=== PATIENT | female | born 1965 | race Caucasian/White ===

== ENCOUNTER 2016-09-18 15:53 | Inpatient (IN) ==
[2016-09-18] MEDS ORDERED: predniSONE 20 MG TABLET PO ONE (16:11)
[2016-09-18] MEDS ORDERED: Ipratropium/Albuterol Neb 3 ML IH ONE (16:12)
[2016-09-18] MEDS ORDERED: Aspirin 325 MG TABLET PO ONE (16:24)
[2016-09-18 16:45] LABS: Basophils # 0.1 K/mcL (0.0-0.2); Basophils % 0.7 %; Eosinophils # 0.9 K/mcL (0.0-0.6); Eosinophils % 9.1 %; Hematocrit 31.3 % (35.3-44.9); Immature Granulocytes % 4.3 % (0-4); Lymphocytes # 1.4 K/mcL (0.6-4.6); Lymphocytes % 14.7 %; Mean Corpuscular HGB Conc 28.8 g/dL (31.6-35.5); Mean Corpuscular Hemoglobin 20.8 pg (28.0-33.3); Mean Corpuscular Volume 72.3 fL (83.0-100.0); Mean Platelet Volume 9.4 fL (9.4-12.4); Monocytes # 0.5 K/mcL (0.0-1.3); Monocytes % 4.9 %; Nucleated Red Blood Cells 1.4 /100 WBC (0); Platelet Count 399 K/mcL (140-400); Prothrombin Time 10.5 Seconds (9.4-12.1); Red Blood Count 4.33 M/mcL (3.82-4.97); Red Cell Distribution Width 18.1 % (11.5-14.5); Segmented Neutrophils % 66.3 %
[2016-09-18 16:48] LABS: Activated Partial Thrombo Time 28.5 Seconds (26.0-36.0)
[2016-09-18 16:51] LABS: BUN/Creatinine Ratio 19 (6-26); Blood Urea Nitrogen 13 mg/dL (7-20); Carbon Dioxide 28 mEq/L (19-29); Chloride 100 mEq/L (98-109); Glucose 101 mg/dL (70-99); Osmolality,Calculated 292 (280-300); Potassium 3.8 mEq/L (3.5-4.5); Sodium 141 mEq/L (136-145); eGFR For African Americans > 60 (> 60); eGFR For Non-African Americans > 60 (> 60)
[2016-09-18 17:03] LABS: Neutrophils # 6.4 K/mcL (1.6-8.9)
[2016-09-18] MEDS ORDERED: 0.9 % Sodium Chloride 1,000 ML IVC ONE (17:36)
[2016-09-18 17:43] LABS: Anisocytosis 1+ (Not Present); Hypochromasia Present (Not Present); Platelet Estimate Normal (Normal)
--- NOTE | 2016-09-18 17:50 | Emergency Department Note ---
Disposition Clinical Impression: Chest tightness Dyspnea Qualifiers: Dyspnea type: unspecified Qualified Code(s): R06.00 - Dyspnea, unspecified Disposition: Still a Patient Condition: Fair Referrals: Eduarda Abbasi MD [Primary Care Provider] - Forms: ED Satisfaction Letter Time of Disposition: 19:14 SOB HPI - General Chief Complaint: ED Chest Pain Stated Complaint: High BP, YE, chest tightness Time Seen by Provider: 09/18/16 16:02 Source: patient Mode of arrival: ambulatory Limitations: no limitations Nursing Notes Reviewed: Yes Vital Signs Reviewed: Yes - History of Present Illness Patient is a 51-year-old female with past medical history of PE, hypertension, fibromyalgia. She presents today due to shortness of breath. She says that she has having shortness of breath with similar chest tightness, no radiation, no sweating, no fevers, nausea, vomiting, abdominal pain, diarrhea. She reports that she had a previous PE, she was told that it had resolved when she had a CTA in July. However, she is now having shortness of breath that is worsened with exertion. Not currently on any blood thinners. - Related Data Home Medications Medication Instructions Recorded Confirmed Azelastine 1% Nasal Stacy [Astelin] 2 puff NS QPM 03/21/15 03/24/16 Famotidine [Pepcid] 40 mg PO QAM 03/21/15 03/24/16 Gabapentin [Neurontin] 1,600 mg PO HS 03/21/15 03/24/16 Omeprazole [PriLOSEC] 40 mg PO QAM 03/21/15 03/24/16 Topiramate [Topamax] 150 mg PO BID 03/21/15 03/24/16 Fluticasone Propionate Nasal 2 spray NS HS 06/20/15 03/24/16 [Flonase] Celecoxib [Celebrex] 400 mg PO HS 01/30/16 03/24/16 Cetirizine HCl [Zyrtec] 10 mg PO HS 01/30/16 03/24/16 Diazepam [Valium] 5 mg PO TID 01/30/16 03/24/16 EPINEPHrine [Epipen] 0.3 mg IJ ONCE PRN 01/30/16 03/24/16 Montelukast [Singulair] 10 mg PO HS 01/30/16 03/24/16 Venlafaxine HCl [Venlafaxine HCl 225 mg PO HS 01/30/16 03/24/16 ER] Gabapentin [Gabapentin] 800 mg PO QAM 03/24/16 03/24/16 Metoclopramide HCl 5 mg PO HS 03/24/16 03/24/16 Oxcarbazepine 1,200 mg PO HS 03/24/16 03/24/16 Oxcarbazepine 600 mg PO QAM 03/24/16 03/24/16 OxyCODONE/APAP 5/325 [Percocet 1 each PO Q8HR PRN 03/24/16 03/24/16 5/325 MG] Quetiapine Fumarate [SEROquel] 100 mg PO BID 03/24/16 03/24/16 Quetiapine Fumarate [Seroquel] 200 mg PO HS 03/24/16 03/24/16 Previous Rx's Medication Instructions Recorded Clindamycin [Cleocin] 150 mg PO Q6HR #8 capsule 03/23/16 OxyCODONE/APAP 7.5/325 [Percocet 1 each PO Q8HR PRN #30 tablet 03/24/16 7.5/325 MG] HYDROcodone/Acet 5/325 mg [[place] 1 tab PO Q6H PRN #5 tab 08/23/16 5-325 mg] Allergies Allergy/AdvReac Type Severity Reaction Status Date / Time adhesive tape Allergy Blister Verified 03/21/15 13:05 latex Allergy Blister Verified 03/21/15 13:05 vancomycin Allergy Itching Verified 06/20/15 15:47 Constitutional: Denies: fever Cardiovascular: Reports: chest pain, dyspnea on exertion. Denies: palpitations Respiratory: Reports: dyspnea. Denies: cough Gastrointestinal: Denies: abdominal pain, nausea, vomiting, diarrhea Genitourinary: Denies: urgency, dysuria Musculoskeletal: Denies: back pain Integumentary: Denies: rash Past Medical History - Past Medical History Attestation: Yes The following information was validated with the patient. 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 - Social History Smoking Status: Never smoker Smokeless Tobacco Status: No Alcohol use: Reports: none Drug use: Reports: none Physical Exam - General Limitations: no limitations General appearance: alert, anxious - Head Head exam: atraumatic, normocephalic, normal inspection - Eye Eye exam: Present: normal appearance, PERRL, EOMI - ENT ENT exam: normal exam, normal oropharynx, mucous membranes moist - Neck Neck exam: Present: normal inspection, full ROM, trachea midline - Chest Chest inspection: Present: normal inspection, symmetric chest wall rise - Respiratory Respiratory exam: Present: wheezes (Mild to moderate wheeze in bilateral LL) - Cardiovascular Cardiovascular exam: Present: regular rate, normal rhythm, normal heart sounds - Abdominal Exam Abdominal exam: Present: soft, Non-Tender. Absent: tenderness, distention, guarding, rebound, rigidity - Extremities Exam Extremities exam: Present: normal inspection, full ROM. Absent: tenderness, pedal edema - Neurological Exam Neurological exam: Present: alert, oriented X3 - Psychiatric Psychiatric exam: Present: normal affect, normal mood - Skin Skin exam: Present: warm, dry, intact, normal color Course Course Narrative: Patient was not tachycardic, oxygen saturation was within normal limits on room air. Physical exam showed bilateral lower lobe wheeze. Patient was given DuoNeb, penicillin, aspirin. EKG was obtained which showed normal sinus rhythm with no acute ST changes. D-dimer was obtained and was elevated. Patient also had an elevated troponin at 0.05. Will obtain CTA of the chest to assess for PE. CXR showed mild CHF with small right pleural effusion. WIll sign out to night team for further care and dispo, pending CTA of chest. Signed out to Dr. Bay and Dr. Ramos. Recommend likely admission even if CTA negative due to new pleural effusion on CXR and possible new onset CHF. Chest X-Ray 09/18/16 16:11 IMPRESSION: Mild CHF with a question of a small right pleural effusion. D/ / Sebastián Langston MD / Sebastián Langston MD Interpreting Provider: Sebastián Langston MD Vital Signs Temperature 98.7 F 09/18/16 16:03 Pulse Rate 83 09/18/16 16:03 Respiratory Rate 20 09/18/16 16:03 Blood Pressure 171/110 09/18/16 16:03 O2 Sat by Pulse Oximetry 98 09/18/16 16:03 Temperature 98.7 F 09/18/16 16:03 Pulse Rate 85 09/18/16 18:58 Respiratory Rate 24 09/18/16 18:58 Blood Pressure 147/75 09/18/16 18:58 O2 Sat by Pulse Oximetry 94 09/18/16 19:05 Oxygen Delivery Oxygen Delivery Room Air Shortness of Breath/Dyspnea - [facility] Narrative Medical decision making narrative: Patient was not tachycardic, oxygen saturation was within normal limits on room air. Physical exam showed bilateral lower lobe wheeze. Patient was given DuoNeb, penicillin, aspirin. EKG was obtained which showed normal sinus rhythm with no acute ST changes. D-dimer was obtained and was elevated. Patient also had an elevated troponin at 0.05. Will obtain CTA of the chest to assess for PE. CXR showed mild CHF with small right pleural effusion. WIll sign out to night team for further care and dispo, pending CTA of chest. Signed out to Dr. Bay and Dr. Ramos. Recommend likely admission even if CTA negative due to new pleural effusion on CXR and possible new onset CHF. - Medical Records Medical records reviewed: Yes I reviewed the patient's medical records. - Lab Data Lab results reviewed: Yes I reviewed the patient's lab results. Result diagrams: 09/18/16 16:28 09/18/16 16:28 Lab Results 09/18/16 09/18/16 09/18/16 Range/Units 16:28 16:28 16:28 WBC 9.6 (4.3-11.1) K/mcL RBC 4.33 (3.82-4.97) M/mcL Hgb 9.0 L (11.5-15.4) g/dL Hct 31.3 L (35.3-44.9) % MCV 72.3 L (83.0-100.0) fL MCH 20.8 L (28.0-33.3) pg MCHC 28.8 L (31.6-35.5) g/dL RDW 18.1 H (11.5-14.5) % Plt Count 399 (140-400) K/mcL MPV 9.4 (9.4-12.4) fL Immature Gran % 4.3 H (0-4) % Seg Neutrophils % 66.3 % Lymphocytes % 14.7 % Monocytes % 4.9 % Eosinophils % 9.1 % Basophils % 0.7 % Neutrophils # 6.4 (1.6-8.9) K/mcL Lymphocytes # 1.4 (0.6-4.6) K/mcL Monocytes # 0.5 (0.0-1.3) K/mcL Eosinophils # 0.9 H (0.0-0.6) K/mcL Basophils # 0.1 (0.0-0.2) K/mcL Nucleated RBCs/100 WBC 1.4 H (0) /100 WBC Platelet Estimate Normal (Normal) Hypochromasia Present A (Not Present) Anisocytosis 1+ A (Not Present) PT 10.5 (9.4-12.1) Seconds INR 1.0 APTT 28.5 (26.0-36.0) Seconds D-Dimer 2365 H (0-500) ng/mLFEU Sodium 141 (136-145) mEq/L Potassium 3.8 (3.5-4.5) mEq/L Chloride 100 (98-109) mEq/L Carbon Dioxide 28 (19-29) mEq/L BUN 13 (7-20) mg/dL Creatinine 0.68 (0.57-1.11) mg/dL Est GFR ( Amer) > 60 (> 60) Est GFR (Non-Af Amer) > 60 (> 60) BUN/Creatinine Ratio 19 (6-26) Glucose 101 H (70-99) mg/dL Calculated Osmolality 292 (280-300) Calcium 9.0 (8.6-10.8) mg/dL Troponin I (0-0.03) ng/mL 09/18/16 Range/Units 16:28 WBC (4.3-11.1) K/mcL RBC (3.82-4.97) M/mcL Hgb (11.5-15.4) g/dL Hct (35.3-44.9) % MCV (83.0-100.0) fL MCH (28.0-33.3) pg MCHC (31.6-35.5) g/dL RDW (11.5-14.5) % Plt Count (140-400) K/mcL MPV (9.4-12.4) fL Immature Gran % (0-4) % Seg Neutrophils % % Lymphocytes % % Monocytes % % Eosinophils % % Basophils % % Neutrophils # (1.6-8.9) K/mcL Lymphocytes # (0.6-4.6) K/mcL Monocytes # (0.0-1.3) K/mcL Eosinophils # (0.0-0.6) K/mcL Basophils # (0.0-0.2) K/mcL Nucleated RBCs/100 WBC (0) /100 WBC Platelet Estimate (Normal) Hypochromasia (Not Present) Anisocytosis (Not Present) PT (9.4-12.1) Seconds INR APTT (26.0-36.0) Seconds D-Dimer (0-500) ng/mLFEU Sodium (136-145) mEq/L Potassium (3.5-4.5) mEq/L Chloride (98-109) mEq/L Carbon Dioxide (19-29) mEq/L BUN (7-20) mg/dL Creatinine (0.57-1.11) mg/dL Est GFR ( Amer) (> 60) Est GFR (Non-Af Amer) (> 60) BUN/Creatinine Ratio (6-26) Glucose (70-99) mg/dL Calculated Osmolality (280-300) Calcium (8.6-10.8) mg/dL Troponin I 0.05 H* (0-0.03) ng/mL - Radiology Data Radiology results reviewed: Yes I reviewed the patient's radiology results. Chest X-Ray 09/18/16 16:11 IMPRESSION: Mild CHF with a question of a small right pleural effusion. D/ / Sebastián Langston MD / Sebastián Langston MD Interpreting Provider: Sebastián Langston MD Chest CTA 09/18/16 17:36 IMPRESSION: 1. No evidence of pulmonary embolic disease. 2. Bilateral pulmonary infiltrates most consistent with a multifocal pneumonia. Trace right pleural effusion. New small mediastinal and right hilar nodes, likely reactive. 3. Partial visualization of the gallbladder which demonstrates diffuse wall thickening. Ultrasound correlation recommended. D/ / 09/18/2016 19:00:53 Aleks Perez MD / kay Interpreting Provider: Aleks Perez MD - EKG Data EKG attestation: Yes I reviewed and interpreted this EKG. EKG results narrative: 09/18/2016 at 15:57. NSR with no acute ST changes. Rate 81. DC 157. QRS 107. QTC 416. Left axis deviation. Attestation Statement - Attestation Attestation: I examined this patient and my medical decision-making was reviewed with the APPLICATION SECURITY SPECIALIST/PA/Advanced Practice Nurse/Resident Physician. I agree with the documented findings, disposition and treatment plan as described except to the extent set forth below. Patient emergency department with chief complaint of chest tightness and shortness of breath. Patient states she has a negative tissue disorder. She has had a couple episodes today where she had pain from her head to her toes. She states she comes up in the position when she gets up. She also has some shortness of breath and chest tightness. On exam she is in no distress. Heart is regular rate and rhythm. Lungs clear. Plan. Patient elevated troponin. CHF or chest x-ray. CT is pending and she has a history of PE.
[2016-09-18] MEDS: Nitroglycerin 0.4 MG TAB.SUBL SL PRN ×2 (18:53→18:58)
[2016-09-18] MEDS ORDERED: *HR* Morphine 2 MG/ML SYRINGE IVP ONE (19:07)
--- NOTE | 2016-09-18 19:09 | Emergency Department Note ---
Disposition Clinical Impression: Chest tightness Dyspnea Qualifiers: Dyspnea type: unspecified Qualified Code(s): R06.00 - Dyspnea, unspecified Disposition: Admitted As Inpatient Condition: Undetermined Time of Disposition: 20:37 Chest Pain HPI - General Chief Complaint: ED Chest Pain Stated Complaint: High BP, YE, chest tightness Time Seen by Provider: 09/18/16 16:02 Source: patient Mode of arrival: ambulatory Limitations: no limitations Vital Signs Reviewed: Yes Nursing Notes Reviewed: Yes - History of Present Illness HPI Narrative: Patient care assumed from day team. 51-year-old female with history of unknown immune disorder according to her, she arrives to [facility] emergency department complaining of chest tightness on the left side and epigastric region as well as dyspnea. Patient states it started 1-2 days ago and is progressively worsened. The patient has an O2 saturation of 91% on room air. Chest x-ray does demonstrate bilateral lower lobe atelectasis. The patient's CTA was negative for pulmonary embolus. The patient also had a gallbladder wall thickening noted on CTA of her chest. There was recommendation of right upper quadrant ultrasound which will be performed. The patient does have an elevated troponin. Pt complaint: chest pain Onset (ago): day(s) (3-4) Duration: intermittent Pain Location: epigastric Severity: moderate Severity scale (1-10): 9 Pain Radiation: none Improves with: nothing Worsens with: nothing Associated symptoms: Reports: nausea, dyspnea Treatments prior to arrival chest pain: none - Related Data On Oral Contraceptives: No Home Medications Medication Instructions Recorded Confirmed Famotidine [Pepcid] 40 mg PO QAM 03/21/15 09/18/16 Omeprazole [PriLOSEC] 40 mg PO QAM 03/21/15 09/18/16 Celecoxib [Celebrex] 200 mg PO BID 01/30/16 09/18/16 EPINEPHrine [Epipen] 0.3 mg IJ ONCE PRN 01/30/16 03/24/16 Montelukast [Singulair] 10 mg PO HS 01/30/16 09/18/16 Venlafaxine HCl [Venlafaxine HCl 225 mg PO HS 01/30/16 09/18/16 ER] Metoclopramide HCl 5 mg PO HS 03/24/16 09/18/16 Oxcarbazepine 1,200 mg PO HS 03/24/16 09/18/16 Oxcarbazepine 600 mg PO QAM 03/24/16 09/18/16 Quetiapine Fumarate [Seroquel] 200 mg PO HS 03/24/16 09/18/16 Apixaban [Eliquis] 5 mg PO BID 09/18/16 09/18/16 Diazepam [Valium] 10 mg PO TID PRN 09/18/16 09/18/16 Ergocalciferol (VITAMIN D2) 50,000 unit PO QMONTH 09/18/16 09/18/16 [Vitamin D2] Nortriptyline [Pamelor] 25 mg PO HS 09/18/16 09/18/16 Allergies Allergy/AdvReac Type Severity Reaction Status Date / Time adhesive tape Allergy Blister Verified 03/21/15 13:05 latex Allergy Blister Verified 03/21/15 13:05 vancomycin Allergy Itching Verified 06/20/15 15:47 Constitutional: Denies: fever Cardiovascular: Reports: chest pain, dyspnea on exertion. Denies: palpitations Respiratory: Reports: dyspnea. 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 - Social History Smoking Status: Never smoker Alcohol use: Reports: none Drug use: Reports: none Physical Exam Physical Exam: General: Patient alert, in mild respiratory acute distress, not lethargic HEENT: Head normal inspection, atraumatic, PERRLA, oropharynx grossly intact and normal, trachea midline, no JVD Chest: Nontraumatic, nontender, normal chest rise CV: RRR with no murmurs, rubs, gallops Respiratory: Coarse sounds bilaterally with noted rales in bilateral lower lobes Abdomen: Normal inspection, Normal bowel sounds 4 quadrants, nontender to palpation : Patient deferred Extremities: Normal inspection, full range of motion, appropriate pulses, capillary refill under 2 seconds Neurological: Patient alert and oriented 3, cranial nerves II through XII grossly intact, GCS 15 Skin: Warm, intact, no rashes noted - General Limitations: no limitations General appearance: alert, anxious Course Vital Signs Temperature 98.7 F 09/18/16 16:03 Pulse Rate 83 09/18/16 16:03 Respiratory Rate 20 09/18/16 16:03 Blood Pressure 171/110 09/18/16 16:03 O2 Sat by Pulse Oximetry 98 09/18/16 16:03 Temperature 98.2 F 09/19/16 03:36 Pulse Rate 87 09/19/16 03:36 Respiratory Rate 16 09/19/16 03:36 Blood Pressure 139/83 09/19/16 03:36 O2 Sat by Pulse Oximetry 96 09/19/16 03:36 Oxygen Delivery Oxygen Delivery Nasal Cannula Chest Pain - MDM Narrative Medical decision making narrative: Patient accepted by Dr. Saul. - Medical Records Medical records reviewed: Yes I reviewed the patient's medical records. - Lab Data Lab results reviewed: Yes I reviewed the patient's lab results. Result diagrams: 09/18/16 16:28 09/18/16 16:28 Lab Results 09/18/16 09/18/16 09/18/16 Range/Units 16:28 16:28 16:28 WBC 9.6 (4.3-11.1) K/mcL RBC 4.33 (3.82-4.97) M/mcL Hgb 9.0 L (11.5-15.4) g/dL Hct 31.3 L (35.3-44.9) % MCV 72.3 L (83.0-100.0) fL MCH 20.8 L (28.0-33.3) pg MCHC 28.8 L (31.6-35.5) g/dL RDW 18.1 H (11.5-14.5) % Plt Count 399 (140-400) K/mcL MPV 9.4 (9.4-12.4) fL Immature Gran % 4.3 H (0-4) % Seg Neutrophils % 66.3 % Lymphocytes % 14.7 % Monocytes % 4.9 % Eosinophils % 9.1 % Basophils % 0.7 % Neutrophils # 6.4 (1.6-8.9) K/mcL Lymphocytes # 1.4 (0.6-4.6) K/mcL Monocytes # 0.5 (0.0-1.3) K/mcL Eosinophils # 0.9 H (0.0-0.6) K/mcL Basophils # 0.1 (0.0-0.2) K/mcL Nucleated RBCs/100 WBC 1.4 H (0) /100 WBC Platelet Estimate Normal (Normal) Hypochromasia Present A (Not Present) Anisocytosis 1+ A (Not Present) PT 10.5 (9.4-12.1) Seconds INR 1.0 APTT 28.5 (26.0-36.0) Seconds D-Dimer 2365 H (0-500) ng/mLFEU Sodium 141 (136-145) mEq/L Potassium 3.8 (3.5-4.5) mEq/L Chloride 100 (98-109) mEq/L Carbon Dioxide 28 (19-29) mEq/L BUN 13 (7-20) mg/dL Creatinine 0.68 (0.57-1.11) mg/dL Est GFR ( Amer) > 60 (> 60) Est GFR (Non-Af Amer) > 60 (> 60) BUN/Creatinine Ratio 19 (6-26) Glucose 101 H (70-99) mg/dL Calculated Osmolality 292 (280-300) Calcium 9.0 (8.6-10.8) mg/dL Total Bilirubin 0.5 (0.2-1.2) mg/dL Direct Bilirubin 0.2 (0.0-0.5) mg/dL Indirect Bilirubin 0.3 (0.0-1.2) mg/dL AST 32 (5-34) Units/L ALT 32 (0-55) Units/L Alkaline Phosphatase 100 (38-126) Units/L Troponin I (0-0.03) ng/mL B-Natriuretic Peptide (0-100) pg/mL Serum Total Protein 7.4 (6.0-8.3) g/dL Albumin 3.3 L (3.5-5.0) g/dL Globulin 4.1 H (2.4-3.5) g/dL Albumin/Globulin Ratio 0.8 L (1.1-2.2) 09/18/16 09/18/16 Range/Units 16:28 16:28 WBC (4.3-11.1) K/mcL RBC (3.82-4.97) M/mcL Hgb (11.5-15.4) g/dL Hct (35.3-44.9) % MCV (83.0-100.0) fL MCH (28.0-33.3) pg MCHC (31.6-35.5) g/dL RDW (11.5-14.5) % Plt Count (140-400) K/mcL MPV (9.4-12.4) fL Immature Gran % (0-4) % Seg Neutrophils % % Lymphocytes % % Monocytes % % Eosinophils % % Basophils % % Neutrophils # (1.6-8.9) K/mcL Lymphocytes # (0.6-4.6) K/mcL Monocytes # (0.0-1.3) K/mcL Eosinophils # (0.0-0.6) K/mcL Basophils # (0.0-0.2) K/mcL Nucleated RBCs/100 WBC (0) /100 WBC Platelet Estimate (Normal) Hypochromasia (Not Present) Anisocytosis (Not Present) PT (9.4-12.1) Seconds INR APTT (26.0-36.0) Seconds D-Dimer (0-500) ng/mLFEU Sodium (136-145) mEq/L Potassium (3.5-4.5) mEq/L Chloride (98-109) mEq/L Carbon Dioxide (19-29) mEq/L BUN (7-20) mg/dL Creatinine (0.57-1.11) mg/dL Est GFR ( Amer) (> 60) Est GFR (Non-Af Amer) (> 60) BUN/Creatinine Ratio (6-26) Glucose (70-99) mg/dL Calculated Osmolality (280-300) Calcium (8.6-10.8) mg/dL Total Bilirubin (0.2-1.2) mg/dL Direct Bilirubin (0.0-0.5) mg/dL Indirect Bilirubin (0.0-1.2) mg/dL AST (5-34) Units/L ALT (0-55) Units/L Alkaline Phosphatase (38-126) Units/L Troponin I 0.05 H* (0-0.03) ng/mL B-Natriuretic Peptide 74 (0-100) pg/mL Serum Total Protein (6.0-8.3) g/dL Albumin (3.5-5.0) g/dL Globulin (2.4-3.5) g/dL Albumin/Globulin Ratio (1.1-2.2) - Radiology Data Radiology results reviewed: Yes I reviewed the patient's radiology results. Attestation Statement - Attestation Attestation: Dr Ramos note: Pt seen in conjunction w/ resident Dr Bay; Please see his charting for complete documentation; I spent face to face time w/the pt and agree w/ the pt' s treatment and disposition; Ct scan results reviewed, pneumonia noted; no tachypnea/respiratory distress on exam;
[2016-09-18 19:32] LABS: Alanine Aminotransferase 32 Units/L (0-55); Albumin 3.3 g/dL (3.5-5.0); Albumin/Globulin Ratio 0.8 (1.1-2.2); Alkaline Phosphatase 100 Units/L (38-126); Aspartate Amino Transferase 32 Units/L (5-34); Bilirubin,Direct 0.2 mg/dL (0.0-0.5); Bilirubin,Indirect 0.3 mg/dL (0.0-1.2); Bilirubin,Total 0.5 mg/dL (0.2-1.2); Globulin 4.1 g/dL (2.4-3.5); Total Protein 7.4 g/dL (6.0-8.3)
[2016-09-18] MEDS ORDERED: levoFLOXacin 500 MG TABLET PO ONE (20:30)
--- NOTE | 2016-09-18 22:09 | Internal Med History&Physical ---
Date of Encounter: 09/18/16 Time of Encounter: 22:02 Assessment and Plan (1) Pneumonia Current visit: Yes Status: Acute multifocal pneumonia community acquired started on levaquin Qualifiers: Pneumonia type: due to unspecified organism Laterality: bilateral Lung location: unspecified part of lung Qualified Code(s): J18.9 - Pneumonia, unspecified organism (2) Elevated troponin Current visit: Yes Status: Acute chest pain with elevated troponin trend troponin echo in am cardiology consult (3) HTN (hypertension) Current visit: Yes Status: Chronic resume home meds Qualifiers: Hypertension type: essential hypertension Qualified Code(s): I10 - Essential (primary) hypertension (4) Chest tightness Current visit: Yes Status: Acute atypical constant but worse with exertion (5) Anemia Current visit: No Status: Chronic chronic Qualifiers: Anemia type: unspecified type Qualified Code(s): D64.9 - Anemia, unspecified (6) Depression Current visit: No Status: Chronic chronic Qualifiers: Depression Type: major depressive disorder Major depression recurrence: recurrent Active/Remission status: currently active Major depression episode severity: mild Qualified Code(s): F33.0 - Major depressive disorder, recurrent, mild (7) Obesity Current visit: Yes Status: Chronic chronic Qualifiers: Obesity type: due to excess calories Obesity severity: non-morbid Qualified Code(s): E66.09 - Other obesity due to excess calories Internal Medicine - H&P: HPI Chief complaint: sob and cough Admitted From: Emergency Dept Plans for Post Hospital Care: Home History of present illness: Ms. Mooney is a 51 year old female Patient with history of obesity, fibromyalgia, pulmonary embolism June this year, hypertension, bipolar disorder and history of prosthetic joint infection patient presented to the emergency room with 4 days of shortness of breath with exertion, cough which is nonproductive Also some chest tightness . chest tightness is constant but worse with exertion and exertional sob as well denies any fever or chills . has history of pulmonary embolism, d-dimer high in ER CT of the chest was done which showed no pulmonary embolism but has multifocal pneumonia troponin is elevated at 0.05 patient is admitted for further treatment. Past Med Surg Social Fam HX - Past Medical History Medical history: arthritis, fibromyalgia, GERD, hypertension, pulmonary embolus , other Psychiatric history: anxiety, bipolar, depression - Past Surgical History Surgical History: appendectomy, , hysterectomy, knee replacement, orthopedic, other, sinus surgery - Social History Smoking Status: Never smoker Smokeless Tobacco Status: No Alcohol use: none Drug use: none - Family History Mother Living Status: Still Living Hx Family Cardiac Disorders: Yes Hx Family Cancer: Yes (Right breast, mastectomy) Father Hx Family Endocrine Disorder: Yes (Diabetes) Internal Medicine - H&P: Meds Famotidine [Pepcid] 40 mg PO QAM 03/21/15 [History] Omeprazole [PriLOSEC] 40 mg PO QAM 03/21/15 [History] Celecoxib [Celebrex] 200 mg PO BID 01/30/16 [History] EPINEPHrine [Epipen] 0.3 mg IJ ONCE PRN 01/30/16 [History] Montelukast [Singulair] 10 mg PO HS 01/30/16 [History] Venlafaxine HCl [Venlafaxine HCl ER] 225 mg PO HS 01/30/16 [History] Metoclopramide HCl 5 mg PO HS 03/24/16 [History] Oxcarbazepine 1,200 mg PO HS 03/24/16 [History] Oxcarbazepine 600 mg PO QAM 03/24/16 [History] Quetiapine Fumarate [Seroquel] 200 mg PO HS 03/24/16 [History] Apixaban [Eliquis] 5 mg PO BID 09/18/16 [History] Diazepam [Valium] 10 mg PO TID PRN 09/18/16 [History] Ergocalciferol (VITAMIN D2) [Vitamin D2] 50,000 unit PO QMONTH 09/18/16 [History ] Nortriptyline [Pamelor] 25 mg PO HS 09/18/16 [History] Allergies adhesive tape Allergy (Verified 03/21/15 13:05) Blister latex Allergy (Verified 03/21/15 13:05) Blister vancomycin Allergy (Verified 06/20/15 15:47) Itching Patient became flushed, itching all over, hot All Systems PM: A 10-system review of systems was performed and is negative for pertinent findings except as documented above in the HPI. - Constitutional Constitutional: no chills, no fever(s), no night sweats - EENT Eyes: no change in vision, no discharge, no pain, no photophobia Ears: no ear discharge, no ear pain, no tinnitus Nose, mouth and throat: no dysphagia, no nasal discharge, no neck pain, no sore throat - Cardiovascular Cardiovascular ROS IM: chest pain, dyspnea, dyspnea on exertion - Respiratory Respiratory: cough, dyspnea on exertion, chest congestion - Gastrointestinal Gastrointestinal: no abdominal pain, no diarrhea, no hematemesis, no hematochezia, no melena, no nausea, no vomiting - Genitourinary Genitourinary: no change in urinary stream, no dysuria, no flank pain, no hematuria - Musculoskeletal Musculoskeletal ROS IM: no numbness, no tingling - Integumentary Integumentary IM: no rash, no unusual bruising - Neurological Neurological ROS: no confusion, no convulsions, no focal weakness, no numbness, no tingling, no tremor(s) - Hematologic/Lymphatic Hematologic/Lymphatic: no easy bruising - Constitutional Vitals: Temp Pulse Resp BP Pulse Ox 98.7 F 81 20 152/89 96 09/18/16 16:03 09/18/16 20:35 09/18/16 20:35 09/18/16 20:35 09/18/16 20:35 General appearance: Present: A&O X 3 - Eye Eye exam: Present: PERRL, conjuntiva pink, sclera anicteric Pupils: Present: PERRL - Neck Neck exam general surgery: Present: supple, trachea midline. Absent: lymphadenopathy - Respiratory Respiratory exam: Present: decreased breath sounds, rhonchi - Cardiovascular Cardiovascular exam: Present: RRR, +S1, +S2. Absent: diastolic murmur, gallop, rubs, systolic murmur - GI/Abdominal GI/Abdominal exam: Present: normal bowel sounds, soft, no peritoneal signs. Absent: distended, tenderness - Extremities Exam Extremities exam: Present: warm, radial pulses palpable and symetrical. Absent : calf tenderness, cyanotic, pedal edema - Neurological Exam Neurological exam: Present: CN II-XII intact, oriented X3, no focal deficits. Absent: pronater drift, facial droop, speech deficit Internal Med - H&P Results - Labs CBC & Chem 7: 09/18/16 16:28 09/18/16 16:28
[2016-09-18] MEDS ORDERED: Naloxone 0.4 MG/ML INJ IVP PRN (22:16)
[2016-09-19] MEDS: Gabapentin 400 MG CAPSULE PO SCH ×4 (00:25→21:54)
[2016-09-19] MEDS: VENLAFAXINE PO SCH ×2 (00:26→21:58)
[2016-09-19] MEDS: clonazePAM 1 MG TABLET PO SCH ×3 (00:27→22:00)
[2016-09-19] MEDS: Famotidine 20 MG TABLET PO SCH ×3 (00:27→21:54)
[2016-09-19] MEDS: Celecoxib 200 MG CAPSULE PO SCH ×3 (00:28→22:01)
[2016-09-19] MEDS: OXcarbazepine 150 MG TABLET PO SCH ×3 (00:30→21:56)
[2016-09-19] MEDS: Loratadine 10 MG TABLET PO SCH ×2 (00:32→21:55)
[2016-09-19] MEDS ORDERED: Ipratropium/Albuterol Neb 3 ML IH ONE (01:36)
[2016-09-19 05:11] LABS: Bilirubin,Urine Negative (Negative); Blood,Urine Trace (Negative); Color,Urine Yellow (Yellow); Glucose,Urine (UA) Normal (Normal); Ketones,Urine Negative (Negative); Leukocyte Esterase,Urine Negative (Negative); Nitrite,Urine Negative (Negative); PH,Urine 5.5 pH Units (5.0-8.0); Protein,Urine 100 mg/dL (Neg-Trace); Specific Gravity,Urine > 1.030 (1.010-1.025); Urobilinogen,Urine Normal (Normal)
[2016-09-19 05:13] LABS: Clarity,Urine Turbid (Clear)
[2016-09-19 05:15] LABS: Amorphous Sediment,Urine Many (Few); Bacteria,Urine Moderate per hpf (None-Few); WBC,Urine 15-30 per hpf (0-3)
[2016-09-19 05:27] LABS: Eosinophils % 0.4 %
[2016-09-19 05:29] LABS: Basophils % 0.3 %; Eosinophils # 0.1 K/mcL (0.0-0.6); Hematocrit 25.4 % (35.3-44.9); Hemoglobin 7.3 g/dL (11.5-15.4); Immature Granulocytes % 3.5 % (0-4); Lymphocytes # 1.3 K/mcL (0.6-4.6); Lymphocytes % 11.7 %; Mean Corpuscular HGB Conc 28.7 g/dL (31.6-35.5); Mean Corpuscular Hemoglobin 20.8 pg (28.0-33.3); Mean Corpuscular Volume 72.4 fL (83.0-100.0); Mean Platelet Volume 9.5 fL (9.4-12.4); Monocytes # 0.9 K/mcL (0.0-1.3); Monocytes % 7.5 %; Neutrophils # 8.7 K/mcL (1.6-8.9); Platelet Count 350 K/mcL (140-400); Red Blood Count 3.51 M/mcL (3.82-4.97); Red Cell Distribution Width 18.3 % (11.5-14.5); Segmented Neutrophils % 76.6 %
[2016-09-19 05:55] LABS: Alanine Aminotransferase 24 Units/L (0-55); Albumin 2.7 g/dL (3.5-5.0); Albumin/Globulin Ratio 0.7 (1.1-2.2); Alkaline Phosphatase 78 Units/L (38-126); Aspartate Amino Transferase 25 Units/L (5-34); BUN/Creatinine Ratio 22 (6-26); Bilirubin,Total 0.3 mg/dL (0.2-1.2); Blood Urea Nitrogen 14 mg/dL (7-20); Calcium 8.5 mg/dL (8.6-10.8); Carbon Dioxide 23 mEq/L (19-29); Chloride 105 mEq/L (98-109); Chol/HDL Ratio 5.2 (0-4.9); Cholesterol 162 mg/dL (< 200); Globulin 3.8 g/dL (2.4-3.5); Glucose 109 mg/dL (70-99); HDL Cholesterol 31 mg/dL (40-59); LDL Cholesterol,Calculated 106 mg/dL (0-99); Magnesium 1.9 mg/dL (1.6-2.6); Osmolality,Calculated 291 (280-300); Potassium 3.9 mEq/L (3.5-4.5); Sodium 140 mEq/L (136-145); Total Protein 6.5 g/dL (6.0-8.3); Triglycerides 126 mg/dL (< 150); eGFR For African Americans > 60 (> 60); eGFR For Non-African Americans > 60 (> 60)
[2016-09-19 06:32] LABS: Platelet Estimate Normal (Normal)
[2016-09-19 06:34] LABS: Anisocytosis 1+ (Not Present); Hypochromasia Present (Not Present); Microcytosis Present (Not Present)
[2016-09-19] MEDS: APIXABAN 5 MG TABLET PO SCH (08:25)
[2016-09-19] MEDS ORDERED: Celecoxib 200 MG CAPSULE PO SCH (09:00)
--- NOTE | 2016-09-19 12:57 | Internal Med Progress Note ---
Date of Encounter: 09/19/16 Time of Encounter: 12:55 - Assessment and plan (1) Anemia Current Visit: No Status: Chronic Assessment and plan: History of anemia of unclear etiology will obtain iron studies and stool occult to rule out GI bleed given current symptomatic anemia, will transfuse 2units PRBC will closely monitor H&H hold Eliquis at this time Qualifiers: Anemia type: unspecified type Qualified Code(s): D64.9 - Anemia, unspecified (2) Multifocal pneumonia Current Visit: Yes Status: Acute Assessment and plan: CTA chest consistent with B/L pulmonary infiltrates with a multifocal pneumonia Will continue Levofloxacin IV at this time Follow up blood cultures monitor temp, tylenol PRN fever (3) UTI (urinary tract infection) Current Visit: Yes Status: Acute Assessment and plan: Reports of dysuria, increased frequency Will treat for symptomatic UTI follow up urine cultures continue IV levofloxacin Qualifiers: Urinary tract infection type: site unspecified Hematuria presence: without hematuria Qualified Code(s): N39.0 - Urinary tract infection, site not specified (4) Dyspnea Current Visit: Yes Status: Acute Assessment and plan: Likely secondary to PNA and symptomatic anemia unlikely cardiac etiology will treat underlying infection and transfuse PRBC continue O2 supplementation as needed Qualifiers: Dyspnea type: unspecified Qualified Code(s): R06.00 - Dyspnea, unspecified (5) Elevated troponin Current Visit: Yes Status: Acute Assessment and plan: Likely demand ischemia repeat TNI within normal limits will obtain 2D echo no chest pain reported at this time. (6) HTN (hypertension) Current Visit: Yes Status: Chronic Assessment and plan: No documented history of HTN Will treat on as needed basis current BP: 152/88 will closely monitor Hydralazine 10mg IV q6h PRN SBP>160 Qualifiers: Hypertension type: essential hypertension Qualified Code(s): I10 - Essential (primary) hypertension (7) Depression Current Visit: No Status: Chronic Assessment and plan: continue home medications Qualifiers: Depression Type: major depressive disorder Major depression recurrence: recurrent Active/Remission status: currently active Major depression episode severity: mild Qualified Code(s): F33.0 - Major depressive disorder, recurrent, mild (8) History of pulmonary embolism Current Visit: Yes Status: Acute Assessment and plan: History of PE and on anticoagulation (Eliquis) CTA chest negative for PE at this time time Will hold Eliquis at this time due to anemia will obtain stool occult to rule out GI bleed (9) Obesity Current Visit: Yes Status: Chronic Qualifiers: Obesity type: due to excess calories Obesity severity: non-morbid Qualified Code(s): E66.09 - Other obesity due to excess calories (10) DVT prophylaxis Current Visit: Yes Status: Acute Assessment and plan: IPCD - Subjective Interval history: Patient seen and examined at bedside. Resting in bed and reports of worsening shortness of breath with fever and chills for the last few days. She states this is a new onset of shortness of breath. Denies any history of asthma, smoking, or CHF. At this time saturating well on nasal cannula. Denies any fevers or chills. Reports of chest congestion but no pain at this time. - Constitutional Vitals: Temp Pulse Resp BP Pulse Ox 97.6 F 82 16 170/89 99 09/19/16 11:42 09/19/16 11:42 09/19/16 11:42 09/19/16 11:42 09/19/16 11:42 General appearance: Present: A&O X 3, no acute distress, obese - Head Head exam: Present: atraumatic, normocephalic - Eye Eye exam: Present: normal appearance, conjuntiva pink, sclera anicteric - Respiratory Respiratory exam: Absent: respiratory distress, wheezes (coarse breath sounds on bilateral lower bases) - Cardiovascular Cardiovascular exam: Present: RRR, +S1, +S2. Absent: diastolic murmur, gallop, rubs, systolic murmur - GI/Abdominal GI/Abdominal exam: Present: normal bowel sounds, soft, no peritoneal signs. Absent: distended, tenderness - Extremities Exam Extremities exam: Present: warm, radial pulses palpable and symetrical. Absent : calf tenderness, cyanotic, pedal edema - Neurological Exam Neurological exam: Present: alert, oriented X3 - Psychiatric Psychiatric exam: Present: normal affect, normal mood Internal Medicine: Result - Labs CBC & Chem 7: 09/19/16 05:19 09/19/16 05:19 Labs: Short CBC 09/19/16 Range/Units 05:19 WBC 11.3 H (4.3-11.1) K/mcL Hgb 7.3 L D (11.5-15.4) g/dL Hct 25.4 L (35.3-44.9) % Plt Count 350 (140-400) K/mcL Neutrophils # 8.7 (1.6-8.9) K/mcL BMP 09/19/16 05:19 Sodium 140 Potassium 3.9 Chloride 105 Carbon Dioxide 23 BUN 14 Creatinine 0.65 Glucose 109 H Calcium 8.5 L Cardiac Enzymes 09/18/16 09/19/16 09/19/16 Range/Units 23:54 05:19 11:16 Troponin I 0.03 0.03 0.02 (0-0.03) ng/mL Liver Function 09/19/16 Range/Units 05:19 Total Bilirubin 0.3 (0.2-1.2) mg/dL AST 25 (5-34) Units/L ALT 24 (0-55) Units/L Alkaline Phosphatase 78 (38-126) Units/L Albumin 2.7 L (3.5-5.0) g/dL Urine 09/19/16 Range/Units 04:45 Urine Color Yellow (Yellow) Urine Clarity Turbid A (Clear) Urine pH 5.5 (5.0-8.0) pH Units Ur Specific Cylinder > 1.030 H (1.010-1.025) Urine Protein 100 H (Neg-Trace) mg/dL Urine Glucose (UA) Normal (Normal) mg/dL - ABG Interpretation ABG results: PT/INR, D-dimer PT 10.5 Seconds (9.4-12.1) 09/18/16 16:28 D-Dimer 2365 ng/mLFEU (0-500) H 09/18/16 16:28 Consult Discharge Plan - Plan Referrals: Eduarda Abbasi MD [Primary Care Provider] - 10/13/16 2:00 pm
[2016-09-19 13:46] LABS: % Iron Saturation 5 % (15-50); Iron 25 mcg/dL (50-170); Transferrin 332 mg/dL (180-382)
[2016-09-19 14:07] LABS: Ferritin 40 ng/ml (5-204)
[2016-09-19] MEDS ORDERED: 0.9 % Sodium Chloride 250 ML ONE (15:23)
[2016-09-19] MEDS: diazePAM 10 MG TABLET PO PRN (15:42)
--- NOTE | 2016-09-19 16:50 | Electrocardiograph Report ---
[address] [place] [address] Test Date: 2016-09-18 Pat Name: Minal Mooney Department: 104 Room: 3B Gender: F Video Conference Specialist: MARIO : 1965 Requested By: Armida Hoffman Order Number: [id number] Reading MD: Ana Ordonez Measurements Intervals [place] Rate: 81 P: 38 UT: 157 QRS: -34 QRSD: 107 T: 51 QT: 379 QTc: 416 Interpretive Statements SINUS RHYTHM MARKED LEFT AXIS DEVIATION POSSIBLE ANTERIOR MYOCARDIAL INFARCTION, OF INDETERMINATE AGE Electronically Signed On 09-19-2016 16:48:47 EDT by Ana Ordonez
--- NOTE | 2016-09-19 16:51 | Electrocardiograph Report ---
[place] [address] Test Date: 2016-09-18 Pat Name: Minal Mooney Department: 102 Room: 3B Gender: F Engineering Model Maker: [facility] : 1965 Requested By: Nitish Joyner Order Number: [id number] Reading MD: Ana Ordonez Measurements Intervals [place] Rate: 80 P: 23 NE: 150 QRS: -17 QRSD: 110 T: 5 QT: 399 QTc: 435 Interpretive Statements SINUS RHYTHM NONSPECIFIC T-WAVE ABNORMALITY Electronically Signed On 09-19-2016 16:49:29 EDT by Ana Ordonez
--- NOTE | 2016-09-19 16:53 | ECHO - Doppler Report ---
Echocardiogram Name: Minal Mooney Date of Study: 09/19/2016 Date: 1965 Ht: 63.0 in Medical Record#: [id number] Age: 51 Wt: 221.0 lb Gender: Female BSA: 2.02 Order #: [id number] Location: [facility] Room #: [id number] Reading Physician: Imani Brannon DO Stress Engineer: Terrell Grimm RDCS Ordering Physician: Keshawn Camarillo MD Primary Physician: Eduarda Abbasi MD Indications: Chest pain Impressions: LVEF 65%. Normal left ventricular size and systolic function. There is evidence of moderate diastolic dysfunction of the left ventricle. Normal right ventricular size and function. Mild tricuspid regurgitation. No pulmonary hypertension. Left Ventricular Wall Motion: Rest Echo Findings All wall segments showed normal motion. Findings: Study Quality * Technically adequate exam. ECG Findings * Normal sinus rhythm. Left Ventricle * LVEF 65%. * Normal LV chamber size, wall thickness and function. * Moderate left ventricular diastolic dysfunction. Aortic Valve * No aortic regurgitation. * Trileaflet aortic valve. * Normal aortic valve structure. * No aortic stenosis. Mitral Valve * Normal mitral valve structure. * No mitral stenosis. * Trace mitral regurgitation. Left Atrium * Normal left atrial size. Aorta * Normally sized aortic root. Tricuspid Valve * Normal tricuspid valve structure. * Mild tricuspid regurgitation. * Estimated RA pressure is 3 mmHg. * Estimated RVSP is 22 mmHg. * No pulmonary hypertension. Pulmonic Valve * Pulmonic valve is not well visualized. * No pulmonic stenosis. * No pulmonic regurgitation. Pulmonary Artery * Pulmonary artery not well visualized. Right Ventricle * Normal right ventricular structure and function. Right Atrium * Normal right atrial size. Interatrial Septum * No evidence of PFO by color Doppler. IVC * Normal IVC dimensions and inspiratory collapse. Pericardium * There is no pericardial effusion present. History Measurements: BP: 152/ 88 2D Normal Values RVIDd: 2.97 cm <2.7 cm IVSd: .92 cm 0.6 - 1.0 cm LVIDd: 4.89 cm 3.7 - 5.6 cm LVPWd: .96 cm 0.6 - 1.1 cm LVIDs: 3.15 cm 1.5 - 3.6 cm AO: 2.40 cm < 4.0 cm LA: 3.70 cm 2.0 - 4.0cm %FS: 35.60 cm >25 % LA volume: 37 Mitral Valve Peak E:1.21 m/sec Peak A:.77 m/sec E/A Ratio:1.6 Peak E' Lat Francisco:9.14 cm/s Peak E' Med [place]:7.62 cm/s E/E' Lat Ratio:13.2 E/E' Med Ratio:15.9 Tricuspid Valve TV Regurg Peak Grad: 19.00mmHg TV Regurg Peak [place]: 2.17m/sec Updated by Imani Brannon on 09/19/2016 4:46:28 PM electronically signed on 09/19/2016 4:47:08 PM with status of Final [employer] [place]: 1=Normal, 2=Hypokinesis, 3=Akinesis, 4=Dyskinesis, 5=Aneurysmal, 6=Hyperkinetic, X=Not Visualized (Blank)=Missing
[2016-09-19] MEDS ORDERED: VENLAFAXINE PO SCH (21:00)
[2016-09-19] MEDS ORDERED: OXcarbazepine 150 MG TABLET PO SCH (21:00)
[2016-09-19] MEDS ORDERED: VENLAFAXINE HCL 225 MG PO SCH (21:00)
[2016-09-19] MEDS ORDERED: Levofloxacin 750 MG/150 ML 750 MG/150 ML BAG IVPB SCH (21:00)
[2016-09-19] MEDS ORDERED: Ipratropium/Albuterol Neb 3 ML IH PRN (22:22)
[2016-09-20] MEDS ORDERED: Ondansetron 4 MG/2 ML VIAL ONE (03:54)
[2016-09-20] MEDS: *HR* Morphine 2 MG/ML SYRINGE IVP PRN ×3 (04:01→17:46)
[2016-09-20] MEDS: diazePAM 10 MG TABLET PO PRN (04:06)
[2016-09-20] MEDS: Ondansetron 4 MG/2 ML VIAL IVP PRN (04:09)
[2016-09-20 06:14] LABS: Basophils # 0.1 K/mcL (0.0-0.2); Basophils % 0.6 %; Eosinophils # 0.6 K/mcL (0.0-0.6); Eosinophils % 3.5 %; Hematocrit 38.8 % (35.3-44.9); Hemoglobin 11.6 g/dL (11.5-15.4); Immature Granulocytes % 2.6 % (0-4); Lymphocytes # 1.5 K/mcL (0.6-4.6); Lymphocytes % 8.5 %; Mean Corpuscular HGB Conc 29.9 g/dL (31.6-35.5); Mean Corpuscular Hemoglobin 21.8 pg (28.0-33.3); Mean Corpuscular Volume 72.8 fL (83.0-100.0); Mean Platelet Volume 10.1 fL (9.4-12.4); Monocytes # 0.5 K/mcL (0.0-1.3); Monocytes % 2.9 %; Neutrophils # 14.6 K/mcL (1.6-8.9); Nucleated Red Blood Cells 0.9 /100 WBC (0); Platelet Count 215 K/mcL (140-400); Red Blood Count 5.33 M/mcL (3.82-4.97); Red Cell Distribution Width 19.5 % (11.5-14.5); Segmented Neutrophils % 81.9 %
[2016-09-20] MEDS: Acetaminophen 325 MG TABLET PO PRN ×2 (06:23→19:00)
[2016-09-20 06:26] LABS: BUN/Creatinine Ratio 15 (6-26); Blood Urea Nitrogen 11 mg/dL (7-20); Calcium 8.4 mg/dL (8.6-10.8); Carbon Dioxide 24 mEq/L (19-29); Chloride 105 mEq/L (98-109); Glucose 114 mg/dL (70-99); Magnesium 2.1 mg/dL (1.6-2.6); Osmolality,Calculated 298 (280-300); Phosphorous 3.5 mg/dL (2.3-4.7); Sodium 144 mEq/L (136-145); eGFR For African Americans > 60 (> 60); eGFR For Non-African Americans > 60 (> 60)
[2016-09-20 06:36] LABS: Anisocytosis 1+ (Not Present); Platelet Clumps Few (Not Present); Platelet Estimate Normal (Normal); Polychromasia 1+ (Not Present)
[2016-09-20] MEDS: OXcarbazepine 150 MG TABLET PO SCH ×2 (08:45→21:00)
[2016-09-20] MEDS: Famotidine 20 MG TABLET PO SCH ×2 (08:46→20:59)
[2016-09-20] MEDS: Celecoxib 200 MG CAPSULE PO SCH ×2 (08:47→20:59)
[2016-09-20] MEDS: clonazePAM 1 MG TABLET PO SCH ×2 (08:47→21:00)
[2016-09-20] MEDS: Gabapentin 400 MG CAPSULE PO SCH ×3 (08:47→20:59)
[2016-09-20] MEDS: 0.9 % Sodium Chloride 1,000 ML IVC SCH (09:51)
[2016-09-20] MEDS: *HR* Metoprolol 5 MG/5 ML VIAL IVP SCH ×2 (10:38→18:45)
--- NOTE | 2016-09-20 15:24 | Internal Med Progress Note ---
Date of Encounter: 09/20/16 Time of Encounter: 14:00 - Assessment and plan (1) Acute cholecystitis Current Visit: Yes Status: Acute Assessment and plan: Gallbladder US: Gallstones and sludge within a contracted gallbladder F/U HIDA scan started empiric IV abx (Zosyn and Linezolid) IV fluids NPO surgical consultation requested. (2) Multifocal pneumonia Current Visit: Yes Status: Acute Assessment and plan: CTA chest consistent with B/L pulmonary infiltrates with a multifocal pneumonia Will d/c Levaquin and continue broad spectrum abx given concern for acute cholecystitis continue Linezolid IV and Zosyn IV Follow up blood cultures monitor temp, tylenol PRN fever (3) Anemia Current Visit: No Status: Chronic Assessment and plan: History of anemia of unclear etiology s/p PRBC transfusion awaiting stool occult, if negative will restart Eliquis repeat H&H within acceptable range no acute bleeding reported at this time. will continue to closely monitor Qualifiers: Anemia type: unspecified type Qualified Code(s): D64.9 - Anemia, unspecified (4) UTI (urinary tract infection) Current Visit: Yes Status: Acute Assessment and plan: Symptoms improved continue empiric abx as listed above Qualifiers: Urinary tract infection type: site unspecified Hematuria presence: without hematuria Qualified Code(s): N39.0 - Urinary tract infection, site not specified (5) Dyspnea Current Visit: Yes Status: Acute Assessment and plan: Likely secondary to PNA and symptomatic anemia unlikely cardiac etiology will treat underlying infection and transfuse PRBC continue O2 supplementation as needed Qualifiers: Dyspnea type: unspecified Qualified Code(s): R06.00 - Dyspnea, unspecified (6) Elevated troponin Current Visit: Yes Status: Acute Assessment and plan: Likely demand ischemia repeat TNI within normal limits 2D echo: LVEF 65%, normal LV size and systolic function. Evidence of moderate diastolic dysfunction of LV, normal right ventricular size and function, mild TR , no pulmonary htn. no chest pain reported at this time. (7) HTN (hypertension) Current Visit: Yes Status: Chronic Assessment and plan: No documented history of HTN Started Low dose BB repeat BP within acceptable limits continue to closely monitor Qualifiers: Hypertension type: essential hypertension Qualified Code(s): I10 - Essential (primary) hypertension (8) Depression Current Visit: No Status: Chronic Assessment and plan: continue home medications Qualifiers: Depression Type: major depressive disorder Major depression recurrence: recurrent Active/Remission status: currently active Major depression episode severity: mild Qualified Code(s): F33.0 - Major depressive disorder, recurrent, mild (9) History of pulmonary embolism Current Visit: Yes Status: Acute Assessment and plan: History of PE and on anticoagulation (Eliquis) CTA chest negative for PE at this time time Will hold Eliquis at this time due to anemia will obtain stool occult to rule out GI bleed Will restart Eliquis if stool occult is negative (10) Obesity Current Visit: Yes Status: Chronic Qualifiers: Obesity type: due to excess calories Obesity severity: non-morbid Qualified Code(s): E66.09 - Other obesity due to excess calories (11) DVT prophylaxis Current Visit: Yes Status: Acute Assessment and plan: IPCD - Subjective Interval history: Patient seen and examined at bedside. Reports right upper quadrant pain associated with fever and chills overnight. Gallbladder ultrasound reported of contracted gallbladder with biliary sludge. Noted to have worsening leukocytosis and MAXIMUM TEMPERATURE of 100.5. We will start IV fluids, empiric IV antibiotic therapy, HIDA scan, and surgical consultation requested. - Constitutional Vitals: Temp Pulse Resp BP Pulse Ox 98.2 F 83 20 126/81 97 09/20/16 11:18 09/20/16 11:18 09/20/16 11:18 09/20/16 11:18 09/20/16 11:18 General appearance: Present: A&O X 3, no acute distress, obese - Head Head exam: Present: atraumatic, normocephalic - Eye Eye exam: Present: conjuntiva pink, sclera anicteric - Respiratory Respiratory exam: Present: CTAB. Absent: accessory muscle use, rales, rhonchi, wheezes - Cardiovascular Cardiovascular exam: Present: RRR, +S1, +S2. Absent: diastolic murmur, gallop, rubs, systolic murmur - GI/Abdominal GI/Abdominal exam: Present: normal bowel sounds, soft, tenderness (RUQ tenderness), no peritoneal signs. Absent: distended - Extremities Exam Extremities exam: Present: warm, radial pulses palpable and symetrical. Absent : calf tenderness, cyanotic, pedal edema - Neurological Exam Neurological exam: Present: alert Internal Medicine: Result - Labs CBC & Chem 7: 09/20/16 05:21 09/20/16 05:21 Labs: Short CBC 09/20/16 Range/Units 05:21 WBC 17.8 H D (4.3-11.1) K/mcL Hgb 11.6 D (11.5-15.4) g/dL Hct 38.8 (35.3-44.9) % Plt Count 215 (140-400) K/mcL Neutrophils # 14.6 H (1.6-8.9) K/mcL BMP 09/20/16 05:21 Sodium 144 Potassium 5.0 H D Chloride 105 Carbon Dioxide 24 BUN 11 Creatinine 0.71 Glucose 114 H Calcium 8.4 L - ABG Interpretation ABG results: PT/INR, D-dimer PT 10.5 Seconds (9.4-12.1) 09/18/16 16:28 D-Dimer 2365 ng/mLFEU (0-500) H 09/18/16 16:28 - Impressions Impressions Gallbladder Ultrasound 09/19/16 20:00 IMPRESSION: Gallstones and sludge within a contracted gallbladder. The Duff sign is absent. A nuclear medicine hepatobiliary scan is recommended for further evaluation. Dilated common bile duct measuring 6.5 mm Probable fatty infiltration of the liver D/ / Kota Liu MD / Kota Liu MD Interpreting Provider: Kota Liu MD - VTE Documentation of Mechanical Device: Intermittent pneumatic compression device Consult Discharge Plan - Plan Referrals: Eduarda Abbasi MD [Primary Care Provider] - 10/13/16 2:00 pm
--- NOTE | 2016-09-20 17:16 | General Surgery Consult Note ---
Date of Encounter: 09/20/16 Time of Encounter: 16:58 Assessment and Plan (1) Cholecystitis with cholelithiasis Current Visit: Yes Status: Acute -CTA showing diffuse gallbladder wall thickening. -US showing Gallstones and sludge within a contracted gallbladder and Dilated common bile duct measuring 6.5 mm. -Plan is to obtain HIDA. check lft's in am -Patient is a poor surgical candidate at this time due to respiratory status/ PNA. -Will consider percutaneous cholecystostomy tube with outpatient cholecystectomy when PNA has resolved. -Supportive care, IVF, zofran for nausea Qualifiers: Cholelithiasis location: gallbladder Cholecystitis acuity: chronic Biliary obstruction: without biliary obstruction Qualified Code(s): K80.10 - Calculus of gallbladder with chronic cholecystitis without obstruction (2) Obesity Current Visit: Yes Status: Chronic Qualifiers: Obesity type: due to excess calories Obesity severity: non-morbid Qualified Code(s): E66.09 - Other obesity due to excess calories History of Present Illness Consult date: 09/20/16 Reason for consult: gallstones (cholecystitis) History of present illness: Ms. Mooney is a 51 year-old female with a history of HTN, PE Jun 2016, Bipolar d /o, depression who presented to the [place] ED with two days of chest pressure and worsening SOB. In the ED she had a CTA which showed bilateral pulmonary infiltrates consistent with PNA and was admitted to internal medicine. Her CTA also noted partial visualization of the gallbladder which demonstrated diffuse wall thickening. RUQ ultrasound showed gallstones and sludge within a contracted gallbladder. When I spoke with the patient she reports a 4 month history of 8/10 intermittent RUQ pain that is described as stabbing. Sometimes the pain is a dull ache. No radiation. The pain occurs more frequently after eating armenian fries and dessert. She sometimes has associated nausea/vomiting. She has also had a 2 week history of non-bloody diarrhea, sometimes occurring up to 4 times a day. She reports that her PCP has recently started her on reglan and a PPI for her nausea/GI upset. Patient had PE June 2016. She thought she was only supposed to take her Eliquis until the prescription ran out and that is what she did, she hasnt had any since mid . Past Med Surg Social Fam HX - Past Medical History Source: patient Medical history: arthritis, fibromyalgia, GERD, hypertension, pulmonary embolus , other Psychiatric history: anxiety, bipolar, depression - Past Surgical History Surgical History: appendectomy, , hysterectomy, knee replacement, orthopedic, other, sinus surgery - Social History Smoking Status: Never smoker Smokeless Tobacco Status: No Alcohol use: none Drug use: none - Family History Mother Living Status: Still Living Hx Family Cardiac Disorders: Yes Hx Family Cancer: Yes (Right breast, mastectomy) Father Hx Family Cardiac Disorders: Yes (HTN) Hx Family Endocrine Disorder: Yes (Diabetes) Medications and Allergies Famotidine [Pepcid] 40 mg PO QAM 03/21/15 [History] Omeprazole [PriLOSEC] 40 mg PO QAM 03/21/15 [History] Celecoxib [Celebrex] 200 mg PO BID 01/30/16 [History] EPINEPHrine [Epipen] 0.3 mg IJ ONCE PRN 01/30/16 [History] Montelukast [Singulair] 10 mg PO HS 01/30/16 [History] Venlafaxine HCl [Venlafaxine HCl ER] 225 mg PO HS 01/30/16 [History] Metoclopramide HCl 5 mg PO HS 03/24/16 [History] Oxcarbazepine 1,200 mg PO HS 03/24/16 [History] Oxcarbazepine 600 mg PO QAM 03/24/16 [History] Quetiapine Fumarate [Seroquel] 200 mg PO HS 03/24/16 [History] Apixaban [Eliquis] 5 mg PO BID 09/18/16 [History] Diazepam [Valium] 10 mg PO TID PRN 09/18/16 [History] Ergocalciferol (VITAMIN D2) [Vitamin D2] 50,000 unit PO QMONTH 09/18/16 [History ] Nortriptyline [Pamelor] 25 mg PO HS 09/18/16 [History] Allergies adhesive tape Allergy (Verified 03/21/15 13:05) Blister latex Allergy (Verified 03/21/15 13:05) Blister vancomycin Allergy (Verified 06/20/15 15:47) Itching Patient became flushed, itching all over, hot Review of Systems All systems PM: reviewed and no additional remarkable complaints except as stated All systems PM: A 10-system review of systems was performed and is negative for pertinent findings except as documented above in the HPI. General Surgery Exam Initial Vital Signs Temp Pulse Resp BP Pulse Ox 98.7 F 83 20 171/110 98 09/18/16 16:03 09/18/16 16:03 09/18/16 16:03 09/18/16 16:03 09/18/16 16:03 - General physical appearance well developed, well nourished, no distress, obese - Eyes PERRL, normal ocular movement. negative: icteric - ENT normal mucosa, no hearing loss, no congestion, CN 2-12 grossly intact - Neck trachea midline - Respiratory normal expansion, normal respiratory effort, other (conversational dyspnea) absent breath sounds: bilateral (bases) - Cardiovascular Cardiovascular exam: Present: RRR. Absent: murmurs, rubs, gallop - Abdomen Abdomen general surgery: Present: bowel sounds present, soft, tender. Absent: organomegaly, masses, guarding, rebound Abdominal Tenderness: Present: RUQ (minimally) - Integumentary Integumentary general surgery: Present: warm and dry, no abnormal pigmentation - Neurologic Present: CN 2-12 grossly intact, normal coordination, normal sensation - Musculoskeletal Present: normal posture - Psychiatric Psychiatric general surgery: Present: A&Ox3, speech is normal Exam Initial Vital Signs Temp Pulse Resp BP Pulse Ox 98.7 F 83 20 171/110 98 09/18/16 16:03 09/18/16 16:03 09/18/16 16:03 09/18/16 16:03 09/18/16 16:03 Results - Labs 09/20/16 05:21 09/20/16 05:21 Short CBC 09/20/16 Range/Units 05:21 WBC 17.8 H D (4.3-11.1) K/mcL Hgb 11.6 D (11.5-15.4) g/dL Hct 38.8 (35.3-44.9) % Plt Count 215 (140-400) K/mcL Neutrophils # 14.6 H (1.6-8.9) K/mcL BMP 09/20/16 Range/Units 05:21 Sodium 144 (136-145) mEq/L Potassium 5.0 H D (3.5-4.5) mEq/L Chloride 105 (98-109) mEq/L Carbon Dioxide 24 (19-29) mEq/L BUN 11 (7-20) mg/dL Creatinine 0.71 (0.57-1.11) mg/dL Glucose 114 H (70-99) mg/dL Calcium 8.4 L (8.6-10.8) mg/dL Vital Signs Temp Pulse Resp BP Pulse Ox 09/20/16 11:18 98.2 F 83 20 126/81 97 09/20/16 09:25 100.5 F H 100 28 146/79 97 09/20/16 07:35 100.1 F H 114 24 163/81 95 09/20/16 06:00 100.6 F H 117 30 157/85 90 09/20/16 03:13 98.4 F 97 25 177/98 94 09/19/16 23:17 98.4 F 71 16 146/98 95 09/19/16 22:59 18 99 09/19/16 20:48 98.3 F 18 144/92 99 09/19/16 19:15 98.0 F 78 18 141/90 99 09/19/16 18:16 97.9 F 82 16 141/88 09/19/16 18:11 98.3 F 84 16 136/94 98 Intake and Output 09/20/16 09/20/16 09/20/16 07:59 15:59 23:59 Intake Total 240 / 240 300 / 300 Output Total 1000 / 1000 Balance -760 / -760 300 / 300 Intake: IV Fluids 300 / 300 Zyvox 600mg/300mL 600 mg 300 / 300 In 300 ml @ 150 mls/hr IVPB Q12HR [facility]ODA Rx#: [id number] Oral 240 / 240 Output: Urine 1000 / 1000 Other: # Voids 1 Weight 101.8 kg Patient Weight 09/20/16 23:59 Weight 101.8 kg - Imaging US - abdomen: report reviewed Consult Discharge Plan - Plan Referrals: Eduarda Abbasi MD [Primary Care Provider] - 10/13/16 2:00 pm
[2016-09-20] MEDS: Piperacillin/Tazobactam 3.375 GM in D5% in Water (Mini-Bag+) 100 ML IVPB SCH (18:45)
[2016-09-20] MEDS: VENLAFAXINE PO SCH (20:59)
[2016-09-20] MEDS: Loratadine 10 MG TABLET PO SCH (21:00)
[2016-09-21] MEDS: Levofloxacin 750 MG/150 ML 750 MG/150 ML BAG IVPB SCH (00:05)
[2016-09-21] MEDS: *HR* Morphine 2 MG/ML SYRINGE IVP PRN (00:05)
[2016-09-21] MEDS: *HR* Metoprolol 5 MG/5 ML VIAL IVP SCH ×4 (00:58→18:56)
[2016-09-21] MEDS: Piperacillin/Tazobactam 3.375 GM in D5% in Water (Mini-Bag+) 100 ML IVPB SCH ×3 (02:30→19:05)
[2016-09-21 05:48] LABS: Basophils # 0.1 K/mcL (0.0-0.2); Basophils % 0.5 %; Eosinophils % 7.8 %; Hematocrit 30.2 % (35.3-44.9); Immature Granulocytes % 2.2 % (0-4); Mean Corpuscular HGB Conc 29.8 g/dL (31.6-35.5); Mean Corpuscular Hemoglobin 22.6 pg (28.0-33.3); Mean Corpuscular Volume 75.9 fL (83.0-100.0); Mean Platelet Volume 9.8 fL (9.4-12.4); Monocytes # 0.7 K/mcL (0.0-1.3); Monocytes % 5.7 %; Neutrophils # 8.5 K/mcL (1.6-8.9); Nucleated Red Blood Cells 0.3 /100 WBC (0); Platelet Count 308 K/mcL (140-400); Red Blood Count 3.98 M/mcL (3.82-4.97); Red Cell Distribution Width 19.2 % (11.5-14.5); Segmented Neutrophils % 67.8 %
[2016-09-21 06:05] LABS: BUN/Creatinine Ratio 16 (6-26); Blood Urea Nitrogen 10 mg/dL (7-20); Calcium 8.1 mg/dL (8.6-10.8); Carbon Dioxide 28 mEq/L (19-29); Chloride 100 mEq/L (98-109); Glucose 78 mg/dL (70-99); Magnesium 1.9 mg/dL (1.6-2.6); Osmolality,Calculated 284 (280-300); Phosphorous 3.8 mg/dL (2.3-4.7); Sodium 138 mEq/L (136-145); eGFR For African Americans > 60 (> 60); eGFR For Non-African Americans > 60 (> 60)
[2016-09-21 06:09] LABS: Potassium 3.7 mEq/L (3.5-4.5)
[2016-09-21 06:58] LABS: Albumin 2.7 g/dL (3.5-5.0); Albumin/Globulin Ratio 0.7 (1.1-2.2); Bilirubin,Indirect 0.4 mg/dL (0.0-1.2); Bilirubin,Total 0.5 mg/dL (0.2-1.2); Globulin 3.8 g/dL (2.4-3.5); Total Protein 6.5 g/dL (6.0-8.3)
[2016-09-21 07:01] LABS: Bilirubin,Direct 0.1 mg/dL (0.0-0.5)
[2016-09-21] MEDS: Gabapentin 400 MG CAPSULE PO SCH ×3 (09:06→21:33)
[2016-09-21] MEDS: OXcarbazepine 150 MG TABLET PO SCH ×2 (09:08→21:32)
[2016-09-21] MEDS: clonazePAM 1 MG TABLET PO SCH ×2 (09:08→21:35)
[2016-09-21] MEDS: Famotidine 20 MG TABLET PO SCH ×2 (09:08→21:34)
[2016-09-21] MEDS: Celecoxib 200 MG CAPSULE PO SCH ×2 (09:08→21:35)
[2016-09-21] MEDS: 0.9 % Sodium Chloride 1,000 ML IVC SCH (09:20)
--- NOTE | 2016-09-21 10:23 | Event Note ---
Date of Encounter: 09/21/16 Time of Encounter: 10:20 HIDA scan reviewed- no evidence of acute cholecystitis, most consistent with chronic cholecystitis. No surgical intervention indicated at this time. Recommend outpatient follow-up in the surgery office in 4 weeks after resolution of pneumonia. Will discuss elective cholecystectomy at that time. Scheduled for follow-up 10/29/16 at 1350.
[2016-09-21] MEDS: Ondansetron 4 MG/2 ML VIAL IVP PRN (11:52)
[2016-09-21] MEDS ORDERED: Acetaminophen/Butalbital/CaffeineTABLET PO PRN (12:16)
--- NOTE | 2016-09-21 13:55 | Internal Med Progress Note ---
Date of Encounter: 09/21/16 Time of Encounter: 13:55 - Assessment and plan (1) Acute cholecystitis Current Visit: Yes Status: Acute Assessment and plan: Gallbladder US: Gallstones and sludge within a contracted gallbladder HIDA scan consistent with chronic etiology Will continue empiric IV abx (Zosyn and Linezolid) IV fluids surgical consultation noted (2) Multifocal pneumonia Current Visit: Yes Status: Acute Assessment and plan: CTA chest consistent with B/L pulmonary infiltrates with a multifocal pneumonia Will d/c Levaquin and continue broad spectrum abx given concern for acute cholecystitis continue Linezolid IV and Zosyn IV Follow up blood cultures monitor temp, tylenol PRN fever (3) Anemia Current Visit: No Status: Chronic Assessment and plan: History of anemia of unclear etiology s/p PRBC transfusion awaiting stool occult, if negative will restart Eliquis repeat H&H within acceptable range no acute bleeding reported at this time. will continue to closely monitor Qualifiers: Anemia type: unspecified type Qualified Code(s): D64.9 - Anemia, unspecified (4) UTI (urinary tract infection) Current Visit: Yes Status: Resolved Assessment and plan: Symptoms improved continue empiric abx as listed above Qualifiers: Urinary tract infection type: site unspecified Hematuria presence: without hematuria Qualified Code(s): N39.0 - Urinary tract infection, site not specified (5) Dyspnea Current Visit: Yes Status: Acute Assessment and plan: Likely secondary to PNA and symptomatic anemia unlikely cardiac etiology will treat underlying infection and transfuse PRBC continue O2 supplementation as needed Qualifiers: Dyspnea type: unspecified Qualified Code(s): R06.00 - Dyspnea, unspecified (6) Elevated troponin Current Visit: Yes Status: Acute Assessment and plan: Likely demand ischemia repeat TNI within normal limits 2D echo: LVEF 65%, normal LV size and systolic function. Evidence of moderate diastolic dysfunction of LV, normal right ventricular size and function, mild TR , no pulmonary htn. no chest pain reported at this time. (7) HTN (hypertension) Current Visit: Yes Status: Chronic Assessment and plan: BP within acceptable range continue Low dose BB continue to closely monitor Qualifiers: Hypertension type: essential hypertension Qualified Code(s): I10 - Essential (primary) hypertension (8) Depression Current Visit: No Status: Chronic Assessment and plan: continue home medications Qualifiers: Depression Type: major depressive disorder Major depression recurrence: recurrent Active/Remission status: currently active Major depression episode severity: mild Qualified Code(s): F33.0 - Major depressive disorder, recurrent, mild (9) History of pulmonary embolism Current Visit: Yes Status: Acute Assessment and plan: History of PE and on anticoagulation (Eliquis) CTA chest negative for PE at this time time Will hold Eliquis at this time due to anemia will obtain stool occult to rule out GI bleed Will restart Eliquis if stool occult is negative (10) Obesity Current Visit: Yes Status: Chronic Qualifiers: Obesity type: due to excess calories Obesity severity: non-morbid Qualified Code(s): E66.09 - Other obesity due to excess calories (11) DVT prophylaxis Current Visit: Yes Status: Acute Assessment and plan: IPCD - Subjective Interval history: Patient seen and examined at bedside. Pain better controlled No overnight issues reported Tolerating PO diet - Constitutional Vitals: Temp Pulse Resp BP Pulse Ox 97.9 F 82 20 109/74 99 09/21/16 11:34 09/21/16 11:34 09/21/16 11:34 09/21/16 11:34 09/21/16 11:34 General appearance: Present: A&O X 3, no acute distress, obese - Head Head exam: Present: atraumatic, normocephalic - Respiratory Respiratory exam: Present: CTAB. Absent: accessory muscle use, rales, rhonchi, wheezes - Cardiovascular Cardiovascular exam: Present: RRR, +S1, +S2. Absent: diastolic murmur, gallop, rubs, systolic murmur - GI/Abdominal GI/Abdominal exam: Present: normal bowel sounds, soft, no peritoneal signs. Absent: distended, tenderness - Extremities Exam Extremities exam: Present: warm, radial pulses palpable and symetrical. Absent : calf tenderness, cyanotic, pedal edema - Neurological Exam Neurological exam: Present: alert, oriented X3, no focal deficits. Absent: pronater drift, facial droop, speech deficit - Psychiatric Psychiatric exam: Present: normal affect, normal mood Internal Medicine: Result - Labs CBC & Chem 7: 09/21/16 04:31 09/21/16 04:31 Labs: Short CBC 09/21/16 Range/Units 04:31 WBC 12.5 H (4.3-11.1) K/mcL Hgb 9.0 L D (11.5-15.4) g/dL Hct 30.2 L (35.3-44.9) % Plt Count 308 (140-400) K/mcL Neutrophils # 8.5 (1.6-8.9) K/mcL BMP 09/21/16 04:31 Sodium 138 Potassium 3.7 D Chloride 100 Carbon Dioxide 28 BUN 10 Creatinine 0.61 Glucose 78 Calcium 8.1 L Liver Function 09/21/16 Range/Units 04:31 Total Bilirubin 0.5 (0.2-1.2) mg/dL Direct Bilirubin 0.1 (0.0-0.5) mg/dL AST 24 (5-34) Units/L ALT 17 (0-55) Units/L Alkaline Phosphatase 74 (38-126) Units/L Albumin 2.7 L (3.5-5.0) g/dL - ABG Interpretation ABG results: PT/INR, D-dimer PT 10.5 Seconds (9.4-12.1) 09/18/16 16:28 D-Dimer 2365 ng/mLFEU (0-500) H 09/18/16 16:28 - Impressions Impressions Bile Acid Absorption NM 09/20/16 09:30 IMPRESSION: Gallbladder visualization only after morphine administration may represent gallbladder dysfunction such as chronic cholecystitis. No evidence of acute cholecystitis. D/ / Tay Lee MD / Tay Lee MD Interpreting Provider: Tay Lee MD - VTE Documentation of Mechanical Device: Intermittent pneumatic compression device Consult Discharge Plan - Plan Referrals: Eduarda Abbasi MD [Primary Care Provider] - 10/13/16 2:00 pm
[2016-09-21] MEDS: VENLAFAXINE PO SCH (21:33)
[2016-09-21] MEDS: Loratadine 10 MG TABLET PO SCH (21:34)
[2016-09-22] MEDS: *HR* Metoprolol 5 MG/5 ML VIAL IVP SCH ×2 (01:15→06:04)
[2016-09-22] MEDS: Levofloxacin 750 MG/150 ML 750 MG/150 ML BAG IVPB SCH (01:16)
[2016-09-22] MEDS: Piperacillin/Tazobactam 3.375 GM in D5% in Water (Mini-Bag+) 100 ML IVPB SCH ×4 (01:41→23:44)
[2016-09-22 04:41] LABS: Hematocrit 29.1 % (35.3-44.9); Nucleated Red Blood Cells 0.2 /100 WBC (0)
[2016-09-22 04:43] LABS: Basophils # 0.1 K/mcL (0.0-0.2); Basophils % 0.7 %; Eosinophils % 11.2 %; Hemoglobin 8.3 g/dL (11.5-15.4); Immature Granulocytes % 2.2 % (0-4); Lymphocytes # 2.1 K/mcL (0.6-4.6); Lymphocytes % 22.4 %; Mean Corpuscular HGB Conc 28.5 g/dL (31.6-35.5); Mean Platelet Volume 9.4 fL (9.4-12.4); Monocytes # 0.6 K/mcL (0.0-1.3); Monocytes % 6.5 %; Platelet Count 296 K/mcL (140-400); Red Blood Count 3.78 M/mcL (3.82-4.97); Red Cell Distribution Width 19.1 % (11.5-14.5)
[2016-09-22 04:52] LABS: BUN/Creatinine Ratio 22 (6-26); Blood Urea Nitrogen 16 mg/dL (7-20); Calcium 8.1 mg/dL (8.6-10.8); Carbon Dioxide 31 mEq/L (19-29); Chloride 103 mEq/L (98-109); Glucose 87 mg/dL (70-99); Magnesium 1.8 mg/dL (1.6-2.6); Osmolality,Calculated 291 (280-300); Phosphorous 4.7 mg/dL (2.3-4.7); Sodium 140 mEq/L (136-145); eGFR For African Americans > 60 (> 60); eGFR For Non-African Americans > 60 (> 60)
[2016-09-22 05:33] LABS: Neutrophils # 5.2 K/mcL (1.6-8.9)
[2016-09-22 05:34] LABS: Anisocytosis 1+ (Not Present); Platelet Estimate Normal (Normal); Poikilocytosis 1+ (Not Present); Polychromasia 1+ (Not Present)
[2016-09-22] MEDS: Celecoxib 200 MG CAPSULE PO SCH ×2 (07:57→21:47)
[2016-09-22] MEDS: Gabapentin 400 MG CAPSULE PO SCH ×3 (07:57→21:48)
[2016-09-22] MEDS: clonazePAM 1 MG TABLET PO SCH ×2 (07:57→21:47)
[2016-09-22] MEDS: Famotidine 20 MG TABLET PO SCH ×2 (07:57→21:46)
[2016-09-22] MEDS: OXcarbazepine 150 MG TABLET PO SCH ×2 (07:58→21:46)
[2016-09-22] MEDS: 0.9 % Sodium Chloride 1,000 ML IVC SCH ×2 (08:05→21:53)
--- NOTE | 2016-09-22 09:03 | Internal Med Progress Note ---
Date of Encounter: 09/22/16 Time of Encounter: 08:55 - Assessment and plan (1) Acute cholecystitis Current Visit: Yes Status: Acute Assessment and plan: Gallbladder US: Gallstones and sludge within a contracted gallbladder HIDA scan consistent with chronic etiology Will continue empiric IV abx (Zosyn and Linezolid) IV fluids surgical consultation noted (2) Multifocal pneumonia Current Visit: Yes Status: Acute Assessment and plan: CTA chest consistent with B/L pulmonary infiltrates with a multifocal pneumonia continue Linezolid IV and Zosyn IV Follow up blood cultures monitor temp, tylenol PRN fever (3) Anemia Current Visit: No Status: Chronic Assessment and plan: History of anemia of unclear etiology s/p PRBC transfusion awaiting stool occult, if negative will restart Eliquis H&H low but acceptable no acute bleeding reported at this time. will continue to closely monitor Will try to obtain med records from her PCP in regards to her prior anemia work up Pt states she follows up with another physician and is to schedule her colonoscopy as outpatient Qualifiers: Anemia type: unspecified type Qualified Code(s): D64.9 - Anemia, unspecified (4) UTI (urinary tract infection) Current Visit: Yes Status: Resolved Assessment and plan: Symptoms improved continue empiric abx as listed above Qualifiers: Urinary tract infection type: site unspecified Hematuria presence: without hematuria Qualified Code(s): N39.0 - Urinary tract infection, site not specified (5) Dyspnea Current Visit: Yes Status: Acute Assessment and plan: Likely secondary to PNA and symptomatic anemia unlikely cardiac etiology will treat underlying infection continue O2 supplementation as needed Qualifiers: Dyspnea type: unspecified Qualified Code(s): R06.00 - Dyspnea, unspecified (6) Elevated troponin Current Visit: Yes Status: Acute Assessment and plan: Likely demand ischemia repeat TNI within normal limits 2D echo: LVEF 65%, normal LV size and systolic function. Evidence of moderate diastolic dysfunction of LV, normal right ventricular size and function, mild TR , no pulmonary htn. no chest pain reported at this time. (7) HTN (hypertension) Current Visit: Yes Status: Chronic Assessment and plan: BP within acceptable range continue Low dose BB continue to closely monitor Qualifiers: Hypertension type: essential hypertension Qualified Code(s): I10 - Essential (primary) hypertension (8) Depression Current Visit: No Status: Chronic Assessment and plan: continue home medications Qualifiers: Depression Type: major depressive disorder Major depression recurrence: recurrent Active/Remission status: currently active Major depression episode severity: mild Qualified Code(s): F33.0 - Major depressive disorder, recurrent, mild (9) History of pulmonary embolism Current Visit: Yes Status: Acute Assessment and plan: History of PE and on anticoagulation (Eliquis) CTA chest negative for PE at this time time Will hold Eliquis at this time due to anemia will obtain stool occult to rule out GI bleed Will restart Eliquis if stool occult is negative (10) Obesity Current Visit: Yes Status: Chronic Qualifiers: Obesity type: due to excess calories Obesity severity: non-morbid Qualified Code(s): E66.09 - Other obesity due to excess calories (11) DVT prophylaxis Current Visit: Yes Status: Acute Assessment and plan: IPCD - Subjective Interval history: Patient seen and examined at bedside. Sitting in bed and reports of feeling significantly better. States her breathing is better and denies any abd discomfort at this time. Reports of not being able to move her bowels since hospitalization. Also states that her PCP had informed her of having some sort of internal bleeding which has been the cause of her anemia, and she does not have any more information. denies any melena or hematochezia prior to her hospitalization. Reports of being diagnosed with PE In jun after which she was discharged to home with home oxygen as needed. She misunderstood the plan for her anticoagulation and has been off Eliquis since mid July. AT this time she reports of improvement in her breathing status and denies any chest pain or discomfort. - Constitutional Vitals: Temp Pulse Resp BP Pulse Ox 98.0 F 81 16 144/95 97 09/22/16 07:34 09/22/16 07:34 09/22/16 07:34 09/22/16 07:34 09/22/16 07:34 General appearance: Present: A&O X 3, no acute distress, obese - Head Head exam: Present: atraumatic, normocephalic - Eye Eye exam: Present: normal appearance, conjuntiva pink, sclera anicteric - Respiratory Respiratory exam: Present: CTAB. Absent: accessory muscle use, rales, rhonchi, wheezes - Cardiovascular Cardiovascular exam: Present: RRR, +S1, +S2. Absent: diastolic murmur, gallop, rubs, systolic murmur - GI/Abdominal GI/Abdominal exam: Present: normal bowel sounds, soft, no peritoneal signs. Absent: distended, tenderness - Extremities Exam Extremities exam: Present: warm, radial pulses palpable and symetrical. Absent : calf tenderness, cyanotic, pedal edema - Neurological Exam Neurological exam: Present: alert, oriented X3 - Psychiatric Psychiatric exam: Present: normal affect, normal mood Internal Medicine: Result - Labs CBC & Chem 7: 09/22/16 04:25 09/22/16 04:25 Labs: Short CBC 09/22/16 Range/Units 04:25 WBC 9.2 (4.3-11.1) K/mcL Hgb 8.3 L (11.5-15.4) g/dL Hct 29.1 L (35.3-44.9) % Plt Count 296 (140-400) K/mcL Neutrophils # 5.2 (1.6-8.9) K/mcL BMP 09/22/16 04:25 Sodium 140 Potassium 4.0 Chloride 103 Carbon Dioxide 31 H BUN 16 Creatinine 0.72 Glucose 87 Calcium 8.1 L - ABG Interpretation ABG results: PT/INR, D-dimer PT 10.5 Seconds (9.4-12.1) 09/18/16 16:28 D-Dimer 2365 ng/mLFEU (0-500) H 09/18/16 16:28 - VTE Documentation of Mechanical Device: Intermittent pneumatic compression device Consult Discharge Plan - Plan Referrals: Pamela Tsai MD [Partnered Physician] - 10/29/16 1:50 pm Eduarda Abbasi MD [Primary Care Provider] - 10/13/16 2:00 pm
[2016-09-22] MEDS: Sennosides/Docusate Sodium TABLET PO SCH ×2 (11:22→21:49)
[2016-09-22] MEDS: Ondansetron 4 MG/2 ML VIAL IVP PRN (15:07)
[2016-09-22] MEDS: VENLAFAXINE PO SCH (21:46)
[2016-09-22] MEDS: APIXABAN 5 MG TABLET PO SCH (21:47)
[2016-09-22] MEDS: Loratadine 10 MG TABLET PO SCH (21:48)
[2016-09-23 04:31] LABS: Basophils # 0.1 K/mcL (0.0-0.2); Basophils % 0.5 %; Eosinophils % 9.6 %; Hematocrit 28.3 % (35.3-44.9); Hemoglobin 8.3 g/dL (11.5-15.4); Immature Granulocytes % 1.2 % (0-4); Lymphocytes # 2.4 K/mcL (0.6-4.6); Lymphocytes % 24.5 %; Mean Corpuscular HGB Conc 29.3 g/dL (31.6-35.5); Mean Corpuscular Hemoglobin 22.6 pg (28.0-33.3); Mean Corpuscular Volume 76.9 fL (83.0-100.0); Mean Platelet Volume 9.5 fL (9.4-12.4); Monocytes # 0.6 K/mcL (0.0-1.3); Monocytes % 6.4 %; Neutrophils # 5.8 K/mcL (1.6-8.9); Platelet Count 293 K/mcL (140-400); Red Blood Count 3.68 M/mcL (3.82-4.97); Red Cell Distribution Width 19.8 % (11.5-14.5); Segmented Neutrophils % 57.8 %
[2016-09-23 05:02] LABS: BUN/Creatinine Ratio 22 (6-26); Blood Urea Nitrogen 14 mg/dL (7-20); Calcium 8.2 mg/dL (8.6-10.8); Carbon Dioxide 31 mEq/L (19-29); Chloride 102 mEq/L (98-109); Glucose 100 mg/dL (70-99); Osmolality,Calculated 291 (280-300); Phosphorous 3.9 mg/dL (2.3-4.7); Sodium 140 mEq/L (136-145); eGFR For African Americans > 60 (> 60); eGFR For Non-African Americans > 60 (> 60)
[2016-09-23] MEDS: Sennosides/Docusate Sodium TABLET PO SCH (09:11)
[2016-09-23] MEDS: APIXABAN 5 MG TABLET PO SCH (09:12)
[2016-09-23] MEDS: Celecoxib 200 MG CAPSULE PO SCH (09:12)
[2016-09-23] MEDS: Gabapentin 400 MG CAPSULE PO SCH (09:13)
[2016-09-23] MEDS: Famotidine 20 MG TABLET PO SCH (09:14)
[2016-09-23] MEDS: Piperacillin/Tazobactam 3.375 GM in D5% in Water (Mini-Bag+) 100 ML IVPB SCH (09:15)
[2016-09-23] MEDS: clonazePAM 1 MG TABLET PO SCH (09:16)
[2016-09-23] MEDS: OXcarbazepine 150 MG TABLET PO SCH (09:19)
--- NOTE | 2016-09-23 12:06 | Discharge Summary ---
Date of Encounter: 09/23/16 Time of Encounter: 11:00 - Discharge Diagnosis (1) Pneumonia Priority: Primary Status: Acute Qualifiers: Pneumonia type: due to unspecified organism Laterality: bilateral Lung location: unspecified part of lung Qualified Code(s): J18.9 - Pneumonia, unspecified organism (2) HTN (hypertension) Priority: Secondary Status: Chronic Qualifiers: Hypertension type: essential hypertension Qualified Code(s): I10 - Essential (primary) hypertension (3) Obesity Priority: Secondary Status: Chronic Qualifiers: Obesity type: due to excess calories Obesity severity: non-morbid Qualified Code(s): E66.09 - Other obesity due to excess calories (4) DVT prophylaxis Priority: Secondary Status: Acute (5) Cholecystitis with cholelithiasis Priority: Primary Status: Acute Qualifiers: Cholelithiasis location: gallbladder Cholecystitis acuity: chronic Biliary obstruction: without biliary obstruction Qualified Code(s): K80.10 - Calculus of gallbladder with chronic cholecystitis without obstruction - Discharge Medications Prescriptions: Levofloxacin [Levaquin] 750 mg PO DAILY #5 tablet Home Medications: Famotidine [Pepcid] 40 mg PO QAM 03/21/15 [History] Omeprazole [PriLOSEC] 40 mg PO QAM 03/21/15 [History] Celecoxib [Celebrex] 200 mg PO BID 01/30/16 [History] EPINEPHrine [Epipen] 0.3 mg IJ ONCE PRN 01/30/16 [History] Montelukast [Singulair] 10 mg PO HS 01/30/16 [History] Venlafaxine HCl [Venlafaxine HCl ER] 225 mg PO HS 01/30/16 [History] Metoclopramide HCl 5 mg PO HS 03/24/16 [History] Oxcarbazepine 1,200 mg PO HS 03/24/16 [History] Oxcarbazepine 600 mg PO QAM 03/24/16 [History] Quetiapine Fumarate [Seroquel] 200 mg PO HS 03/24/16 [History] Apixaban [Eliquis] 5 mg PO BID 09/18/16 [History] Diazepam [Valium] 10 mg PO TID PRN 09/18/16 [History] Ergocalciferol (VITAMIN D2) [Vitamin D2] 50,000 unit PO QMONTH 09/18/16 [History ] Nortriptyline [Pamelor] 25 mg PO HS 09/18/16 [History] Ferrous Sulfate 324 mg PO DAILY #30 tablet. 09/23/16 [Rx] Levofloxacin [Levaquin] 750 mg PO DAILY #5 tablet 09/23/16 [Rx] Allergies/Adverse Reactions: Allergies adhesive tape Allergy (Verified 03/21/15 13:05) Blister latex Allergy (Verified 03/21/15 13:05) Blister vancomycin Allergy (Verified 06/20/15 15:47) Itching Patient became flushed, itching all over, hot Date of admission: 09/19/16 13:57 Primary care physician: Eduarda Abbasi MD Consults: 09/20/16 09:14 Consult to Surgery [CONS] Routine Consulting Provider: Surgery [facility] Reason for Consult: acute cholecystitis Call Completed: Yes Discharging clinician: Eduard Acosta Anticipated date of discharge: 09/23/16 - Patient Status Disposition: Home, Self-Care Condition: Good Functional capacity at discharge: independent ambulation Overall status at discharge: patient is back to baseline - Discharge Instructions Follow Up With: Pamela Tsai MD [Partnered Physician] - 10/29/16 1:50 pm Eduarda Abbasi MD [Primary Care Provider] - 10/13/16 2:00 pm - Diet and Activity Activity: increase activity as tolerated Diet: low salt diet Interval History: Ms. Mooney is a 51 year old female Patient with history of obesity, fibromyalgia, pulmonary embolism June this year, hypertension, bipolar disorder and history of prosthetic joint infection patient presented to the emergency room with 4 days of shortness of breath with exertion, cough which is nonproductive Also some chest tightness . chest tightness is constant but worse with exertion and exertional sob as well denies any fever or chills . has history of pulmonary embolism, d-dimer high in ER CT of the chest was done which showed no pulmonary embolism but has multifocal pneumonia troponin is elevated at 0.05 patient is admitted for further treatment. Hospital course: Ms. Mooney is a 51 year old female admitted for shortness of breath. She had a CTA and PE has been ruled out. She was found multifocal pneumonia and treated with antibiotics. After treatment, her condition has improved, no further cough. No fever, WBC Down. During hospitalization patient was found gallbladder stone and a chronic cholecystitis. Surgical consult was called and the plan for follow up and elective surgery as outpatient. Patient was seen and examined today. She is awake alert, oriented 3. Denies chest pain or shortness of breath. Vitals are stable. Patient has home oxygen already and was recommended to use as needed. Patient is stable to discharge home, with by mouth Levaquin 750 mg once a day for 5 more days. Patient has iron deficiency anemia, iron pill was prescribed. - Time Spent with Patient Total time spent providing and/or coordinating discharge services: 25 minutes. Less than 30 minutes - Constitutional Vitals: Temp Pulse Resp BP Pulse Ox 97.6 F 72 17 148/85 100 09/23/16 07:40 09/23/16 07:40 09/23/16 07:40 09/23/16 07:40 09/23/16 07:40 General appearance: Present: A&O X 3, no acute distress, obese - Head Head exam: Present: atraumatic, normocephalic - Eye Eye exam: Present: PERRL, conjuntiva pink, sclera anicteric Pupils: Present: PERRL - Neck Neck exam general surgery: Present: supple, trachea midline. Absent: lymphadenopathy - Respiratory Respiratory exam: Present: CTAB. Absent: accessory muscle use, rales, rhonchi, wheezes - Cardiovascular Cardiovascular exam: Present: RRR, +S1, +S2. Absent: diastolic murmur, gallop, rubs, systolic murmur - GI/Abdominal GI/Abdominal exam: Present: normal bowel sounds, soft, no peritoneal signs. Absent: distended, tenderness - Extremities Exam Extremities exam: Present: warm, radial pulses palpable and symetrical. Absent : calf tenderness, cyanotic, pedal edema - Neurological Exam Neurological exam: Present: CN II-XII intact, oriented X3, no focal deficits. Absent: pronater drift, facial droop, speech deficit - Skin Skin exam: Present: dry, intact - VTE Documentation of Mechanical Device: Intermittent pneumatic compression device
[2016-09-23 14:46] VITALS: BP 148/83
== END 2016-09-23 15:10 | disposition home or self-care (01) | DRG 194 ==
LOC: EMEROO 15:53 → 3BNU 15:53 → SUATTDRO 09-19 13:57
PROVIDERS: ADMIT Nurse Practitioner Family; ATTEND Internal Medicine

== ENCOUNTER 2016-10-01 17:57 | Observation (INO) ==
--- NOTE | 2016-10-01 18:20 | Emergency Department Note ---
Disposition Clinical Impression: Chest pain Disposition: Still a Patient Referrals: Eduarda Abbasi MD [Primary Care Provider] - Forms: ED Satisfaction Letter Chest Pain HPI - General Chief Complaint: ED Chest Pain Stated Complaint: chest pains, "high bp" Time Seen by Provider: 10/01/16 18:16 Source: patient Limitations: no limitations Vital Signs Reviewed: Yes Nursing Notes Reviewed: Yes - History of Present Illness Severity scale (1-10): 7 - Related Data Home Medications Medication Instructions Recorded Confirmed Famotidine [Pepcid] 40 mg PO QAM 03/21/15 09/18/16 Omeprazole [PriLOSEC] 40 mg PO QAM 03/21/15 09/18/16 Celecoxib [Celebrex] 200 mg PO BID 01/30/16 09/18/16 EPINEPHrine [Epipen] 0.3 mg IJ ONCE PRN 01/30/16 03/24/16 Montelukast [Singulair] 10 mg PO HS 01/30/16 09/18/16 Venlafaxine HCl [Venlafaxine HCl 225 mg PO HS 01/30/16 09/18/16 ER] Metoclopramide HCl 5 mg PO HS 03/24/16 09/18/16 Oxcarbazepine 1,200 mg PO HS 03/24/16 09/18/16 Oxcarbazepine 600 mg PO QAM 03/24/16 09/18/16 Quetiapine Fumarate [Seroquel] 200 mg PO HS 03/24/16 09/18/16 Apixaban [Eliquis] 5 mg PO BID 09/18/16 09/18/16 Diazepam [Valium] 10 mg PO TID PRN 09/18/16 09/18/16 Ergocalciferol (VITAMIN D2) 50,000 unit PO QMONTH 09/18/16 09/18/16 [Vitamin D2] Nortriptyline [Pamelor] 25 mg PO HS 09/18/16 09/18/16 Previous Rx's Medication Instructions Recorded Ferrous Sulfate 324 mg PO DAILY #30 tablet. 09/23/16 Levofloxacin [Levaquin] 750 mg PO DAILY #5 tablet 09/23/16 Metoprolol [Lopressor] 12.5 mg PO BID #30 tablet 09/23/16 Allergies Allergy/AdvReac Type Severity Reaction Status Date / Time adhesive tape Allergy Blister Verified 03/21/15 13:05 latex Allergy Blister Verified 03/21/15 13:05 vancomycin Allergy Itching Verified 06/20/15 15:47 Chest Pain PMH - Past Medical History Medical history: Reports: arthritis, fibromyalgia, GERD, hypertension, pulmonary embolus, other Surgical history: Reports: appendectomy, , hysterectomy, knee replacement, orthopedic, other, sinus surgery Psychiatric history: Reports: anxiety, bipolar, depression 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 sign out given to night team. EKG as documented. Vital Signs Temperature 98.1 F 10/01/16 18:00 Pulse Rate 96 10/01/16 18:00 Respiratory Rate 18 10/01/16 18:00 Blood Pressure 151/98 10/01/16 18:00 O2 Sat by Pulse Oximetry 95 10/01/16 18:00 Temperature 98.1 F 10/01/16 18:00 Pulse Rate 86 10/01/16 18:35 Respiratory Rate 22 10/01/16 18:35 Blood Pressure 119/96 10/01/16 18:35 O2 Sat by Pulse Oximetry 98 10/01/16 18:35 Oxygen Delivery Oxygen Delivery Room Air Chest Pain - MDM Narrative Medical decision making narrative: I examined this patient and my medical decision-making was reviewed with the LABORATORY OPERATIONS COORDINATOR/PA/Advanced Practice Nurse/Resident Physician. I agree with the documented findings, disposition and treatment plan as described except to the extent set forth below. Patient was evaluated by Dr. Briseno and myself, agree with his evaluation and management plan, supervise care the patient's stay. 51- year-old female presents with chest discomfort today. Not short of breath at this time. She does have a history of hypertension. Continue cardiac workup to rule out ACS. And then reassess, she may need admission. She will be signed out to the evening ER doc for further management and disposition.
[2016-10-01] MEDS ORDERED: Aspirin 325 MG TABLET PO ONE (19:08)
--- NOTE | 2016-10-01 19:11 | Emergency Department Note ---
Disposition Clinical Impression: Chest pain Qualifiers: Chest pain type: unspecified Qualified Code(s): R07.9 - Chest pain, unspecified Dyspnea Qualifiers: Dyspnea type: unspecified Qualified Code(s): R06.00 - Dyspnea, unspecified Disposition: Admitted As Inpatient Condition: Fair Referrals: Eduarda Abbasi MD [Primary Care Provider] - Forms: ED Satisfaction Letter Time of Disposition: 20:46 Chest Pain HPI - General Chief Complaint: ED Chest Pain Stated Complaint: chest pains, "high bp" Time Seen by Provider: 10/01/16 18:16 Source: patient Limitations: no limitations Vital Signs Reviewed: Yes Nursing Notes Reviewed: Yes - History of Present Illness HPI Narrative: Patient is a 51-year-old female with past medical history of recent pneumonia, pulmonary embolism, hypertension. She was recently discharged from the hospital for pneumonia a few days ago. She presents today due to shortness of breath and chest pain that began a few hours ago. She states that it is in the center of her chest, radiates to her left breast, radiates up to her neck, rates it as a sharp pain that is a 9 out of 10. Both shortness of breath and chest pain are worse with exertion. She has not taken any aspirin or nitroglycerin today. Denies any previous heart attack, stents, she is never had a heart catheter or stress test. She also has associated sweating. Denies any fevers, nausea, vomiting, abdominal pain, dysuria or change in bowel habits. She says that she had a scan in the hospital and was told that her pulmonary embolism is gone. She was put on Eliquis for 7 days and is no longer on this medication. Not currently on any blood thinners. Patient also has reports of elevated BP at home up to 200s/100s. Severity scale (1-10): 7 - Related Data Home Medications Medication Instructions Recorded Confirmed Famotidine [Pepcid] 40 mg PO QAM 03/21/15 10/01/16 Omeprazole [PriLOSEC] 40 mg PO QAM 03/21/15 10/01/16 Celecoxib [Celebrex] 200 mg PO BID 01/30/16 10/01/16 EPINEPHrine [Epipen] 0.3 mg IJ ONCE PRN 01/30/16 10/01/16 Montelukast [Singulair] 10 mg PO HS 01/30/16 10/01/16 Venlafaxine HCl [Venlafaxine HCl 225 mg PO HS 01/30/16 10/01/16 ER] Metoclopramide HCl 5 mg PO HS 03/24/16 10/01/16 Oxcarbazepine 1,200 mg PO HS 03/24/16 10/01/16 Oxcarbazepine 600 mg PO QAM 03/24/16 10/01/16 Quetiapine Fumarate [Seroquel] 200 mg PO HS 03/24/16 10/01/16 Diazepam [Valium] 10 mg PO TID PRN 09/18/16 10/01/16 Ergocalciferol (VITAMIN D2) 50,000 unit PO QMONTH 09/18/16 10/01/16 [Vitamin D2] Nortriptyline [Pamelor] 25 mg PO HS 09/18/16 10/01/16 Cetirizine HCl [Zyrtec] 10 mg PO DAILY PRN 10/01/16 10/01/16 Gabapentin [Neurontin] 1,600 mg PO HS 10/01/16 10/01/16 Gabapentin [Neurontin] 800 mg PO QAM 10/01/16 10/01/16 Hydrochlorothiazide 25 mg PO DAILY 10/01/16 10/01/16 SUMAtriptan Succinate [Imitrex] 100 mg PO AD PRN 10/01/16 10/01/16 Previous Rx's Medication Instructions Recorded Levofloxacin [Levaquin] 750 mg PO DAILY #5 tablet 09/23/16 Allergies Allergy/AdvReac Type Severity Reaction Status Date / Time adhesive tape Allergy Blister Verified 03/21/15 13:05 latex Allergy Blister Verified 03/21/15 13:05 vancomycin Allergy Itching Verified 06/20/15 15:47 All systems ED: reviewed and negative except as stated. Constitutional: Denies: fever Cardiovascular: Reports: chest pain, dyspnea on exertion. Denies: palpitations Respiratory: Reports: dyspnea. 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 - Social History Smoking Status: Never smoker Alcohol use: Reports: none Drug use: Reports: none Physical Exam - General Limitations: no limitations General appearance: alert, in no apparent distress - Head Head exam: atraumatic, normocephalic, normal inspection - Eye Eye exam: Present: normal appearance, PERRL, EOMI - ENT ENT exam: normal exam, mucous membranes moist - Neck Neck exam: Present: normal inspection, full ROM, trachea midline - Chest Chest inspection: Present: normal inspection, symmetric chest wall rise - Respiratory Respiratory exam: Present: other (Mild decrease in right lower lobe breath sounds but no overt wheezing.) - Cardiovascular Cardiovascular exam: Present: regular rate, normal rhythm, normal heart sounds - Extremities Exam Extremities exam: Present: normal inspection, full ROM. Absent: tenderness, pedal edema - Neurological Exam Neurological exam: Present: alert, oriented X3 - Psychiatric Psychiatric exam: Present: normal affect, normal mood - Skin Skin exam: Present: warm, dry, intact, normal color Course Course Narrative: Patient mildly hypertensive with systolic blood pressure in 140s. Otherwise, the rest of her vitals were within normal limits. Physical exam shows: Mild decrease in right lower lobe breath sounds but no overt wheezing. Otherwise, the rest of the physical exam was benign. Will give aspirin and nitro. EKG shows NSR with new T wave inversion in lead III from previous EKG. Cardiac workup ordered. 20:16 Troponin negative, CBC shows no elevation in WBC. BMP not concerning. Chest x-ray shows improvement from previous vascular congestion, no acute cardio pulmonary process. Patient still having some chest pain. She has had 2 nitroglycerin. She has refused any additional to stop. Currently rates her chest pain a 5 out of 10. With continued chest pain, T wave inversion in lead 3 that is new for the patient, will admit the patient for further care and chest pain rule out. 20:44 Dr. Maciel accepted. CTA not performed in ED, will recommend performed on the floor once admitted. Chest X-Ray 10/01/16 18:02 IMPRESSION: 1. Interval improvement in previously seen vascular congestion. 2. Low lung volumes with persistent elevation of right hemidiaphragm with associated atelectasis. 3. Otherwise no acute consolidation. D/ / Alexander Kim MD / Alexander Kim MD Interpreting Provider: Alexander Kim MD Vital Signs Temperature 98.1 F 10/01/16 18:00 Pulse Rate 96 10/01/16 18:00 Respiratory Rate 18 10/01/16 18:00 Blood Pressure 151/98 10/01/16 18:00 O2 Sat by Pulse Oximetry 95 10/01/16 18:00 Temperature 98.1 F 10/01/16 18:00 Pulse Rate 90 10/01/16 19:58 Respiratory Rate 16 10/01/16 19:58 Blood Pressure 139/91 10/01/16 19:58 O2 Sat by Pulse Oximetry 95 10/01/16 19:58 Oxygen Delivery Oxygen Delivery Room Air Chest Pain - MDM Narrative Medical decision making narrative: Patient mildly hypertensive with systolic blood pressure in 140s. Otherwise, the rest of her vitals were within normal limits. Physical exam shows: Mild decrease in right lower lobe breath sounds but no overt wheezing. Otherwise, the rest of the physical exam was benign. Will give aspirin and nitro. EKG shows NSR with new T wave inversion in lead III from previous EKG. Cardiac workup ordered. 20:16 Troponin negative, CBC shows no elevation in WBC. BMP not concerning. Chest x-ray shows improvement from previous vascular congestion, no acute cardio pulmonary process. Patient still having some chest pain. She has had 2 nitroglycerin. She has refused any additional to stop. Currently rates her chest pain a 5 out of 10. With continued chest pain, T wave inversion in lead 3 that is new for the patient, will admit the patient for further care and chest pain rule out. 20:44 Dr. Maciel accepted. CTA not performed in ED, will recommend performed on the floor once admitted. - Medical Records Medical records reviewed: Yes I reviewed the patient's medical records. - Lab Data Lab results reviewed: Yes I reviewed the patient's lab results. Result diagrams: 10/01/16 19:04 10/01/16 19:04 Lab Results 04/10/01/16 10/01/16 Range/Units 19:04 19:04 19:04 WBC 12.0 H (4.3-11.1) K/mcL RBC 5.57 H (3.82-4.97) M/mcL Hgb 12.7 (11.5-15.4) g/dL Hct 41.3 (35.3-44.9) % MCV 74.1 L (83.0-100.0) fL MCH 22.8 L (28.0-33.3) pg MCHC 30.8 L (31.6-35.5) g/dL RDW 22.6 H (11.5-14.5) % Plt Count 480 H (140-400) K/mcL MPV 9.4 (9.4-12.4) fL Immature Gran % 0.3 (0-4) % Seg Neutrophils % 71.5 % Lymphocytes % 16.3 % Monocytes % 7.8 % Eosinophils % 3.1 % Basophils % 1.0 % Neutrophils # 8.6 (1.6-8.9) K/mcL Lymphocytes # 2.0 (0.6-4.6) K/mcL Monocytes # 0.9 (0.0-1.3) K/mcL Eosinophils # 0.4 (0.0-0.6) K/mcL Basophils # 0.1 (0.0-0.2) K/mcL PT 11.3 (9.4-12.1) Seconds INR 1.0 APTT 30.2 (26.0-36.0) Seconds Sodium 137 (136-145) mEq/L Potassium 3.3 L (3.5-4.5) mEq/L Chloride 99 (98-109) mEq/L Carbon Dioxide 25 (19-29) mEq/L BUN 18 (7-20) mg/dL Creatinine 0.72 (0.57-1.11) mg/dL Est GFR ( Amer) > 60 (> 60) Est GFR (Non-Af Amer) > 60 (> 60) BUN/Creatinine Ratio 25 (6-26) Glucose 97 (70-99) mg/dL Calculated Osmolality 286 (280-300) Calcium 9.5 (8.6-10.8) mg/dL Troponin I (0-0.03) ng/mL 10/01/16 Range/Units 19:04 WBC (4.3-11.1) K/mcL RBC (3.82-4.97) M/mcL Hgb (11.5-15.4) g/dL Hct (35.3-44.9) % MCV (83.0-100.0) fL MCH (28.0-33.3) pg MCHC (31.6-35.5) g/dL RDW (11.5-14.5) % Plt Count (140-400) K/mcL MPV (9.4-12.4) fL Immature Gran % (0-4) % Seg Neutrophils % % Lymphocytes % % Monocytes % % Eosinophils % % Basophils % % Neutrophils # (1.6-8.9) K/mcL Lymphocytes # (0.6-4.6) K/mcL Monocytes # (0.0-1.3) K/mcL Eosinophils # (0.0-0.6) K/mcL Basophils # (0.0-0.2) K/mcL PT (9.4-12.1) Seconds INR APTT (26.0-36.0) Seconds Sodium (136-145) mEq/L Potassium (3.5-4.5) mEq/L Chloride (98-109) mEq/L Carbon Dioxide (19-29) mEq/L BUN (7-20) mg/dL Creatinine (0.57-1.11) mg/dL Est GFR ( Amer) (> 60) Est GFR (Non-Af Amer) (> 60) BUN/Creatinine Ratio (6-26) Glucose (70-99) mg/dL Calculated Osmolality (280-300) Calcium (8.6-10.8) mg/dL Troponin I 0.00 (0-0.03) ng/mL - Radiology Data Radiology results reviewed: Yes I reviewed the patient's radiology results. Chest X-Ray 10/01/16 18:02 IMPRESSION: 1. Interval improvement in previously seen vascular congestion. 2. Low lung volumes with persistent elevation of right hemidiaphragm with associated atelectasis. 3. Otherwise no acute consolidation. D/ / Alexander Kim MD / Alexander Kim MD Interpreting Provider: Alexander Kim MD - EKG Data EKG attestation: Yes I reviewed and interpreted this EKG. EKG results narrative: 10/01/2016 18:05. Normal sinus rhythm. Rate 92. OR 146. QRS 109. QTC 400. Left axis deviation. T wave inversion in lead 3 which is new from previous EKG. No acute ST elevation or depression. Heart Score - Score History: Moderately Suspicious EKG: Non Specific repolarisation Disturbance Age: 45-65 Risk Factors: 1-2 risk factors Troponin: Less than normal limit HEART Score Total: 4 S.B.Maurisio - Camryn Situation: Demographics, MOA Background: Presenting Complaint, Relevant PMH, Meds, & Allergies Assessment: Vital Signs, Course and respsone to treatment, Exam Concerns, Patient/Family Expectation, Pertinant Lab Results, Outstanding Labs Recommendation: Barrier(s) to disposition, Recommendation based on pending studies, treatments, or consults S.B.AMarlena Report Given to: Dr. Janell Cowan Repor Time: 20:19
[2016-10-01 19:20] LABS: Basophils # 0.1 K/mcL (0.0-0.2); Eosinophils # 0.4 K/mcL (0.0-0.6); Eosinophils % 3.1 %; Hematocrit 41.3 % (35.3-44.9); Hemoglobin 12.7 g/dL (11.5-15.4); Immature Granulocytes % 0.3 % (0-4); Lymphocytes % 16.3 %; Mean Corpuscular HGB Conc 30.8 g/dL (31.6-35.5); Mean Corpuscular Hemoglobin 22.8 pg (28.0-33.3); Mean Corpuscular Volume 74.1 fL (83.0-100.0); Mean Platelet Volume 9.4 fL (9.4-12.4); Monocytes # 0.9 K/mcL (0.0-1.3); Monocytes % 7.8 %; Neutrophils # 8.6 K/mcL (1.6-8.9); Platelet Count 480 K/mcL (140-400); Red Blood Count 5.57 M/mcL (3.82-4.97); Red Cell Distribution Width 22.6 % (11.5-14.5); Segmented Neutrophils % 71.5 %
[2016-10-01 19:22] LABS: Prothrombin Time 11.3 Seconds (9.4-12.1)
[2016-10-01 19:24] LABS: Activated Partial Thrombo Time 30.2 Seconds (26.0-36.0)
[2016-10-01 19:28] LABS: BUN/Creatinine Ratio 25 (6-26); Blood Urea Nitrogen 18 mg/dL (7-20); Calcium 9.5 mg/dL (8.6-10.8); Carbon Dioxide 25 mEq/L (19-29); Chloride 99 mEq/L (98-109); Glucose 97 mg/dL (70-99); Osmolality,Calculated 286 (280-300); Potassium 3.3 mEq/L (3.5-4.5); Sodium 137 mEq/L (136-145); eGFR For African Americans > 60 (> 60); eGFR For Non-African Americans > 60 (> 60)
[2016-10-01] MEDS: Nitroglycerin 0.4 MG TAB.SUBL SL PRN ×4 (19:37→22:35)
[2016-10-01] MEDS ORDERED: Ondansetron 4 MG/2 ML VIAL IVP ONE (20:11)
[2016-10-01] MEDS ORDERED: Naloxone 0.4 MG/ML INJ IVP PRN (22:36)
[2016-10-01] MEDS ORDERED: Loratadine 10 MG TABLET PO PRN (22:41)
--- NOTE | 2016-10-01 22:58 | Internal Med History&Physical ---
Date of Encounter: 10/02/16 Time of Encounter: 22:30 Assessment and Plan (1) Chest pain Current visit: Yes Status: Acute Unclear etiology, but given her history of very recent PE and currently not anticoagulated I feel that ruling out PE is top priority at this time, especially since EKG does not show clear evidence of significant ischemia (T wave inversion in III only). STAT SQ lovenox 1mg/kg given and patient being taken for STAT CTA. Could have pericarditis or pleurisy in setting of recent pneumonia. - CTA pending - SQ lovenox 1mg/kg BID - will need to be on anticoagulation - Trend troponin, recheck EKG as patient continues to have chest pain - Continue to attempt to make patient chest pain free - Monitor on telemetry Qualifiers: Chest pain type: unspecified Qualified Code(s): R07.9 - Chest pain, unspecified (2) Dyspnea Current visit: Yes Status: Acute Concern for possible PE. Also with history of CHF with diastolic dysfunction ( moderate LF diastolic dysfunction). Appears pneumonia has resolved, but awaiting CT results. Qualifiers: Dyspnea type: unspecified Qualified Code(s): R06.00 - Dyspnea, unspecified (3) Pneumonia Current visit: No Status: Acute Resolved on CXR, will await CT read. Qualifiers: Pneumonia type: due to unspecified organism Laterality: bilateral Lung location: unspecified part of lung Qualified Code(s): J18.9 - Pneumonia, unspecified organism (4) Anxiety Current visit: No Status: Chronic Continue home medications (5) HTN (hypertension) Current visit: No Status: Chronic BP stable on arrival to the floor - Continue home meds. Qualifiers: Hypertension type: essential hypertension Qualified Code(s): I10 - Essential (primary) hypertension Internal Medicine - H&P: HPI Chief complaint: Chest pain Admitted From: Emergency Dept Plans for Post Hospital Care: Home History of present illness: Ms. Mooney is a 51 year old female with history of PE (diagnosed 06/2016), recent admission for pneumonia, and anxiety who presented to the ER this evening for chest pain which developed around 1500 today. She states that her cough had improved after discharge from the hospital two weeks ago and overall she was feeling better. Today she was at rest when she developed substernal chest pain, sharp in nature, 8/10 at worst, radiating to left jaw, associated with diaphoresis and shortness of breath. She noticed that her BP has been very high at home at times - as high as 220/110 occasionally. She continued to have pain on arrival to the ER and was given 2 SL nitro which improved the pain to 5/ 10 in intensity, then she refused further nitro. She states that she does not like morphine because it makes her feel strange, so she was not given any narcotics. Pain increased back to 8/10 on arrival to the obs unit. She has not been taking her eliquis for the past 4 days because the prescription ran out and she thought that meant she was done with it. It appears that she also had stopped it in july after the prescription ran out. It was restarted during her last hospitalization. She states that she has been told that she is "bleeding slowly" from somewhere but her PCP is not sure where. During her last hospitalization she was anemic and received two units PRBCs. Hgb today is stable, actually significantly increased from previous at 12.7. During her last hospitalization she was also found to have cholelithiasis and she is to follow up with general surgery as outpatient. She denies any abdominal pain today, and right upper quadrant is soft and nontender on exam. Past Med Surg Social Fam HX - Past Medical History Medical history: arthritis, fibromyalgia, GERD, hypertension, pulmonary embolus , other Psychiatric history: anxiety, bipolar, depression - Past Surgical History Surgical History: appendectomy, , hysterectomy, knee replacement, orthopedic, other, sinus surgery - Social History Smoking Status: Never smoker Smokeless Tobacco Status: No Alcohol use: none Drug use: none - Family History Mother Living Status: Still Living Hx Family Cardiac Disorders: Yes Hx Family Cancer: Yes (Right breast, mastectomy) Father Hx Family Cardiac Disorders: Yes (HTN) Hx Family Endocrine Disorder: Yes (Diabetes) Internal Medicine - H&P: Meds Famotidine [Pepcid] 40 mg PO QAM 03/21/15 [History] Omeprazole [PriLOSEC] 40 mg PO QAM 03/21/15 [History] Celecoxib [Celebrex] 200 mg PO BID 01/30/16 [History] EPINEPHrine [Epipen] 0.3 mg IJ ONCE PRN 01/30/16 [History] Montelukast [Singulair] 10 mg PO HS 01/30/16 [History] Venlafaxine HCl [Venlafaxine HCl ER] 225 mg PO HS 01/30/16 [History] Metoclopramide HCl 5 mg PO HS 03/24/16 [History] Oxcarbazepine 1,200 mg PO HS 03/24/16 [History] Oxcarbazepine 600 mg PO QAM 03/24/16 [History] Quetiapine Fumarate [Seroquel] 200 mg PO HS 03/24/16 [History] Diazepam [Valium] 10 mg PO TID PRN 09/18/16 [History] Ergocalciferol (VITAMIN D2) [Vitamin D2] 50,000 unit PO QMONTH 09/18/16 [History ] Nortriptyline [Pamelor] 25 mg PO HS 09/18/16 [History] Levofloxacin [Levaquin] 750 mg PO DAILY #5 tablet 09/23/16 [Rx] Cetirizine HCl [Zyrtec] 10 mg PO DAILY PRN 10/01/16 [History] Gabapentin [Neurontin] 1,600 mg PO HS 10/01/16 [History] Gabapentin [Neurontin] 800 mg PO QAM 10/01/16 [History] Hydrochlorothiazide 25 mg PO DAILY 10/01/16 [History] SUMAtriptan Succinate [Imitrex] 100 mg PO AD PRN 10/01/16 [History] Allergies adhesive tape Allergy (Verified 03/21/15 13:05) Blister latex Allergy (Verified 03/21/15 13:05) Blister vancomycin Allergy (Verified 06/20/15 15:47) Itching Patient became flushed, itching all over, hot All Systems PM: A 10-system review of systems was performed and is negative for pertinent findings except as documented above in the HPI. - Constitutional Vitals: Temp Pulse Resp BP Pulse Ox 98.1 F 91 16 148/85 91 10/01/16 21:56 10/01/16 21:56 10/01/16 22:28 10/01/16 22:28 10/01/16 22:28 General appearance: Present: mild distress, A&O X 3, obese - Head Head exam: Present: atraumatic - Eye Eye exam: Present: EOMI, sclera anicteric - ENT ENT exam: Present: mucous membranes moist - Neck Neck exam general surgery: Present: supple - Respiratory Respiratory exam: Present: CTAB - Cardiovascular Cardiovascular exam: Present: RRR. Absent: diastolic murmur, gallop, rubs, systolic murmur - GI/Abdominal GI/Abdominal exam: Present: normal bowel sounds, soft. Absent: distended, tenderness - Extremities Exam Extremities exam: Absent: pedal edema, tenderness - Neurological Exam Neurological exam: Present: no focal deficits - Skin Skin exam: Absent: rash Internal Med - H&P Results - Labs CBC & Chem 7: 10/01/16 19:04 10/02/16 01:20
[2016-10-01] MEDS: Ondansetron 4 MG/2 ML VIAL IVP PRN (23:17)
[2016-10-01] MEDS: *HR* Morphine 2 MG/ML SYRINGE IVP PRN (23:20)
[2016-10-01] MEDS: *HR* Enoxaparin 100 MG/ML SYRINGE SQ SCH (23:22)
[2016-10-01 23:33] LABS: Albumin 3.6 g/dL (3.5-5.0); Albumin/Globulin Ratio 0.8 (1.1-2.2); Bilirubin,Direct 0.1 mg/dL (0.0-0.5); Bilirubin,Indirect 0.1 mg/dL (0.0-1.2); Bilirubin,Total 0.2 mg/dL (0.2-1.2); Globulin 4.5 g/dL (2.4-3.5); Total Protein 8.1 g/dL (6.0-8.3)
[2016-10-02] MEDS ORDERED: *HR* Promethazine 25 MG/ML VIAL IVP ONE (01:37)
[2016-10-02 01:48] LABS: INR 1.1
[2016-10-02] MEDS: diazePAM 10 MG TABLET PO PRN (01:56)
[2016-10-02 02:03] LABS: Alanine Aminotransferase 17 Units/L (0-55); Albumin 3.5 g/dL (3.5-5.0); Albumin/Globulin Ratio 0.7 (1.1-2.2); Alkaline Phosphatase 85 Units/L (38-126); Aspartate Amino Transferase 23 Units/L (5-34); BUN/Creatinine Ratio 21 (6-26); Bilirubin,Total 0.3 mg/dL (0.2-1.2); Blood Urea Nitrogen 17 mg/dL (7-20); Calcium 9.1 mg/dL (8.6-10.8); Carbon Dioxide 20 mEq/L (19-29); Chloride 98 mEq/L (98-109); Globulin 4.7 g/dL (2.4-3.5); Glucose 129 mg/dL (70-99); Magnesium 2.2 mg/dL (1.6-2.6); Osmolality,Calculated 281 (280-300); Potassium 3.4 mEq/L (3.5-4.5); Sodium 134 mEq/L (136-145); Total Protein 8.2 g/dL (6.0-8.3); eGFR For African Americans > 60 (> 60); eGFR For Non-African Americans > 60 (> 60)
[2016-10-02] MEDS: Famotidine 20 MG TABLET PO SCH (05:50)
[2016-10-02] MEDS: Nitroglycerin 0.4 MG TAB.SUBL SL PRN ×2 (05:51→06:15)
[2016-10-02] MEDS: Ondansetron 4 MG/2 ML VIAL IVP PRN ×2 (06:10→20:24)
[2016-10-02 06:50] LABS: Lipase 41 Units/L (8-78)
[2016-10-02] MEDS: OXcarbazepine 150 MG TABLET PO SCH ×2 (08:16→20:24)
[2016-10-02] MEDS: Gabapentin 400 MG CAPSULE PO SCH ×2 (08:17→20:25)
[2016-10-02] MEDS: hydroCHLOROthiazide 25 MG TABLET PO SCH (08:17)
[2016-10-02] MEDS: *HR* Morphine 2 MG/ML SYRINGE IVP PRN ×4 (08:17→22:37)
[2016-10-02] MEDS: *HR* Enoxaparin 100 MG/ML SYRINGE SQ SCH ×2 (08:17→18:39)
[2016-10-02] MEDS ORDERED: SUMAtriptan succinate 50 MG TABLET PO PRN (09:39)
--- NOTE | 2016-10-02 13:36 | Electrocardiograph Report ---
[place] [address] Test Date: 2016-10-01 Pat Name: Minal Mooney Department: 105 Room: 3B45 Gender: F [employer]: ARA : [id number] Requested By: Vipul Davidson Order Number: [id number] Reading MD: Natanael Villagomez MD Measurements Intervals [place] Rate: 87 P: 37 MT: 152 QRS: -24 QRSD: 102 T: 12 QT: 377 QTc: 422 Interpretive Statements SINUS RHYTHM LEFT ATRIAL ENLARGEMENT BORDERLINE LEFT AXIS DEVIATION LEFT VENTRICULAR HYPERTROPHY Electronically Signed On 10-02-2016 13:35:29 EDT by Natanael Villagomez MD
--- NOTE | 2016-10-02 18:44 | Internal Med Progress Note ---
Date of Encounter: 10/02/16 Time of Encounter: 16:00 - Assessment and plan (1) Chest pain Current Visit: Yes Status: Acute Assessment and plan: Unclear causation of her ongoing chest pain and chest tightness. On examination , she is in moderate respiratory distress and continues on HER-2 liters per nasal cannula. She does have circumoral cyanosis. She is tripoding on examination. Aeration fair throughout with decreased breath sounds noted. Imaging consistent with improvement in her prior multifocal pneumonia. Negative for a PE. Obtaining ABGs. We will add bronchodilators and assess her response. She is a non-/never smoker and does not have any occupational exposures since COPD or interstitial lung disease unlikely. She has been seeing rheumatology outpatient for possible autoimmune disorder but apparently she has a lip biopsy that is still pending. She is also complaining of severe epigastric abdominal pain. She states that her food gets stuck every time she eats. She states that liquids go down well but she is unable to eat most of the time and if she eats after 6 PM, she will wake up vomiting in the middle of the night. She denies recent endoscopy. We will bring GI on board for an EGD at their discretion. She does have a moderate sized hiatal hernia. She also had a nuclear bone scan that was unremarkable on 08/27/16. She had an echocardiogram here on 09/19/16 revealed an ejection fraction of 65% and moderate diastolic dysfunction. She appears euvolemic/slightly dehydrated on examination. Patient is also endorsing severe dysphagia stating that every time she eats she chokes. Her states that in June he found her unresponsive at home and states he took her to the hospital when she was intubated and on a vent for several days. He states that they discuss with them on pulling the plug. He states they told him at that time that she had severe aspiration that led to her respiratory failure. This must then added outlying hospital, will attempt to get a better history tomorrow and attempt to obtain records. It appears as if this patient has been seen at several hospitals and it appears as if she does not have a primary care provider or any continuity to her care thus far. We will bring GI on board for possible EGD. We will also consult speech therapy. ITS Impressions Chest X-Ray 10/01/16 18:02 IMPRESSION: 1. Interval improvement in previously seen vascular congestion. 2. Low lung volumes with persistent elevation of right hemidiaphragm with associated atelectasis. 3. Otherwise no acute consolidation. D/ / Alexander Kim MD / Alexander Kim MD Interpreting Provider: Alexander Kim MD Chest CTA 10/02/16 00:24 IMPRESSION: 1. No evidence of pulmonary embolism or acute pulmonary abnormality. 2. Overall improvement in previously noted ground-glass and airspace opacities, with mild persists or is residual reticular and ground-glass opacities in right upper and right middle lobes. 3. 8 right lower lobe nodule. Interpreting Provider: Alexander Kim MD Qualifiers: Chest pain type: unspecified Qualified Code(s): R07.9 - Chest pain, unspecified (2) Acute and chronic respiratory failure Current Visit: Yes Status: Acute Assessment and plan: Patient staying at her primary care provider told her that her oxygen was low in July and she has been on 2 L per nasal cannula continuously since that time. Unknown etiology and I cannot find any charting by her primary care provider. She has been seen by several providers since that time and her chronic use of oxygen does not appear to have been addressed. We will obtain ABGs and perform BiPAP qualification as she states that her primary care may be trying to set her up with CPAP at home. She is a nonsmoker and never smoker. Imaging today reveals that her prior pneumonia is resolving. No evidence of a PE. She does remained with groundglass opacities on her CTA however they are improved. Her is at the bedside and states that the patient was intubated and on a vent in June for several days. He states that medical staff was trying to get him to "pull the plug." Unclear what hospital that was appetite was not this hospital. Will attempt to obtain records as it does not appear as if patient was seen at [facility] in July when she was started on her oxygen. She is being followed by rheumatology outpatient with a lip biopsy that appears to be still pending. Qualifiers: Respiratory failure complication: unspecified whether with hypoxia or hypercapnia Qualified Code(s): J96.20 - Acute and chronic respiratory failure , unspecified whether with hypoxia or hypercapnia (3) Dyspnea Current Visit: Yes Status: Acute Qualifiers: Dyspnea type: unspecified Qualified Code(s): R06.00 - Dyspnea, unspecified (4) Epigastric pain Current Visit: Yes Status: Acute Assessment and plan: Patient was seen here at [facility] from until 09/23/16. During that time, she was noted to have a abnormal gallbladder ultrasound with gallstones and sludge. HIDA scan then performed which was consistent with chronic cholecystitis. Patient was seen by surgery and the plan is to have an elective cholecystectomy in the near future. Patient still with severe epigastric abdominal pain, will obtain abdominal CT. LFTs normal as is her bili and lipase. (5) Anxiety Current Visit: No Status: Chronic Assessment and plan: Patient appears slightly anxious however overall mood and affect appropriate (6) Depression Current Visit: No Status: Chronic Qualifiers: Depression Type: major depressive disorder Major depression recurrence: recurrent Active/Remission status: currently active Major depression episode severity: mild Qualified Code(s): F33.0 - Major depressive disorder, recurrent, mild (7) Chest tightness Current Visit: No Status: Acute (8) Anemia Current Visit: No Status: Chronic Assessment and plan: Not currently anemic however suspect blood work he woke concentrated given that she appears dehydrated on examination. Will trend. (9) HTN (hypertension) Current Visit: No Status: Chronic Assessment and plan: Uncontrolled. At home, she is only on HCTZ 25 mg daily. Will add amlodipine to her regimen. Lopressor IV as needed. Qualifiers: Hypertension type: essential hypertension Qualified Code(s): I10 - Essential (primary) hypertension (10) Obesity Current Visit: No Status: Chronic Qualifiers: Obesity type: due to excess calories Obesity severity: non-morbid Qualified Code(s): E66.09 - Other obesity due to excess calories (11) History of pulmonary embolism Current Visit: No Status: Chronic Assessment and plan: Acute PE ruled out. Patient stating she stopped taking her Eliquis because she claims a prescription was only written for 7 days and she was unable to obtain medication afterwards. (12) DVT prophylaxis Current Visit: No Status: Acute Assessment and plan: Subcutaneous Lovenox-PE ruled out, will decrease to prophylactic dose (13) Leukocytosis Current Visit: Yes Status: Acute Assessment and plan: Mild, unclear causation, we will continue to assess (14) Hypokalemia Current Visit: Yes Status: Acute Assessment and plan: Mild, will replete and trend - Time Spent With Patient Greater than 35 minutes (lengthy conversastion with patient and ; lengthy chart review) - Subjective Interval history: Patient seen and examined. On examination, patient initially standing upright beside her bed stating she cannot breathe and cannot sit down. She is also endorsing chest pain and chest pressure as well as shortness of breath. - Constitutional Vitals: Temp Pulse Resp BP Pulse Ox 98.3 F 84 17 168/102 96 10/02/16 15:35 10/02/16 15:35 10/02/16 15:35 10/02/16 15:56 10/02/16 15:35 General appearance: Present: mild distress (moderate), A&O X 3, pleasant, obese , answers questions appropriately - Head Head exam: Present: atraumatic, normocephalic - Eye Eye exam: Present: PERRL, conjuntiva pink, sclera anicteric Pupils: Present: PERRL - Neck Neck exam general surgery: Present: supple, trachea midline. Absent: lymphadenopathy - Respiratory Respiratory exam: Present: accessory muscle use (tripodding), decreased breath sounds, respiratory distress. Absent: rales, rhonchi, wheezes - Cardiovascular Cardiovascular exam: Present: RRR, +S1, +S2. Absent: diastolic murmur, gallop, rubs, systolic murmur - GI/Abdominal GI/Abdominal exam: Present: normal bowel sounds, soft, no peritoneal signs. Absent: distended, tenderness - Extremities Exam Extremities exam: Present: warm, radial pulses palpable and symetrical. Absent : calf tenderness, cyanotic, pedal edema - Neurological Exam Neurological exam: Present: alert, CN II-XII intact, normal gait, oriented X3, no focal deficits, strengths equal and symetr throughout. Absent: pronater drift, facial droop, speech deficit - Skin Skin exam: Present: cyanosis (circumoral), dry, intact, pallor, warm Internal Medicine: Result - Labs CBC & Chem 7: 10/01/16 19:04 10/02/16 01:20 Labs: BMP 10/02/16 01:20 Sodium 134 L Potassium 3.4 L Chloride 98 Carbon Dioxide 20 BUN 17 Creatinine 0.81 Glucose 129 H Calcium 9.1 Cardiac Enzymes 10/02/16 10/02/16 10/02/16 Range/Units 02:18 08:00 15:20 Troponin I 0.00 0.00 0.01 (0-0.03) ng/mL Liver Function 10/02/16 Range/Units 01:20 Total Bilirubin 0.3 (0.2-1.2) mg/dL AST 23 (5-34) Units/L ALT 17 (0-55) Units/L Alkaline Phosphatase 85 (38-126) Units/L Albumin 3.5 (3.5-5.0) g/dL - ABG Interpretation ABG results: PT/INR, D-dimer PT 12.0 Seconds (9.4-12.1) 10/02/16 01:20 - Impressions Impressions Chest CTA 10/02/16 00:24 IMPRESSION: 1. No evidence of pulmonary embolism or acute pulmonary abnormality. 2. Overall improvement in previously noted ground-glass and airspace opacities, with mild persists or is residual reticular and ground-glass opacities in right upper and right middle lobes. 3. 8 right lower lobe nodule. RECOMMENDATIONS: Fleischner Society guidelines for follow-up and management of incidentally detected pulmonary nodules: Single Solid Nodule: Nodule size less than 6 mm In a low-risk patient, no routine follow-up. In a high-risk patient, optional CT at 12 months. Nodule size equals 6-8 mm In a low-risk patient, CT at 6-12 months, then consider CT at 18-24 months. In a high-risk patient, CT at 6-12 months, then CT at 18-24 months. Nodule size greater than 8 mm In a low-risk patient, consider CT, PET/CT, or tissue sampling at 3 months. In a high-risk patient, consider CT, PET/CT, or tissue sampling at 3 months. Multiple Solid Nodules: Nodule size less than 6 mm In a low-risk patient, no routine follow-up. In a high-risk patient, optional CT at 12 months. Nodule size equals 6-8 mm In a low-risk patient, CT at 3-6 months, then consider CT at 18-24 months. In a high-risk patient, CT at 3-6 months, then CT at 18-24 months. Nodule size greater than 8 mm In a low-risk patient, CT at 3-6 months, then consider CT at 18-24 months. In a high-risk patient, CT at 3-6 months, then CT at 18-24 months. - Low risk patients include individuals with minimal or absent history of smoking and other known risk factors. - High risk patients include individuals with a history or smoking or known risk factors. Radiology 2017 http://pubs.rsna.org/doi/full/10.1148/[email or web address] D/ / Alexander Kim MD / Alexander Kim MD Interpreting Provider: Alexander Kim MD Consult Discharge Plan - Plan Referrals: Eduarda Abbasi MD [Primary Care Provider] -
[2016-10-02] MEDS ORDERED: *HR* Metoprolol 5 MG/5 ML VIAL IVP PRN (18:52)
[2016-10-02] MEDS ORDERED: *HR* HYDROcodone/Acet 5/325 mg TABLET PO PRN (19:09)
[2016-10-02] MEDS: Ipratropium/Albuterol Neb 3 ML IH SCH (20:14)
[2016-10-02] MEDS: Levofloxacin 750 MG/150 ML 750 MG/150 ML BAG IVPB SCH (20:23)
[2016-10-02] MEDS: amLODIPine 5 MG TABLET PO SCH (20:25)
[2016-10-02] MEDS: VENLAFAXINE PO SCH (20:26)
[2016-10-02 21:00] LABS: ABG Base Excess 10.1 mEq/L (-2.0 to 3.0); ABG HCO3 36.5 mEQ/L (21-27); ABG Oxygen Saturation 95 % (95-98); ABG PCO2 55 mmHg (35-45); ABG PH 7.43 pH Units (7.32-7.45); ABG PO2 72 mmHg (85-104); ABG TCO2 38.2 mEq/L (20-26)
[2016-10-02] MEDS ORDERED: VENLAFAXINE HCL 225 MG PO SCH (21:00)
[2016-10-02 21:01] LABS: Blood Gas FiO2 28 %
[2016-10-03] MEDS: Ipratropium/Albuterol Neb 3 ML IH SCH ×6 (00:07→20:48)
[2016-10-03] MEDS ORDERED: Pantoprazole 40 MG VIAL IVP ONE (00:37)
[2016-10-03 05:20] LABS: Basophils # 0.1 K/mcL (0.0-0.2); Basophils % 0.9 %; Eosinophils # 0.4 K/mcL (0.0-0.6); Eosinophils % 3.9 %; Immature Granulocytes % 0.4 % (0-4); Lymphocytes # 2.6 K/mcL (0.6-4.6); Lymphocytes % 25.6 %; Mean Corpuscular HGB Conc 29.7 g/dL (31.6-35.5); Mean Corpuscular Hemoglobin 22.4 pg (28.0-33.3); Mean Corpuscular Volume 75.5 fL (83.0-100.0); Mean Platelet Volume 9.5 fL (9.4-12.4); Monocytes # 0.9 K/mcL (0.0-1.3); Monocytes % 8.6 %; Neutrophils # 6.2 K/mcL (1.6-8.9); Platelet Count 424 K/mcL (140-400); Red Blood Count 4.77 M/mcL (3.82-4.97); Red Cell Distribution Width 21.9 % (11.5-14.5); Segmented Neutrophils % 60.6 %
[2016-10-03] MEDS: Famotidine 20 MG TABLET PO SCH (05:20)
[2016-10-03] MEDS: MethylPREDNISolone 40 MG/ML VIAL IVP SCH ×2 (05:20→17:44)
[2016-10-03 05:21] LABS: Hemoglobin 10.7 g/dL (11.5-15.4)
[2016-10-03] MEDS: *HR* Morphine 2 MG/ML SYRINGE IVP PRN ×2 (05:30→20:16)
[2016-10-03 05:42] LABS: BUN/Creatinine Ratio 23 (6-26); Blood Urea Nitrogen 16 mg/dL (7-20); Calcium 9.1 mg/dL (8.6-10.8); Carbon Dioxide 32 mEq/L (19-29); Chloride 93 mEq/L (98-109); Glucose 114 mg/dL (70-99); Osmolality,Calculated 286 (280-300); Sodium 137 mEq/L (136-145); eGFR For African Americans > 60 (> 60); eGFR For Non-African Americans > 60 (> 60)
[2016-10-03 06:09] LABS: Potassium 2.5 mEq/L (3.5-4.5)
[2016-10-03] MEDS ORDERED: *HR* Enoxaparin 40 MG/0.4 ML SYRINGE SQ SCH (07:00)
[2016-10-03] MEDS: amLODIPine 5 MG TABLET PO SCH (09:02)
[2016-10-03] MEDS: Gabapentin 400 MG CAPSULE PO SCH ×2 (09:02→21:17)
[2016-10-03] MEDS: OXcarbazepine 150 MG TABLET PO SCH ×2 (09:02→21:18)
[2016-10-03] MEDS: hydroCHLOROthiazide 25 MG TABLET PO SCH (09:02)
--- NOTE | 2016-10-03 12:03 | Gastroenterology Consult Note ---
<Aristeo Valle - Last Filed: 10/03/16 12:01> Date of Encounter: 10/03/16 Time of Encounter: 10:40 - Assessment and plan (1) Gastroparesis Current Visit: Yes Status: Acute Assessment and plan: Pt follows with Dr. Geller. Pt reports having a gastric emptying study that was positive for gastroparesis. Recommend: * Small frequent meals * Avoid fried and fatty foods * Chew food well * Blenderize food when symptomatic * Reduce or avoid high-fiber foods and medications * Avoid raw vegetables * If you have diabetes, keep blood sugars well controlled Avoid medications that can delay gastric emptying such as narcotics, high-fiber medications, and high-fiber foods Follow up with Dr. Geller as outpatient. No indication for invasive procedures at this time. (2) Chest pain Current Visit: Yes Status: Acute Assessment and plan: Management per primary team. Qualifiers: Chest pain type: unspecified Qualified Code(s): R07.9 - Chest pain, unspecified - Time Spent With Patient Total time spent is greater than 50% in coordination of care (as documented) at patient's floor/unit and/or counseling patient: GI History of Present Illness - Data of Consult Patient: new to practice Consult date: 10/03/16 Requesting Physician: Armida Kc - Consult Narrative Reason for consult: dysphagia History of present illness: Ms. Mooney is a 51 year old female with PMHx of fibromyalgia, GERD, HTN, PE, PNA who presented to the ED with complaints of chest pain. she was at rest when she developed substernal chest pain, sharp in nature, 8/10 at worst, radiating to left jaw, associated with diaphoresis and shortness of breath. She continued to have pain on arrival to the ER and was given 2 SL nitro which improved the pain to 5/10 in intensity, then she refused further nitro. She has not been taking her eliquis for the past 4 days because the prescription ran out and she thought that meant she was done with it. It appears that she also had stopped it in july after the prescription ran out. It was restarted during her last hospitalization. She states that she has been told that she is "bleeding slowly " from somewhere but her PCP is not sure where. During her last hospitalization she was anemic and received two units PRBCs. Hgb today is stable, actually significantly increased from previous at 12.7. During her last hospitalization she was also found to have cholelithiasis and she is to follow up with general surgery as outpatient. Pt reports nausea and states food keeps "coming up". She reports history of gastroparesis. She follows with Dr. Geller. She denies dysphagia, stating food "does not get stuck, but keeps coming up". Procedures: Colonoscopy by Dr. Geller, normal per pt report NSAIDs: None Anticoagulation: None Past Med Surg Social Fam HX - Past Medical History Medical history: arthritis, fibromyalgia, GERD, hypertension, pulmonary embolus , other Psychiatric history: anxiety, bipolar, depression - Past Surgical History Surgical History: appendectomy, , hysterectomy, knee replacement, orthopedic, other, sinus surgery - Social History Smoking Status: Never smoker Smokeless Tobacco Status: No Alcohol use: none Drug use: none - Family History Mother Living Status: Still Living Hx Family Cardiac Disorders: Yes Hx Family Cancer: Yes (Right breast, mastectomy) Father Hx Family Cardiac Disorders: Yes (HTN) Hx Family Endocrine Disorder: Yes (Diabetes) - Gastrointestinal Gastrointestinal: Present: as per HPI - Constitutional Constitutional: as per HPI - EENT Eyes: as per HPI Ears: Present: as per HPI Nose, mouth and throat: Present: as per HPI - Cardiovascular Cardiovascular ROS: Present: as per HPI - Respiratory Respiratory IM: Present: as per HPI - Genitourinary Genitourinary: Absent: change in color, Urinary frequency - Neurological ROS Neurological GI: Present: as per HPI - Hematologic/Lymphatic Hematologic/Lymphatic pediatric: Present: as per HPI - Musculoskeletal Musculoskeletal ROS GI: Present: as per HPI - Integumentary Integumentary GI: Present: as per HPI - Psychiatric ROS Psychiatric GI: Present: as per HPI - Endocrine Endocrine IM: Present: as per HPI - Constitutional Vitals: Temp Pulse Resp BP Pulse Ox 97.5 F L 101 16 171/95 98 10/03/16 11:17 10/03/16 11:17 10/03/16 11:17 10/03/16 11:10/03/16 11:17 General appearance: Present: cooperative, A&O X 3, no acute distress, answers questions appropriately - Head Head exam: Present: atraumatic, normocephalic - Eye Eye exam: Present: normal appearance, sclera anicteric - ENT ENT exam: Present: mucous membranes moist - Neck Neck exam general surgery: Present: normal inspection, trachea midline - Respiratory Respiratory exam: Present: CTAB. Absent: rales, rhonchi, wheezes - Cardiovascular Cardiovascular exam: Present: RRR, +S1, +S2 - GI/Abdominal GI/Abdominal exam: Present: soft, no peritoneal signs. Absent: distended, firm , guarding, tenderness Additional comments: Obese - Rectal Rectal exam: Present: deferred - Extremities Exam Extremities exam: Present: warm - Neurological Exam Neurological exam: Present: no focal deficits - Psychiatric Psychiatric exam: Present: normal affect, normal mood - Skin Skin exam: Present: dry, intact, normal color, warm Results - Labs CBC & Chem 7: 10/03/16 05:00 10/03/16 05:00 Labs: Last Result Calcium 9.1 mg/dL (8.6-10.8) 10/03/16 05:00 Troponin I 0.01 ng/mL (0-0.03) 10/02/16 15:20 Entire Visit Hgb 10.7 g/dL (11.5-15.4) L D 10/03/16 05:00 Hct 36.0 % (35.3-44.9) 10/03/16 05:00 PT 12.0 Seconds (9.4-12.1) 10/02/16 01:20 Total Bilirubin 0.3 mg/dL (0.2-1.2) 10/02/16 01:20 AST 23 Units/L (5-34) 10/02/16 01:20 ALT 17 Units/L (0-55) 10/02/16 01:20 Lipase 41 Units/L (8-78) 10/02/16 01:20 - ABG ABG results: ABG ABG pH 7.43 pH Units (7.32-7.45) 10/02/16 20:40 ABG pCO2 55 mmHg (35-45) H 10/02/16 20:40 ABG pO2 72 mmHg (85-104) L 10/02/16 20:40 ABG O2 Saturation 95 % (95-98) 10/02/16 20:40 PT/INR, D-dimer PT 12.0 Seconds (9.4-12.1) 10/02/16 01:20 - Impressions Impressions Abdomen/Pelvis CT 10/02/16 18:58 IMPRESSION: 1. Nonspecific gallbladder wall thickening/edema. No radiodense gallstones or pericholecystic inflammatory changes. 2. Moderate-size hiatal hernia. Moderate-sized fat containing left paraumbilical hernia. Small fat containing umbilical hernia. 3. A 2.3 x 3.5 cm cystic lesion near the right perineum which could represent a Bartholin's or Nohelia duct cyst. Clinical correlation recommended. D/ / 10/02/2016 23:19:20 Kavita Fierro MD / kay Interpreting Provider: Kavita Fierro MD Consult Discharge Plan - Plan Referrals: Eduarda Abbasi MD [Primary Care Provider] - <Deedee Lew - Last Filed: 10/03/16 14:01> Date of Encounter: 10/03/16 Time of Encounter: 12:00 - Time Spent With Patient Total time spent is greater than 50% in coordination of care (as documented) at patient's floor/unit and/or counseling patient: GI History of Present Illness - Data of Consult Requesting Physician: Armida Kc - Consult Narrative History of present illness: Ms. Mooney is a 51 year old female - Constitutional Vitals: Temp Pulse Resp BP Pulse Ox 98.8 F 99 16 148/85 96 10/03/16 13:15 10/03/16 13:15 10/03/16 13:15 10/03/16 13:15 10/03/16 13:15 Results - Labs CBC & Chem 7: 10/03/16 05:00 10/03/16 05:00 Labs: Last Result Calcium 9.1 mg/dL (8.6-10.8) 10/03/16 05:00 Troponin I 0.01 ng/mL (0-0.03) 10/02/16 15:20 Entire Visit Hgb 10.7 g/dL (11.5-15.4) L D 10/03/16 05:00 Hct 36.0 % (35.3-44.9) 10/03/16 05:00 PT 12.0 Seconds (9.4-12.1) 10/02/16 01:20 Total Bilirubin 0.3 mg/dL (0.2-1.2) 10/02/16 01:20 AST 23 Units/L (5-34) 10/02/16 01:20 ALT 17 Units/L (0-55) 10/02/16 01:20 Lipase 41 Units/L (8-78) 10/02/16 01:20 - ABG ABG results: ABG ABG pH 7.43 pH Units (7.32-7.45) 10/02/16 20:40 ABG pCO2 55 mmHg (35-45) H 10/02/16 20:40 ABG pO2 72 mmHg (85-104) L 10/02/16 20:40 ABG O2 Saturation 95 % (95-98) 10/02/16 20:40 PT/INR, D-dimer PT 12.0 Seconds (9.4-12.1) 10/02/16 01:20 - Impressions Impressions Abdomen/Pelvis CT 10/02/16 18:58 IMPRESSION: 1. Nonspecific gallbladder wall thickening/edema. No radiodense gallstones or pericholecystic inflammatory changes. 2. Moderate-size hiatal hernia. Moderate-sized fat containing left paraumbilical hernia. Small fat containing umbilical hernia. 3. A 2.3 x 3.5 cm cystic lesion near the right perineum which could represent a Bartholin's or Nohelia duct cyst. Clinical correlation recommended. D/ / 10/02/2016 23:19:20 Kavita Fierro MD / kay Interpreting Provider: Kavita Fierro MD - Attending Attestation I examined this patient and my medical decision-making was reviewed with the NIGHT SUPERVISOR/PA/Advanced Practice Nurse/Resident Physician. I agree with the documented findings, disposition and treatment plan as described except to the extent set forth below.
[2016-10-03] MEDS: diazePAM 10 MG TABLET PO PRN (14:56)
[2016-10-03 16:16] LABS: Magnesium 1.8 mg/dL (1.6-2.6); Potassium 2.9 mEq/L (3.5-4.5)
[2016-10-03] MEDS ORDERED: diazePAM 10 MG/2 ML SYRINGE IVP STA (16:41)
--- NOTE | 2016-10-03 17:09 | Internal Med Progress Note ---
Date of Encounter: 10/03/16 Time of Encounter: 15:00 (x45 minutes) - Assessment and plan (1) Patient under care of multiple providers Current Visit: Yes Status: Acute Assessment and plan: I have reviewed charts from several different hospitals and spoken to several of her providers. Thus far, she has been seen at [facility] and [facility], she is also been seen at [facility]. She also has a junior assistant manager named Dr. Moore as well as a GI doctor named Dr. Geller out of [facility]. She appears to see our psychiatry here at [facility] and that is where she is getting her Valium. She also sees Dr. Shaw of [facility] quite a bit and that is where she receives several pain medication prescriptions. She does not appear to have a primary care provider at this time. She lists her primary care provider is Dr. Rollins but it does not appear as if she sees this provider very often. She clearly needs a medical home. She is traveling all around the [place] for [place] care. As I am verifying everything that she is telling me, frequently what she is saying is not matching up with the medical records obtained from outlying hospitals and in conversing with outside providers. Current plan of care: Address the patient's oxygen need and wean her off oxygen as she tolerates. We will observe her overnight. Patient continues with several somatic complaints that have changed several times throughout this visit. He did continue to address her hypokalemia, not safe to be discharged in the meantime. Will observe overnight and possibly discharge as early as tomorrow pending clinical outcomes. (2) Chest pain Current Visit: Yes Status: Resolved Assessment and plan: Patient currently denies chest pain. Her major concern right now is her shaking and her subsequent neck pain as a result of the shaking. 10/02/16 Unclear causation of her ongoing chest pain and chest tightness. On examination , she is in moderate respiratory distress and continues on her 2 liters per nasal cannula. She does have circumoral cyanosis. She is tripoding on examination. Aeration fair throughout with decreased breath sounds noted. Imaging consistent with improvement in her prior multifocal pneumonia. Negative for a PE. Obtaining ABGs. We will add bronchodilators and assess her response. She is a non-/never smoker and does not have any occupational exposures since COPD or interstitial lung disease unlikely. She has been seeing rheumatology outpatient for possible autoimmune disorder but apparently she has a lip biopsy that is still pending. She is also complaining of severe epigastric abdominal pain. She states that her food gets stuck every time she eats. She states that liquids go down well but she is unable to eat most of the time and if she eats after 6 PM, she will wake up vomiting in the middle of the night. She denies recent endoscopy. We will bring GI on board for an EGD at their discretion. She does have a moderate sized hiatal hernia. She also had a nuclear bone scan that was unremarkable on 08/27/16. She had an echocardiogram here on 09/19/16 revealed an ejection fraction of 65% and moderate diastolic dysfunction. She appears euvolemic/slightly dehydrated on examination. Patient is also endorsing severe dysphagia stating that every time she eats she chokes. Her states that in June he found her unresponsive at home and states he took her to the hospital when she was intubated and on a vent for several days. He states that they discuss with them on pulling the plug. He states they told him at that time that she had severe aspiration that led to her respiratory failure. This must then added outlying hospital, will attempt to get a better history tomorrow and attempt to obtain records. It appears as if this patient has been seen at several hospitals and it appears as if she does not have a primary care provider or any continuity to her care thus far. We will bring GI on board for possible EGD. We will also consult speech therapy. ITS Impressions Chest X-Ray 10/01/16 18:02 IMPRESSION: 1. Interval improvement in previously seen vascular congestion. 2. Low lung volumes with persistent elevation of right hemidiaphragm with associated atelectasis. 3. Otherwise no acute consolidation. D/ / Alexander Kim MD / Alexander Kim MD Interpreting Provider: Alexander Kim MD Chest CTA 10/02/16 00:24 IMPRESSION: 1. No evidence of pulmonary embolism or acute pulmonary abnormality. 2. Overall improvement in previously noted ground-glass and airspace opacities, with mild persists or is residual reticular and ground-glass opacities in right upper and right middle lobes. 3. 8 right lower lobe nodule. Interpreting Provider: Alexander Kim MD Qualifiers: Chest pain type: unspecified Qualified Code(s): R07.9 - Chest pain, unspecified (3) Acute and chronic respiratory failure Current Visit: Yes Status: Acute Assessment and plan: So her clinical picture at this point is unclear as to why she is on oxygen so I called her junior assistant manager Dr. Moore at [phone]. I spoke to his office and they informed me that the patient saw them on 08/07/16 after she had been [facility] . She was seen at that point for chest pain and had been diagnosed with a PE in the right lower lobe and she was started on L Aquinas and started on supplemental oxygen. During that pulmonology visit on 08/07/16, they performed a walk test and the patient did not require supplemental oxygenation since she was told not to wear it any more. Patient however states that she was told to wear continuously which does not match with what her junior assistant manager is stating. In light of this, her imaging during this visit appears that her prior infections are resolving and there are no acute processes to we will attempt to wean the patient off oxygen at this time. 10/02/16 Patient staying at her primary care provider told her that her oxygen was low in July and she has been on 2 L per nasal cannula continuously since that time. Unknown etiology and I cannot find any charting by her primary care provider. She has been seen by several providers since that time and her chronic use of oxygen does not appear to have been addressed. We will obtain ABGs and perform BiPAP qualification as she states that her primary care may be trying to set her up with CPAP at home. She is a nonsmoker and never smoker. Imaging today reveals that her prior pneumonia is resolving. No evidence of a PE. She does remained with groundglass opacities on her CTA however they are improved. Her is at the bedside and states that the patient was intubated and on a vent in June for several days. He states that medical staff was trying to get him to "pull the plug." Unclear what hospital that was appetite was not this hospital. Will attempt to obtain records as it does not appear as if patient was seen at [facility] in July when she was started on her oxygen. She is being followed by rheumatology outpatient with a lip biopsy that appears to be still pending. Qualifiers: Respiratory failure complication: unspecified whether with hypoxia or hypercapnia Qualified Code(s): J96.20 - Acute and chronic respiratory failure , unspecified whether with hypoxia or hypercapnia (4) Dyspnea Current Visit: Yes Status: Acute Qualifiers: Dyspnea type: unspecified Qualified Code(s): R06.00 - Dyspnea, unspecified (5) Epigastric pain Current Visit: Yes Status: Acute Assessment and plan: Patient was seen here at [facility] from 09/18/16 until 09/23/16. During that time, she was noted to have a abnormal gallbladder ultrasound with gallstones and sludge. HIDA scan then performed which was consistent with chronic cholecystitis. Patient was seen by surgery and the plan is to have an elective cholecystectomy in the near future. Patient still with epigastric abdominal pain though much less severe than yesterday and she has been able to tolerate a regular diet. Abdominal CT obtained and revealed nonspecific gallbladder wall thickening without acute inflammatory processes identified. Her moderate-sized hiatal hernia and her moderate-sized fat-containing left periumbilical hernia in her small fat containing umbilical hernia were also noted and can be followed up with outpatient. Abdominal pelvic CT also revealed a cystic lesion to her right perineum, she denies pelvic pain, will have her follow up outpatient. LFTs normal as is her bili and lipase. ITS Impressions Abdomen/Pelvis CT 10/02/16 18:58 IMPRESSION: 1. Nonspecific gallbladder wall thickening/edema. No radiodense gallstones or pericholecystic inflammatory changes. 2. Moderate-size hiatal hernia. Moderate-sized fat containing left paraumbilical hernia. Small fat containing umbilical hernia. 3. A 2.3 x 3.5 cm cystic lesion near the right perineum which could represent a Bartholin's or Nohelia duct cyst. Clinical correlation recommended. D/ / 10/02/2016 23:19:20 Kavita Fierro MD / kay Interpreting Provider: Kavita Fierro MD (6) Anxiety Current Visit: No Status: Chronic Assessment and plan: Patient appears slightly anxious and her whole body is tremoring. She is alert and oriented 3. In review of her OARRS report, she has been on diazepam for at least 1 year I suspect she is going to early withdrawal have continued her oral diazepam however she continued to state so she got a one-time dose of diazepam. Will monitor her response. (7) Depression Current Visit: No Status: Chronic Assessment and plan: Upon further review of her charts from outside hospitals, patient was seen on at [facility] as her found her unresponsive. Per report, patient and her were fighting about financial difficulties in the care of their 24-year-old son and then the patient went to bed. The then went to bed as well and when he woke up for work he noticed that she was still sleeping so he went to work and when he came back at 2:00 in the afternoon, patient was still in the same position she was earlier in the morning and he stated that she had mucus coming out of her mouth and was unresponsive so he called EMS. She was intubated at [place] was transferred to [facility] and she was admitted there until 05/22/16. She was in the ICU for several days for a suspected overdose as an intentional suicide gesture. She does have a history of attempting suicide by slitting her wrists and has a lengthy psychiatric history including bipolar and depression. She does see [facility] psychiatric team, she was under the care of Dr. Lai and is now under the care of Dr Bynum. Patient was seen by psychiatry at [facility] and she denied suicidal ideations and was discharged. Of note, patient denied that this was an overdose but the family reported that she has a history of overdosing and taking more for medications after her and her are in fights. They state that she takes more of her medications that she can sleep after fighting. Patient currently denies suicidal ideation. Qualifiers: Depression Type: major depressive disorder Major depression recurrence: recurrent Active/Remission status: currently active Major depression episode severity: mild Qualified Code(s): F33.0 - Major depressive disorder, recurrent, mild (8) Chest tightness Current Visit: No Status: Resolved (9) Anemia Current Visit: No Status: Chronic Assessment and plan: Not currently anemic upon admission likely 2/2 hemo-concentration given that she was dehydrated upon admission. Now anemic but consistent with her baseline and no active bleeding noted. Will trend. (10) HTN (hypertension) Current Visit: No Status: Chronic Assessment and plan: Uncontrolled however the patient has been shaking most of the day- suspect falsely elevated readings. Will treat her anxiety and reassess. At home, she is only on HCTZ 25 mg daily. Add amlodipine was added to her regimen yesterday. Continue Lopressor IV as needed. Qualifiers: Hypertension type: essential hypertension Qualified Code(s): I10 - Essential (primary) hypertension (11) Obesity Current Visit: No Status: Chronic Qualifiers: Obesity type: due to excess calories Obesity severity: non-morbid Qualified Code(s): E66.09 - Other obesity due to excess calories (12) History of pulmonary embolism Current Visit: No Status: Chronic Assessment and plan: Acute PE ruled out. Patient stating she stopped taking her Eliquis because she claims a prescription was only written for 7 days and she was unable to obtain medication afterwards. When I spoke to her junior assistant manager, he recommends that the patient be on Eliquis for 9 months-will resume at this time (13) DVT prophylaxis Current Visit: No Status: Acute Assessment and plan: Subcutaneous Lovenox stopped as she was placed back on her Eliquis at the direction of her Disease Case Manager Rn (14) Leukocytosis Current Visit: Yes Status: Resolved Assessment and plan: Mild; now resolved, unclear causation, suspect stress-related, no signs of active infections at this time, we will continue to investigate (15) Hypokalemia Current Visit: Yes Status: Acute Assessment and plan: dropped to 2.5 yesterday, repeat 2.9- will continue to replete and trend. Magnesium normal. (16) Gastroparesis Current Visit: Yes Status: Suspected Assessment and plan: It appears as if the patient has a GI doctor as well Dr. G[place]. She states that she has followed up with him several times over the past couple years and states that she has had swallow studies and the way she describes the results, is consistent with gastroparesis. Will educate her on small frequent meals and avoidance of fiber, etc. GI was brought on board for possible EGD but that is not indicated at this time. - Time Spent With Patient Greater than 35 minutes (Lengthy history from the patient regarding her providers and care up to this point. Patient also with several concerns as did her . Chart review from multiple hospitals) - Subjective Interval history: Patient seen and examined. On examination, patient sitting upright on the side of her bed and her whole body is tremoring. She is alert and oriented 3 and currently complains of pain in her neck secondary to her shaking. She denies being cold or overtly anxious. She states she is eating well. - Constitutional Vitals: Temp Pulse Resp BP Pulse Ox 98.3 F 110 18 142/96 96 10/03/16 15:00 10/03/16 15:00 10/03/16 16:14 10/03/16 15:00 10/03/16 16:14 General appearance: Present: mild distress (2/2 shaking), A&O X 3, pleasant, obese, answers questions appropriately - Head Head exam: Present: atraumatic, normocephalic - Eye Eye exam: Present: PERRL, conjuntiva pink, sclera anicteric Pupils: Present: PERRL - Neck Neck exam general surgery: Present: supple, trachea midline. Absent: lymphadenopathy - Respiratory Respiratory exam: Present: decreased breath sounds. Absent: accessory muscle use, rales, respiratory distress, rhonchi, wheezes - Cardiovascular Cardiovascular exam: Present: RRR, +S1, +S2. Absent: diastolic murmur, gallop, rubs, systolic murmur - GI/Abdominal GI/Abdominal exam: Present: normal bowel sounds, soft, tenderness (epigastric), no peritoneal signs. Absent: distended - Extremities Exam Extremities exam: Present: warm, radial pulses palpable and symetrical. Absent : calf tenderness, cyanotic, pedal edema - Neurological Exam Neurological exam: Present: alert, CN II-XII intact, normal gait, oriented X3, no focal deficits, strengths equal and symetr throughout. Absent: pronater drift, facial droop, speech deficit - Psychiatric Psychiatric exam: Present: anxious, flat affect. Absent: suicidal ideation - Skin Skin exam: Present: dry, intact, pallor, warm Internal Medicine: Result - Labs CBC & Chem 7: 10/03/16 05:00 10/03/16 15:34 Labs: Short CBC 10/03/16 Range/Units 05:00 WBC 10.2 (4.3-11.1) K/mcL Hgb 10.7 L D (11.5-15.4) g/dL Hct 36.0 (35.3-44.9) % Plt Count 424 H (140-400) K/mcL Neutrophils # 6.2 (1.6-8.9) K/mcL BMP 10/03/16 10/03/16 05:00 15:34 Sodium 137 Potassium 2.5 L* 2.9 L Chloride 93 L Carbon Dioxide 32 H BUN 16 Creatinine 0.70 Glucose 114 H Calcium 9.1 - ABG Interpretation ABG results: ABG ABG pH 7.43 pH Units (7.32-7.45) 10/02/16 20:40 ABG pCO2 55 mmHg (35-45) H 10/02/16 20:40 ABG pO2 72 mmHg (85-104) L 10/02/16 20:40 ABG O2 Saturation 95 % (95-98) 10/02/16 20:40 PT/INR, D-dimer PT 12.0 Seconds (9.4-12.1) 10/02/16 01:20 - Impressions Impressions Abdomen/Pelvis CT 10/02/16 18:58 IMPRESSION: 1. Nonspecific gallbladder wall thickening/edema. No radiodense gallstones or pericholecystic inflammatory changes. 2. Moderate-size hiatal hernia. Moderate-sized fat containing left paraumbilical hernia. Small fat containing umbilical hernia. 3. A 2.3 x 3.5 cm cystic lesion near the right perineum which could represent a Bartholin's or Nohelia duct cyst. Clinical correlation recommended. D/ / 10/02/2016 23:19:20 Kavita Fierro MD / kay Interpreting Provider: Kavita Fierro MD Consult Discharge Plan - Plan Referrals: Eduarda Abbasi MD [Primary Care Provider] -
[2016-10-03] MEDS ORDERED: Potassium Chloride 40 MEQ, Lidocaine 1% 2 ML in D5% in Water 500 ML IVPB ONE (17:28)
[2016-10-03] MEDS ORDERED: Potassium Chloride Elixir 20 MEQ/15 ML UDC PO ONE (17:28)
[2016-10-03 18:48] LABS: Bilirubin,Urine Negative (Negative); Blood,Urine Negative (Negative); Clarity,Urine Clear (Clear); Color,Urine Yellow (Yellow); Glucose,Urine (UA) Normal (Normal); Ketones,Urine Negative (Negative); Leukocyte Esterase,Urine Negative (Negative); Nitrite,Urine Negative (Negative); Protein,Urine Negative (Neg-Trace); Specific Gravity,Urine 1.011 (1.010-1.025); Urobilinogen,Urine Normal (Normal)
[2016-10-03] MEDS: Levofloxacin 750 MG/150 ML 750 MG/150 ML BAG IVPB SCH (20:11)
[2016-10-03] MEDS: VENLAFAXINE PO SCH (21:15)
[2016-10-03] MEDS: APIXABAN 5 MG TABLET PO SCH (21:16)
[2016-10-04] MEDS: *HR* Morphine 2 MG/ML SYRINGE IVP PRN ×2 (00:26→14:24)
[2016-10-04] MEDS: Ipratropium/Albuterol Neb 3 ML IH SCH ×7 (00:43→23:00)
[2016-10-04] MEDS: diazePAM 10 MG TABLET PO PRN ×3 (02:32→22:30)
[2016-10-04 03:27] LABS: Basophils % 0.1 %; Eosinophils % 0.1 %; Hematocrit 32.2 % (35.3-44.9); Hemoglobin 9.8 g/dL (11.5-15.4); Immature Granulocytes % 0.6 % (0-4); Lymphocytes # 1.2 K/mcL (0.6-4.6); Mean Corpuscular HGB Conc 30.4 g/dL (31.6-35.5); Mean Corpuscular Hemoglobin 22.8 pg (28.0-33.3); Mean Corpuscular Volume 75.1 fL (83.0-100.0); Mean Platelet Volume 9.7 fL (9.4-12.4); Monocytes % 7.5 %; Neutrophils # 11.2 K/mcL (1.6-8.9); Platelet Count 418 K/mcL (140-400); Red Blood Count 4.29 M/mcL (3.82-4.97); Red Cell Distribution Width 21.9 % (11.5-14.5); Segmented Neutrophils % 82.7 %
[2016-10-04 03:38] LABS: BUN/Creatinine Ratio 19 (6-26); Blood Urea Nitrogen 12 mg/dL (7-20); Carbon Dioxide 33 mEq/L (19-29); Chloride 95 mEq/L (98-109); Glucose 112 mg/dL (70-99); Osmolality,Calculated 287 (280-300); Potassium 3.3 mEq/L (3.5-4.5); Sodium 138 mEq/L (136-145); eGFR For African Americans > 60 (> 60); eGFR For Non-African Americans > 60 (> 60)
[2016-10-04] MEDS: Famotidine 20 MG TABLET PO SCH (05:45)
[2016-10-04] MEDS: MethylPREDNISolone 40 MG/ML VIAL IVP SCH ×2 (05:45→17:40)
[2016-10-04] MEDS: APIXABAN 5 MG TABLET PO SCH ×2 (09:24→22:30)
[2016-10-04] MEDS: OXcarbazepine 150 MG TABLET PO SCH ×2 (09:24→22:32)
[2016-10-04] MEDS: hydroCHLOROthiazide 25 MG TABLET PO SCH (13:38)
[2016-10-04] MEDS: amLODIPine 5 MG TABLET PO SCH (13:39)
[2016-10-04] MEDS: Gabapentin 400 MG CAPSULE PO SCH ×2 (13:39→22:32)
[2016-10-04] MEDS: Ondansetron 4 MG/2 ML VIAL IVP PRN (15:31)
--- NOTE | 2016-10-04 15:33 | Internal Med Progress Note ---
Date of Encounter: 10/04/16 Time of Encounter: 09:30 - Assessment and plan (1) Patient under care of multiple providers Current Visit: Yes Status: Acute Assessment and plan: I have reviewed charts from several different hospitals and spoken to several of her providers. Thus far, she has been seen at [facility] and [facility], she is also been seen at [facility]. She also has a cable systems installer named Dr. Moore as well as a GI doctor named Dr. Geller out of [facility]. She appears to see our psychiatry here at [facility] and that is where she is getting her Valium. She also sees Dr. Shaw of [facility] quite a bit and that is where she receives several pain medication prescriptions. She does not appear to have a primary care provider at this time. She lists her primary care provider is Dr. Rollins but it does not appear as if she sees this provider very often. She clearly needs a medical home. She is traveling all around the [facility] for her care. As I am verifying everything that she is telling me, frequently what she is saying is not matching up with the medical records obtained from outlying hospitals and in conversing with outside providers. Current plan of care: Continue to wean her off supplemental oxygen as she tolerates and continue to replete her potassium. She is still having chest/ epigastric pain- acute intra-abdominal processes have been ruled out. Chronic gallbladder thickening noted without acute processes. We will stress her in the morning and likely discharged afterwards if it is negative. (2) Chest pain Current Visit: Yes Status: Acute Assessment and plan: Patient again complaining of sternal located chest pain. Acute intra-abdominal processes have been pulled out. Chronic gallbladder thickening noted and she will continue to follow up outpatient with Dr. Tsai for any elective cholecystectomy. No indication for acute intervention. We will stress test or in the morning as it does not appear as if she has had a stress test, likely discharged afterwards if negative. 10/03/16 Patient currently denies chest pain. Her major concern right now is her shaking and her subsequent neck pain as a result of the shaking. 10/02/16 Unclear causation of her ongoing chest pain and chest tightness. On examination , she is in moderate respiratory distress and continues on her 2 liters per nasal cannula. She does have circumoral cyanosis. She is tripoding on examination. Aeration fair throughout with decreased breath sounds noted. Imaging consistent with improvement in her prior multifocal pneumonia. Negative for a PE. Obtaining ABGs. We will add bronchodilators and assess her response. She is a non-/never smoker and does not have any occupational exposures since COPD or interstitial lung disease unlikely. She has been seeing rheumatology outpatient for possible autoimmune disorder but apparently she has a lip biopsy that is still pending. She is also complaining of severe epigastric abdominal pain. She states that her food gets stuck every time she eats. She states that liquids go down well but she is unable to eat most of the time and if she eats after 6 PM, she will wake up vomiting in the middle of the night. She denies recent endoscopy. We will bring GI on board for an EGD at their discretion. She does have a moderate sized hiatal hernia. She also had a nuclear bone scan that was unremarkable on 08/27/16. She had an echocardiogram here on 09/19/16 revealed an ejection fraction of 65% and moderate diastolic dysfunction. She appears euvolemic/slightly dehydrated on examination. Patient is also endorsing severe dysphagia stating that every time she eats she chokes. Her states that in June he found her unresponsive at home and states he took her to the hospital when she was intubated and on a vent for several days. He states that they discuss with them on pulling the plug. He states they told him at that time that she had severe aspiration that led to her respiratory failure. This must then added outlying hospital, will attempt to get a better history tomorrow and attempt to obtain records. It appears as if this patient has been seen at several hospitals and it appears as if she does not have a primary care provider or any continuity to her care thus far. We will bring GI on board for possible EGD. We will also consult speech therapy. ITS Impressions Chest X-Ray 10/01/16 18:02 IMPRESSION: 1. Interval improvement in previously seen vascular congestion. 2. Low lung volumes with persistent elevation of right hemidiaphragm with associated atelectasis. 3. Otherwise no acute consolidation. D/ / Alexander Kim MD / Alexander Kim MD Interpreting Provider: Alexander Kim MD Chest CTA 10/02/16 00:24 IMPRESSION: 1. No evidence of pulmonary embolism or acute pulmonary abnormality. 2. Overall improvement in previously noted ground-glass and airspace opacities, with mild persists or is residual reticular and ground-glass opacities in right upper and right middle lobes. 3. 8 right lower lobe nodule. Interpreting Provider: Alexander Kim MD Qualifiers: Chest pain type: unspecified Qualified Code(s): R07.9 - Chest pain, unspecified (3) Acute and chronic respiratory failure Current Visit: Yes Status: Acute Assessment and plan: Continue to wean the patient also mental oxygenation as she tolerates. 10/03/16 So her clinical picture at this point is unclear as to why she is on oxygen so I called her cable systems installer Dr. Moore at [phone]. I spoke to his office and they informed me that the patient saw them on 08/07/16 after she had been discharged from [facility] on the . She was seen at that point for chest pain and had been diagnosed with a PE in the right lower lobe and she was started on L Aquinas and started on supplemental oxygen. During that pulmonology visit on 08/07/16, they performed a walk test and the patient did not require supplemental oxygenation since she was told not to wear it any more. Patient however states that she was told to wear continuously which does not match with what her cable systems installer is stating. In light of this, her imaging during this visit appears that her prior infections are resolving and there are no acute processes to we will attempt to wean the patient off oxygen at this time. 10/02/16 Patient staying at her primary care provider told her that her oxygen was low in July and she has been on 2 L per nasal cannula continuously since that time. Unknown etiology and I cannot find any charting by her primary care provider. She has been seen by several providers since that time and her chronic use of oxygen does not appear to have been addressed. We will obtain ABGs and perform BiPAP qualification as she states that her primary care may be trying to set her up with CPAP at home. She is a nonsmoker and never smoker. Imaging today reveals that her prior pneumonia is resolving. No evidence of a PE. She does remained with groundglass opacities on her CTA however they are improved. Her is at the bedside and states that the patient was intubated and on a vent in June for several days. He states that medical staff was trying to get him to "pull the plug." Unclear what hospital that was appetite was not this hospital. Will attempt to obtain records as it does not appear as if patient was seen at [facility] in July when she was started on her oxygen. She is being followed by rheumatology outpatient with a lip biopsy that appears to be still pending. Qualifiers: Respiratory failure complication: unspecified whether with hypoxia or hypercapnia Qualified Code(s): J96.20 - Acute and chronic respiratory failure , unspecified whether with hypoxia or hypercapnia (4) Dyspnea Current Visit: Yes Status: Acute Qualifiers: Dyspnea type: unspecified Qualified Code(s): R06.00 - Dyspnea, unspecified (5) Epigastric pain Current Visit: Yes Status: Acute Assessment and plan: Patient was seen here at [facility] from 09/18/16 until 09/23/16. During that time, she was noted to have a abnormal gallbladder ultrasound with gallstones and sludge. HIDA scan then performed which was consistent with chronic cholecystitis. Patient was seen by surgery and the plan is to have an elective cholecystectomy in the near future. Patient still with epigastric abdominal pain though much less severe than yesterday and she has been able to tolerate a regular diet. Abdominal CT obtained and revealed nonspecific gallbladder wall thickening without acute inflammatory processes identified. Her moderate-sized hiatal hernia and her moderate-sized fat-containing left periumbilical hernia in her small fat containing umbilical hernia were also noted and can be followed up with outpatient. Abdominal pelvic CT also revealed a cystic lesion to her right perineum, she denies pelvic pain, will have her follow up outpatient. LFTs normal as is her bili and lipase. ITS Impressions Abdomen/Pelvis CT 10/02/16 18:58 IMPRESSION: 1. Nonspecific gallbladder wall thickening/edema. No radiodense gallstones or pericholecystic inflammatory changes. 2. Moderate-size hiatal hernia. Moderate-sized fat containing left paraumbilical hernia. Small fat containing umbilical hernia. 3. A 2.3 x 3.5 cm cystic lesion near the right perineum which could represent a Bartholin's or Nohelia duct cyst. Clinical correlation recommended. D/ / 10/02/2016 23:19:20 Kavita Fierro MD / kay Interpreting Provider: Kavita Fierro MD (6) Anxiety Current Visit: No Status: Chronic Assessment and plan: Tremors have resolved now that she is back on her Valium. She is alert and oriented 3. In review of her OARRS report, she has been on diazepam for at least 1 year (7) Depression Current Visit: No Status: Chronic Assessment and plan: Patient continues to deny suicidal ideations. 10/03/16 Upon further review of her charts from outside hospitals, patient was seen on at [facility] as her found her unresponsive. Per report, patient and her were fighting about financial difficulties in the care of their 24-year-old son and then the patient went to bed. The then went to bed as well and when he woke up for work he noticed that she was still sleeping so he went to work and when he came back at 2:00 in the afternoon, patient was still in the same position she was earlier in the morning and he stated that she had mucus coming out of her mouth and was unresponsive so he called EMS. She was intubated at [place] was transferred to [facility] and she was admitted there until 05/22/16. She was in the ICU for several days for a suspected overdose as an intentional suicide gesture. She does have a history of attempting suicide by slitting her wrists and has a lengthy psychiatric history including bipolar and depression. She does see [facility] psychiatric team, she was under the care of Dr. Lai and is now under the care of Dr Bynum. Patient was seen by psychiatry at [facility] and she denied suicidal ideations and was discharged. Of note, patient denied that this was an overdose but the family reported that she has a history of overdosing and taking more for medications after her and her are in fights. They state that she takes more of her medications that she can sleep after fighting. Patient currently denies suicidal ideation. Qualifiers: Depression Type: major depressive disorder Major depression recurrence: recurrent Active/Remission status: currently active Major depression episode severity: mild Qualified Code(s): F33.0 - Major depressive disorder, recurrent, mild (8) Chest tightness Current Visit: No Status: Resolved (9) Anemia Current Visit: No Status: Chronic Assessment and plan: Not anemic upon admission likely 2/2 hemo-concentration given that she was dehydrated upon admission. Now anemic but consistent with her baseline and no active bleeding noted. Will trend. (10) HTN (hypertension) Current Visit: No Status: Chronic Assessment and plan: Better controlled now that her tremoring has stopped. We will continue to trend and adjust medications as indicated. At home, she is only on HCTZ 25 mg daily. Amlodipine was added to her regimen. Continue Lopressor IV as needed. Qualifiers: Hypertension type: essential hypertension Qualified Code(s): I10 - Essential (primary) hypertension (11) Obesity Current Visit: No Status: Chronic Qualifiers: Obesity type: due to excess calories Obesity severity: non-morbid Qualified Code(s): E66.09 - Other obesity due to excess calories (12) History of pulmonary embolism Current Visit: No Status: Chronic Assessment and plan: Acute PE ruled out. Patient stating she stopped taking her Eliquis because she claims a prescription was only written for 7 days and she was unable to obtain medication afterwards. When I spoke to her cable systems installer, he recommends that the patient be on Eliquis for 9 months-will resume at this time (13) DVT prophylaxis Current Visit: No Status: Acute Assessment and plan: Subcutaneous Lovenox stopped as she was placed back on her Eliquis at the direction of her Manager Of Customer Billing (14) Leukocytosis Current Visit: Yes Status: Acute Assessment and plan: Mild; resolved, now mild again however the patient is on steroids. No signs of active infections. (15) Hypokalemia Current Visit: Yes Status: Acute Assessment and plan: dropped to 2.5 two days ago, now 3.3. We will continue to replete and trend. Magnesium normal. (16) Gastroparesis Current Visit: Yes Status: Suspected Assessment and plan: It appears as if the patient has a GI doctor as well Dr. Geller out of [facility]. She states that she has followed up with him several times over the past couple years and states that she has had swallow studies and the way she describes the results, is consistent with gastroparesis. Will educate her on small frequent meals and avoidance of fiber, etc. GI was brought on board for possible EGD but that is not indicated at this time. - Subjective Interval history: Patient seen and examined. On examination, patient sitting upright on the side of her bed and her tremoring from yesterday has resolved. Patient currently complains of ongoing epigastric/sternal he located chest pain. She states her shortness of breath is improving. She states she continues to get extremely fatigued with mild exertion. She states that she has not vomited but has her food has regurgitated several times over the past day and she has swallowed it back down. She also states that she has developed a productive cough with yellow sputum. - Constitutional Vitals: Temp Pulse Resp BP Pulse Ox 97.9 F 95 16 155/84 90 10/04/16 14:52 10/04/16 14:52 10/04/16 14:52 10/04/16 14:52 10/04/16 14:52 General appearance: Present: A&O X 3, pleasant, no acute distress, obese, answers questions appropriately - Head Head exam: Present: atraumatic, normocephalic - Eye Eye exam: Present: PERRL, conjuntiva pink, sclera anicteric Pupils: Present: PERRL - Neck Neck exam general surgery: Present: supple, trachea midline. Absent: lymphadenopathy - Respiratory Respiratory exam: Present: CTAB, rhonchi (few, scattered- good aeratino). Absent: accessory muscle use, rales, respiratory distress, wheezes - Cardiovascular Cardiovascular exam: Present: RRR, +S1, +S2. Absent: diastolic murmur, gallop, rubs, systolic murmur - GI/Abdominal GI/Abdominal exam: Present: normal bowel sounds, soft, no peritoneal signs. Absent: distended, tenderness - Extremities Exam Extremities exam: Present: warm, radial pulses palpable and symetrical. Absent : calf tenderness, cyanotic, pedal edema - Neurological Exam Neurological exam: Present: alert, CN II-XII intact, normal gait, oriented X3, no focal deficits, strengths equal and symetr throughout. Absent: pronater drift, facial droop, speech deficit - Psychiatric Psychiatric exam: Present: flat affect. Absent: suicidal ideation - Skin Skin exam: Present: dry, intact, pallor, warm Internal Medicine: Result - Labs CBC & Chem 7: 10/04/16 03:20 10/04/16 03:20 Labs: Short CBC 10/04/16 Range/Units 03:20 WBC 13.6 H (4.3-11.1) K/mcL Hgb 9.8 L (11.5-15.4) g/dL Hct 32.2 L (35.3-44.9) % Plt Count 418 H (140-400) K/mcL Neutrophils # 11.2 H (1.6-8.9) K/mcL BMP 10/03/16 10/04/16 15:34 03:20 Sodium 138 Potassium 2.9 L 3.3 L Chloride 95 L Carbon Dioxide 33 H BUN 12 Creatinine 0.64 Glucose 112 H Calcium 9.0 Urine 10/03/16 Range/Units 18:30 Urine Color Yellow (Yellow) Urine Clarity Clear (Clear) Urine pH 6.0 (5.0-8.0) pH Units Ur Specific [place] 1.011 (1.010-1.025) Urine Protein Negative (Neg-Trace) mg/dL Urine Glucose (UA) Normal (Normal) mg/dL - ABG Interpretation ABG results: ABG ABG pH 7.43 pH Units (7.32-7.45) 10/02/16 20:40 ABG pCO2 55 mmHg (35-45) H 10/02/16 20:40 ABG pO2 72 mmHg (85-104) L 10/02/16 20:40 ABG O2 Saturation 95 % (95-98) 10/02/16 20:40 PT/INR, D-dimer PT 12.0 Seconds (9.4-12.1) 10/02/16 01:20 Consult Discharge Plan - Plan Referrals: Eduarda Abbasi MD [Primary Care Provider] -
[2016-10-04] MEDS ORDERED: Potassium Chloride Elixir 20 MEQ/15 ML UDC PO ONE (15:45)
[2016-10-04] MEDS: Levofloxacin 750 MG/150 ML 750 MG/150 ML BAG IVPB SCH (20:08)
[2016-10-04] MEDS: VENLAFAXINE PO SCH (22:29)
[2016-10-05] MEDS: Ipratropium/Albuterol Neb 3 ML IH SCH ×4 (04:06→16:15)
[2016-10-05 04:50] LABS: Basophils % 0.2 %; Eosinophils % 0.1 %; Hematocrit 29.7 % (35.3-44.9); Hemoglobin 8.7 g/dL (11.5-15.4); Immature Granulocytes % 0.6 % (0-4); Lymphocytes # 1.7 K/mcL (0.6-4.6); Lymphocytes % 13.1 %; Mean Corpuscular HGB Conc 29.3 g/dL (31.6-35.5); Mean Corpuscular Hemoglobin 22.4 pg (28.0-33.3); Mean Corpuscular Volume 76.3 fL (83.0-100.0); Monocytes # 1.1 K/mcL (0.0-1.3); Monocytes % 8.9 %; Neutrophils # 9.7 K/mcL (1.6-8.9); Nucleated Red Blood Cells 0.2 /100 WBC (0); Platelet Count 391 K/mcL (140-400); Red Blood Count 3.89 M/mcL (3.82-4.97); Red Cell Distribution Width 22.1 % (11.5-14.5); Segmented Neutrophils % 77.1 %
[2016-10-05 04:58] LABS: BUN/Creatinine Ratio 23 (6-26); Blood Urea Nitrogen 15 mg/dL (7-20); Calcium 8.7 mg/dL (8.6-10.8); Carbon Dioxide 31 mEq/L (19-29); Chloride 97 mEq/L (98-109); Glucose 98 mg/dL (70-99); Osmolality,Calculated 289 (280-300); Potassium 3.2 mEq/L (3.5-4.5); Sodium 139 mEq/L (136-145); eGFR For African Americans > 60 (> 60); eGFR For Non-African Americans > 60 (> 60)
[2016-10-05] MEDS ORDERED: Regadenoson 0.4 MG/5 ML SYRINGE IVP ONE (06:28)
[2016-10-05] MEDS: MethylPREDNISolone 40 MG/ML VIAL IVP SCH (06:34)
[2016-10-05] MEDS ORDERED: Potassium Chloride 40 MEQ, Lidocaine 1% 2 ML in D5% in Water 500 ML IVPB ONE (08:48)
--- NOTE | 2016-10-05 12:53 | Nuclear Medicine Stress Report ---
Regadenoson Nuclear Stress Name: Minal oMoney Date of Study: 10/05/2016 Date: 1965 Ht: 63.0 in Medical Record#: [id number] Age: 51 Wt: 211.0 lb Gender: Female Order #: [id number] Location: [facility] Room: [facility] Supervising Provider: Jitendra Daly CNP Reading Physician: Natanael Villagomez MD, [facility] Ordering Physician: Armida Hoffman CNP Primary Care Physician: None Stress Technologist: Dorothy Munguia, BUS INSPECTOR,[facility] Circuit Walker: Addy Mcgrath Indications: Chest Pain Impression: Perfusion imaging was negative for ischemia or infarct. Pharmacologic ECG was non diagnostic for ischemia. Patient had no chest pain with stress. No arrhythmias noted with stress. Gated EF = 65%. The LV is not dilated. There is no evidence of TID. History: Hypercholesteremia Stress Test Summary: Stress Test Type: Pharmacologic Regadenoson 0.4mg/5ml given IV Baseline Information: Initial Heart Rate: 85 Blood Pressure: 142/88 Stress Information: Test Terminated Due to (primary): As per protocol Maximum Blood Pressure: 132/82 Maximum Heart Rate: 102 Percent Maximum Heart Rate Achieved: 60 Double Product: [id number] Symptoms: Shortness of breath Nuclear Summary: SPECT myocardial perfusion imaging using Tc99m Sestamibi given intravenously was performed at rest and following cardiac stress testing. The resting images were obtained following initial dose of 10.8 mCi. Following stress an additional dose of 35.2 mCi was given at peak exercise or 30 seconds post regadenoson infusion. Medication Given: Time Medication Dose Units Route Findings: Stress Note * Resting ECG demonstrated normal sinus rhythm. * No baseline arrhythmias were noted. * Pharmacologic stress ECG is non diagnostic for ischemia due to failure to reach target heartrate. * No arrhythmias were noted during stress. * Patient had no chest pain during stress. Hemodynamic responses * The patient demonstrated a hypotensive blood pressure response. Study Quality * Study quality is good. Gated EF % * Gated EF = 65%. Left Ventricle * The left ventricle is not dilated. NORMALS * Normal wall motion. * Normal segmental perfusion in stress. * Normal Segmental Perfusion in rest. TID * No evidence of transient ischemic dilatation. Updated by Natanael Villagomez MD, FACC on 10/05/2016 12:49:42 PM electronically signed on 10/05/2016 12:50:06 PM with status of Final
[2016-10-05] MEDS: Gabapentin 400 MG CAPSULE PO SCH (13:14)
[2016-10-05] MEDS: Famotidine 20 MG TABLET PO SCH (13:14)
[2016-10-05] MEDS: hydroCHLOROthiazide 25 MG TABLET PO SCH (13:15)
[2016-10-05] MEDS: amLODIPine 5 MG TABLET PO SCH (13:15)
[2016-10-05] MEDS: diazePAM 10 MG TABLET PO PRN (13:15)
[2016-10-05] MEDS: APIXABAN 5 MG TABLET PO SCH (13:18)
[2016-10-05 14:38] VITALS: BP 149/88
--- NOTE | 2016-10-05 15:43 | Discharge Summary ---
Date of Encounter: 10/05/16 Time of Encounter: 14:30 - Discharge Diagnosis (1) Patient under care of multiple providers Priority: Primary Status: Acute Comments: I have reviewed charts from several different hospitals and spoken to several of her providers. Thus far, she has been seen at [facility] and [facility], she is also been seen at [facility]. She also has a director of global sales named Dr. Moore as well as a GI doctor named Dr. Geller out of [facility]. She appears to see our psychiatry here at [facility] (Dr Bynum) and that is where she is getting her Valium. She also sees Dr. Shaw of [facility] quite a bit and that is where she receives several pain medication prescriptions. She does not appear to have a primary care provider at this time. She lists her primary care provider is Dr. Rollins but it does not appear as if she sees this provider very often. She clearly needs a medical home. [place] is [place] all around [place] for [place] care. As I am verifying everything that she is telling me, frequently what she is saying is not matching up with the medical records obtained from outlying hospitals and in conversing with outside providers. (2) Chest pain Priority: Primary Status: Resolved Comments: Patient denied chest pain on day of discharge. Stress test negative. Qualifiers: Chest pain type: unspecified Qualified Code(s): R07.9 - Chest pain, unspecified (3) Acute and chronic respiratory failure Priority: Primary Status: Acute Comments: I spoke to her director of global sales who saw her in July and told her at that time to discontinue her oxygen was she passed her 6 minute walk test. Patient told me she was still supposed to wear her oxygen continuously. Will perform 6 minute walk test prior to discharge. Qualifiers: Respiratory failure complication: unspecified whether with hypoxia or hypercapnia Qualified Code(s): J96.20 - Acute and chronic respiratory failure , unspecified whether with hypoxia or hypercapnia (4) Dyspnea Priority: Primary Status: Acute Comments: acute on chronic. walk test prior to discharge Qualifiers: Dyspnea type: unspecified Qualified Code(s): R06.00 - Dyspnea, unspecified (5) Epigastric pain Priority: Primary Status: Resolved Comments: patient denied abdominal pain on day of discharge. followup outpatient with Dr Tsai for an elective cholecystecomy as indicated (6) Anxiety Priority: Secondary Status: Chronic (7) Depression Priority: Secondary Status: Chronic Qualifiers: Depression Type: major depressive disorder Major depression recurrence: recurrent Active/Remission status: currently active Major depression episode severity: mild Qualified Code(s): F33.0 - Major depressive disorder, recurrent, mild (8) Chest tightness Priority: Primary Status: Resolved (9) Anemia Priority: Secondary Status: Chronic Comments: Not anemic upon admission likely 2/2 hemo-concentration given that she was dehydrated upon admission. Now anemic but consistent with her baseline and no active bleeding noted. followup outpatient (10) HTN (hypertension) Priority: Secondary Status: Chronic Comments: Better controlled now that her tremoring has stopped. At home, she is only on HCTZ 25 mg daily. Amlodipine was added to her regimen. Followup outpatient; recommend daily blood pressure checks. Qualifiers: Hypertension type: essential hypertension Qualified Code(s): I10 - Essential (primary) hypertension (11) Obesity Priority: Secondary Status: Chronic Qualifiers: Obesity type: due to excess calories Obesity severity: non-morbid Qualified Code(s): E66.09 - Other obesity due to excess calories (12) History of pulmonary embolism Priority: Secondary Status: Chronic Comments: Acute PE ruled out. Patient stating she stopped taking her Eliquis because she claims a prescription was only written for 7 days and she was unable to obtain medication afterwards. When I spoke to her director of global sales, he recommends that the patient be on Eliquis for 9 months-will resume at this time (13) DVT prophylaxis Priority: Primary Status: Acute Comments: Subcutaneous Lovenox stopped as she was placed back on her Eliquis at the direction of her [employer] Officer (14) Leukocytosis Priority: Primary Status: Acute Comments: Mild; resolved, now mild again however the patient is on steroids. No signs of active infections. (15) Hypokalemia Priority: Primary Status: Acute Comments: mild; followup outpatient (16) Gastroparesis Priority: Primary Status: Suspected Comments: It appears as if the patient has a GI doctor as well Dr. Geller out of [facility]. She states that she has followed up with him several times over the past couple years and states that she has had swallow studies and the way she describes the results, is consistent with gastroparesis. Will educate her on small frequent meals and avoidance of fiber, etc. GI was brought on board for possible EGD but that is not indicated at this time. - Discharge Medications Prescriptions: Ondansetron ODT [Zofran ODT] 4 mg SL Q6HR PRN #12 tab.rapdis PRN Reason: Nausea And Vomiting Amlodipine [Norvasc] 10 mg PO DAILY #60 tablet Apixaban [Eliquis] 5 mg PO BID #60 tablet GuaiFENesin ER [Mucinex] 600 mg PO BID PRN #14 tbbp.12hr PRN Reason: Congestion Oxygen 2 l IN CONT #1 each PredniSONE 40 mg PO DAILY #10 tablet Home Medications: Famotidine [Pepcid] 40 mg PO QAM 03/21/15 [History] Omeprazole [PriLOSEC] 40 mg PO QAM 03/21/15 [History] Celecoxib [Celebrex] 200 mg PO BID 01/30/16 [History] EPINEPHrine [Epipen] 0.3 mg IJ ONCE PRN 01/30/16 [History] Montelukast [Singulair] 10 mg PO HS 01/30/16 [History] Venlafaxine HCl [Venlafaxine HCl ER] 225 mg PO HS 01/30/16 [History] Metoclopramide HCl 5 mg PO HS 03/24/16 [History] Oxcarbazepine 1,200 mg PO HS 03/24/16 [History] Oxcarbazepine 600 mg PO QAM 03/24/16 [History] Quetiapine Fumarate [Seroquel] 200 mg PO HS 03/24/16 [History] Diazepam [Valium] 10 mg PO TID PRN 09/18/16 [History] Ergocalciferol (VITAMIN D2) [Vitamin D2] 50,000 unit PO QMONTH 09/18/16 [History ] Nortriptyline [Pamelor] 25 mg PO HS 09/18/16 [History] Levofloxacin [Levaquin] 750 mg PO DAILY #5 tablet 09/23/16 [Rx] Cetirizine HCl [Zyrtec] 10 mg PO DAILY PRN 10/01/16 [History] Gabapentin [Neurontin] 1,600 mg PO HS 10/01/16 [History] Gabapentin [Neurontin] 800 mg PO QAM 10/01/16 [History] Hydrochlorothiazide 25 mg PO DAILY 10/01/16 [History] SUMAtriptan Succinate [Imitrex] 100 mg PO AD PRN 10/01/16 [History] Amlodipine [Norvasc] 10 mg PO DAILY #60 tablet 10/05/16 [Rx] Apixaban [Eliquis] 5 mg PO BID #60 tablet 10/05/16 [Rx] GuaiFENesin ER [Mucinex] 600 mg PO BID PRN #14 tbbp.12hr 10/05/16 [Rx] Ondansetron ODT [Zofran ODT] 4 mg SL Q6HR PRN #12 tab.rapdis 10/05/16 [Rx] Oxygen 2 l IN CONT #1 each 10/05/16 [Rx] PredniSONE 40 mg PO DAILY #10 tablet 10/05/16 [Rx] Allergies/Adverse Reactions: Allergies adhesive tape Allergy (Verified 03/21/15 13:05) Blister latex Allergy (Verified 03/21/15 13:05) Blister vancomycin Allergy (Verified 06/20/15 15:47) Itching Patient became flushed, itching all over, hot Procedures/tests Complete & Pending: Procedures Performed prior 72 hours Category Date Time Status CT abd pelvis w iv no oral [CT] Routine Cat Scan 10/02/16 18:58 Draft NM twin perf SPECT multi [NM] Routine Exams 10/04/16 15:44 Taken SP pharm nuclear stress Routine Y 10/04/16 15:43 Completed Date of admission: 10/01/16 20:47 Primary care physician: Eduarda Abbasi MD Consults: 10/02/16 16:56 Consult to Marine Electrician Helper [CONS] Routine Reason for SW Consult: Home o2 10/02/16 19:01 Consult to Gastroenterology [CONS] Routine Consulting Provider: [facility] [place] Reason for Consult: chokes with every meal; food getting stuck. Hx of intubation with aspiration in June at [facility]. EGD? Time Notified: 19:02 Call Completed: Yes 10/02/16 19:02 Consult to Speech Therapy [CONS] Routine Comment: Evaluate, develop and implement POC Reason for Consult: choking on every meal. okay with thins. hx intubation following aspiration in Jun at [facility] Call Completed: No Discharging clinician: Armida Hoffman Anticipated date of discharge: 10/05/16 - Patient Status Disposition: Home, Self-Care Condition: Fair Functional capacity at discharge: independent ambulation Overall status at discharge: patient is back to baseline - Discharge Instructions Follow Up With: Eduarda Abbasi MD [Primary Care Provider] - Tor Moore [Non-Partnered Physician] - Pamela Tsai MD [Partnered Physician] - Trace Shaw MD [Partnered Physician] - Jacey Bynum MD [Partnered Physician] - Peter Moser DO [Partnered Physician] - Additional Instructions: Follow-up with her primary care provider within one to 2 weeks. Follow-up with Dr. Tsai as scheduled on 10/29/16 at 150pm. Follow-up with Dr. Shaw on at 3:30 PM - Diet and Activity Activity: increase activity as tolerated, wear oxygen at all times Diet: low fat, low cholesterol, low salt diet Hospital course: Ms. Mooney is a 51 year old female with past medical history of PE diagnosed June this year, recent admission for pneumonia, anxiety, fibromyalgia, GERD, hypertension, bipolar disorder, prior suicide attempt. Patient presented to the emergency department chief complaint chest pain that started on the day of presentation. Patient stating that after her discharge from her visit with pneumonia, that her cough had improved and overall she was feeling better when she developed substernally located chest pain that was sharp in nature and radiated to her left jaw and was associated with diaphoresis and shortness of breath. She also took her blood pressure at home and noted that it was 220/ 110. Patient is stating she had not been taking her Eliquis because she states that the prescription ran out. Of note, patient had also stopped taking her Eliquis in July but it was restarted during her hospitalization for pneumonia. During her last admission, she was anemic and required 2 units of packed red blood cells. Workup in the emergency department unremarkable. Chest x-ray revealing improvement and her previously noted vascular congestion. Chest CTA ruled out an acute PE and also revealed improvement in her groundglass up ACDs and airspace opacities noted on prior imaging. She was admitted to the hospitalist service for further evaluation and management. Patient was admitted and observed over the course of 5 days. It is difficult to ascertain the patient's chief complaint throughout this admission. On the first day of her admission, her chief complaint was epigastric abdominal pain. An abdominal CT was performed which revealed gallbladder wall thickening, chronic, without acute processes. She had already seen Dr. Tsai of surgery on her last admission and already has an follow-up appointment in October for a elective cholecystectomy. LFTs were unremarkable as was her lipase she was distracted to keep that appointment with Dr. Tsai. Abdominal CT also Redemonstrated her hiatal hernia and her fat-containing paraumbilical hernia. The patient was then able to tolerate a regular diet. On the second day of admission, her chief complaint was that she could not keep any of her food down. She states that it felt as if the food just did not move and she initially reported that it felt as if the food got stuck. GI was brought on board and on further discussion, patient's symptoms were consistent with gastroparesis. It turns out she has an Endo Dr[place] [facility] [place] who is already done gastric emptying studies with her and has allegedly already diagnosed with gastroparesis. At that point, she was educated on small frequent meals and on other conservative measures for this condition. Then on her third day, patient complained of chest pain and a stress test was performed which was negative. On her fourth day of admission, patient was noted to be tremoring as her whole body was shaking. No seizure-like activity was noted. Patient remained alert and oriented 3 throughout these tremors. These tremors would disappear when staff was not present in the room as staff was able to walk by her room and she would not be shaking a lot staff was in her room. This was relieved with her home Valium dosage and was likely related to her anxiety. On her final day of admission, her chief complaint then became shortness of breath. Her anemia remained stable and she did not require transfusion during this admission. Imaging of her chest revealed interval improvement in her prior pneumonia, congestion, and PE. I spoke to the patient' s director of global sales Dr. Moore and he stated that he told her to stop using her oxygen in July when she saw him as she passed her 6 minute walk test. Patient was still wearing her oxygen upon arrival to [facility]. We attempted to wean her off her oxygen and she tolerated one liter well. However on day of discharge, she did qualify for 2 L of oxygen and this was continued upon discharge. Biggest issue is that the patient has several medical providers all over the [facility]. She sees [facility], [facility], [facility], [facility], [facility], and possibly others. I was able to obtain records from most of these outlying facilities that this patient clearly needs a medical home to receive all of her care at and a primary care provider keep track of all of her several specialties. She is traveling all around the [facility] for her care. As I am verifying everything that she is telling me, frequently what she is saying is not matching up with the [facility] and in conversing with outside providers. She has a director of global sales named Dr. Moore as well as a GI doctor named Dr. Geller out of [facility]. She appears to see our psychiatry here at [facility] with Dr Bynum and that is where she is getting her Valium. She also sees Dr. Shaw of Ortho quite a bit and that is where she receives several pain medication prescriptions. She lists her primary care provider is Dr. Rollins but it does not appear as if she sees this provider very often. During this admission, she was hypokalemic which was treated. She remained hemodynamically stable and was started back on her Eliquis. Her director of global sales would like her to be on Eliquis for 9 months. Her blood pressure was also poorly controlled and amlodipine was added to her regimen. She was normotensive at time of discharge. Of note, in review of her records, she was seen at [facility] then transferred to [facility] in May 2016 for a suspected intentional overdose after her and her had had an argument. He found her unresponsive and she was intubated for several days. She denied suicidal ideation throughout this admission. Her was present during most of this admission. Also in review of her chart, she also had a nuclear bone scan that was unremarkable on . She had an echocardiogram here on 09/19/16 revealed an ejection fraction of 65% and moderate diastolic dysfunction. She appeared euvolemic on examination on day of discharge. Patient is following with Dr. Christy of rheumatology and according to the chart, next step is a lip biopsy. Overall, patient has recently started coming to [facility] and it appears as if she has been to multiple hospitals around the [facility]. Her chief complaint changed every day on the 5 days that she was admitted. Any acute processes including acute coronary syndrome, PE, acute intra-abdominal processes were all ruled out. Patient was instructed to follow up closely outpatient with her medical team and she was encouraged to sit down with her and to find a medical home and a primary care provider who can help her trouble all of these various specialties. She was discharged home in stable condition with close outpatient follow-up highly recommended. ITS Impressions Chest X-Ray 10/01/16 18:02 IMPRESSION: 1. Interval improvement in previously seen vascular congestion. 2. Low lung volumes with persistent elevation of right hemidiaphragm with associated atelectasis. 3. Otherwise no acute consolidation. D/ / Alexander Kim MD / Alexander Kim MD Interpreting Provider: Alexander Kim MD Chest CTA 10/02/16 00:24 IMPRESSION: 1. No evidence of pulmonary embolism or acute pulmonary abnormality. 2. Overall improvement in previously noted ground-glass and airspace opacities, with mild persists or is residual reticular and ground-glass opacities in right upper and right middle lobes. 3. 8 right lower lobe nodule. RECOMMENDATIONS: Fleischner Society guidelines for follow-up and management of incidentally detected pulmonary nodules: Single Solid Nodule: Nodule size less than 6 mm In a low-risk patient, no routine follow-up. In a high-risk patient, optional CT at 12 months. Nodule size equals 6-8 mm In a low-risk patient, CT at 6-12 months, then consider CT at 18-24 months. In a high-risk patient, CT at 6-12 months, then CT at 18-24 months. Nodule size greater than 8 mm In a low-risk patient, consider CT, PET/CT, or tissue sampling at 3 months. In a high-risk patient, consider CT, PET/CT, or tissue sampling at 3 months. Multiple Solid Nodules: Nodule size less than 6 mm In a low-risk patient, no routine follow-up. In a high-risk patient, optional CT at 12 months. Nodule size equals 6-8 mm In a low-risk patient, CT at 3-6 months, then consider CT at 18-24 months. In a high-risk patient, CT at 3-6 months, then CT at 18-24 months. Nodule size greater than 8 mm In a low-risk patient, CT at 3-6 months, then consider CT at 18-24 months. In a high-risk patient, CT at 3-6 months, then CT at 18-24 months. - Low risk patients include individuals with minimal or absent history of smoking and other known risk factors. - High risk patients include individuals with a history or smoking or known risk factors. Radiology 2017 http://pubs.rsna.org/doi/full/10.1148/radiol.[email or web address] D/ / lAexander Kim MD / Alexander Kim MD Interpreting Provider: Alexander Kim MD Abdomen/Pelvis CT 10/02/16 18:58 IMPRESSION: 1. Nonspecific gallbladder wall thickening/edema. No radiodense gallstones or pericholecystic inflammatory changes. 2. Moderate-size hiatal hernia. Moderate-sized fat containing left paraumbilical hernia. Small fat containing umbilical hernia. 3. A 2.3 x 3.5 cm cystic lesion near the right perineum which could represent a Bartholin's or Nohelia duct cyst. Clinical correlation recommended. D/ / 10/02/2016 23:19:20 Kavita Fierro MD / kay Interpreting Provider: Kavtia Fierro MD Regadenosen nuclear stress test impression: Perfusion imaging was negative for ischemia or infarct. Pharmacologic ECG was nondiagnostic for ischemia. Patient had no chest pain with stress. No arrhythmias noted with stress. Gated ejection fraction equals 65%. LV is not dilated. There is no evidence of TID - Time Spent with Patient Total time spent providing and/or coordinating discharge services: Greater than 30 minutes (speaking with patient and chart review) - Constitutional Vitals: Temp Pulse Resp BP Pulse Ox 98.0 F 85 16 149/88 96 10/05/16 14:35 10/05/16 14:35 10/05/16 14:35 10/05/16 14:35 10/05/16 14:35 General appearance: Present: A&O X 3, pleasant, no acute distress, obese, answers questions appropriately - Head Head exam: Present: atraumatic, normocephalic - Eye Eye exam: Present: PERRL, conjuntiva pink, sclera anicteric Pupils: Present: PERRL - Neck Neck exam general surgery: Present: supple, trachea midline. Absent: lymphadenopathy - Respiratory Respiratory exam: Present: accessory muscle use, decreased breath sounds. Absent: rales, respiratory distress, rhonchi, wheezes - Cardiovascular Cardiovascular exam: Present: RRR, +S1, +S2. Absent: diastolic murmur, gallop, rubs, systolic murmur - GI/Abdominal GI/Abdominal exam: Present: normal bowel sounds, soft, no peritoneal signs. Absent: distended, tenderness - Extremities Exam Extremities exam: Present: warm, radial pulses palpable and symetrical. Absent : calf tenderness, cyanotic, pedal edema - Neurological Exam Neurological exam: Present: alert, CN II-XII intact, normal gait, oriented X3, no focal deficits, strengths equal and symetr throughout. Absent: pronater drift, facial droop, speech deficit - Skin Skin exam: Present: dry, intact, pallor, warm
== END 2016-10-05 18:00 | disposition home or self-care (01) ==
LOC: 3BNU 17:57 → EMEROO 17:57 → 3BNU 21:47
PROVIDERS: ADMIT Nurse Practitioner Family; ATTEND Nurse Practitioner Family

== ENCOUNTER 2016-11-04 20:19 | Inpatient (IN) ==
[2016-11-04] MEDS ORDERED: Aspirin 81 MG TAB.CHEW PO ONE (21:11)
[2016-11-04] MEDS ORDERED: Ondansetron ODT 4 MG TAB.RAPDIS SL ONE (21:11)
[2016-11-04] MEDS ORDERED: 0.9 % Sodium Chloride 500 ML IVC ONE (21:12)
--- NOTE | 2016-11-04 21:27 | Emergency Department Note ---
Disposition Clinical Impression: Chest pain Qualifiers: Chest pain type: unspecified Qualified Code(s): R07.9 - Chest pain, unspecified Disposition: Admitted As Inpatient Time of Disposition: 01:12 Chest Pain HPI - General Chief Complaint: ED Chest Pain Stated Complaint: "CP/Nausa/Vomiting" Time Seen by Provider: 11/04/16 20:36 Source: patient Limitations: no limitations Vital Signs Reviewed: Yes Nursing Notes Reviewed: Yes - History of Present Illness HPI Narrative: Mrs. Mooney, 51-year-old female, presents from home by KUB with chief complaint of chest pain with associated nausea and vomiting. Onset 7 PM today and constant. Chest pain described as sharp, mid sternal and non-radiating. Associated with nausea, vomiting, dyspnea, diaphoresis. Patient notes her pain feels different than her kidney stones. Anticoagulant and the Eiquis - first dose was in June. PMH is complicated: - Remote PE. Lower extremity Doppler yesterday showed right popliteal DVT. - Hypertension. Denies CAD or ACS. - Current cholecystitis. Scheduled for elective cholecystectomy [address] Tsai. - Hx nephrolithiasis - Hiatal hernia - remote Right TKA with subsequent periprosthetic infection. Abdominal surgeries: appendectomy, partial hysterectomy. ROS: Positive-nausea, vomiting, dyspnea, diaphoresis, chest pain. Negative-fever, chills, interscapular pain, abdominal pain, weakness, hemoptysis , hematochezia, melena, changes in urinary habits. Severity scale (1-10): 8 - Related Data Home Medications Medication Instructions Recorded Confirmed Famotidine [Pepcid] 40 mg PO QAM 03/21/15 11/03/16 Omeprazole [PriLOSEC] 40 mg PO QAM 03/21/15 11/03/16 Celecoxib [Celebrex] 200 mg PO BID 01/30/16 11/03/16 EPINEPHrine [Epipen] 0.3 mg IJ ONCE PRN 01/30/16 11/03/16 Montelukast [Singulair] 10 mg PO HS 01/30/16 11/03/16 Venlafaxine HCl [Venlafaxine HCl 225 mg PO HS 01/30/16 11/03/16 ER] Metoclopramide HCl 5 mg PO HS 03/24/16 11/03/16 OXcarbazepine [Oxcarbazepine] 1,200 mg PO HS 03/24/16 11/03/16 OXcarbazepine [Oxcarbazepine] 600 mg PO QAM 03/24/16 11/03/16 Quetiapine Fumarate [Seroquel] 200 mg PO HS 03/24/16 11/03/16 Ergocalciferol (VITAMIN D2) 50,000 unit PO QMONTH 09/18/16 11/03/16 [Vitamin D2] Nortriptyline [Pamelor] 25 mg PO HS 09/18/16 11/03/16 diazePAM [Valium] 5 mg PO BID PRN 09/18/16 11/03/16 Cetirizine HCl [Zyrtec] 10 mg PO DAILY PRN 10/01/16 11/03/16 Gabapentin [Neurontin] 1,600 mg PO HS 10/01/16 11/03/16 Gabapentin [Neurontin] 800 mg PO QAM 10/01/16 11/03/16 hydroCHLOROthiazide 25 mg PO DAILY 10/01/16 11/03/16 [Hydrochlorothiazide] Oxygen 3 l IN CONT 10/09/16 11/03/16 Buspirone HCl [Buspar] 5 mg PO BID 11/03/16 11/03/16 Fluticasone Propionate Nasal 50 mcg NS BID 11/03/16 11/03/16 [Flonase] Previous Rx's Medication Instructions Recorded Apixaban [Eliquis] 5 mg PO BID #60 tablet 10/05/16 Ondansetron ODT [Zofran ODT] 4 mg SL Q6HR PRN #12 tab.rapdis 10/05/16 amLODIPine [Norvasc] 10 mg PO DAILY #60 tablet 10/05/16 predniSONE [PredniSONE] 40 mg PO DAILY #10 tablet 10/05/16 Apixaban [Eliquis] 5 mg PO BID #60 tablet 11/03/16 Allergies Allergy/AdvReac Type Severity Reaction Status Date / Time adhesive tape Allergy Blister Verified 11/03/16 14:28 latex Allergy Blister Verified 11/03/16 14:28 vancomycin Allergy Itching Verified 11/03/16 14:28 All systems ED: reviewed and negative except as stated. 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 General: Patient is alert, oriented, is actively vomiting on my evaluation, appears diaphoretic and in moderate distress. HEENT: No facial asymmetry. Head is normocephalic and atraumatic. Oral mucosa moist. Trachea midline. Cardiovascular: Heart regular rate and rhythm without clicks, rubs, gallops, or murmurs. No JVD. PMI nondisplaced. Respiratory: Symmetric chest rise with poor respiratory effort. Bilateral breath sounds are clear without wheezing, crackles, or rhonchi. Abdomen: Bowel sounds present normoactive x-4 quadrants. Abdomen is soft, nondistended, and nontender. No organomegaly noted. Psych: Patient's affect is appropriate for situation. - General Limitations: no limitations General appearance: alert Course Course Narrative: Initial concern is for PE versus ACS versus pancreatitis versus possible cholangitis. Aortic dissection unlikely however CT chest for PE and we will evaluate for dissection at that time. After nausea and pain control, patient was reevaluated where her chest pain is now epigastric with radiation directly posterior and extending around the right flank. Chest x-ray and chest CTA unremarkable per radiology read. Gallbladder ultrasound shows cholelithiasis without cholecystitis. Chest CTA 11/04/16 21:12 IMPRESSION: 1. Slightly limited study due to motion artifact and poor bolus contrast through the pulmonary arteries with limited evaluation of some of the distal segmental and subsegmental arteries. Otherwise no evidence of pulmonary emboli. 2. New minimal reticular opacities noted in the lateral aspect of the right middle lobe, nonspecific, could represent mild bronchiolitis or atelectasis. 3. Stable 8 mm nodule in the superior segment of the right lower lobe. Recommendations as before. D/ / 11/04/2016 23:23:09 Alexander Kim MD / [facility] Interpreting Provider: Alexander Kim MD Chest X-Ray 11/04/16 21:12 IMPRESSION: Hypoinflated lungs with right basilar atelectasis. D/ / Odessa Yu MD / Odessa Yu MD Interpreting Provider: Odessa Yu MD Gallbladder Ultrasound 11/04/16 21:47 IMPRESSION: Fatty liver. Cholelithiasis. D/ / Yudith Gonzalez Cha, MD / Yudith Gonzalez Cha, MD Interpreting Provider: Yudith Gonzalez Cha, MD Lab workup indicates mild leukocytosis which is likely stress response given her nausea with vomiting. Troponin negative. EKG is unremarkable. Spoke with the patient and at bedside and they agree for admission for chest pain rule out ACS. Spoke with the admitting hospitalist, Dr. Medrano, who agrees to accept the patient. Vital Signs Temperature 98 F 11/04/16 20:22 Pulse Rate 94 11/04/16 20:22 Respiratory Rate 20 11/04/16 20:22 Blood Pressure 137/89 11/04/16 20:22 O2 Sat by Pulse Oximetry 98 11/04/16 20:22 Temperature 98.1 F 11/05/16 00:58 Pulse Rate 89 11/05/16 00:58 Respiratory Rate 26 11/05/16 00:58 Blood Pressure 174/106 11/05/16 00:58 O2 Sat by Pulse Oximetry 96 11/05/16 00:58 Oxygen Delivery Oxygen Delivery Room Air Chest Pain - Medical Records Medical records reviewed: Yes I reviewed the patient's medical records. - Lab Data Lab results reviewed: Yes I reviewed the patient's lab results. Result diagrams: 11/04/16 21:24 11/04/16 21:24 Lab Results 11/04/16 11/04/16 11/04/16 Range/Units 21:24 21:24 21:24 WBC 11.7 H (4.3-11.1) K/mcL RBC 5.43 H (3.82-4.97) M/mcL Hgb 13.4 D (11.5-15.4) g/dL Hct 44.4 (35.3-44.9) % MCV 81.8 L (83.0-100.0) fL MCH 24.7 L (28.0-33.3) pg MCHC 30.2 L (31.6-35.5) g/dL RDW 25.2 H (11.5-14.5) % Plt Count 404 H (140-400) K/mcL MPV 8.6 L (9.4-12.4) fL Seg Neutrophils % 64.0 % Band Neutrophils % 2.0 (0-4) % Lymphocytes % 18.0 % Monocytes % 6.0 % Eosinophils % 8.0 % Basophils % 2.0 % Neutrophils # 7.7 (1.6-8.9) K/mcL Lymphocytes # 2.1 (0.6-4.6) K/mcL Monocytes # 0.7 (0.0-1.3) K/mcL Eosinophils # 0.9 H (0.0-0.6) K/mcL Basophils # 0.2 (0.0-0.2) K/mcL Platelet Estimate Normal (Normal) Anisocytosis 2+ A (Not Present) Sodium 139 (136-145) mEq/L Potassium 3.9 (3.5-4.5) mEq/L Chloride 105 (98-109) mEq/L Carbon Dioxide 25 (19-29) mEq/L BUN 14 (7-20) mg/dL Creatinine 0.67 (0.57-1.11) mg/dL Est GFR ( Amer) > 60 (> 60) Est GFR (Non-Af Amer) > 60 (> 60) BUN/Creatinine Ratio 21 (6-26) Glucose 108 H (70-99) mg/dL Calculated Osmolality 289 (280-300) Calcium 8.7 (8.6-10.8) mg/dL Total Bilirubin 0.7 (0.2-1.2) mg/dL Direct Bilirubin 0.4 (0.0-0.5) mg/dL Indirect Bilirubin 0.3 (0.0-1.2) mg/dL AST 205 H (5-34) Units/L ALT 61 H (0-55) Units/L Alkaline Phosphatase 114 (38-126) Units/L Troponin I (0-0.03) ng/mL Serum Total Protein 8.2 (6.0-8.3) g/dL Albumin 4.0 (3.5-5.0) g/dL Globulin 4.2 H (2.4-3.5) g/dL Albumin/Globulin Ratio 1.0 L (1.1-2.2) Lipase 38 (8-78) Units/L // Range/Units 21:24 WBC (4.3-11.1) K/mcL RBC (3.82-4.97) M/mcL Hgb (11.5-15.4) g/dL Hct (35.3-44.9) % MCV (83.0-100.0) fL MCH (28.0-33.3) pg MCHC (31.6-35.5) g/dL RDW (11.5-14.5) % Plt Count (140-400) K/mcL MPV (9.4-12.4) fL Seg Neutrophils % % Band Neutrophils % (0-4) % Lymphocytes % % Monocytes % % Eosinophils % % Basophils % % Neutrophils # (1.6-8.9) K/mcL Lymphocytes # (0.6-4.6) K/mcL Monocytes # (0.0-1.3) K/mcL Eosinophils # (0.0-0.6) K/mcL Basophils # (0.0-0.2) K/mcL Platelet Estimate (Normal) Anisocytosis (Not Present) Sodium (136-145) mEq/L Potassium (3.5-4.5) mEq/L Chloride (98-109) mEq/L Carbon Dioxide (19-29) mEq/L BUN (7-20) mg/dL Creatinine (0.57-1.11) mg/dL Est GFR ( Amer) (> 60) Est GFR (Non-Af Amer) (> 60) BUN/Creatinine Ratio (6-26) Glucose (70-99) mg/dL Calculated Osmolality (280-300) Calcium (8.6-10.8) mg/dL Total Bilirubin (0.2-1.2) mg/dL Direct Bilirubin (0.0-0.5) mg/dL Indirect Bilirubin (0.0-1.2) mg/dL AST (5-34) Units/L ALT (0-55) Units/L Alkaline Phosphatase (38-126) Units/L Troponin I 0.00 (0-0.03) ng/mL Serum Total Protein (6.0-8.3) g/dL Albumin (3.5-5.0) g/dL Globulin (2.4-3.5) g/dL Albumin/Globulin Ratio (1.1-2.2) Lipase (8-78) Units/L - Radiology Data Radiology results reviewed: Yes I reviewed the patient's radiology results. - EKG Data EKG attestation: Yes I reviewed and interpreted this EKG. EKG results narrative: EKG dated 11/04/16 at 20:33 interpreted as sinus rhythm with a rate of 91. Normal axis. Normal intervals TN 155, QRS 95, QT/QTC 360/49. Nonspecific ST-T changes. Compared to previous dated 10/01/2016 showing no acute ischemic changes in comparison. Heart Score - Score History: Slightly Suspicious EKG: Non Specific repolarisation Disturbance Age: 45-65 Risk Factors: Equal/Greater than 3 risk factor or history of atherosclerotic disease Attestation Statement - Attestation Attestation: I, Candido Cohen MD, personally evaluated this patient and discussed their management with the resident physician. I reviewed the resident's note and agree with the documented findings, medical decision making, and plan of care. 51-year-old female presents to the emergency department with a complaint of acute onset of sharp mid chest pain radiating to the back about 7 PM this evening. She also complains of shortness of breath and diaphoresis and nausea and vomiting. Also epigastric pain radiating around to the right flank area. Patient has a history of known gallbladder disease and is scheduled for an outpatient cholecystectomy. She also has a history of a pulmonary embolism and is on Eliquis. She was just recently found to have a DVT in the right leg. On examination patient is a well-developed well-nourished female in no acute distress. She is alert and oriented 3. There is no cyanosis or diaphoresis. She does appear to be in moderate discomfort. Breath sounds are clear and equal bilaterally. Chest is nontender to palpation. Heart regular rate and rhythm. Abdomen is soft with normal bowel sounds. There is some epigastric and right upper quadrant tenderness. Labs reviewed. No acute changes on EKG. Some right basilar atelectasis on chest x-ray. CTA showed no evidence of pulmonary embolism. Gallbladder ultrasound showed some fatty infiltration of the liver and cholelithiasis. The hospitalist, Dr. Saul, was consulted and accepted admission of the patient.
[2016-11-04 21:32] LABS: Hematocrit 44.4 % (35.3-44.9); Hemoglobin 13.4 g/dL (11.5-15.4); Mean Corpuscular HGB Conc 30.2 g/dL (31.6-35.5); Mean Corpuscular Hemoglobin 24.7 pg (28.0-33.3); Mean Corpuscular Volume 81.8 fL (83.0-100.0); Mean Platelet Volume 8.6 fL (9.4-12.4); Monocytes # 0.7 K/mcL (0.0-1.3); Platelet Count 404 K/mcL (140-400); Red Blood Count 5.43 M/mcL (3.82-4.97); Red Cell Distribution Width 25.2 % (11.5-14.5)
[2016-11-04] MEDS ORDERED: *HR* Morphine 2 MG/ML SYRINGE IVP ONE (21:43)
[2016-11-04] MEDS ORDERED: Ondansetron 4 MG/2 ML VIAL IVP ONE ×2 (21:44→23:37)
[2016-11-04 21:47] LABS: BUN/Creatinine Ratio 21 (6-26); Bilirubin,Direct 0.4 mg/dL (0.0-0.5); Bilirubin,Indirect 0.3 mg/dL (0.0-1.2); Bilirubin,Total 0.7 mg/dL (0.2-1.2); Blood Urea Nitrogen 14 mg/dL (7-20); Calcium 8.7 mg/dL (8.6-10.8); Carbon Dioxide 25 mEq/L (19-29); Chloride 105 mEq/L (98-109); Globulin 4.2 g/dL (2.4-3.5); Glucose 108 mg/dL (70-99); Osmolality,Calculated 289 (280-300); Potassium 3.9 mEq/L (3.5-4.5); Sodium 139 mEq/L (136-145); Total Protein 8.2 g/dL (6.0-8.3); eGFR For African Americans > 60 (> 60); eGFR For Non-African Americans > 60 (> 60)
[2016-11-04 22:21] LABS: Anisocytosis 2+ (Not Present); Basophils # 0.2 K/mcL (0.0-0.2); Eosinophils # 0.9 K/mcL (0.0-0.6); Lymphocytes # 2.1 K/mcL (0.6-4.6); Neutrophils # 7.7 K/mcL (1.6-8.9); Platelet Estimate Normal (Normal)
[2016-11-04] MEDS ORDERED: *HR* HYDROmorphone (PF) 1 MG/ML SYRINGE IVP ONE (23:37)
[2016-11-04] MEDS ORDERED: *HR* FentaNYL (PF) 100 MCG/2 ML VIAL IVP ONE (23:40)
[2016-11-05] MEDS ORDERED: *HR* Morphine 2 MG/ML SYRINGE IVP ONE (01:29)
--- NOTE | 2016-11-05 02:41 | Internal Med History&Physical ---
Date of Encounter: 11/05/16 Time of Encounter: 02:00 Assessment and Plan (1) Cholelithiasis Current visit: Yes Status: Chronic That is expected to have surgery with Dr Tsai, next month. Patient presents with right upper quadrant pain. Gallbladder ultrasound is negative for acute cholecystitis. Patient has tenderness in the right upper quadrant and has abnormal LFTs. Hence, will consult surgeon for further advice. If she were to go for surgery, during this admission, she will need IVC filter due to recent diagnosis of acute right SFV thrombosis. Qualifiers: Cholelithiasis location: gallbladder Cholecystitis presence: without cholecystitis Biliary obstruction: with biliary obstruction Qualified Code(s ): K80.21 - Calculus of gallbladder without cholecystitis with obstruction (2) RUQ abdominal pain Current visit: Yes Status: Acute Likely due to cholelithiasis / cholecystitis. symptomatic treatment. surgical consult (3) Chest pain Current visit: Yes Status: Acute She had negative non excercise stress test about a month ago. She has atypical chest pain. Trend troponins Qualifiers: Chest pain type: unspecified Qualified Code(s): R07.9 - Chest pain, unspecified (4) Abnormal LFTs (liver function tests) Current visit: Yes Status: Acute Likely due to cholelithiasis/cholecystitis. He also has hepatic steatosis - however she has acute elevation of LFTs, which is likely due to cholelithiasis/ cholecystitis (5) Acute DVT (deep venous thrombosis) Current visit: Yes Status: Acute Acute DVT of right superficial femoral vein noted on 11/03/16. She is on anticoagulation with eliquis Qualifiers: DVT location: lower extremity Affected thrombotic vein of extremity: other lower extremity vein Laterality: right Qualified Code(s): I82.491 - Acute embolism and thrombosis of other specified deep vein of right lower extremity (6) VTE (venous thromboembolism) Current visit: Yes Status: Chronic Prior h/o PEs and is on eliquis (7) Chronic anticoagulation Current visit: Yes Status: Acute On eliquis. If the pt needs surgery during this admission, she will need IVC filter Internal Medicine - H&P: HPI Chief complaint: Chest pain Admitted From: Emergency Dept Plans for Post Hospital Care: Home History of present illness: Ms. Mooney is a 51 year old female With h/o fibromyalgia, GERD, hypertension, pulmonary embolus, and recent venous Doppler showing right superficial femoral vein thrombosis (done on 11/03/16) now on eliquis. She presents with central chest pain started yesterday sharp, severe, nonradiating pain, with no associated palpitations, sweating. She also reports pain in the RUQ, which is moderate to severe (happens about the same time as the chest pain). She reports nausea but No vomiting. She denies fever, chills, dysuria, hematuria, change in bowel movements. She was evaluated in emergency department and was given aspirin, antiemetics. Troponin was negative. She is admitted to the hospitalist service for further workup and management. Past Med Surg Social Fam HX - Past Medical History Medical history: arthritis, fibromyalgia, GERD, hypertension, pulmonary embolus , other Psychiatric history: anxiety, bipolar, depression - Past Surgical History Surgical History: appendectomy, , hysterectomy, knee replacement, orthopedic, other, sinus surgery - Social History Smoking Status: Never smoker Smokeless Tobacco Status: No Alcohol use: none Drug use: none - Family History Mother Living Status: Still Living Hx Family Cardiac Disorders: Yes Hx Family Cancer: Yes (Right breast, mastectomy) Father Hx Family Cardiac Disorders: Yes (HTN) Hx Family Endocrine Disorder: Yes (Diabetes) Internal Medicine - H&P: Meds Famotidine [Pepcid] 40 mg PO QAM 03/21/15 [History] Omeprazole [PriLOSEC] 40 mg PO QAM 03/21/15 [History] Celecoxib [Celebrex] 200 mg PO BID 01/30/16 [History] EPINEPHrine [Epipen] 0.3 mg IJ ONCE PRN 01/30/16 [History] Montelukast [Singulair] 10 mg PO HS 01/30/16 [History] Venlafaxine HCl [Venlafaxine HCl ER] 225 mg PO HS 01/30/16 [History] Metoclopramide HCl 5 mg PO HS 03/24/16 [History] OXcarbazepine [Oxcarbazepine] 1,200 mg PO HS 03/24/16 [History] OXcarbazepine [Oxcarbazepine] 600 mg PO QAM 03/24/16 [History] Quetiapine Fumarate [Seroquel] 200 mg PO HS 03/24/16 [History] Ergocalciferol (VITAMIN D2) [Vitamin D2] 50,000 unit PO QMONTH 09/18/16 [History ] Nortriptyline [Pamelor] 25 mg PO HS 09/18/16 [History] diazePAM [Valium] 5 mg PO TID PRN 09/18/16 [History] Cetirizine HCl [Zyrtec] 10 mg PO DAILY PRN 10/01/16 [History] Gabapentin [Neurontin] 1,600 mg PO HS 10/01/16 [History] Gabapentin [Neurontin] 800 mg PO QAM 10/01/16 [History] Apixaban [Eliquis] 5 mg PO BID #60 tablet 10/05/16 [Rx] Ondansetron ODT [Zofran ODT] 4 mg SL Q6HR PRN #12 tab.rapdis 10/05/16 [Rx] amLODIPine [Norvasc] 10 mg PO DAILY #60 tablet 10/05/16 [Rx] predniSONE [PredniSONE] 40 mg PO DAILY #10 tablet 10/05/16 [Rx] Oxygen 3 l IN CONT 10/09/16 [History] Apixaban [Eliquis] 5 mg PO BID #60 tablet 11/03/16 [Rx] Buspirone HCl [Buspar] 5 mg PO BID 11/03/16 [History] Fluticasone Propionate Nasal [Flonase] 50 mcg NS BID 11/03/16 [History] Spironolactone [Aldactone] 25 mg PO DAILY 11/05/16 [History] Allergies adhesive tape Allergy (Verified 11/03/16 14:28) Blister latex Allergy (Verified 11/03/16 14:28) Blister vancomycin Allergy (Verified 11/03/16 14:28) Itching Patient became flushed, itching all over, hot All Systems PM: A 10-system review of systems was performed and is negative for pertinent findings except as documented above in the HPI. - Constitutional Vitals: Temp Pulse Resp BP Pulse Ox 98.1 F 89 26 174/106 96 11/05/16 00:58 11/05/16 00:58 11/05/16 00:58 11/05/16 00:58 11/05/16 00:58 Exam: General: Not in acute distress at the time of my evaluation HEENT: Oral mucosa is moist. No conjunctival palor or scleral icterus Neck: No obvious neck swellings Lungs: Clear to auscultation Cardiac: Regular rate and rhythm. No significant murmurs Abdomen: RUQ tenderness present. Bowel sounds present Genitourinary: No spencer catheter Neurological: Alert and oriented. No gross localizing deficits Psych: Not aggressive or agitated Extremities: no significant leg edema Skin: No generalized rash Internal Med - H&P Results - Labs CBC & Chem 7: 11/05/16 03:39 11/05/16 03:39 - EKG Data -: EKG Interpreted by Myself EKG shows normal: sinus rhythm Rate: normal - Impressions ITS Impressions Chest CTA 11/04/16 21:12 IMPRESSION: 1. Slightly limited study due to motion artifact and poor bolus contrast through the pulmonary arteries with limited evaluation of some of the distal segmental and subsegmental arteries. Otherwise no evidence of pulmonary emboli. 2. New minimal reticular opacities noted in the lateral aspect of the right middle lobe, nonspecific, could represent mild bronchiolitis or atelectasis. 3. Stable 8 mm nodule in the superior segment of the right lower lobe. Recommendations as before. D/ / 11/04/2016 23:23:09 Alexander Kim MD / [facility] Interpreting Provider: Alexander Kim MD Chest X-Ray 11/04/16 21:12 IMPRESSION: Hypoinflated lungs with right basilar atelectasis. D/ / Odessa Yu MD / Odessa Yu MD Interpreting Provider: Odessa Yu MD Gallbladder Ultrasound 11/04/16 21:47 IMPRESSION: Fatty liver. Cholelithiasis. D/ / Yudith Gonzalez Cha, MD / Yudith Gonzalez Cha, MD Interpreting Provider: Yudith Gonzalez Cha, MD
[2016-11-05] MEDS ORDERED: Naloxone 0.4 MG/ML INJ IVP PRN (03:13)
[2016-11-05] MEDS ORDERED: *HR* Promethazine 25 MG/ML VIAL IVP ONE ×2 (03:19→04:33)
[2016-11-05] MEDS: *HR* Morphine 2 MG/ML SYRINGE IVP PRN ×5 (04:39→20:21)
[2016-11-05 05:09] LABS: Basophils % 0.5 %; Eosinophils # 0.1 K/mcL (0.0-0.6); Eosinophils % 1.6 %; Hematocrit 37.8 % (35.3-44.9); Immature Granulocytes % 1.5 % (0-4); Lymphocytes # 1.1 K/mcL (0.6-4.6); Lymphocytes % 14.3 %; Mean Corpuscular HGB Conc 29.6 g/dL (31.6-35.5); Mean Corpuscular Hemoglobin 24.5 pg (28.0-33.3); Mean Corpuscular Volume 82.7 fL (83.0-100.0); Mean Platelet Volume 9.7 fL (9.4-12.4); Monocytes # 0.6 K/mcL (0.0-1.3); Monocytes % 7.5 %; Neutrophils # 5.6 K/mcL (1.6-8.9); Platelet Count 346 K/mcL (140-400); Red Blood Count 4.57 M/mcL (3.82-4.97); Red Cell Distribution Width 25.2 % (11.5-14.5); Segmented Neutrophils % 74.6 %
[2016-11-05 05:18] LABS: Alanine Aminotransferase 181 Units/L (0-55); Albumin 3.2 g/dL (3.5-5.0); Albumin/Globulin Ratio 0.9 (1.1-2.2); Alkaline Phosphatase 107 Units/L (38-126); Aspartate Amino Transferase 548 Units/L (5-34); BUN/Creatinine Ratio 21 (6-26); Blood Urea Nitrogen 13 mg/dL (7-20); Calcium 8.2 mg/dL (8.6-10.8); Carbon Dioxide 26 mEq/L (19-29); Chloride 106 mEq/L (98-109); Globulin 3.4 g/dL (2.4-3.5); Glucose 106 mg/dL (70-99); Magnesium 1.6 mg/dL (1.6-2.6); Osmolality,Calculated 293 (280-300); Potassium 3.5 mEq/L (3.5-4.5); Sodium 141 mEq/L (136-145); Total Protein 6.6 g/dL (6.0-8.3); eGFR For African Americans > 60 (> 60); eGFR For Non-African Americans > 60 (> 60)
[2016-11-05 05:45] LABS: Hemoglobin 11.2 g/dL (11.5-15.4)
[2016-11-05 06:08] LABS: Anisocytosis 2+ (Not Present); Microcytosis Present (Not Present)
[2016-11-05 06:09] LABS: Platelet Estimate Normal (Normal)
[2016-11-05] MEDS: *HR* Promethazine 25 MG/ML VIAL IVP PRN ×2 (07:47→13:45)
--- NOTE | 2016-11-05 09:27 | General Surgery Consult Note ---
<Phuong Mcduffie - Last Filed: 11/05/16 08:59> Date of Encounter: 11/05/16 Time of Encounter: 08:59 Assessment and Plan (1) Cholelithiasis Current Visit: Yes Status: Chronic Patient was scheduled for cholecystectomy on 12/01/[address] Tsai, patient presents with severe right upper quadrant pain and elevated LFTs. Patient has a history of PE and had been on Eliquis for 30 days but did not refill her medication and has not been on Eliquis since mid September. US gallbladder on 09/22/2016 reveals gallstones and sludge within a contracted gallbladder HIDA scan on 09/20/2016 reveals evidence of gallbladder dysfunction such as chronic cholecystitis, no evidence of acute cholecystitis. US gallbladder on 11/04/2016: Cholelithiasis She was diagnosed on 11/03/2016 with an acute SVT of right superficial femoral vein. She subsequently took 1 dose of Eliquis 11/04/2016 at approximately 1100. We will have to wait or E8 hours after last dose of Eliquis. Eliquis will be held today. The patient has been very noncompliant with her anticoagulation in the past. She may benefit from an IVC filter during this hospitalization, as the timing of starting heparin postop depends on how her surgery goes. Recommend consult in vascular surgery for further recommendations regarding the IVC tear. Plan: -Hold Eliquis -May have clear liquid diet today -NPO at midnight -Plan for surgery 11/06/2016 -Recommend consult to vascular surgery to determine IVC filter needs -Pain control, supportive care Qualifiers: Cholelithiasis location: gallbladder Cholecystitis presence: without cholecystitis Biliary obstruction: with biliary obstruction Qualified Code(s ): K80.21 - Calculus of gallbladder without cholecystitis with obstruction (2) Acute superficial venous thrombosis of right lower extremity Current Visit: Yes Status: Acute Hold Eliquis Recommend vascular surgery consult for IVC filter needs during this hospitalization as patient has history of noncompliance with anticoagulation, history of recent PE (3) History of pulmonary embolism Current Visit: No Status: Chronic History of Present Illness Consult date: 11/05/16 Reason for consult: abdominal pain Requesting physician: Lizbeth Saul History of present illness: Ms. Monoey is a 51 year old female with PMH of fibromyalgia, GERD, hypertension , pulmonary embolus, and recent venous doppler showing right superficial femoral vein thrombosis (done on 11/03/16) now on eliquis, first dose yesterday after not taking it since 09/27. She states that she took this one time dose at 1100. She presented to the ED last night with central chest pain started yesterday. She states that the pain is sharp, severe, pain radiates through to her back, with no associated palpitations, sweating. She also reports pain in the RUQ,sharp and severe >10/10 that radiates to the right flank. The pain is worse with moving, improved slightly with rest. 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 She denies hematemesis or coffee-ground emesis. She states that she has been feeling hot alternating with clammy. She has also been short of breath, tired, weak. She denies fever, chills, dysuria, hematuria, change in bowel movements. The patient is currently scheduled for a cholecystectomy on 12/01/[address] Tsai. US gallbladder on 09/22/2016 reveals gallstones and sludge within a contracted gallbladder HIDA scan on 09/20/2016 reveals evidence of gallbladder dysfunction such as chronic cholecystitis, no evidence of acute cholecystitis. US gallbladder on 11/04/2016: Cholelithiasis PSH: Appendectomy, partial hysterectomy, breast reduction, no surgery, tonsillectomy, wisdom tooth extraction, total bilateral knee surgeries Past Med Surg Social Fam HX - Past Medical History Medical history: arthritis, fibromyalgia, GERD, hyperlipidemia, hypertension, pulmonary embolus, other (DVT right knee) Psychiatric history: anxiety, bipolar, depression - Past Surgical History Surgical History: appendectomy, hysterectomy, knee replacement, orthopedic, other, sinus surgery, other ([place] tooth extraction, tonsillectomy) - Social History Smoking Status: Never smoker Smokeless Tobacco Status: No Alcohol use: none Drug use: none Activity Level: Independent ambulation Recent Out of Country Travel Within the Last 8 Weeks: No Exposure or Possible Exposure to Illness During Travel: No - Family History Mother Living Status: Still Living Hx Family Cardiac Disorders: Yes Hx Family Cancer: Yes (Right breast, mastectomy) Father Hx Family Cardiac Disorders: Yes (HTN) Hx Family Endocrine Disorder: Yes (Diabetes) Medications and Allergies Famotidine [Pepcid] 40 mg PO QAM 03/21/15 [History] Omeprazole [PriLOSEC] 40 mg PO QAM 03/21/15 [History] Celecoxib [Celebrex] 200 mg PO BID 01/30/16 [History] EPINEPHrine [Epipen] 0.3 mg IJ ONCE PRN 01/30/16 [History] Montelukast [Singulair] 10 mg PO HS 01/30/16 [History] Venlafaxine HCl [Venlafaxine HCl ER] 225 mg PO HS 01/30/16 [History] Metoclopramide HCl 5 mg PO HS 03/24/16 [History] OXcarbazepine [Oxcarbazepine] 1,200 mg PO HS 03/24/16 [History] OXcarbazepine [Oxcarbazepine] 600 mg PO QAM 03/24/16 [History] Quetiapine Fumarate [Seroquel] 200 mg PO HS 03/24/16 [History] Ergocalciferol (VITAMIN D2) [Vitamin D2] 50,000 unit PO QMONTH 09/18/16 [History ] Nortriptyline [Pamelor] 25 mg PO HS 09/18/16 [History] diazePAM [Valium] 5 mg PO TID PRN 09/18/16 [History] Cetirizine HCl [Zyrtec] 10 mg PO DAILY PRN 10/01/16 [History] Gabapentin [Neurontin] 1,600 mg PO HS 10/01/16 [History] Gabapentin [Neurontin] 800 mg PO QAM 10/01/16 [History] Ondansetron ODT [Zofran ODT] 4 mg SL Q6HR PRN #12 tab.rapdis 10/05/16 [Rx] amLODIPine [Norvasc] 10 mg PO DAILY #60 tablet 10/05/16 [Rx] predniSONE [PredniSONE] 40 mg PO DAILY #10 tablet 10/05/16 [Rx] Oxygen 3 l IN CONT 10/09/16 [History] Apixaban [Eliquis] 5 mg PO BID #60 tablet 11/03/16 [Rx] Buspirone HCl [Buspar] 5 mg PO BID 11/03/16 [History] Fluticasone Propionate Nasal [Flonase] 50 mcg NS BID 11/03/16 [History] Potassium Chloride [K-Tab ER] 20 meq PO DAILY 11/05/16 [History] Spironolactone [Aldactone] 25 mg PO DAILY 11/05/16 [History] Allergies adhesive tape Allergy (Verified 11/03/16 14:28) Blister latex Allergy (Verified 11/03/16 14:28) Blister vancomycin Allergy (Verified 11/03/16 14:28) Itching Patient became flushed, itching all over, hot Review of Systems All systems PM: A 10-system review of systems was performed and is negative for pertinent findings except as documented above in the HPI. - Constitutional fatigue, lethargy, weakness, no anorexia, no chills, no excessive sweating, no fever(s), no headache(s) - EENT Nose, mouth and throat: no dizziness, no headache(s), no nasal congestion, no neck pain, no sore throat - Cardiovascular chest pain, dyspnea, no palpitations - Gastrointestinal heartburn, nausea, vomiting, no change in stool character, no coffee ground emesis, no constipation, no diarrhea, no hematemesis - Genitourinary Genitourinary: no difficulty urinating, no dysuria - Musculoskeletal arthralgias, joint swelling (Right knee) - Integumentary no dry skin, no erythema - Neurological no dizziness, no focal weakness, no headache(s) - Psychiatric anxiety, depression - Endocrine fatigue, flushing, no excessive sweating - Hematologic/Lymphatic other (SVT right knee) General Surgery Exam Initial Vital Signs Temp Pulse Resp BP Pulse Ox 98 F 94 20 137/89 98 11/04/16 20:22 11/04/16 20:22 11/04/16 20:22 11/04/16 20:22 11/04/16 20:22 - General physical appearance well developed, well nourished, moderate distress, moderate pain, obese - Eyes PERRL, normal ocular movement - ENT normal pinna, normal nares, normal mucosa, atraumatic, normocephalic - Neck no masses, trachea midline, no lymphadectomy, no venous distension - Respiratory normal expansion, normal respiratory effort, clear to auscultation - Cardiovascular Cardiovascular exam: Present: RRR, no murmurs/rubs/gallops - Abdomen Abdomen general surgery: Present: bowel sounds present, soft, tender Abdominal Tenderness: Present: RUQ, RLQ - Integumentary Integumentary general surgery: Present: warm and dry, no abnormal pigmentation - Neurologic Present: CN 2-12 grossly intact, normal coordination, normal sensation - Musculoskeletal Present: normal gait, normal posture - Psychiatric Psychiatric general surgery: Present: A&Ox3, appropriate, oriented to person, oriented to place, oriented to time, speech is normal, memory intact Exam Initial Vital Signs Temp Pulse Resp BP Pulse Ox 98 F 94 20 137/89 98 11/04/16 20:22 11/04/16 20:22 11/04/16 20:22 11/04/16 20:22 11/04/16 20:22 Results - Labs 11/05/16 03:39 11/05/16 03:39 Short CBC 11/05/16 11/04/16 Range/Units 03:39 21:24 WBC 7.5 11.7 H (4.3-11.1) K/mcL Hgb 11.2 L D 13.4 D (11.5-15.4) g/dL Hct 37.8 44.4 (35.3-44.9) % Plt Count 346 404 H (140-400) K/mcL Neutrophils # 5.6 7.7 (1.6-8.9) K/mcL BMP 11/05/16 11/04/16 Range/Units 03:39 21:24 Sodium 141 139 (136-145) mEq/L Potassium 3.5 3.9 (3.5-4.5) mEq/L Chloride 106 105 (98-109) mEq/L Carbon Dioxide 26 25 (19-29) mEq/L BUN 13 14 (7-20) mg/dL Creatinine 0.63 0.67 (0.57-1.11) mg/dL Glucose 106 H 108 H (70-99) mg/dL Calcium 8.2 L 8.7 (8.6-10.8) mg/dL Cardiac Enzymes 11/05/16 11/04/16 Range/Units 03:39 21:24 Troponin I 0.00 0.00 (0-0.03) ng/mL Liver Function 11/05/16 11/04/16 Range/Units 03:39 21:24 Total Bilirubin 1.0 0.7 (0.2-1.2) mg/dL Direct Bilirubin 0.4 (0.0-0.5) mg/dL AST 548 H 205 H (5-34) Units/L ALT 181 H 61 H (0-55) Units/L Alkaline Phosphatase 107 114 (38-126) Units/L Albumin 3.2 L 4.0 (3.5-5.0) g/dL - Imaging US - abdomen: report reviewed, image reviewed Consult Discharge Plan - Plan Referrals: Eduarda Abbasi MD [Primary Care Provider] - 11/14/16 11:20 am <Pamela Tsai - Last Filed: 11/06/16 16:51> Date of Encounter: 11/05/16 Time of Encounter: 17:35 Assessment and Plan (1) Acute and chronic cholecystitis Current Visit: Yes Status: Acute will plan laparoscopic cholecystectomy, possible cholangiograms/possible open, risks and benefits previously discussed with patient as she was already scheduled for surgery as outpatient. ivf hydration prn pain control antiemetics (2) Abnormal LFTs (liver function tests) Current Visit: Yes Status: Acute likely due to inflammation, trend (3) Acute DVT (deep venous thrombosis) Current Visit: Yes Status: Acute will plan on ivc filter as patient has been very noncompliant in taking her anticoagulation Qualifiers: DVT location: lower extremity Affected thrombotic vein of extremity: other lower extremity vein Laterality: right Qualified Code(s): I82.491 - Acute embolism and thrombosis of other specified deep vein of right lower extremity History of Present Illness History of present illness: Patient is well known to me for chronic cholecystitis. She started having worsening RUQ pain, sharp through to her back. Nausea and emesis. Past Med Surg Social Fam HX - Past Medical History Source: patient Review of Systems All systems PM: A 10-system review of systems was performed and is negative for pertinent findings except as documented above in the HPI. General Surgery Exam Initial Vital Signs Temp Pulse Resp BP Pulse Ox 98 F 94 20 137/89 98 11/04/16 20:22 11/04/16 20:22 11/04/16 20:22 11/04/16 20:22 11/04/16 20:22 - General physical appearance well nourished, moderate distress, moderate pain, obese - Eyes PERRL, normal ocular movement - Cardiovascular Cardiovascular exam: Present: RRR - Abdomen Abdomen general surgery: Present: bowel sounds present, soft, tender. Absent: distended, guarding, rebound Abdominal Tenderness: Present: RUQ - Integumentary Integumentary general surgery: Present: warm and dry, no abnormal pigmentation - Neurologic Present: CN 2-12 grossly intact, normal coordination - Musculoskeletal Present: normal gait, normal posture - Psychiatric Psychiatric general surgery: Present: A&Ox3, speech is normal Exam Initial Vital Signs Temp Pulse Resp BP Pulse Ox 98 F 94 20 137/89 98 11/04/16 20:22 11/04/16 20:22 11/04/16 20:22 11/04/16 20:22 11/04/16 20:22 Results - Labs 11/05/16 03:39 11/05/16 03:39 Abnormal lab results Hgb 11.2 g/dL (11.5-15.4) L D 11/05/16 03:39 MCV 82.7 fL (83.0-100.0) L 11/05/16 03:39 MCH 24.5 pg (28.0-33.3) L 11/05/16 03:39 MCHC 29.6 g/dL (31.6-35.5) L 11/05/16 03:39 RDW 25.2 % (11.5-14.5) H 11/05/16 03:39 Anisocytosis 2+ (Not Present) A 11/05/16 03:39 Microcytosis Present (Not Present) A 11/05/16 03:39 Glucose 106 mg/dL (70-99) H 11/05/16 03:39 Calcium 8.2 mg/dL (8.6-10.8) L 11/05/16 03:39 AST 548 Units/L (5-34) H 11/05/16 03:39 ALT 181 Units/L (0-55) H 11/05/16 03:39 Albumin 3.2 g/dL (3.5-5.0) L 11/05/16 03:39 Albumin/Globulin Ratio 0.9 (1.1-2.2) L 11/05/16 03:39 All other labs normal. - Imaging US - abdomen: report reviewed - Attending Attestation I examined this patient and my medical decision-making was reviewed with the FARMWORKER ANIMAL/PA/Advanced Practice Nurse/Resident Physician. I agree with the documented findings, disposition and treatment plan as described except to the extent set forth below.
--- NOTE | 2016-11-05 11:01 | Electrocardiograph Report ---
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
[2016-11-05] MEDS: Ondansetron 4 MG/2 ML VIAL IVP PRN ×2 (11:31→20:22)
--- NOTE | 2016-11-05 12:54 | Event Note ---
Date of Encounter: 11/05/16 Time of Encounter: 08:35 Patient continues to have nausea and vomiting. Given that she has an acute right superficial femoral deep vein thrombosis, and she needs laparoscopic cholecystectomy, discussed with vascular surgery and Gen. surgery. Patient would benefit from IVC filter placement. Consulted IR. She will have surgery done after IVC filter is placed. Hold Eliquis for now until after surgery.
[2016-11-05] MEDS ORDERED: Heparin 1,000 UNITS/500 mL NS 500 ML ONE (13:09)
[2016-11-05] MEDS ORDERED: ceFAZolin 2,000 MG in D5% in Water (Mini-Bag+) 100 ML IVPB ONE (13:29)
[2016-11-05] MEDS ORDERED: 0.9 % Sodium Chloride 500 ML ONE (13:36)
[2016-11-05] MEDS: *HR* FentaNYL (PF) 100 MCG/2 ML VIAL IVP PRN ×2 (13:54→13:59)
[2016-11-05] MEDS: *HR* Midazolam HCl 2 MG/2 ML VIAL IVP PRN ×2 (13:54→14:00)
[2016-11-05] MEDS ORDERED: Acetaminophen 325 MG TABLET PO PRN (14:47)
[2016-11-05] MEDS ORDERED: Loratadine 10 MG TABLET PO PRN (14:58)
[2016-11-05] MEDS ORDERED: diazePAM 10 MG TABLET PO PRN (14:58)
[2016-11-05] MEDS: Famotidine 20 MG TABLET PO SCH (15:55)
[2016-11-05] MEDS: Gabapentin 400 MG CAPSULE PO SCH (15:55)
[2016-11-05] MEDS: 0.9 % Sodium Chloride w KCl 20 MEQ/1,000 ML MLS IVC SCH (15:56)
--- NOTE | 2016-11-05 19:36 | Anesthesia Evaluation PreOp ---
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: Denies Any Significant HX Other Medical History: GERD (hiatal hernia), Other (obesity BMI=40.5, fibromyalgia) Anesthesia History: No Prior Anesthetic Complications, Past Anesthesia ( hysterectomy) Alcohol Use: none Drug use: none Medications and Allergies Famotidine [Pepcid] 40 mg PO QAM 03/21/15 [History] Omeprazole [PriLOSEC] 40 mg PO QAM 03/21/15 [History] Celecoxib [Celebrex] 200 mg PO BID 01/30/16 [History] EPINEPHrine [Epipen] 0.3 mg IJ ONCE PRN 01/30/16 [History] Montelukast [Singulair] 10 mg PO HS 01/30/16 [History] Venlafaxine HCl [Venlafaxine HCl ER] 225 mg PO HS 01/30/16 [History] Metoclopramide HCl 5 mg PO HS 03/24/16 [History] OXcarbazepine [Oxcarbazepine] 1,200 mg PO HS 03/24/16 [History] OXcarbazepine [Oxcarbazepine] 600 mg PO QAM 03/24/16 [History] Quetiapine Fumarate [Seroquel] 200 mg PO HS 03/24/16 [History] Ergocalciferol (VITAMIN D2) [Vitamin D2] 50,000 unit PO QMONTH 09/18/16 [History ] Nortriptyline [Pamelor] 25 mg PO HS 09/18/16 [History] diazePAM [Valium] 5 mg PO TID PRN 09/18/16 [History] Cetirizine HCl [Zyrtec] 10 mg PO DAILY PRN 10/01/16 [History] Gabapentin [Neurontin] 1,600 mg PO HS 10/01/16 [History] Gabapentin [Neurontin] 800 mg PO QAM 10/01/16 [History] Ondansetron ODT [Zofran ODT] 4 mg SL Q6HR PRN #12 tab.rapdis 10/05/16 [Rx] amLODIPine [Norvasc] 10 mg PO DAILY #60 tablet 10/05/16 [Rx] predniSONE [PredniSONE] 40 mg PO DAILY #10 tablet 10/05/16 [Rx] Oxygen 3 l IN CONT 10/09/16 [History] Apixaban [Eliquis] 5 mg PO BID #60 tablet 11/03/16 [Rx] Buspirone HCl [Buspar] 5 mg PO BID 11/03/16 [History] Fluticasone Propionate Nasal [Flonase] 50 mcg NS BID 11/03/16 [History] Potassium Chloride [K-Tab ER] 20 meq PO DAILY 11/05/16 [History] Spironolactone [Aldactone] 25 mg PO DAILY 11/05/16 [History] Allergies adhesive tape Allergy (Verified 11/03/16 14:28) Blister latex Allergy (Verified 11/03/16 14:28) Blister vancomycin Allergy (Verified 11/03/16 14:28) Itching Patient became flushed, itching all over, hot - Meds/Allergy Pre-op Review Medications Reviewed: Yes Allergies Reviewed: Yes Beta Blockers on Current Med List: No Anesthesia Results - Labs 11/05/16 03:39 11/05/16 03:39 - Imaging EKG: report reviewed (11/04/2016 SR) Additional studies: 10/05/2016 Stress perfusion imaging was negative for ischemia or infarct EF 65% 09/19/2016 Echo LVEF 65% moderate LV diastolic dysfunction mild TR Anesthesia Exam Vital Signs/O2 Sat, Most Current Temp Pulse Resp BP Pulse Ox 98.2 F 83 18 135/85 100 11/05/16 19:12 11/05/16 19:12 11/05/16 19:12 11/05/16 19:12 11/05/16 19:12 Height: 5'3''/1.6 m Weight: 228 lbs/103.75 kg Pain Scale: 6 Pain Scale Used: Numeric (1 - 10) - HEENT Pupil (Motor): EOMI Mallampati: III Teeth: Normal Oral Opening: Greater than 3 - LPN [employer] LOC: Oriented LPN [employer] Motor: Normal RUE, Normal LUE, Normal RLE, Normal LLE, Normal Face LPN [employer] Sensory: Normal: RUE, LUE, RLE, LLE, Face - Cardiac Rhythm: Regular Murmur: None - Pulmonary Breath Sounds: bilateral Clear Respiratory Effort: Symmetrical Anesthesia Assess/Plan ASA Score: 3 Modified [place] Scale for Level of Consciousness: Cooperative, oriented, and tranquil Anesthetic Plan: General Monitoring Plan: Standard Monitors Recovery Plan: PACU
[2016-11-05] MEDS ORDERED: Venlafaxine XR (24 HR) 75 MG CAP.ER.24H PO SCH (21:00)
[2016-11-05] MEDS ORDERED: Gabapentin 400 MG CAPSULE PO SCH (21:00)
[2016-11-05] MEDS ORDERED: OXcarbazepine 150 MG TABLET PO SCH (21:00)
[2016-11-05] MEDS: Fluticasone Propionate Nasal 50 MCG/SPRAY BOTTLE NS SCH (21:05)
[2016-11-06] MEDS: 0.9 % Sodium Chloride w KCl 20 MEQ/1,000 ML MLS IVC SCH ×3 (02:35→18:45)
[2016-11-06] MEDS ORDERED: Famotidine 20 MG TABLET PO SCH (06:30)
[2016-11-06] MEDS: Famotidine 20 MG TABLET PO SCH ×2 (06:48→08:52)
[2016-11-06] MEDS: Gabapentin 400 MG CAPSULE PO SCH ×2 (08:51→20:57)
[2016-11-06] MEDS: Fluticasone Propionate Nasal 50 MCG/SPRAY BOTTLE NS SCH ×2 (08:52→20:53)
[2016-11-06] MEDS: *HR* Morphine 2 MG/ML SYRINGE IVP PRN ×2 (08:57→13:37)
[2016-11-06] MEDS ORDERED: OXcarbazepine 150 MG TABLET PO SCH (09:00)
[2016-11-06] MEDS ORDERED: Gabapentin 400 MG CAPSULE PO SCH (09:00)
[2016-11-06] MEDS ORDERED: amLODIPine 5 MG TABLET PO SCH (09:00)
[2016-11-06] MEDS ORDERED: Spironolactone 25 MG TABLET PO SCH (09:00)
--- NOTE | 2016-11-06 15:13 | Internal Med Progress Note ---
Date of Encounter: 11/06/16 Time of Encounter: 08:35 - Assessment and plan (1) RUQ abdominal pain Current Visit: Yes Status: Acute Assessment and plan: Due to cholelithiasis. Continue supportive care. IV pain medications as needed. Currently nothing by mouth for surgery later today. (2) Cholelithiasis Current Visit: Yes Status: Chronic Assessment and plan: Plan for surgery later today. Qualifiers: Cholelithiasis location: gallbladder Cholecystitis presence: without cholecystitis Biliary obstruction: with biliary obstruction Qualified Code(s ): K80.21 - Calculus of gallbladder without cholecystitis with obstruction (3) Abnormal LFTs (liver function tests) Current Visit: Yes Status: Acute Assessment and plan: likely due to cholelithiasis/cholecystitis. (4) Acute DVT (deep venous thrombosis) Current Visit: Yes Status: Acute Assessment and plan: Eliquis is currently on hold. Since patient is having surgery today, patient underwent IVC filter placement yesterday. May resume Eliquis after surgery when okay with surgery. Does remain at high risk for complications due to history of venous thromboembolic disorder. Qualifiers: DVT location: lower extremity Affected thrombotic vein of extremity: other lower extremity vein Laterality: right Qualified Code(s): I82.491 - Acute embolism and thrombosis of other specified deep vein of right lower extremity (5) Chest pain Current Visit: Yes Status: Acute Assessment and plan: Noncardiac. Troponins have been negative. Negative stress test last month. Qualifiers: Chest pain type: other chest pain Qualified Code(s): R07.89 - Other chest pain; R07.8 - Other chest pain (6) Chronic anticoagulation Current Visit: Yes Status: Acute Assessment and plan: Resume anticoagulation after surgery. - Subjective Interval history: Patient continues to have nausea and also reports some severe right sided flank pain last night that was radiating across her back. It lasted for a few minutes but was very severe in intensity. She has not had similar kind of pain this morning. Nausea and vomiting improving with medications which she is receiving. Underwent successful IVC filter placement yesterday. Awaiting surgery later for laparoscopic cholecystectomy - Constitutional Vitals: Temp Pulse Resp BP Pulse Ox 98.2 F 90 17 118/65 91 11/06/16 10:56 11/06/16 10:56 11/06/16 10:56 11/06/16 10:56 11/06/16 10:56 General appearance: Present: mild distress, A&O X 3, obese, answers questions appropriately - Respiratory Respiratory exam: Present: CTAB. Absent: accessory muscle use, rales, rhonchi, wheezes - Cardiovascular Cardiovascular exam: Present: RRR, +S1, +S2. Absent: diastolic murmur, gallop, rubs, systolic murmur - GI/Abdominal GI/Abdominal exam: Present: normal bowel sounds, soft, tenderness (Right upper quadrant), no peritoneal signs. Absent: distended - Extremities Exam Extremities exam: Present: warm, radial pulses palpable and symetrical. Absent : calf tenderness, cyanotic, pedal edema - Neurological Exam Neurological exam: Present: alert, oriented X3, no focal deficits. Absent: facial droop, speech deficit - Skin Skin exam: Present: dry, intact Internal Medicine: Result - Labs CBC & Chem 7: 11/05/16 03:39 11/05/16 03:39 - VTE Reasons for not Prescribing Prophylaxis: Not indicated-Anticoagulated or INR therapeutic Consult Discharge Plan - Plan Referrals: Eduarda Abbasi MD [Primary Care Provider] - 11/14/16 11:20 am - Attending Attestation This document has been at least partially created by [employer] voice recognition technology by Dr. Tomas. Errors in grammar, wording or other phrases may exist. If errors are found after the documentation is signed, they will be addressed individually in the addendum section of this document when appropriate.
[2016-11-06] MEDS ORDERED: CefOXitin 2,000 MG VIAL IVPB ONE (15:42)
[2016-11-06] MEDS ORDERED: *HR* Heparin 5,000 UNIT/ML VIAL ONE (15:55)
[2016-11-06] MEDS ORDERED: *HR* Heparin 5,000 UNIT/ML VIAL SQ ONE (16:29)
[2016-11-06] MEDS ORDERED: *HR* HYDROmorphone (PF) 1 MG/ML SYRINGE IVP PRN (16:30)
[2016-11-06] MEDS ORDERED: cefOXitin 2,000 MG in D5% in Water (Mini-Bag+) 100 ML IVPB ONE ×2 (16:37→17:37)
--- NOTE | 2016-11-06 16:54 | Operative Note ---
Date of procedure: 11/06/16 Pre-op diagnosis: symptomatic cholelithiasis, chronic cholelithiasis Post-op diagnosis: other (acute on chronic cholecystitis) Procedure: Laparoscopic cholecystectomy Complications: None immediate Anesthesia: GETA, local Local Anesthetics: 0.5% Sensorcaine HCL SubQ (cc) (30), Other (Heparin 5000 units subcutaneous) Surgeon: Pamela Tsai [place] Other: Damaso Cantu Estimated blood loss (cc): 10 Specimen: gallbladder and contents Condition: stable Disposition: PACU Procedure in Detail: The patient was brought into the operating suite and placed supine on the operating table. Sign-in was performed and everyone was in agreement. Anesthesia was induced and patient was endotracheally intubated by anesthesia without incident and they also placed an OG tube. The abdomen was prepped and draped in the usual sterile fashion. A timeout was performed again everyone was in agreement. An incision in the left upper quadrant through the skin into the subcutaneous tissue was made with an 11 blade. A Veress needle was placed this and water drop test confirmed placement and the abdomen was insufflated. We entered the abdomen with a 5 mm 0 degree laparoscope on a 5 mm X-angeles trocar. The area and entry was visualized was no bleeding and no apparent bowel injury. A supraumbilical incision was made through the skin into the subcutaneous tissue with an 11 blade and a 12 mm port was placed under direct visualization. A 5 mm subxiphoid port was placed under direct visualization after first incising the skin with an 11 blade. A right upper quadrant subcostal position midclavicular line 5 mm port was placed under direct visualization after first incising skin with 11 blade. The laparoscope was placed in this and we exchanged the supraumbilical port for a 12 mm port under direct visualization. The last 5 mm port was placed in the right upper quadrant subcostal position anterior axillary line after first incising the skin with an 11 blade. The patient was placed in steep reverse Trendelenburg left side down position. The dome of the gallbladder was grasped and retracted cephalad. Omental adhesions to the body and infundibulum of the gallbladder were taken down bluntly with the [place]. The infundibulum was grasped and retracted laterally. Using the [place] we dissected out the cystic duct and cystic artery. Three 5 mm hemoclips were placed distally on the cystic duct one proximally and it was transected with curved scissors. The cystic artery was doubly clipped proximally, once distally and transected with curved scissors. The gallbladder was removed off the cystic plate with the Bovie. There was inadvertent entry into the gallbladder with only spillage of bile, no stones. Any bleeding points were stopped with the Bovie. The gallbladder was placed in a laparoscopic Endo Catch bag and removed via the supraumbilical incision site. The inferior edge of the liver was bluntly retracted cephalad and the cystic plate was copiously irrigated with sterile saline. There was no bleeding or apparent bile leak from the cystic plate and the clips on the cystic artery and duct were intact. All irrigation was suctioned free from the abdomen. All insufflation was suctioned free from the abdomen and the ports removed. The abdominal wall at the supraumbilical incision site was closed with a 0 Vicryl [id number] stitch. 30 mL of 0.5% Marcaine was injected subcutaneously at the 4 port sites. The skin at the three 5 mm port sites were closed with 4-0 Monocryl interrupted subcuticular stitches. The skin at the supraumbilical incision site was closed with a 4-0 Monocryl running subcuticular stitch. Steri-Strips were applied to all wounds. The patient was awoken in the operating suite having tolerated the procedure well and were taken to PACU in stable condition after all lap and ensuring counts were correct at the end of the case.
--- NOTE | 2016-11-06 17:27 | Anesthesia Evaluation Post Op ---
Date of Encounter: 11/06/16 Time of Encounter: 17:26 - Vital Signs Vital Signs: Last Vital Signs Temp 98.8 F 11/06/16 15:32 Pulse 98 11/06/16 15:32 Resp 15 11/06/16 15:32 BP 130/81 11/06/16 15:32 Pulse Ox 97 11/06/16 15:32 - Lungs Lungs: Clear Ascult./Percussion - Airway Airway: Non-obstructed - Cardiovascular Regular Rate - Mental Status Mental Status: Alert & Oriented, Answers Appropriately - Pain Pain Scale: 3 - Nausea Vomiting Nausea Vomiting: Not Present - Hydration Hydration: NPO - Discharge PostOp Status: Transfer Patient to floor
[2016-11-06] MEDS ORDERED: Loratadine 10 MG TABLET PO PRN (17:37)
[2016-11-06] MEDS ORDERED: *HR* Morphine 2 MG/ML SYRINGE IVP PRN (17:37)
[2016-11-06] MEDS ORDERED: *HR* Promethazine 25 MG/ML VIAL IVP PRN (17:37)
[2016-11-06] MEDS ORDERED: diazePAM 5 MG TABLET PO PRN (17:37)
[2016-11-06] MEDS ORDERED: Naloxone 0.4 MG/ML INJ IVP PRN (17:37)
[2016-11-06] MEDS ORDERED: Ondansetron 4 MG/2 ML VIAL IVP PRN (17:37)
[2016-11-06] MEDS: *HR* OxyCODONE/APAP 5/325 TABLET PO PRN (18:19)
[2016-11-06] MEDS: *HR* Heparin 5,000 UNIT/ML VIAL SQ SCH (20:55)
[2016-11-06] MEDS: Venlafaxine XR (24 HR) 75 MG CAP.ER.24H PO SCH (20:55)
[2016-11-06] MEDS: OXcarbazepine 150 MG TABLET PO SCH (20:57)
[2016-11-07 05:54] LABS: Basophils % 0.2 %; Eosinophils % 0.5 %; Hematocrit 33.1 % (35.3-44.9); Lymphocytes # 0.8 K/mcL (0.6-4.6); Lymphocytes % 13.5 %; Mean Corpuscular HGB Conc 30.2 g/dL (31.6-35.5); Mean Corpuscular Hemoglobin 25.3 pg (28.0-33.3); Mean Corpuscular Volume 83.8 fL (83.0-100.0); Mean Platelet Volume 9.7 fL (9.4-12.4); Monocytes # 0.4 K/mcL (0.0-1.3); Monocytes % 7.3 %; Neutrophils # 4.6 K/mcL (1.6-8.9); Platelet Count 272 K/mcL (140-400); Red Blood Count 3.95 M/mcL (3.82-4.97); Red Cell Distribution Width 25.2 % (11.5-14.5); Segmented Neutrophils % 77.5 %
[2016-11-07 06:05] LABS: Alanine Aminotransferase 294 Units/L (0-55); Albumin 2.6 g/dL (3.5-5.0); Albumin/Globulin Ratio 0.8 (1.1-2.2); Alkaline Phosphatase 141 Units/L (38-126); Aspartate Amino Transferase 259 Units/L (5-34); BUN/Creatinine Ratio 11 (6-26); Bilirubin,Direct 0.9 mg/dL (0.0-0.5); Bilirubin,Indirect 0.4 mg/dL (0.0-1.2); Bilirubin,Total 1.3 mg/dL (0.2-1.2); Blood Urea Nitrogen 6 mg/dL (7-20); Calcium 7.7 mg/dL (8.6-10.8); Carbon Dioxide 26 mEq/L (19-29); Chloride 107 mEq/L (98-109); Globulin 3.3 g/dL (2.4-3.5); Glucose 125 mg/dL (70-99); Osmolality,Calculated 285 (280-300); Sodium 138 mEq/L (136-145); Total Protein 5.9 g/dL (6.0-8.3); eGFR For African Americans > 60 (> 60); eGFR For Non-African Americans > 60 (> 60)
[2016-11-07] MEDS: *HR* Heparin 5,000 UNIT/ML VIAL SQ SCH ×3 (06:14→22:56)
[2016-11-07] MEDS: Famotidine 20 MG TABLET PO SCH (06:14)
[2016-11-07] MEDS: 0.9 % Sodium Chloride w KCl 20 MEQ/1,000 ML MLS IVC SCH (06:19)
[2016-11-07 06:22] LABS: Anisocytosis 1+ (Not Present); Platelet Estimate Normal (Normal); Poikilocytosis 1+ (Not Present); Polychromasia 1+ (Not Present)
--- NOTE | 2016-11-07 08:24 | General Surgery Progress Note ---
Date of Encounter: 11/07/16 Time of Encounter: 09:29 - Assessment and Plan (1) Acute cholecystitis Current Visit: No Status: Acute Patient is postoperative day 1 for laparoscopic cholecystectomy performed by Dr. Tsai on 11/06/16. Patient presented to the hospital with symptoms and signs of acute cholecystitis on 11/04/16. severe right upper quadrant pain and elevated LFTs. Patient was scheduled for cholecystectomy on 12/01/[address] Tsai. Patient has a history of PE and had been on Eliquis for 30 days but did not refill her medication and has not been on Eliquis since mid September. US gallbladder on 09/22/2016 reveals gallstones and sludge within a contracted gallbladder HIDA scan on 09/20/2016 reveals evidence of gallbladder dysfunction such as chronic cholecystitis, no evidence of acute cholecystitis. US gallbladder on 11/04/2016: Cholelithiasis Elevated LFT's post op: AST 259, ALT 294, T bili 1.3, D bili 0.9, ind bili 0.4, alk phos 141 Plan: -Regular diet -Elevated LFT's may be due to reaction to surgery vs cbd stone, recheck labs in am. -IV ABX continue cefoxitin -IR: determine if IVC filter MRI compatible -Repeat AM labs check LFT's -Hold anticoagulation if lfts decrease tomorrow ok to restart xaralto, if lfts continue to increase would be more concerned for retained CBD stone and would hold off on xaralto and if need ok to start heparin gtt but would consider for possible ERCP with Dr. Lew. overall, patient feels significantly better Subjective Patient reports: feels better, pain is less, tolerating liquids well, afebrile Objective Vital Signs - Last 8 Hours Temp Pulse Resp BP Pulse Ox 11/07/16 07:17 97.9 F 74 20 123/83 98 11/07/16 03:49 97.4 F L 86 26 136/86 93 Intake and Output 11/06/16 11/07/16 11/07/16 23:59 07:59 15:59 Intake Total 240 / 240 Output Total 960 / 960 400 / 400 Balance -720 / -720 -400 / -400 Intake: Oral 240 / 240 Output: Urine 950 / 950 400 / 400 Estimated Blood Loss Other: Weight 107.819 kg Patient Weight 11/07/16 23:59 Weight 107.819 kg - General physical appearance well developed, well nourished, no distress - Eyes PERRL, normal ocular movement - ENT normal mucosa, normocephalic - Neck Neck exam: trachea midline - Respiratory normal expansion, normal respiratory effort - Cardiovascular Cardiovascular exam: Present: RRR - Abdomen Abdomen: Present: soft, tender (appropriate post op tenderness) - Incision Incision: Present: clean and dry, intact - Integumentary no abnormal pigmentation - Neurologic CN 2-12 grossly intact - Musculoskeletal normal posture - Psychiatric oriented to time, oriented to person, oriented to place, speech is normal, memory intact - Labs 11/07/16 05:18 11/07/16 05:18 Short CBC 11/07/16 Range/Units 05:18 WBC 5.9 (4.3-11.1) K/mcL Hgb 10.0 L (11.5-15.4) g/dL Hct 33.1 L (35.3-44.9) % Plt Count 272 (140-400) K/mcL Neutrophils # 4.6 (1.6-8.9) K/mcL BMP 11/07/16 Range/Units 05:18 Sodium 138 (136-145) mEq/L Potassium 4.0 (3.5-4.5) mEq/L Chloride 107 (98-109) mEq/L Carbon Dioxide 26 (19-29) mEq/L BUN 6 L (7-20) mg/dL Creatinine 0.56 L (0.57-1.11) mg/dL Glucose 125 H (70-99) mg/dL Calcium 7.7 L (8.6-10.8) mg/dL Liver Function 11/07/16 Range/Units 05:18 Total Bilirubin 1.3 H (0.2-1.2) mg/dL Direct Bilirubin 0.9 H (0.0-0.5) mg/dL AST 259 H (5-34) Units/L ALT 294 H (0-55) Units/L Alkaline Phosphatase 141 H (38-126) Units/L Albumin 2.6 L (3.5-5.0) g/dL Vital Signs Temp Pulse Resp BP Pulse Ox 11/07/16 07:17 97.9 F 74 20 123/83 98 11/07/16 03:49 97.4 F L 86 26 136/86 93 11/06/16 22:44 97.5 F L 86 20 108/72 95 11/06/16 22:15 92 14 126/76 100 11/06/16 21:37 100 11/06/16 21:15 90 16 112/70 98 11/06/16 19:15 98.4 F 91 16 128/59 97 11/06/16 18:45 97 14 118/55 89 11/06/16 18:40 97 14 118/55 98 11/06/16 18:15 89 14 113/56 89 11/06/16 18:10 93 16 113/56 96 11/06/16 17:45 98.1 F 92 16 127/93 96 11/06/16 17:35 98.4 F 85 16 124/70 95 11/06/16 17:25 87 16 128/69 95 11/06/16 17:15 87 16 119/76 95 11/06/16 17:05 98.0 F 87 14 129/76 93 11/06/16 15:32 98.8 F 98 15 130/81 97 11/06/16 10:56 98.2 F 90 17 118/65 91 Intake and Output 11/06/16 11/07/16 11/07/16 23:59 07:59 15:59 Intake Total 240 / 240 Output Total 960 / 960 400 / 400 Balance -720 / -720 -400 / -400 Intake: Oral 240 / 240 Output: Urine 950 / 950 400 / 400 Estimated Blood Loss Other: Weight 107.819 kg Patient Weight 11/07/16 23:59 Weight 107.819 kg - VTE Reasons for not Prescribing Prophylaxis: Not indicated-Anticoagulated or INR therapeutic Consult Discharge Plan - Plan Referrals: Eduarda Abbasi MD [Primary Care Provider] - 11/14/16 11:20 am - Attending Attestation I examined this patient and my medical decision-making was reviewed with the INFANTRY ASSAULTMAN/PA/Advanced Practice Nurse/Resident Physician. I agree with the documented findings, disposition and treatment plan as described except to the extent set forth below.
[2016-11-07] MEDS: Gabapentin 400 MG CAPSULE PO SCH ×2 (09:47→22:54)
[2016-11-07] MEDS: OXcarbazepine 150 MG TABLET PO SCH ×2 (09:48→22:51)
[2016-11-07] MEDS: Spironolactone 25 MG TABLET PO SCH (09:48)
[2016-11-07] MEDS: Fluticasone Propionate Nasal 50 MCG/SPRAY BOTTLE NS SCH ×2 (09:49→23:01)
[2016-11-07] MEDS: amLODIPine 5 MG TABLET PO SCH (09:49)
[2016-11-07] MEDS ORDERED: Tetrahydrozoline 15 ML BOTTLE RIGHT EYE PRN (10:32)
--- NOTE | 2016-11-07 11:19 | Internal Med Progress Note ---
Date of Encounter: 11/07/16 Time of Encounter: 08:15 - Assessment and plan (1) Cholelithiasis Current Visit: Yes Status: Chronic Assessment and plan: Status post laparoscopic cholecystectomy. Liver enzymes are slightly elevated including alkaline phosphatase. This could be reactive from surgery. Surgery recommends monitoring liver enzymes again tomorrow and further follow-up based on that. In the meantime continue supportive care. Qualifiers: Cholelithiasis location: gallbladder Cholecystitis presence: without cholecystitis Biliary obstruction: with biliary obstruction Qualified Code(s ): K80.21 - Calculus of gallbladder without cholecystitis with obstruction (2) RUQ abdominal pain Current Visit: Yes Status: Acute Assessment and plan: Improved after cholecystectomy. Pain control. (3) Abnormal LFTs (liver function tests) Current Visit: Yes Status: Acute Assessment and plan: Follow LFTs. Concern for choledocholithiasis. Moderate risk for complications. (4) Acute DVT (deep venous thrombosis) Current Visit: Yes Status: Acute Assessment and plan: Status post IVC filter. Since there is concern for choledocholithiasis, not yet ready to start full dose anticoagulation. Start low-dose subcutaneous heparin for now. Qualifiers: DVT location: lower extremity Affected thrombotic vein of extremity: other lower extremity vein Laterality: right Qualified Code(s): I82.491 - Acute embolism and thrombosis of other specified deep vein of right lower extremity (5) Chest pain Current Visit: Yes Status: Resolved Qualifiers: Chest pain type: other chest pain Qualified Code(s): R07.89 - Other chest pain; R07.8 - Other chest pain (6) Chronic anticoagulation Current Visit: Yes Status: Acute Assessment and plan: Holding anticoagulation due to surgical needs. - Subjective Interval history: Patient is feeling much better today. Pain is well controlled. Underwent laparoscopic cholecystectomy yesterday. Tolerating clear diet well. No new complaints at this time. - Constitutional Vitals: Temp Pulse Resp BP Pulse Ox 97.9 F 74 20 123/83 98 11/07/16 07:17 11/07/16 07:17 11/07/16 07:17 11/07/16 07:17 11/07/16 07:17 General appearance: Present: mild distress, A&O X 3, obese, answers questions appropriately - Respiratory Respiratory exam: Present: CTAB. Absent: accessory muscle use, rales, rhonchi, wheezes - Cardiovascular Cardiovascular exam: Present: RRR, +S1, +S2. Absent: diastolic murmur, gallop, rubs, systolic murmur - GI/Abdominal GI/Abdominal exam: Present: normal bowel sounds, soft, tenderness (Mild epigastric tenderness at surgical site), no peritoneal signs. Absent: distended - Neurological Exam Neurological exam: Present: alert, oriented X3, no focal deficits. Absent: facial droop, speech deficit Internal Medicine: Result - Labs CBC & Chem 7: 11/07/16 05:18 11/07/16 05:18 Labs: Short CBC 11/07/16 Range/Units 05:18 WBC 5.9 (4.3-11.1) K/mcL Hgb 10.0 L (11.5-15.4) g/dL Hct 33.1 L (35.3-44.9) % Plt Count 272 (140-400) K/mcL Neutrophils # 4.6 (1.6-8.9) K/mcL BMP 11/07/16 05:18 Sodium 138 Potassium 4.0 Chloride 107 Carbon Dioxide 26 BUN 6 L Creatinine 0.56 L Glucose 125 H Calcium 7.7 L Liver Function 11/07/16 Range/Units 05:18 Total Bilirubin 1.3 H (0.2-1.2) mg/dL Direct Bilirubin 0.9 H (0.0-0.5) mg/dL AST 259 H (5-34) Units/L ALT 294 H (0-55) Units/L Alkaline Phosphatase 141 H (38-126) Units/L Albumin 2.6 L (3.5-5.0) g/dL - VTE Reasons for not Prescribing Prophylaxis: Not indicated-Anticoagulated or INR therapeutic Consult Discharge Plan - Plan Referrals: Eduarda Abbasi MD [Primary Care Provider] - 11/14/16 11:20 am - Attending Attestation This document has been at least partially created by [employer] recognition technology by Dr. Tomas. Errors in grammar, wording or other phrases may exist. If errors are found after the documentation is signed, they will be addressed individually in the addendum section of this document when appropriate.
[2016-11-07] MEDS: Tetrahydrozoline 15 ML BOTTLE BOTH EYES PRN ×3 (12:07→19:46)
[2016-11-07] MEDS ORDERED: *HR* Heparin 5,000 UNIT/ML VIAL SQ SCH (15:30)
[2016-11-07] MEDS ORDERED: *HR* Heparin 5,000 UNIT/ML VIAL SQ ONE (15:30)
[2016-11-07] MEDS: cefOXitin 2,000 MG in D5% in Water (Mini-Bag+) 100 ML IVPB SCH ×2 (15:36→22:56)
[2016-11-07] MEDS: *HR* OxyCODONE/APAP 5/325 TABLET PO PRN (17:06)
[2016-11-07] MEDS: Venlafaxine XR (24 HR) 75 MG CAP.ER.24H PO SCH (22:53)
[2016-11-08] MEDS: *HR* OxyCODONE/APAP 5/325 TABLET PO PRN (00:28)
[2016-11-08] MEDS ORDERED: ALPRAZolam 0.25 MG TABLET PO ONE (01:36)
[2016-11-08 03:59] LABS: Basophils # 0.1 K/mcL (0.0-0.2); Basophils % 0.8 %; Eosinophils # 0.8 K/mcL (0.0-0.6); Eosinophils % 11.8 %; Hemoglobin 9.6 g/dL (11.5-15.4); Immature Granulocytes % 1.2 % (0-4); Lymphocytes # 1.6 K/mcL (0.6-4.6); Lymphocytes % 25.2 %; Mean Corpuscular HGB Conc 29.1 g/dL (31.6-35.5); Mean Corpuscular Hemoglobin 24.8 pg (28.0-33.3); Mean Corpuscular Volume 85.3 fL (83.0-100.0); Mean Platelet Volume 9.4 fL (9.4-12.4); Monocytes # 0.5 K/mcL (0.0-1.3); Monocytes % 7.6 %; Neutrophils # 3.4 K/mcL (1.6-8.9); Platelet Count 299 K/mcL (140-400); Red Blood Count 3.87 M/mcL (3.82-4.97); Red Cell Distribution Width 25.6 % (11.5-14.5); Segmented Neutrophils % 53.4 %
[2016-11-08 04:28] LABS: Alanine Aminotransferase 197 Units/L (0-55); Albumin 2.5 g/dL (3.5-5.0); Albumin/Globulin Ratio 0.8 (1.1-2.2); Alkaline Phosphatase 111 Units/L (38-126); Aspartate Amino Transferase 100 Units/L (5-34); BUN/Creatinine Ratio 9 (6-26); Bilirubin,Total 0.7 mg/dL (0.2-1.2); Blood Urea Nitrogen 6 mg/dL (7-20); Calcium 7.6 mg/dL (8.6-10.8); Carbon Dioxide 27 mEq/L (19-29); Chloride 106 mEq/L (98-109); Globulin 3.2 g/dL (2.4-3.5); Glucose 173 mg/dL (70-99); Osmolality,Calculated 290 (280-300); Potassium 3.7 mEq/L (3.5-4.5); Sodium 139 mEq/L (136-145); Total Protein 5.7 g/dL (6.0-8.3); eGFR For African Americans > 60 (> 60); eGFR For Non-African Americans > 60 (> 60)
[2016-11-08 04:29] LABS: Anisocytosis 3+ (Not Present)
[2016-11-08 04:30] LABS: Macrocytosis Present (Not Present); Microcytosis Present (Not Present); Platelet Estimate Normal (Normal); Polychromasia 1+ (Not Present); Reactive Lymphocytes Present (Not Present)
[2016-11-08] MEDS: *HR* Heparin 5,000 UNIT/ML VIAL SQ SCH (06:41)
[2016-11-08] MEDS: Famotidine 20 MG TABLET PO SCH (06:42)
[2016-11-08] MEDS ORDERED: *HR* OxyCODONE/APAP 10/325 TABLET PO PRN (08:00)
[2016-11-08 08:02] VITALS: BP 121/84
--- NOTE | 2016-11-08 08:57 | Discharge Summary ---
Date of Encounter: 11/08/16 Time of Encounter: 08:30 - Discharge Diagnosis (1) Cholelithiasis Priority: Primary Status: Chronic Qualifiers: Cholelithiasis location: gallbladder Cholecystitis presence: without cholecystitis Biliary obstruction: with biliary obstruction Qualified Code(s ): K80.21 - Calculus of gallbladder without cholecystitis with obstruction (2) RUQ abdominal pain Priority: Secondary Status: Acute (3) Abnormal LFTs (liver function tests) Priority: Secondary Status: Acute (4) Acute DVT (deep venous thrombosis) Priority: Secondary Status: Acute Qualifiers: DVT location: lower extremity Affected thrombotic vein of extremity: other lower extremity vein Laterality: right Qualified Code(s): I82.491 - Acute embolism and thrombosis of other specified deep vein of right lower extremity (5) Chest pain Priority: Secondary Status: Resolved Qualifiers: Chest pain type: other chest pain Qualified Code(s): R07.89 - Other chest pain; R07.8 - Other chest pain (6) Chronic anticoagulation Priority: Secondary Status: Acute - Discharge Medications Prescriptions: OxyCODONE/APAP 10/325 [Percocet 10/325 MG] 1 each PO Q6HR PRN #20 tablet PRN Reason: Moderate Pain Home Medications: Famotidine [Pepcid] 40 mg PO QAM 03/21/15 [History] Omeprazole [PriLOSEC] 40 mg PO QAM 03/21/15 [History] Celecoxib [Celebrex] 200 mg PO BID 01/30/16 [History] EPINEPHrine [Epipen] 0.3 mg IJ ONCE PRN 01/30/16 [History] Montelukast [Singulair] 10 mg PO HS 01/30/16 [History] Venlafaxine HCl [Venlafaxine HCl ER] 225 mg PO HS 01/30/16 [History] Metoclopramide HCl 5 mg PO HS 03/24/16 [History] OXcarbazepine [Oxcarbazepine] 1,200 mg PO HS 03/24/16 [History] OXcarbazepine [Oxcarbazepine] 600 mg PO QAM 03/24/16 [History] Quetiapine Fumarate [Seroquel] 200 mg PO HS 03/24/16 [History] Ergocalciferol (VITAMIN D2) [Vitamin D2] 50,000 unit PO QMONTH 09/18/16 [History ] Nortriptyline [Pamelor] 25 mg PO HS 09/18/16 [History] diazePAM [Valium] 5 mg PO TID PRN 09/18/16 [History] Cetirizine HCl [Zyrtec] 10 mg PO DAILY PRN 10/01/16 [History] Gabapentin [Neurontin] 1,600 mg PO HS 10/01/16 [History] Gabapentin [Neurontin] 800 mg PO QAM 10/01/16 [History] Ondansetron ODT [Zofran ODT] 4 mg SL Q6HR PRN #12 tab.rapdis 10/05/16 [Rx] amLODIPine [Norvasc] 10 mg PO DAILY #60 tablet 10/05/16 [Rx] predniSONE [PredniSONE] 40 mg PO DAILY #10 tablet 10/05/16 [Rx] Oxygen 3 l IN CONT 10/09/16 [History] Apixaban [Eliquis] 5 mg PO BID #60 tablet 11/03/16 [Rx] Buspirone HCl [Buspar] 5 mg PO BID 11/03/16 [History] Fluticasone Propionate Nasal [Flonase] 50 mcg NS BID 11/03/16 [History] Potassium Chloride [K-Tab ER] 20 meq PO DAILY 11/05/16 [History] Spironolactone [Aldactone] 25 mg PO DAILY 11/05/16 [History] OxyCODONE/APAP 10/325 [Percocet 10/325 MG] 1 each PO Q6HR PRN #20 tablet [Rx] Allergies/Adverse Reactions: Allergies adhesive tape Allergy (Verified 11/03/16 14:28) Blister latex Allergy (Verified 11/03/16 14:28) Blister vancomycin Allergy (Verified 11/03/16 14:28) Itching Patient became flushed, itching all over, hot Date of admission: 11/07/16 11:26 Primary care physician: Eduarda Abbasi MD Consults: 11/05/16 03:19 Consult to Surgery [CONS] Routine Consulting Provider: Pamela Tsai Reason for Consult: Cholelithiasis, with abnormal LFTs Call Completed: No 11/05/16 11:30 Consult to Interventional Radiology [CONS] Stat Consulting Provider: Radiology Interventional Cols Reason for Consult: IVC Filter Placement Time Notified: 11:31 Call Completed: Yes Discharging clinician: Minerva Tomas Anticipated date of discharge: 11/08/16 - Patient Status Disposition: Home, Self-Care Condition: Good Functional capacity at discharge: independent ambulation Overall status at discharge: patient is progressing back to baseline - Discharge Instructions Instructions: Chest Pain (DC), Acute Respiratory Distress Syndrome (DC), Peripheral Vascular Disorders (DC), Chronic Hypertension (DC), Anemia (GEN), Pneumonia (DC) Follow Up With: Pamela Tsai MD [Partnered Physician] - (Web request sent for appointment in 1-2 wks, if you haven't heard from by Thursday please call) Eduarda Abbasi MD [Primary Care Provider] - 11/14/16 11:20 am Additional Instructions: Follow up with Surgery in 1-2 weeks Follow up with IR for IVC filter Retrieval after planned surgeries Follow-up with hematology regarding thromboembolism in 1-2 weeks - Diet and Activity Activity: increase activity as tolerated Diet: advance to your usual diet, low fat, low cholesterol, low salt diet Hospital course: Ms. Mooney is a 51 year old female patient who was admitted here with right upper quadrant pain and cholelithiasis. She had recently been diagnosed with right superficial femoral vein thrombosis and was on Eliquis for it. She was having signs and symptoms of acute cholecystitis and surgery was consulted. They recommended surgery for the patient and given that she continued to require anticoagulation due to acute DVT, an IVC filter was placed and Eliquis was held. Patient underwent surgery after that and has since been doing well. Her liver enzymes were worsened yesterday and so patient was continued to be observed. This morning her liver enzymes are trending down and she is feeling much better. She is clinically stable for discharge from medical standpoint and she will be discharged once surgery clears her. She will follow up with surgery after discharge. She will also follow up within dimensional radiology in 2-4 weeks for retrieval of IVC filter. She has now been restarted on Eliquis which she will continue to for her DVT. As this is her second episode of thromboembolic disorder, she would most likely need long-term anticoagulation. I will have her follow up with hematology for further evaluation for her thromboembolism. - Time Spent with Patient Total time spent providing and/or coordinating discharge services: Greater than 30 minutes (40 min) - Constitutional Vitals: Temp Pulse Resp BP Pulse Ox 97.8 F 83 16 121/84 92 11/08/16 08:01 11/08/16 08:01 11/08/16 08:01 11/08/16 08:01 11/08/16 08:01 General appearance: Present: mild distress, A&O X 3, obese, answers questions appropriately - Respiratory Respiratory exam: Present: CTAB. Absent: accessory muscle use, rales, rhonchi, wheezes - Cardiovascular Cardiovascular exam: Present: RRR, +S1, +S2. Absent: diastolic murmur, gallop, rubs, systolic murmur - GI/Abdominal GI/Abdominal exam: Present: normal bowel sounds, soft, no peritoneal signs. Absent: distended, tenderness - VTE Reasons for not Prescribing Prophylaxis: Not indicated-Anticoagulated or INR therapeutic - Attending Attestation This document has been at least partially created by [email or web address] recognition technology by Dr. Tomas. Errors in grammar, wording or other phrases may exist. If errors are found after the documentation is signed, they will be addressed individually in the addendum section of this document when appropriate.
[2016-11-08] MEDS ORDERED: APIXABAN 5 MG TABLET PO SCH (09:00)
[2016-11-08] MEDS: Gabapentin 400 MG CAPSULE PO SCH (09:21)
[2016-11-08] MEDS: Spironolactone 25 MG TABLET PO SCH (09:22)
[2016-11-08] MEDS: amLODIPine 5 MG TABLET PO SCH (09:22)
[2016-11-08] MEDS: OXcarbazepine 150 MG TABLET PO SCH (09:23)
--- NOTE | 2016-11-08 09:23 | General Surgery Progress Note ---
Date of Encounter: 11/08/16 Time of Encounter: 07:00 - Assessment and Plan (1) Acute cholecystitis Status: Resolved Patient is postoperative day 2 for laparoscopic cholecystectomy performed by Dr. Tsai on 11/06/16. Patient presented to the hospital with symptoms and signs of acute cholecystitis on 11/04/16. severe right upper quadrant pain and elevated LFTs. Patient was scheduled for cholecystectomy on 12/01/[address] Tsai. Patient has a history of PE and had been on Eliquis for 30 days but did not refill her medication and has not been on Eliquis since mid September. US gallbladder on 09/22/2016 reveals gallstones and sludge within a contracted gallbladder HIDA scan on 09/20/2016 reveals evidence of gallbladder dysfunction such as chronic cholecystitis, no evidence of acute cholecystitis. US gallbladder on 11/04/2016: Cholelithiasis Elevated LFT's post op: AST 259, ALT 294, T bili 1.3, D bili 0.9, ind bili 0.4, alk phos 141. Today LFT's: total bilirubin has decreased to 0.7 from 1.3, alkaline phosphatase has decreased to 111 from 141, AST has decreased to 100 from 259, ALT has decreased to 197 from 294. Patient is stable from a surgical standpoint. Surgery will sign off. Discharge planning per hospital team. Plan: -Regular diet -Elevated LFT's postoperative may be due to reaction to surgery vs cbd stone. Labs this morning demonstrate resolution of elevated LFTs given this and no clinical symptoms there is no indication for MRCP. -IV ABX continue cefoxitin -IR: Reports that IVC filter is MRI compatible. -IVC filter removal at a date later to be determined. Patient has plans to have knee surgery in the near future that is not yet scheduled. She will need to have her IVC filter in place for this procedure. - Continue anticoagulants as outpatient. -Patient is clear from a surgical standpoint. Surgery will sign off. - Discharge planning per hospital team Subjective Patient reports: no new complaints, feels better, pain is less, tolerating a regular diet, voiding w/o difficulty, flatus, bowel movement, afebrile Narrative: The patient was seen and examined. Patient reports that she feels much better has been tolerating her diet well, urinating without difficulty and has been up ambulating yesterday and today. Patient reports that she feels like she can go home however her will not be here until after 3 PM to pick her up. Objective Vital Signs - Last 8 Hours Temp Pulse Resp BP Pulse Ox 11/08/16 08:01 97.8 F 83 16 121/84 92 Intake and Output 11/07/16 11/08/16 11/08/16 23:59 07:59 15:59 Intake Total 340 / 340 Output Total 900 / 900 Balance -560 / -560 Intake: IV Fluids 100 / 100 Mefoxin 2,000 MG In 100 / 100 Dextrose 5% (Minibag+) 100 ML 100 ML @ 200 mls/ hr IVPB Q8HR [facility] Rx#: [id number] Oral 240 / 240 Output: Urine 900 / 900 Other: Meal Dinner Percent of Meal Consumed 100% - General physical appearance well developed, well nourished, no distress, obese - Eyes PERRL, normal ocular movement - ENT normal mucosa, atraumatic, normocephalic, CN 2-12 grossly intact - Respiratory normal expansion, normal respiratory effort, clear to auscultation - Abdomen Abdomen: Present: bowel sounds present, soft, tender (Minimal postoperative tenderness). Absent: masses, guarding, rebound, rigid, peritoneal - Incision Incision: Present: clean and dry, intact - Integumentary no rash, no growths, no abnormal pigmentation - Neurologic CN 2-12 grossly intact, normal coordination, normal sensation - Musculoskeletal normal gait, normal posture - Psychiatric oriented to time, oriented to person, oriented to place, speech is normal, memory intact - Labs 11/08/16 03:08 11/08/16 03:08 Diabetes panel 11/08/16 Range/Units 03:08 Sodium 139 (136-145) mEq/L Potassium 3.7 (3.5-4.5) mEq/L Chloride 106 (98-109) mEq/L Carbon Dioxide 27 (19-29) mEq/L BUN 6 L (7-20) mg/dL Creatinine 0.67 (0.57-1.11) mg/dL Glucose 173 H (70-99) mg/dL Calcium 7.6 L (8.6-10.8) mg/dL AST 100 H (5-34) Units/L ALT 197 H (0-55) Units/L Alkaline Phosphatase 111 (38-126) Units/L Albumin 2.5 L (3.5-5.0) g/dL Calcium panel 11/08/16 Range/Units 03:08 Calcium 7.6 L (8.6-10.8) mg/dL Albumin 2.5 L (3.5-5.0) g/dL Pituitary panel 11/08/16 Range/Units 03:08 Sodium 139 (136-145) mEq/L Potassium 3.7 (3.5-4.5) mEq/L Chloride 106 (98-109) mEq/L Carbon Dioxide 27 (19-29) mEq/L BUN 6 L (7-20) mg/dL Creatinine 0.67 (0.57-1.11) mg/dL Glucose 173 H (70-99) mg/dL Calcium 7.6 L (8.6-10.8) mg/dL Adrenal panel 11/08/16 Range/Units 03:08 Sodium 139 (136-145) mEq/L Potassium 3.7 (3.5-4.5) mEq/L Chloride 106 (98-109) mEq/L Carbon Dioxide 27 (19-29) mEq/L BUN 6 L (7-20) mg/dL Creatinine 0.67 (0.57-1.11) mg/dL Glucose 173 H (70-99) mg/dL Calcium 7.6 L (8.6-10.8) mg/dL Total Bilirubin 0.7 (0.2-1.2) mg/dL AST 100 H (5-34) Units/L ALT 197 H (0-55) Units/L Alkaline Phosphatase 111 (38-126) Units/L Albumin 2.5 L (3.5-5.0) g/dL - VTE Reasons for not Prescribing Prophylaxis: Not indicated-Anticoagulated or INR therapeutic Consult Discharge Plan - Plan Instructions: Chest Pain (DC), Acute Respiratory Distress Syndrome (DC), Peripheral Vascular Disorders (DC), Chronic Hypertension (DC), Anemia (GEN), Pneumonia (DC) Additional Instructions: Follow up with Surgery in 1-2 weeks Follow up with IR for IVC filter Retrieval after planned surgeries Follow-up with hematology regarding thromboembolism in 1-2 weeks Referrals: Pamela Tsai MD [Partnered Physician] - (Web request sent for appointment in 1-2 wks, if you haven't heard from by Thursday please call) Eduarda Abbasi MD [Primary Care Provider] - 11/14/16 11:20 am Prescriptions: OxyCODONE/APAP 10/325 [Percocet 10/325 MG] 1 each PO Q6HR PRN #20 tablet PRN Reason: Moderate Pain - Attending Attestation I examined this patient and my medical decision-making was reviewed with the HUNTER/PA/Advanced Practice Nurse/Resident Physician. I agree with the documented findings, disposition and treatment plan as described except to the extent set forth below. The patient was seen and evaluated. The liver function tests have normalized. She is ready for discharge home. Du Moody MD FACS
[2016-11-08] MEDS: Fluticasone Propionate Nasal 50 MCG/SPRAY BOTTLE NS SCH (09:25)
[2016-11-08] MEDS: cefOXitin 2,000 MG in D5% in Water (Mini-Bag+) 100 ML IVPB SCH (09:32)
== END 2016-11-08 13:51 | disposition home or self-care (01) | DRG 418 ==
LOC: 3BNU 20:19 → EMEROO 20:19 → SUATTDRO 11-05 00:36 → 3BNU 11-05 01:00
PROVIDERS: ADMIT Internal Medicine; ATTEND Internal Medicine

== ENCOUNTER 2017-03-18 09:53 | Inpatient (IN) ==
[2017-03-18] MEDS ORDERED: Ipratropium/Albuterol Neb 3 ML IH ONE (10:56)
--- NOTE | 2017-03-18 11:08 | Emergency Department Note ---
Disposition Clinical Impression: Severe sepsis Pneumonia Qualifiers: Pneumonia type: due to unspecified organism Laterality: right Lung location: unspecified part of lung Qualified Code(s): J18.9 - Pneumonia, unspecified organism Disposition: Admitted As Inpatient Condition: Good Time of Disposition: 13:23 General Adult HPI - General Chief complaint: ED Shortness of Breath/Dyspnea Stated complaint: YE// Pnuemonia dx 03/05 Time Seen by Provider: 03/18/17 10:07 Source: patient Limitations: no limitations Nursing Notes Reviewed: Yes Vital Signs Reviewed: Yes - History of Present Illness HPI Narrative: 51-year-old female presenting to the emergency department complaint of concern for continuing pneumonia. Patient was recently discharged from the hospital for pneumonia treated with Levaquin. She states she finished antibiotics yesterday. Patient has had subjective fevers at home but is afebrile here in the emergency department. Patient does look diaphoretic on exam. Patient tachycardic in the room. Patient states she is on home O2 of 2 L throughout the day. Patient was not discharged home with any albuterol or breathing treatments. Patient has no history of asthma or COPD. Patient denies any chest pain at this time. Pain Scale: 6 - Related Data Home Medications Medication Instructions Recorded Confirmed Famotidine [Pepcid] 40 mg PO QAM 03/21/15 03/18/17 Omeprazole [PriLOSEC] 40 mg PO QAM 03/21/15 03/18/17 Celecoxib [Celebrex] 200 mg PO BID 01/30/16 03/18/17 EPINEPHrine [Epipen] 0.3 mg IJ ONCE PRN 01/30/16 03/18/17 Montelukast [Singulair] 10 mg PO HS 01/30/16 03/18/17 Venlafaxine HCl [Venlafaxine HCl 225 mg PO HS 01/30/16 03/18/17 ER] Metoclopramide HCl 5 mg PO HS 03/24/16 03/18/17 OXcarbazepine [Oxcarbazepine] 1,200 mg PO HS 03/24/16 03/18/17 OXcarbazepine [Oxcarbazepine] 600 mg PO QAM 03/24/16 03/18/17 Quetiapine Fumarate [Seroquel] 200 mg PO HS 03/24/16 03/18/17 Ergocalciferol (VITAMIN D2) 50,000 unit PO QMONTH 09/18/16 03/18/17 [Vitamin D2] Nortriptyline [Pamelor] 25 mg PO HS 09/18/16 03/18/17 diazePAM [Valium] 5 mg PO QID 09/18/16 03/18/17 Cetirizine HCl [Zyrtec] 10 mg PO DAILY PRN 10/01/16 03/18/17 Gabapentin [Neurontin] 1,600 mg PO HS 10/01/16 03/18/17 Gabapentin [Neurontin] 800 mg PO QAM 10/01/16 03/18/17 Oxygen 3 l IN HS 10/09/16 03/18/17 Fluticasone Propionate Nasal 2 spr NS BID 11/03/16 03/18/17 [Flonase] Azelastine HCl [Astepro] 2 spr NS DAILY 12/15/16 03/18/17 Buspirone HCl [Buspar] 15 mg PO BID 02/23/17 03/18/17 Methocarbamol [Robaxin] 750 mg PO TID PRN 02/23/17 03/18/17 SUMAtriptan Succinate [Imitrex] 100 mg PO AD PRN 02/23/17 03/18/17 Apixaban [Eliquis] 5 mg PO BID 02/25/17 03/18/17 Previous Rx's Medication Instructions Recorded Aspirin Enteric Coated [Aspirin EC] 325 mg PO DAILY #21 tablet. 12/14/16 Docusate [Colace] 100 mg PO BID #30 capsule 02/23/17 Simvastatin [Zocor] 10 mg PO HS #30 tablet 03/11/17 Allergies Allergy/AdvReac Type Severity Reaction Status Date / Time adhesive tape Allergy Blister Verified 03/18/17 10:07 latex Allergy Rash Verified 03/18/17 10:07 vancomycin Allergy Itching Verified 03/18/17 10:07 All systems ED: reviewed and negative except as stated. Constitutional: Reports: fever (Subjective), chills, weakness Eyes: Reports: as per HPI ENT ED: Reports: as per HPI Cardiovascular: Reports: dyspnea on exertion. Denies: chest pain, palpitations Respiratory: Reports: cough, dyspnea. Denies: hemoptysis Gastrointestinal: Denies: abdominal pain, nausea, vomiting Genitourinary: Reports: as per HPI Musculoskeletal: Reports: as per HPI Integumentary: Denies: rash, abrasion, lesions Neurological: Denies: headache, weakness, numbness, paresthesias Psychiatric: Reports: as per HPI Endocrine: Reports: as per HPI Hematological/Lymphatic: Reports: as per HPI Allergic/Immunologic: Reports: as per HPI Past Medical History - Past Medical History Attestation: Yes The following information was validated with the patient. Medical history: Reports: arthritis, DVT, fibromyalgia, GERD, hyperlipidemia, hypertension, pulmonary embolus Surgical history: Reports: appendectomy, breast surgery, cholecystectomy, hysterectomy, knee replacement, orthopedic, other, sinus surgery, other Psychiatric history: Reports: anxiety, bipolar, depression ROAD TESTER history: Reports: other - Social History Smoking Status: Never smoker Smokeless Tobacco Status: No Alcohol use: Reports: none Drug use: Reports: none Physical Exam - General Limitations: no limitations General appearance: alert, in no apparent distress - Head Head exam: atraumatic, normocephalic, normal inspection - Chest Chest inspection: Present: normal inspection, symmetric chest wall rise. Absent : tenderness, rash - Respiratory Respiratory exam: Present: other (Rhonchi noted in the right posterior lung field) - Cardiovascular Cardiovascular exam: Present: regular rate, normal rhythm, normal heart sounds - Abdominal Exam Abdominal exam: Present: soft, Non-Tender. Absent: distention, guarding, rebound - Extremities Exam Extremities exam: Present: normal inspection, full ROM - Back Exam Back exam: Present: normal inspection. Absent: CVA tenderness (R), CVA tenderness (L) - Neurological Exam Neurological exam: Present: alert, oriented X3 - Psychiatric Psychiatric exam: Present: normal affect, normal mood - Skin Skin exam: Present: warm, intact Course Course Narrative: 51-year-old female to emergency Department with chief complaint of concern for him and has not been treated appropriately. She has subjective fevers but is afebrile here. We will perform a CTA to determine progression of pneumonia. Basic lab work including lactic and blood cultures due to her ill appearing on physical exam. Disposition pending lab results - Reevaluation(s) Reevaluation #1: Repeat CT shows significant worsening of pulmonary consolidation on the right side. At this time we will start antibiotics and treat her as sepsis as her CBC significantly increased. Call to the hospitalist for admission. Dr. Yair accepts the patient. He would like the patient to be placed on [address]. Time: 13:23 Vital Signs Temperature 98.7 F 03/18/17 09:59 Pulse Rate 98 03/18/17 09:59 Respiratory Rate 24 03/18/17 09:59 Blood Pressure 129/71 03/18/17 09:59 O2 Sat by Pulse Oximetry 95 03/18/17 09:59 Temperature 98.0 F 03/18/17 17:21 Pulse Rate 77 03/18/17 17:21 Respiratory Rate 20 03/18/17 17:21 Blood Pressure 130/77 03/18/17 17:21 O2 Sat by Pulse Oximetry 98 03/18/17 17:21 Oxygen Delivery Oxygen Delivery Nasal Cannula Medical Decision Making - Medical Records Medical records reviewed: Yes I reviewed the patient's medical records. - Lab Data Lab results reviewed: Yes I reviewed the patient's lab results. Result diagrams: 03/18/17 11:17 03/18/17 11:17 Lab Results 03/18/17 03/18/17 03/18/17 Range/Units 11:17 11:17 11:17 WBC 21.9 H (4.3-11.1) K/mcL RBC 4.94 (3.82-4.97) M/mcL Hgb 13.1 (11.5-15.4) g/dL Hct 42.4 (35.3-44.9) % MCV 85.8 (83.0-100.0) fL MCH 26.5 L (28.0-33.3) pg MCHC 30.9 L (31.6-35.5) g/dL RDW 13.4 (11.5-14.5) % Plt Count 385 (140-400) K/mcL MPV 9.4 (9.4-12.4) fL Immature Gran % 1.2 (0-4) % Seg Neutrophils % 88.5 % Lymphocytes % 4.3 % Monocytes % 5.2 % Eosinophils % 0.5 % Basophils % 0.3 % Neutrophils # 19.4 H (1.6-8.9) K/mcL Lymphocytes # 0.9 (0.6-4.6) K/mcL Monocytes # 1.1 (0.0-1.3) K/mcL Eosinophils # 0.1 (0.0-0.6) K/mcL Basophils # 0.1 (0.0-0.2) K/mcL Sodium 138 (136-145) mEq/L Potassium 3.9 (3.5-4.5) mEq/L Chloride 100 (98-109) mEq/L Carbon Dioxide 28 (19-29) mEq/L BUN 15 (7-20) mg/dL Creatinine 0.66 (0.57-1.11) mg/dL Est GFR ( Amer) > 60 (> 60) Est GFR (Non-Af Amer) > 60 (> 60) BUN/Creatinine Ratio 23 (6-26) Glucose 130 H (70-99) mg/dL Calculated Osmolality 289 (280-300) Lactic Acid 2.6 H (0.5-2.2) mmol/L Calcium 9.3 (8.6-10.8) mg/dL Troponin I (0-0.03) ng/mL B-Natriuretic Peptide (0-100) pg/mL 03/18/17 03/18/17 03/18/17 Range/Units 11:17 11:17 13:15 WBC (4.3-11.1) K/mcL RBC (3.82-4.97) M/mcL Hgb (11.5-15.4) g/dL Hct (35.3-44.9) % MCV (83.0-100.0) fL MCH (28.0-33.3) pg MCHC (31.6-35.5) g/dL RDW (11.5-14.5) % Plt Count (140-400) K/mcL MPV (9.4-12.4) fL Immature Gran % (0-4) % Seg Neutrophils % % Lymphocytes % % Monocytes % % Eosinophils % % Basophils % % Neutrophils # (1.6-8.9) K/mcL Lymphocytes # (0.6-4.6) K/mcL Monocytes # (0.0-1.3) K/mcL Eosinophils # (0.0-0.6) K/mcL Basophils # (0.0-0.2) K/mcL Sodium (136-145) mEq/L Potassium (3.5-4.5) mEq/L Chloride (98-109) mEq/L Carbon Dioxide (19-29) mEq/L BUN (7-20) mg/dL Creatinine (0.57-1.11) mg/dL Est GFR ( Amer) (> 60) Est GFR (Non-Af Amer) (> 60) BUN/Creatinine Ratio (6-26) Glucose (70-99) mg/dL Calculated Osmolality (280-300) Lactic Acid 2.6 H (0.5-2.2) mmol/L Calcium (8.6-10.8) mg/dL Troponin I 0.02 (0-0.03) ng/mL B-Natriuretic Peptide 49 (0-100) pg/mL - Radiology Data Radiology results reviewed: Yes I reviewed the patient's radiology results. - EKG Data EKG #1 EKG attestation: Yes I reviewed and interpreted this EKG. EKG results narrative: 91 bpm. Sinus rhythm. Left axis deviation. VA interval 136, QRS 106, QTC 420. No signs of acute ischemia or ST segment elevation. Attestation Statement - Attestation Attestation: I examined this patient and my medical decision-making was reviewed with the Resident Physician. I agree with the documented findings, disposition and treatment plan as described except to the extent set forth below. Patient presents with concern for pneumonia. She did have a lot of L Rales on the right side. She reported fever at home. There is evidence of lactic acidosis as well as robust leukocytosis. There is concern for sepsis. IV fluid bolus 30 mi./kg was administered. She does have allergy to vancomycin. Cefepime as well as meropenem were initiated. CT scan confirms worsening pneumonia. We did provide coverage for a possible hospital-acquired pneumonia. I think greater than 35 minutes of critical care time resuscitating this acutely ill patient suffering from severe sepsis. This is excluding billable procedures.
[2017-03-18 11:29] LABS: Basophils # 0.1 K/mcL (0.0-0.2); Basophils % 0.3 %; Eosinophils # 0.1 K/mcL (0.0-0.6); Eosinophils % 0.5 %; Hematocrit 42.4 % (35.3-44.9); Hemoglobin 13.1 g/dL (11.5-15.4); Immature Granulocytes % 1.2 % (0-4); Lymphocytes # 0.9 K/mcL (0.6-4.6); Lymphocytes % 4.3 %; Mean Corpuscular HGB Conc 30.9 g/dL (31.6-35.5); Mean Corpuscular Hemoglobin 26.5 pg (28.0-33.3); Mean Corpuscular Volume 85.8 fL (83.0-100.0); Mean Platelet Volume 9.4 fL (9.4-12.4); Monocytes # 1.1 K/mcL (0.0-1.3); Monocytes % 5.2 %; Neutrophils # 19.4 K/mcL (1.6-8.9); Platelet Count 385 K/mcL (140-400); Red Blood Count 4.94 M/mcL (3.82-4.97); Red Cell Distribution Width 13.4 % (11.5-14.5); Segmented Neutrophils % 88.5 %
[2017-03-18 11:38] LABS: BUN/Creatinine Ratio 23 (6-26); Blood Urea Nitrogen 15 mg/dL (7-20); Calcium 9.3 mg/dL (8.6-10.8); Carbon Dioxide 28 mEq/L (19-29); Chloride 100 mEq/L (98-109); Glucose 130 mg/dL (70-99); Osmolality,Calculated 289 (280-300); Potassium 3.9 mEq/L (3.5-4.5); Sodium 138 mEq/L (136-145); eGFR For African Americans > 60 (> 60); eGFR For Non-African Americans > 60 (> 60)
[2017-03-18] MEDS: 0.9 % Sodium Chloride 1,000 ML IVC SCH ×5 (13:04→23:05)
[2017-03-18] MEDS ORDERED: Naloxone 0.4 MG/ML INJ IVP PRN (14:19)
[2017-03-18] MEDS ORDERED: Ibuprofen 400 MG TABLET PO PRN (14:19)
[2017-03-18] MEDS ORDERED: 0.9 % Sodium Chloride 1,000 ML IVC ONE (14:22)
[2017-03-18] MEDS ORDERED: Albuterol 2.5 MG/3 ML NEBULIZER IH PRN (14:25)
--- NOTE | 2017-03-18 14:25 | Event Note ---
Date of Encounter: 03/18/17 Time of Encounter: 14:23 Patient seen and examined with nurse practitioner. Will treat for healthcare associated pneumonia with Zyvox and zosyn. Suspect bacterial resistance. Check sputum culture. She meets criteria for severe sepsis. Will give a total of 2 L of normal saline continue hydration. Patient this full code
[2017-03-18] MEDS ORDERED: SUMAtriptan succinate 50 MG TABLET PO PRN (14:27)
[2017-03-18] MEDS ORDERED: Loratadine 10 MG TABLET PO PRN (14:27)
[2017-03-18] MEDS ORDERED: Methocarbamol 750 MG TABLET PO PRN (14:27)
[2017-03-18] MEDS ORDERED: *HR* EPINEPHrine 0.3 MG/0.3 ML (PEN) IM PRN (14:27)
--- NOTE | 2017-03-18 14:38 | Internal Med History&Physical ---
Date of Encounter: 03/18/17 Time of Encounter: 14:39 Assessment and Plan (1) Severe sepsis Current visit: Yes Status: Acute Patient with pneumonia, elevated WBC count of 21.9, tachypnea and tachycardia, meeting sepsis criteria. 2L total IV fluids bolus ordered Lactate was 2.6 and on recheck remained at 2.6, will recheck again in 4 hours. Blood cultures drawn and sent. sputum cultures ordered. Broad spectrum antibiotics initiated, will treat with Zyvox and Zosyn. continuous telemetry (2) HCAP (healthcare-associated pneumonia) Current visit: Yes Status: Acute Patient presents with fever, chills, cough. CTA consistent with multi-focal pneumonia. She was admitted last month with community acquired pneumonia, will treat as HCAP. Zyvox and Zosyn IVPB IV fluids 2L bolus total plus 0.9NS at 100mL/hr duoneb treatments QID albuterol nebulizer Q2hr prn titrate O2 to maintain saturation. sputum cultures ordered. 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 She was previously on Eliquis, but reports she no longer takes it now that she has the IVC filter. She follows with Dr. Pitts in vascular surgery as an outpatient. CTA was negative for PE today. (4) JOSE on CPAP Current visit: Yes Status: Chronic respiratory therapy consulted for CPAP. (5) DVT prophylaxis Current visit: Yes Status: Acute anti-embolic stockings Lovenox SQ Daily Internal Medicine - H&P: HPI Chief complaint: shortness of breath Admitted From: Emergency Dept Plans for Post Hospital Care: Home History of present illness: Ms. Mooney is a 51 year old female with hypertension, hyperlipidemia, fibromyalgia, anxiety, bipolar disorder, sleep apnea, history of DVT and PE with IVC filter in place, presented to the emergency department today with complaints of shortness of breath, cough, subjective fever and chills. Patient was admitted a few weeks ago with pneumonia and just finished her course of Levaquin. Patient reports that over the last week she has been feeling worse with increasing symptoms of chills, coughing, sweats. She has developed increased shortness of breath despite pain on 2 L of oxygen at home. She reports occasional headache, poor appetite. She denies any nausea, vomiting, abdominal pain, diarrhea. She denies any chest pain or palpitations. Evaluation emergency department revealed elevated white blood cell count of 21.9. CTA of the chest showed no PE, and showed multifocal pneumonia throughout the right lung. Lactate was elevated at 2.6. She had mild tachycardia with heart rate in the 90s, she was tachypneic with respiration rate in the low 20s, meeting sepsis criteria. She was given DuoNeb treatments, 1 L bolus, and antibiotics in the emergency department. On exam, patient mildly diaphoretic, mildly tachypneic. Heart has regular rate and rhythm. Abdomen soft, nontender, with positive bowel sounds. No peripheral edema. Lungs with mild rales on the right side. Past Med Surg Social Fam HX - Past Medical History Medical history: arthritis, DVT, fibromyalgia, GERD, hyperlipidemia, hypertension, pulmonary embolus Psychiatric history: anxiety, bipolar, depression - Past Surgical History Surgical History: appendectomy, breast surgery, cholecystectomy, hysterectomy, knee replacement, orthopedic, other, sinus surgery, other - Social History Smoking Status: Never smoker Smokeless Tobacco Status: No Alcohol use: none Drug use: none - Family History Mother Living Status: Still Living Hx Family Cardiac Disorders: Yes Hx Family Cancer: Yes (Right breast, mastectomy) Father Hx Family Cardiac Disorders: Yes (HTN) Hx Family Endocrine Disorder: Yes (Diabetes) Internal Medicine - H&P: Meds Famotidine [Pepcid] 40 mg PO QAM 03/21/15 [History] Omeprazole [PriLOSEC] 40 mg PO QAM 03/21/15 [History] Celecoxib [Celebrex] 200 mg PO BID 01/30/16 [History] EPINEPHrine [Epipen] 0.3 mg IJ ONCE PRN 01/30/16 [History] Montelukast [Singulair] 10 mg PO HS 01/30/16 [History] Venlafaxine HCl [Venlafaxine HCl ER] 225 mg PO HS 01/30/16 [History] Metoclopramide HCl 5 mg PO HS 03/24/16 [History] OXcarbazepine [Oxcarbazepine] 1,200 mg PO HS 03/24/16 [History] OXcarbazepine [Oxcarbazepine] 600 mg PO QAM 03/24/16 [History] Quetiapine Fumarate [Seroquel] 200 mg PO HS 03/24/16 [History] Ergocalciferol (VITAMIN D2) [Vitamin D2] 50,000 unit PO QMONTH 09/18/16 [History ] Nortriptyline [Pamelor] 25 mg PO HS 09/18/16 [History] diazePAM [Valium] 5 mg PO QID 09/18/16 [History] Cetirizine HCl [Zyrtec] 10 mg PO DAILY PRN 10/01/16 [History] Gabapentin [Neurontin] 1,600 mg PO HS 10/01/16 [History] Gabapentin [Neurontin] 800 mg PO QAM 10/01/16 [History] Oxygen 3 l IN HS 10/09/16 [History] Fluticasone Propionate Nasal [Flonase] 2 spr NS BID 11/03/16 [History] Aspirin Enteric Coated [Aspirin EC] 325 mg PO DAILY #21 tablet. 12/14/16 [Rx] Azelastine HCl [Astepro] 2 spr NS DAILY 12/15/16 [History] Buspirone HCl [Buspar] 15 mg PO BID 02/23/17 [History] Docusate [Colace] 100 mg PO BID #30 capsule 02/23/17 [Rx] Methocarbamol [Robaxin] 750 mg PO TID PRN 02/23/17 [History] SUMAtriptan Succinate [Imitrex] 100 mg PO AD PRN 02/23/17 [History] Apixaban [Eliquis] 5 mg PO BID 02/25/17 [History] Simvastatin [Zocor] 10 mg PO HS #30 tablet 03/11/17 [Rx] 3 Allergy/AdvReac Type Severity Reaction Status Date / Time adhesive tape Allergy Blister Verified 03/18/17 10:07 latex Allergy Rash Verified 03/18/17 10:07 vancomycin Allergy Itching Verified 03/18/17 10:07 All Systems PM: A 10-system review of systems was performed and is negative for pertinent findings except as documented above in the HPI. - Constitutional Constitutional: anorexia, chills, fatigue, fever(s), no night sweats - EENT Eyes: no change in vision, no discharge, no pain, no photophobia Ears: no ear discharge, no ear pain, no tinnitus Nose, mouth and throat: no dysphagia, no nasal discharge, no neck pain, no sore throat - Cardiovascular Cardiovascular ROS IM: diaphoresis, dyspnea, no chest pain, no lightheadedness, no palpitations, no syncope - Respiratory Respiratory: cough, dyspnea, no wheezing, no excessive phlegm production - Gastrointestinal Gastrointestinal: no abdominal pain, no diarrhea, no hematemesis, no hematochezia, no melena, no nausea, no vomiting - Genitourinary Genitourinary: no change in urinary stream, no dysuria, no flank pain, no hematuria - Musculoskeletal Musculoskeletal ROS IM: no numbness, no tingling - Integumentary Integumentary IM: no rash, no unusual bruising - Neurological Neurological ROS: no confusion, no convulsions, no focal weakness, no numbness, no tingling, no tremor(s) - Hematologic/Lymphatic Hematologic/Lymphatic: no easy bruising - Constitutional Vitals: Temp Pulse Resp BP Pulse Ox 98.7 F 84 18 133/73 98 03/18/17 09:59 03/18/17 12:57 03/18/17 12:57 03/18/17 12:57 03/18/17 12:57 General appearance: Present: A&O X 3, pleasant, no acute distress - Head Head exam: Present: atraumatic, normocephalic - Eye Eye exam: Present: PERRL, conjuntiva pink, sclera anicteric Pupils: Present: PERRL - Neck Neck exam general surgery: Present: supple, trachea midline. Absent: lymphadenopathy - Respiratory Respiratory exam: Present: rales, tachypnea. Absent: accessory muscle use, rhonchi, wheezes - Cardiovascular Cardiovascular exam: Present: RRR, +S1, +S2. Absent: diastolic murmur, gallop, rubs, systolic murmur - GI/Abdominal GI/Abdominal exam: Present: normal bowel sounds, soft, no peritoneal signs. Absent: distended, tenderness - Extremities Exam Extremities exam: Present: warm, radial pulses palpable and symmetrical. Absent : calf tenderness, cyanotic, pedal edema - Neurological Exam Neurological exam: Present: CN II-XII intact, oriented X3, no focal deficits. Absent: pronater drift, facial droop, speech deficit - Skin Skin exam: Present: diaphoretic, intact Internal Med - H&P Results - Labs CBC & Chem 7: 03/18/17 11:17 03/18/17 11:17 Labs: All Lab Results (24 Hours) 03/18/17 03/18/17 03/18/17 Range/Units 11:17 11:17 11:17 WBC 21.9 H (4.3-11.1) K/mcL RBC 4.94 (3.82-4.97) M/mcL Hgb 13.1 (11.5-15.4) g/dL Hct 42.4 (35.3-44.9) % MCV 85.8 (83.0-100.0) fL MCH 26.5 L (28.0-33.3) pg MCHC 30.9 L (31.6-35.5) g/dL RDW 13.4 (11.5-14.5) % Plt Count 385 (140-400) K/mcL MPV 9.4 (9.4-12.4) fL Immature Gran % 1.2 (0-4) % Seg Neutrophils % 88.5 % Lymphocytes % 4.3 % Monocytes % 5.2 % Eosinophils % 0.5 % Basophils % 0.3 % Neutrophils # 19.4 H (1.6-8.9) K/mcL Lymphocytes # 0.9 (0.6-4.6) K/mcL Monocytes # 1.1 (0.0-1.3) K/mcL Eosinophils # 0.1 (0.0-0.6) K/mcL Basophils # 0.1 (0.0-0.2) K/mcL Sodium 138 (136-145) mEq/L Potassium 3.9 (3.5-4.5) mEq/L Chloride 100 (98-109) mEq/L Carbon Dioxide 28 (19-29) mEq/L BUN 15 (7-20) mg/dL Creatinine 0.66 (0.57-1.11) mg/dL Est GFR ( Amer) > 60 (> 60) Est GFR (Non-Af Amer) > 60 (> 60) BUN/Creatinine Ratio 23 (6-26) Glucose 130 H (70-99) mg/dL Calculated Osmolality 289 (280-300) Lactic Acid 2.6 H (0.5-2.2) mmol/L Calcium 9.3 (8.6-10.8) mg/dL Troponin I (0-0.03) ng/mL B-Natriuretic Peptide (0-100) pg/mL 03/18/17 03/18/17 03/18/17 Range/Units 11:17 11:17 13:15 WBC (4.3-11.1) K/mcL RBC (3.82-4.97) M/mcL Hgb (11.5-15.4) g/dL Hct (35.3-44.9) % MCV (83.0-100.0) fL MCH (28.0-33.3) pg MCHC (31.6-35.5) g/dL RDW (11.5-14.5) % Plt Count (140-400) K/mcL MPV (9.4-12.4) fL Immature Gran % (0-4) % Seg Neutrophils % % Lymphocytes % % Monocytes % % Eosinophils % % Basophils % % Neutrophils # (1.6-8.9) K/mcL Lymphocytes # (0.6-4.6) K/mcL Monocytes # (0.0-1.3) K/mcL Eosinophils # (0.0-0.6) K/mcL Basophils # (0.0-0.2) K/mcL Sodium (136-145) mEq/L Potassium (3.5-4.5) mEq/L Chloride (98-109) mEq/L Carbon Dioxide (19-29) mEq/L BUN (7-20) mg/dL Creatinine (0.57-1.11) mg/dL Est GFR ( Amer) (> 60) Est GFR (Non-Af Amer) (> 60) BUN/Creatinine Ratio (6-26) Glucose (70-99) mg/dL Calculated Osmolality (280-300) Lactic Acid 2.6 H (0.5-2.2) mmol/L Calcium (8.6-10.8) mg/dL Troponin I 0.02 (0-0.03) ng/mL B-Natriuretic Peptide 49 (0-100) pg/mL - Diagnostic Studies CT scan - chest Additional comments: Chest CTA 03/18/17 10:51 IMPRESSION: No evidence of pulmonary embolism. Multifocal pneumonia throughout the right lung greater in the right upper lobe with increased hilar and pretracheal adenopathy most likely inflammatory. Follow-up is recommended until complete resolution. Moderate hepatic steatosis. Small moderate size hiatal hernia. D/ / Srinivasan Mckeon MD / Srinivasan Mckeon MD Interpreting Provider: Srinivasan Mckeon MD
[2017-03-18] MEDS ORDERED: Benzonatate 100 MG CAPSULE PO STA (15:32)
[2017-03-18] MEDS ORDERED: Meropenem 1,000 MG in 0.9 % Sodium Chloride Mini Bag 100 ML IVPB SCH (16:00)
[2017-03-18] MEDS ORDERED: Cefepime HCl 2,000 MG in D5% in Water (Mini-Bag+) 100 ML IVPB SCH (16:00)
[2017-03-18] MEDS: Ipratropium/Albuterol Neb 3 ML IH SCH ×2 (17:08→22:47)
[2017-03-18] MEDS: Piperacillin/Tazobactam 3.375 GM in D5% in Water (Mini-Bag+) 100 ML IVPB SCH ×2 (18:40→23:59)
[2017-03-18] MEDS: diazePAM 5 MG TABLET PO SCH ×2 (18:41→21:04)
[2017-03-18] MEDS ORDERED: Venlafaxine XR (24 HR) 75 MG CAP.ER.24H PO SCH (21:00)
[2017-03-18] MEDS: Celecoxib 200 MG CAPSULE PO SCH (21:03)
[2017-03-18] MEDS: Gabapentin 400 MG CAPSULE PO SCH (21:07)
[2017-03-18] MEDS: OXcarbazepine 150 MG TABLET PO SCH (21:08)
[2017-03-18] MEDS: Fluticasone Propionate Nasal 50 MCG/SPRAY BOTTLE NS SCH (21:40)
[2017-03-19 00:56] LABS: Basophils % 0.3 %; Eosinophils # 0.6 K/mcL (0.0-0.6); Eosinophils % 4.4 %; Hematocrit 32.7 % (35.3-44.9); Immature Granulocytes % 0.7 % (0-4); Lymphocytes # 2.1 K/mcL (0.6-4.6); Lymphocytes % 15.2 %; Mean Corpuscular HGB Conc 30.3 g/dL (31.6-35.5); Mean Corpuscular Hemoglobin 26.6 pg (28.0-33.3); Mean Corpuscular Volume 87.9 fL (83.0-100.0); Mean Platelet Volume 9.2 fL (9.4-12.4); Monocytes % 7.1 %; Neutrophils # 9.9 K/mcL (1.6-8.9); Platelet Count 288 K/mcL (140-400); Red Blood Count 3.72 M/mcL (3.82-4.97); Red Cell Distribution Width 13.5 % (11.5-14.5); Segmented Neutrophils % 72.3 %
[2017-03-19 00:57] LABS: Hemoglobin 9.9 g/dL (11.5-15.4)
[2017-03-19 01:11] LABS: BUN/Creatinine Ratio 25 (6-26); Blood Urea Nitrogen 15 mg/dL (7-20); Calcium 8.1 mg/dL (8.6-10.8); Carbon Dioxide 26 mEq/L (19-29); Chloride 103 mEq/L (98-109); Glucose 108 mg/dL (70-99); Osmolality,Calculated 289 (280-300); Potassium 3.5 mEq/L (3.5-4.5); Sodium 139 mEq/L (136-145); eGFR For African Americans > 60 (> 60); eGFR For Non-African Americans > 60 (> 60)
[2017-03-19] MEDS: Ipratropium/Albuterol Neb 3 ML IH SCH ×4 (04:08→22:06)
[2017-03-19] MEDS: *HR* Enoxaparin 40 MG/0.4 ML SYRINGE SQ SCH (05:13)
[2017-03-19] MEDS: diazePAM 5 MG TABLET PO SCH ×2 (07:52→12:29)
[2017-03-19] MEDS: Aspirin Enteric Coated 325 MG Tablet PO SCH (07:52)
[2017-03-19] MEDS: Gabapentin 400 MG CAPSULE PO SCH ×2 (07:52→20:48)
[2017-03-19] MEDS: Famotidine 20 MG TABLET PO SCH (07:52)
[2017-03-19] MEDS: Celecoxib 200 MG CAPSULE PO SCH ×2 (07:52→20:48)
[2017-03-19] MEDS: Piperacillin/Tazobactam 3.375 GM in D5% in Water (Mini-Bag+) 100 ML IVPB SCH ×2 (07:53→17:15)
[2017-03-19] MEDS: Fluticasone Propionate Nasal 50 MCG/SPRAY BOTTLE NS SCH ×2 (07:54→20:47)
[2017-03-19] MEDS: OXcarbazepine 150 MG TABLET PO SCH ×2 (08:43→20:49)
[2017-03-19] MEDS ORDERED: ASTEPRO NS SCH (09:00)
--- NOTE | 2017-03-19 10:08 | Internal Med Progress Note ---
Date of Encounter: 03/19/17 Time of Encounter: 09:20 - Assessment and plan (1) Multifocal pneumonia Current Visit: Yes Status: Acute Assessment and plan: Patient was recently discharged from hospital about 1 week ago, on Levaquin for pneumonia. Patient presents with worsening moist cough, shortness of breath and generalized weakness. CT angiogram of chest done in the emergency room shows no evidence of pulmonary embolism but shows multifocal pneumonia. Continue broad-spectrum antibiotics-IV Zosyn and Zyvox. De-escalate based on blood cultures. Sputum culture cannot be sent as patient is unable to produce any sputum. Check urine Legionella and strep pNeumo antigens. Noted to be improving clinically. Continue supportive care and supplemental oxygen as needed. Patient is noted to have had multiple episodes of pneumonia in the last 6-12 months. She follows with pulmonology as outpatient, noted to have noncompliance. Will consult pulmonology to assess if patient would benefit from inpatient bronchoscopy. (2) Severe sepsis Current Visit: Yes Status: Acute Assessment and plan: Patient presented with leukocytosis, lactic acidosis, tachycardia and tachypnea and noted to have bilateral pneumonia. Follow-up cultures, continue IV antibiotics, remaining plan as above. (3) Fibromyalgia Current Visit: Yes Status: Chronic Assessment and plan: Continue home medications. (4) Bipolar disorder Current Visit: Yes Status: Chronic Qualifiers: Active/Remission status: remission status unspecified Qualified Code(s): F31.9 - Bipolar disorder, unspecified (5) Depression Current Visit: Yes Status: Chronic Assessment and plan: Hold venlafaxine for now due to interaction with Zyvox. Qualifiers: Depression Type: unspecified Qualified Code(s): F32.9 - Major depressive disorder, single episode, unspecified (6) Anxiety Current Visit: Yes Status: Chronic Assessment and plan: Continue when necessary diazepam. (7) HTN (hypertension) Current Visit: Yes Status: Chronic Qualifiers: Hypertension type: essential hypertension Qualified Code(s): I10 - Essential (primary) hypertension (8) VTE (venous thromboembolism) Current Visit: Yes Status: Chronic Assessment and plan: Has been diagnosed with DVT and PE earlier this year and was supposed to be on anticoagulation with Eliquis. Patient reports stopping this medication in October 2016 although discharge summary from the same month shows that patient was recommended to continue anticoagulation. She also received IVC filter during her admission in October 2016 for interruption of anticoagulation for laparoscopic cholecystectomy. She was supposed to have filter removal by vascular surgery, but reports it has not been done yet. CT angiogram of chest showed no evidence of PE. We will repeat venous Doppler of bilateral lower extremities. (9) JOSE on CPAP Current Visit: Yes Status: Chronic - Subjective Interval history: Feels better, still has exertional dyspnea and shortness of breath on speaking long sentences. No fever/chills, productive cough; does have chronic leg swelling; - Constitutional Vitals: Temp Pulse Resp BP Pulse Ox 97.9 F 70 18 117/60 99 03/19/17 07:36 03/19/17 08:02 03/19/17 08:52 03/19/17 07:36 03/19/17 08:52 General appearance: Present: A&O X 3, obese, answers questions appropriately - Respiratory Respiratory exam: Present: CTAB, rales (bibasal crepts). Absent: accessory muscle use, rhonchi, wheezes - Cardiovascular Cardiovascular exam: Present: RRR, +S1, +S2. Absent: diastolic murmur, gallop, rubs, systolic murmur - GI/Abdominal GI/Abdominal exam: Present: normal bowel sounds, soft, no peritoneal signs. Absent: distended, tenderness - Extremities Exam Extremities exam: Present: pedal edema, warm, radial pulses palpable and symmetrical. Absent: calf tenderness, cyanotic - Neurological Exam Neurological exam: Present: CN II-XII intact, oriented X3, no focal deficits. Absent: pronater drift, facial droop, speech deficit Internal Medicine: Result - Labs CBC & Chem 7: 03/19/17 00:48 03/19/17 00:48 Labs: Short CBC 03/19/17 Range/Units 00:48 WBC 13.7 H (4.3-11.1) K/mcL Hgb 9.9 L D (11.5-15.4) g/dL Hct 32.7 L (35.3-44.9) % Plt Count 288 (140-400) K/mcL Neutrophils # 9.9 H (1.6-8.9) K/mcL BMP 03/19/17 00:48 Sodium 139 Potassium 3.5 Chloride 103 Carbon Dioxide 26 BUN 15 Creatinine 0.61 Glucose 108 H Calcium 8.1 L - VTE Documentation of Mechanical Device: Graduated compression elastic hosiery Consult Discharge Plan - Plan Referrals: Eduarda Abbasi MD [Primary Care Provider] -
[2017-03-19] MEDS: Acetaminophen 325 MG TABLET PO PRN (20:00)
[2017-03-19] MEDS ORDERED: *HR* Promethazine 25 MG/ML VIAL IVP PRN (20:06)
[2017-03-19] MEDS: 0.9 % Sodium Chloride 1,000 ML IVC SCH ×2 (20:50→22:34)
[2017-03-19] MEDS: traMADol 50 MG TABLET PO PRN (21:50)
[2017-03-20] MEDS ORDERED: Metoclopramide 10 MG/2 ML VIAL IVP ONE (00:09)
[2017-03-20] MEDS ORDERED: *HR* OxyCODONE/APAP 5/325 TABLET PO ONE (00:09)
[2017-03-20] MEDS ORDERED: *HR* Promethazine 25 MG/ML VIAL IVP PRN (00:10)
[2017-03-20] MEDS: Piperacillin/Tazobactam 3.375 GM in D5% in Water (Mini-Bag+) 100 ML IVPB SCH ×3 (00:18→15:48)
[2017-03-20] MEDS: Ipratropium/Albuterol Neb 3 ML IH SCH ×4 (04:03→23:18)
[2017-03-20 04:08] LABS: Basophils # 0.1 K/mcL (0.0-0.2); Basophils % 0.8 %; Eosinophils # 0.8 K/mcL (0.0-0.6); Eosinophils % 8.8 %; Hematocrit 32.3 % (35.3-44.9); Hemoglobin 9.6 g/dL (11.5-15.4); Immature Granulocytes % 1.9 % (0-4); Lymphocytes # 1.9 K/mcL (0.6-4.6); Lymphocytes % 22.5 %; Mean Corpuscular HGB Conc 29.7 g/dL (31.6-35.5); Mean Corpuscular Hemoglobin 26.5 pg (28.0-33.3); Mean Corpuscular Volume 89.2 fL (83.0-100.0); Mean Platelet Volume 9.5 fL (9.4-12.4); Monocytes # 0.8 K/mcL (0.0-1.3); Monocytes % 8.8 %; Neutrophils # 4.9 K/mcL (1.6-8.9); Platelet Count 309 K/mcL (140-400); Red Blood Count 3.62 M/mcL (3.82-4.97); Red Cell Distribution Width 13.2 % (11.5-14.5); Segmented Neutrophils % 57.2 %
[2017-03-20 04:17] LABS: BUN/Creatinine Ratio 19 (6-26); Blood Urea Nitrogen 12 mg/dL (7-20); Calcium 7.9 mg/dL (8.6-10.8); Carbon Dioxide 27 mEq/L (19-29); Chloride 106 mEq/L (98-109); Glucose 108 mg/dL (70-99); Osmolality,Calculated 290 (280-300); Potassium 3.7 mEq/L (3.5-4.5); Sodium 140 mEq/L (136-145); eGFR For African Americans > 60 (> 60); eGFR For Non-African Americans > 60 (> 60)
[2017-03-20] MEDS: *HR* Enoxaparin 40 MG/0.4 ML SYRINGE SQ SCH (05:00)
[2017-03-20] MEDS: traMADol 50 MG TABLET PO PRN (05:01)
[2017-03-20] MEDS ORDERED: Ibuprofen 400 MG TABLET PO ONE (06:03)
--- NOTE | 2017-03-20 06:57 | Venous Imaging Report ---
LE Venous Duplex Patient Name:Minal Mooney Order Number:[id number] Procedure Date:03/19/2017 Date:1965Age:51 yrs Gender:Female Location:[facility] Room #: 2N08 Research And Development Tester:Hyun Guzman RD, RVT Referring MD:Lina Cuellar MD Reading MD:Bala Pitts MD Primary Indications:Edema Secondary Indications: Risk Factors Yes/No Hx of DVT Yes Impressions: Normal bilateral lower extremity deep and superficial venous exam. Findings Venous Duplex Results: Right: Venous imaging of the lower extremity reveals full patency and normal vessel compressibility of the right distal iliac, right common femoral, right superficial femoral, right popliteal, right posterior tibial, right peroneal, right great saphenous and right lesser saphenous. Doppler signals in the evaluated veins were normal. Left: Venous imaging of the lower extremity reveals full patency and normal vessel compressibility of the left distal iliac, left common femoral, left superficial femoral, left popliteal, left posterior tibial, left peroneal, left great saphenous and left lesser saphenous. Doppler signals in the evaluated veins were normal. Lower Extremity Venous Duplex Side Vein Compress Spontaneous Flow Augment Diameter (cm) Depth (cm) Right Distal Iliac Normal Yes Phasic Yes Right Common Femoral Normal Yes Phasic Yes Right Superficial Femoral Normal Yes Phasic Yes Right Popliteal Normal Yes Phasic Yes Right Posterior Tibial Normal Yes Phasic Yes Right Peroneal Normal Yes Phasic Yes Right Great Saphenous Normal Yes Phasic Yes Right Lesser Saphenous Normal Yes Phasic Yes Left Distal Iliac Normal Yes Phasic Yes Left Common Femoral Normal Yes Phasic Yes Left Superficial Femoral Normal Yes Phasic Yes Left Popliteal Normal Yes Phasic Yes Left Posterior Tibial Normal Yes Phasic Yes Left Peroneal Normal Yes Phasic Yes Left Great Saphenous Normal Yes Phasic Yes Left Lesser Saphenous Normal Yes Phasic Yes Updated by Bala Pitts MD on 03/20/2017 6:49:00 AM electronically signed on 03/20/2017 6:49:25 AM with status of Final
[2017-03-20] MEDS: 0.9 % Sodium Chloride 1,000 ML IVC SCH (07:44)
--- NOTE | 2017-03-20 08:10 | Electrocardiograph Report ---
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
[2017-03-20] MEDS: Gabapentin 400 MG CAPSULE PO SCH ×2 (09:15→22:09)
[2017-03-20] MEDS: Aspirin Enteric Coated 325 MG Tablet PO SCH (09:15)
[2017-03-20] MEDS: Celecoxib 200 MG CAPSULE PO SCH ×2 (09:15→22:11)
[2017-03-20] MEDS: Famotidine 20 MG TABLET PO SCH (09:16)
[2017-03-20] MEDS: Fluticasone Propionate Nasal 50 MCG/SPRAY BOTTLE NS SCH ×2 (09:17→22:13)
[2017-03-20] MEDS: diazePAM 5 MG TABLET PO PRN ×3 (09:18→22:30)
[2017-03-20] MEDS: OXcarbazepine 150 MG TABLET PO SCH ×2 (09:18→22:11)
--- NOTE | 2017-03-20 11:36 | Internal Med Progress Note ---
Date of Encounter: 03/20/17 Time of Encounter: 11:33 - Assessment and plan (1) Multifocal pneumonia Current Visit: Yes Status: Acute Assessment and plan: CT angiogram of chest done in the emergency room shows no evidence of pulmonary embolism but shows multifocal pneumonia. Improving within the kidney. 2 sets of blood cultures remain negative. MRSA nasal screen is negative. Hold Zyvox and continue IV Zosyn at this time. Sputum culture cannot be sent as patient is unable to produce any sputum. Continue supportive care and supplemental oxygen as needed. Discussed with patient's PCP- no documented evidence of recurrent Pneumonia episodes as patient tends to have multiple hospitalizations at different facilities. At this point, patient may need outpatient Pulmonology f/up. (2) Severe sepsis Current Visit: Yes Status: Acute Assessment and plan: Patient presented with leukocytosis, lactic acidosis, tachycardia and tachypnea and noted to have bilateral pneumonia. Improved. Blood cultures so far negative. continue IV antibiotics, remaining plan as above. (3) Fibromyalgia Current Visit: Yes Status: Chronic (4) Bipolar disorder Current Visit: Yes Status: Chronic Assessment and plan: continue Trileptal, Seroquel. Qualifiers: Active/Remission status: remission status unspecified Qualified Code(s): F31.9 - Bipolar disorder, unspecified (5) Depression Current Visit: Yes Status: Chronic Assessment and plan: Continue Buspar, Effexor, Seroquel. Qualifiers: Depression Type: unspecified Qualified Code(s): F32.9 - Major depressive disorder, single episode, unspecified (6) Anxiety Current Visit: Yes Status: Chronic Assessment and plan: Continue when necessary diazepam. (7) HTN (hypertension) Current Visit: Yes Status: Chronic Qualifiers: Hypertension type: essential hypertension Qualified Code(s): I10 - Essential (primary) hypertension (8) VTE (venous thromboembolism) Current Visit: Yes Status: Chronic Assessment and plan: Has been diagnosed with DVT and PE earlier this year and was supposed to be on anticoagulation with Eliquis. Patient reports stopping this medication in October 2016 although discharge summary from the same month shows that patient was recommended to continue anticoagulation. She also received IVC filter during her admission in October 2016 for interruption of anticoagulation for laparoscopic cholecystectomy. She was supposed to have filter removal by vascular surgery, but reports it has not been done yet. CT angiogram of chest showed no evidence of PE. B/L venous Doppler of bilateral lower extremities shows no acute DVT. Case discussed with patient's PCP Dr.Marta Abbasi, who agrees on lifelong anticoagulation; patient insists on being discharged on Coumadin but I am concerned about noncompliance; will amado check Eliquis; (9) JOSE on CPAP Current Visit: Yes Status: Chronic - Subjective Interval history: Reports cough but no acute complaints; no chest pain, shortness of breath, palpitations, leg pain. Has multiple chronic issues regarding doctor's followup appointments and routine labs, etc; tried to answer her repetitive questions to the best of my ability. - Constitutional Vitals: Temp Pulse Resp BP Pulse Ox 97.9 F 74 18 123/69 100 03/20/17 07:05 03/20/17 07:05 03/20/17 10:43 03/20/17 07:05 03/20/17 10:43 General appearance: Present: A&O X 3, obese, answers questions appropriately - Respiratory Respiratory exam: Present: CTAB, rales (coarse breath sounds B/L, faint rales at bases). Absent: accessory muscle use, rhonchi, wheezes - Cardiovascular Cardiovascular exam: Present: RRR, +S1, +S2. Absent: diastolic murmur, gallop, rubs, systolic murmur - GI/Abdominal GI/Abdominal exam: Present: normal bowel sounds, soft, no peritoneal signs. Absent: distended, tenderness - Extremities Exam Extremities exam: Present: full ROM, warm, radial pulses palpable and symmetrical. Absent: calf tenderness, cyanotic, pedal edema Internal Medicine: Result - Labs CBC & Chem 7: 03/20/17 03:34 03/20/17 03:34 Labs: Short CBC 03/20/17 Range/Units 03:34 WBC 8.5 (4.3-11.1) K/mcL Hgb 9.6 L (11.5-15.4) g/dL Hct 32.3 L (35.3-44.9) % Plt Count 309 (140-400) K/mcL Neutrophils # 4.9 (1.6-8.9) K/mcL BMP 03/20/17 03:34 Sodium 140 Potassium 3.7 Chloride 106 Carbon Dioxide 27 BUN 12 Creatinine 0.63 Glucose 108 H Calcium 7.9 L - VTE Documentation of Mechanical Device: Graduated compression elastic hosiery Consult Discharge Plan - Plan Referrals: Eduarda Abbasi MD [Primary Care Provider] - 03/23/17 2:00 pm
[2017-03-20] MEDS: VENLAFAXINE PO SCH (22:09)
[2017-03-21] MEDS: Piperacillin/Tazobactam 3.375 GM in D5% in Water (Mini-Bag+) 100 ML IVPB SCH ×4 (00:53→23:46)
[2017-03-21] MEDS: Ipratropium/Albuterol Neb 3 ML IH SCH ×4 (04:53→22:25)
[2017-03-21] MEDS: *HR* Enoxaparin 40 MG/0.4 ML SYRINGE SQ SCH (05:36)
[2017-03-21] MEDS: diazePAM 5 MG TABLET PO PRN ×3 (05:36→19:50)
[2017-03-21] MEDS: Aspirin Enteric Coated 325 MG Tablet PO SCH (08:37)
[2017-03-21] MEDS: Celecoxib 200 MG CAPSULE PO SCH ×2 (08:37→20:48)
[2017-03-21] MEDS: Gabapentin 400 MG CAPSULE PO SCH ×2 (08:38→20:49)
[2017-03-21] MEDS: Famotidine 20 MG TABLET PO SCH (08:38)
[2017-03-21] MEDS: Fluticasone Propionate Nasal 50 MCG/SPRAY BOTTLE NS SCH ×2 (08:39→23:52)
[2017-03-21] MEDS: OXcarbazepine 150 MG TABLET PO SCH ×2 (08:44→20:47)
--- NOTE | 2017-03-21 13:03 | Discharge Summary ---
Date of Encounter: 03/21/17 Time of Encounter: 13:01 - Discharge Diagnosis (1) HCAP (healthcare-associated pneumonia) Priority: Primary Status: Acute Comments: Sepsis secondary to Recurrent HCAP present upon admission , failed Levaquin (2) History of DVT (deep vein thrombosis) Priority: Secondary Status: Chronic Comments: Needs anticoagulation (3) JOSE on CPAP Priority: Secondary Status: Chronic (4) Fibromyalgia Priority: Secondary Status: Chronic (5) Bipolar disorder Priority: Secondary Status: Chronic Qualifiers: Active/Remission status: remission status unspecified Qualified Code(s): F31.9 - Bipolar disorder, unspecified - Discharge Medications Prescriptions: Apixaban [Eliquis] 5 mg PO BID #60 tablet Twryutcvydql-Cofn-Pacrgshv,Iso [Zosyn 3.375 gm/50 ml Galaxy] 3.375 gm IV Q8H # 12 froz.piggy Home Medications: Famotidine [Pepcid] 40 mg PO QAM 03/21/15 [History] Omeprazole [PriLOSEC] 40 mg PO QAM 03/21/15 [History] Celecoxib [Celebrex] 200 mg PO BID 01/30/16 [History] EPINEPHrine [Epipen] 0.3 mg IJ ONCE PRN 01/30/16 [History] Montelukast [Singulair] 10 mg PO HS 01/30/16 [History] Venlafaxine HCl [Venlafaxine HCl ER] 225 mg PO HS 01/30/16 [History] Metoclopramide HCl 5 mg PO HS 03/24/16 [History] OXcarbazepine [Oxcarbazepine] 1,200 mg PO HS 03/24/16 [History] OXcarbazepine [Oxcarbazepine] 600 mg PO QAM 03/24/16 [History] Quetiapine Fumarate [Seroquel] 200 mg PO HS 03/24/16 [History] Ergocalciferol (VITAMIN D2) [Vitamin D2] 50,000 unit PO QMONTH 09/18/16 [History ] Nortriptyline [Pamelor] 25 mg PO HS 09/18/16 [History] diazePAM [Valium] 5 mg PO QID 09/18/16 [History] Cetirizine HCl [Zyrtec] 10 mg PO DAILY PRN 10/01/16 [History] Gabapentin [Neurontin] 1,600 mg PO HS 10/01/16 [History] Gabapentin [Neurontin] 800 mg PO QAM 10/01/16 [History] Oxygen 3 l IN HS 10/09/16 [History] Fluticasone Propionate Nasal [Flonase] 2 spr NS BID 11/03/16 [History] Aspirin Enteric Coated [Aspirin EC] 325 mg PO DAILY #21 tablet. 12/14/16 [Rx] Azelastine HCl [Astepro] 2 spr NS DAILY 12/15/16 [History] Buspirone HCl [Buspar] 15 mg PO BID 02/23/17 [History] Docusate [Colace] 100 mg PO BID #30 capsule 02/23/17 [Rx] Methocarbamol [Robaxin] 750 mg PO TID PRN 02/23/17 [History] SUMAtriptan Succinate [Imitrex] 100 mg PO AD PRN 02/23/17 [History] Simvastatin [Zocor] 10 mg PO HS #30 tablet 03/11/17 [Rx] Apixaban [Eliquis] 5 mg PO BID #60 tablet 03/21/17 [Rx] Ftweckosjweb-Usek-Illjhpzd,Iso [Zosyn 3.375 gm/50 ml Galaxy] 3.375 gm IV Q8H # 12 froz.piggy 03/21/17 [Rx] Allergies/Adverse Reactions: 3 Allergy/AdvReac Type Severity Reaction Status Date / Time adhesive tape Allergy Blister Verified 03/18/17 10:07 latex Allergy Rash Verified 03/18/17 10:07 vancomycin Allergy Itching Verified 03/18/17 10:07 Procedures/tests Complete & Pending: Procedures Performed prior 72 hours Category Date Time Status Venous Doppler [EV venous imaging LE BI] Routine Y 03/19/17 09:58 Completed Date of admission: 03/18/17 13:46 Primary care physician: Eduarda Abbasi MD - Patient Status Disposition: Home Health Service Condition: Good Overall status at discharge: patient is progressing back to baseline - Discharge Instructions Follow Up With: Eduarda Abbasi MD [Primary Care Provider] - 03/23/17 2:00 pm Additional Instructions: Follow-up with primary care physician within the next 7 days. Complete 4 more days of Zosyn. Continue Eliquis - Diet and Activity Activity: increase activity as tolerated Diet: low fat, low cholesterol Hospital course: Ms. Mooney is a 51 year old female with PMHx of hypertension, hyperlipidemia, fibromyalgia, anxiety, bipolar disorder, sleep apnea, history of DVT and PE with IVC filter in place, recurrent PNA, presented to the emergency department with complaints of shortness of breath, cough, subjective fever and chills. Patient was admitted a few weeks ago with pneumonia and just finished her course of Levaquin. Patient reported she was feeling worse with increasing symptoms of chills, coughing, sweats. She developed increased shortness of breath despite ace on 2 L of oxygen at home. Had occasional headache, poor appetite. Evaluation emergency department revealed elevated white blood cell count of 21.9. CTA of the chest showed no PE, and showed multifocal pneumonia throughout the right lung. Lactate was elevated at 2.6. She had mild tachycardia with heart rate in the 90s, she was tachypneic with respiration rate in the low 20s, meeting sepsis criteria. She was given DuoNeb treatments, 1 L bolus, and antibiotics in the emergency department. Is on Zosyn and Zyvox, Zyvox was discontinued. The patient has developed pneumonia multiple times over the past year according to her. Also was advised to continue Eliquis due to prior history of DVT and PE. Because of her history of recurrent pneumonia and healthcare associated pneumonia she will complete 4 more days of Zosyn at home, power glide will be placed prior to discharge. - Time Spent with Patient Total time spent providing and/or coordinating discharge services: Greater than 30 minutes (40 min) - Constitutional Vitals: Temp Pulse Resp BP Pulse Ox 98.3 F 83 20 162/89 95 03/21/17 12:07 03/21/17 12:07 03/21/17 12:07 03/21/17 12:07 03/21/17 12:07 General appearance: Present: A&O X 3, obese, answers questions appropriately - Head Head exam: Present: atraumatic, normocephalic - Eye Eye exam: Present: PERRL, conjuntiva pink, sclera anicteric Pupils: Present: PERRL - Neck Neck exam general surgery: Present: supple, trachea midline. Absent: lymphadenopathy - Respiratory Respiratory exam: Present: decreased breath sounds (Very diminished breath sounds in the right base), CTAB. Absent: accessory muscle use, rales, rhonchi, wheezes - Cardiovascular Cardiovascular exam: Present: RRR, +S1, +S2. Absent: diastolic murmur, gallop, rubs, systolic murmur - GI/Abdominal GI/Abdominal exam: Present: normal bowel sounds, soft, no peritoneal signs. Absent: distended, tenderness - Extremities Exam Extremities exam: Present: warm, radial pulses palpable and symmetrical. Absent : calf tenderness, cyanotic, pedal edema - Neurological Exam Neurological exam: Present: CN II-XII intact, oriented X3, no focal deficits. Absent: pronater drift, facial droop, speech deficit - Skin Skin exam: Present: dry, intact - VTE Documentation of Mechanical Device: Graduated compression elastic hosiery
--- NOTE | 2017-03-21 13:15 | Physician Discharge Referral ---
Home Health/Hosp Referral Info Transfer to: Home Health Provider in Charge Post Discharge: PCP - Diagnosis (1) HCAP (healthcare-associated pneumonia) Status: Acute (2) History of DVT (deep vein thrombosis) Status: Chronic (3) JOSE on CPAP Status: Chronic (4) Fibromyalgia Status: Chronic (5) Bipolar disorder Status: Chronic - Respiratory Orders Smoking Cessation: Smoking cessation has been advised. For more information, call the [place] Tobacco Quit Line at 1-778-XGUP-NOW. - Diet/Nutrition Diet/Nutrition Orders: Regular - Services Needed Following services are medically necessary services: Nursing, Home Health Aide, Physical Therapy, Home Infusion Home Care Orders: Follow-up with primary care physician within the next 7 days. Complete 4 more days of Zosyn. Continue Eliquis - Transfer Medications Prescriptions: Apixaban [Eliquis] 5 mg PO BID #60 tablet Sdiodwrnczbl-Rzkf-Hterstne,Iso [Zosyn 3.375 gm/50 ml Galaxy] 3.375 gm IV Q8H # 12 froz.piggy Home Medications: Famotidine [Pepcid] 40 mg PO QAM 03/21/15 [History] Omeprazole [PriLOSEC] 40 mg PO QAM 03/21/15 [History] Celecoxib [Celebrex] 200 mg PO BID 01/30/16 [History] EPINEPHrine [Epipen] 0.3 mg IJ ONCE PRN 01/30/16 [History] Montelukast [Singulair] 10 mg PO HS 01/30/16 [History] Venlafaxine HCl [Venlafaxine HCl ER] 225 mg PO HS 01/30/16 [History] Metoclopramide HCl 5 mg PO HS 03/24/16 [History] OXcarbazepine [Oxcarbazepine] 1,200 mg PO HS 03/24/16 [History] OXcarbazepine [Oxcarbazepine] 600 mg PO QAM 03/24/16 [History] Quetiapine Fumarate [Seroquel] 200 mg PO HS 03/24/16 [History] Ergocalciferol (VITAMIN D2) [Vitamin D2] 50,000 unit PO QMONTH 09/18/16 [History ] Nortriptyline [Pamelor] 25 mg PO HS 09/18/16 [History] diazePAM [Valium] 5 mg PO QID 09/18/16 [History] Cetirizine HCl [Zyrtec] 10 mg PO DAILY PRN 10/01/16 [History] Gabapentin [Neurontin] 1,600 mg PO HS 10/01/16 [History] Gabapentin [Neurontin] 800 mg PO QAM 10/01/16 [History] Oxygen 3 l IN HS 10/09/16 [History] Fluticasone Propionate Nasal [Flonase] 2 spr NS BID 11/03/16 [History] Aspirin Enteric Coated [Aspirin EC] 325 mg PO DAILY #21 tablet. 12/14/16 [Rx] Azelastine HCl [Astepro] 2 spr NS DAILY 12/15/16 [History] Buspirone HCl [Buspar] 15 mg PO BID 02/23/17 [History] Docusate [Colace] 100 mg PO BID #30 capsule 02/23/17 [Rx] Methocarbamol [Robaxin] 750 mg PO TID PRN 02/23/17 [History] SUMAtriptan Succinate [Imitrex] 100 mg PO AD PRN 02/23/17 [History] Simvastatin [Zocor] 10 mg PO HS #30 tablet 03/11/17 [Rx] Apixaban [Eliquis] 5 mg PO BID #60 tablet 03/21/17 [Rx] Rimhubmhvwov-Rjjf-Vojjmqkq,Iso [Zosyn 3.375 gm/50 ml Galaxy] 3.375 gm IV Q8H # 12 froz.piggy 03/21/17 [Rx] Allergies/Adverse Reactions: 3 Allergy/AdvReac Type Severity Reaction Status Date / Time adhesive tape Allergy Blister Verified 03/18/17 10:07 latex Allergy Rash Verified 03/18/17 10:07 vancomycin Allergy Itching Verified 03/18/17 10:07 Certification: Further, I certify that my clinical findings support that this patient is homebound (i.e. absences from home require considerable and taxing effort and are for medical reasons or jain services or infrequently or short duration when for other reasons) because: Homebound Reason: Patient requires assistance of a person or device to safely leave home Attestation: My signature below is to certify that this patient is under my care and that I, or nurse practitioner, or a physician's assistant buyer working with me, has a face-to -face encounter with this patient.
[2017-03-21] MEDS: Acetaminophen 325 MG TABLET PO PRN (16:06)
[2017-03-21] MEDS: VENLAFAXINE PO SCH (19:50)
[2017-03-22] MEDS: Ipratropium/Albuterol Neb 3 ML IH SCH ×4 (04:15→22:44)
[2017-03-22] MEDS: *HR* Enoxaparin 40 MG/0.4 ML SYRINGE SQ SCH (06:38)
[2017-03-22] MEDS: Celecoxib 200 MG CAPSULE PO SCH ×2 (07:59→22:32)
[2017-03-22] MEDS: Gabapentin 400 MG CAPSULE PO SCH ×2 (07:59→22:32)
[2017-03-22] MEDS: Piperacillin/Tazobactam 3.375 GM in D5% in Water (Mini-Bag+) 100 ML IVPB SCH ×2 (08:00→14:57)
[2017-03-22] MEDS: Aspirin Enteric Coated 325 MG Tablet PO SCH (08:00)
[2017-03-22] MEDS: Famotidine 20 MG TABLET PO SCH (08:00)
[2017-03-22] MEDS: OXcarbazepine 150 MG TABLET PO SCH (08:00)
[2017-03-22] MEDS: Fluticasone Propionate Nasal 50 MCG/SPRAY BOTTLE NS SCH ×2 (08:03→22:36)
--- NOTE | 2017-03-22 11:07 | Internal Med Progress Note ---
Date of Encounter: 03/22/17 Time of Encounter: 11:05 - Assessment and plan (1) HCAP (healthcare-associated pneumonia) Current Visit: Yes Status: Acute Assessment and plan: Sepsis secondary to Recurrent HCAP present upon admission , failed Levaquin Continue Zosyn until March 24 We will arrange for IV antibiotics as outpatient CT scan of the chest showed no PE, and showed multifocal pneumonia throughout the right lung. (2) History of DVT (deep vein thrombosis) Current Visit: Yes Status: Chronic Assessment and plan: Agreed to start Eliquis (3) JOSE on CPAP Current Visit: Yes Status: Chronic (4) Fibromyalgia Current Visit: Yes Status: Chronic Assessment and plan: Continue home medications. (5) Bipolar disorder Current Visit: Yes Status: Chronic Assessment and plan: continue Trileptal, Seroquel. Qualifiers: Active/Remission status: remission status unspecified Qualified Code(s): F31.9 - Bipolar disorder, unspecified - Subjective Interval history: Lesher of breath, no chest pain, no fevers, no abdominal pain, no dysuria, no diarrhea, no headaches - Constitutional Vitals: Temp Pulse Resp BP Pulse Ox 98.2 F 76 16 154/93 96 03/22/17 07:19 03/22/17 07:19 03/22/17 07:19 03/22/17 07:19 03/22/17 07:19 General appearance: Present: A&O X 3, obese, answers questions appropriately - Head Head exam: Present: atraumatic, normocephalic - Eye Eye exam: Present: PERRL, conjuntiva pink, sclera anicteric Pupils: Present: PERRL - Neck Neck exam general surgery: Present: supple, trachea midline. Absent: lymphadenopathy - Respiratory Respiratory exam: Present: decreased breath sounds (Diminished breath sounds on the right lung field), CTAB. Absent: accessory muscle use, rales, rhonchi, wheezes - Cardiovascular Cardiovascular exam: Present: RRR, +S1, +S2. Absent: diastolic murmur, gallop, rubs, systolic murmur - GI/Abdominal GI/Abdominal exam: Present: normal bowel sounds, soft, no peritoneal signs. Absent: distended, tenderness - Extremities Exam Extremities exam: Present: warm, radial pulses palpable and symmetrical. Absent : calf tenderness, cyanotic, pedal edema - Neurological Exam Neurological exam: Present: CN II-XII intact, oriented X3, no focal deficits. Absent: pronater drift, facial droop, speech deficit - Skin Skin exam: Present: dry, intact Internal Medicine: Result - Labs CBC & Chem 7: 03/20/17 03:34 03/20/17 03:34 - VTE Documentation of Mechanical Device: Graduated compression elastic hosiery Consult Discharge Plan - Plan Additional Instructions: Follow-up with primary care physician within the next 7 days. Complete 4 more days of Zosyn. Continue Eliquis Referrals: Eduarda Abbasi MD [Primary Care Provider] - 03/23/17 2:00 pm Prescriptions: Apixaban [Eliquis] 5 mg PO BID #60 tablet Rdmffopxjqkf-Eihy-Ymyclmzz,Iso [Zosyn 3.375 gm/50 ml Galaxy] 3.375 gm IV Q8H # 12 [email or web address]
[2017-03-22] MEDS: APIXABAN 5 MG TABLET PO SCH ×2 (11:54→22:33)
[2017-03-22] MEDS: traMADol 50 MG TABLET PO PRN ×2 (14:18→22:34)
[2017-03-22] MEDS: diazePAM 5 MG TABLET PO PRN ×2 (17:03→22:33)
[2017-03-22] MEDS: VENLAFAXINE PO SCH (22:33)
[2017-03-23] MEDS: OXcarbazepine 150 MG TABLET PO SCH ×2 (00:12→08:44)
[2017-03-23] MEDS: Piperacillin/Tazobactam 3.375 GM in D5% in Water (Mini-Bag+) 100 ML IVPB SCH ×3 (00:14→15:41)
[2017-03-23] MEDS: Ipratropium/Albuterol Neb 3 ML IH SCH ×3 (04:36→16:43)
[2017-03-23 04:51] LABS: Hematocrit 33.2 % (35.3-44.9); Hemoglobin 10.2 g/dL (11.5-15.4); Mean Corpuscular HGB Conc 30.7 g/dL (31.6-35.5); Mean Corpuscular Hemoglobin 26.6 pg (28.0-33.3); Mean Corpuscular Volume 86.7 fL (83.0-100.0); Mean Platelet Volume 9.1 fL (9.4-12.4); Platelet Count 378 K/mcL (140-400); Red Blood Count 3.83 M/mcL (3.82-4.97); Red Cell Distribution Width 13.3 % (11.5-14.5)
[2017-03-23 05:08] LABS: BUN/Creatinine Ratio 15 (6-26); Blood Urea Nitrogen 10 mg/dL (7-20); Calcium 8.4 mg/dL (8.6-10.8); Carbon Dioxide 31 mEq/L (19-29); Chloride 102 mEq/L (98-109); Glucose 95 mg/dL (70-99); Osmolality,Calculated 291 (280-300); Potassium 3.8 mEq/L (3.5-4.5); Sodium 141 mEq/L (136-145); eGFR For African Americans > 60 (> 60); eGFR For Non-African Americans > 60 (> 60)
[2017-03-23] MEDS: Gabapentin 400 MG CAPSULE PO SCH (08:42)
[2017-03-23] MEDS: Famotidine 20 MG TABLET PO SCH (08:42)
[2017-03-23] MEDS: Celecoxib 200 MG CAPSULE PO SCH (08:42)
[2017-03-23] MEDS: Aspirin Enteric Coated 325 MG Tablet PO SCH (08:43)
[2017-03-23] MEDS: APIXABAN 5 MG TABLET PO SCH (08:43)
[2017-03-23] MEDS: Fluticasone Propionate Nasal 50 MCG/SPRAY BOTTLE NS SCH (08:45)
[2017-03-23 10:47] VITALS: BP 160/89
--- NOTE | 2017-03-23 14:21 | Internal Med Progress Note ---
Date of Encounter: 03/23/17 Time of Encounter: 14:19 - Assessment and plan (1) HCAP (healthcare-associated pneumonia) Current Visit: Yes Status: Acute Assessment and plan: Sepsis secondary to Recurrent HCAP present upon admission , failed Levaquin Continue Zosyn until March 24 We will arrange for IV antibiotics as outpatient CT scan of the chest showed no PE, and showed multifocal pneumonia throughout the right lung. (2) History of DVT (deep vein thrombosis) Current Visit: Yes Status: Chronic Assessment and plan: Agreed to continue Eliquis (3) JOSE on CPAP Current Visit: Yes Status: Chronic (4) Fibromyalgia Current Visit: Yes Status: Chronic Assessment and plan: Continue home medications. (5) Bipolar disorder Current Visit: Yes Status: Chronic Assessment and plan: continue Trileptal, Seroquel. Qualifiers: Active/Remission status: remission status unspecified Qualified Code(s): F31.9 - Bipolar disorder, unspecified - Subjective Interval history: Less short of breath, denies chest pain, no fevers, no abdominal pain, no dysuria, no diarrhea, no headaches - Constitutional Vitals: Temp Pulse Resp BP Pulse Ox 97.6 F 79 17 160/89 97 03/23/17 10:47 03/23/17 10:47 03/23/17 10:47 03/23/17 10:47 03/23/17 10:47 General appearance: Present: A&O X 3, obese, answers questions appropriately Exam: - Head Head exam: Present: atraumatic, normocephalic - Eye Eye exam: Present: PERRL, conjuntiva pink, sclera anicteric Pupils: Present: PERRL - Neck Neck exam general surgery: Present: supple, trachea midline. Absent: lymphadenopathy - Respiratory Respiratory exam: Present: decreased breath sounds (Diminished breath sounds on the right lung field), CTAB. Absent: accessory muscle use, rales, rhonchi, wheezes - Cardiovascular Cardiovascular exam: Present: RRR, +S1, +S2. Absent: diastolic murmur, gallop, rubs, systolic murmur - GI/Abdominal GI/Abdominal exam: Present: normal bowel sounds, soft, no peritoneal signs. Absent: distended, tenderness - Extremities Exam Extremities exam: Present: warm, radial pulses palpable and symmetrical. Absent : calf tenderness, cyanotic, pedal edema - Neurological Exam Neurological exam: Present: CN II-XII intact, oriented X3, no focal deficits. Absent: pronater drift, facial droop, speech deficit - Skin Skin exam: Present: dry, intact Internal Medicine: Result - Labs CBC & Chem 7: 03/23/17 04:35 03/23/17 04:35 Labs: Short CBC 03/23/17 Range/Units 04:35 WBC 9.1 (4.3-11.1) K/mcL Hgb 10.2 L (11.5-15.4) g/dL Hct 33.2 L (35.3-44.9) % Plt Count 378 (140-400) K/mcL BMP 03/23/17 04:35 Sodium 141 Potassium 3.8 Chloride 102 Carbon Dioxide 31 H BUN 10 Creatinine 0.68 Glucose 95 Calcium 8.4 L - VTE Documentation of Mechanical Device: Graduated compression elastic hosiery Consult Discharge Plan - Plan Additional Instructions: Follow-up with primary care physician within the next 7 days. Complete 4 more days of Zosyn. Continue Eliquis Referrals: Eduarda Abbasi MD [Primary Care Provider] - Prescriptions: Apixaban [Eliquis] 5 mg PO BID #60 tablet Bcwvbpkwqbue-Dbcm-Yjupwuvf,Iso [Zosyn 3.375 gm/50 ml Galaxy] 3.375 gm IV Q8H # 12 ashley
[2017-03-23] MEDS: traMADol 50 MG TABLET PO PRN (16:05)
== END 2017-03-23 16:48 | disposition home health service (06) | DRG 871 ==
LOC: EMEROO 09:53 → 2NENU 13:46 → SUATTDRO 13:46 → 2NNU 16:01 → 2ANU 03-21 15:21
PROVIDERS: ADMIT Nurse Practitioner Family; ATTEND Internal Medicine

== ENCOUNTER 2017-05-20 14:38 | Observation (INO) ==
--- NOTE | 2017-05-20 15:03 | Emergency Department Note ---
Disposition Clinical Impression: Sepsis Qualifiers: Sepsis type: sepsis due to unspecified organism Qualified Code(s): A41.9 - Sepsis, unspecified organism Pneumonia Qualifiers: Pneumonia type: due to unspecified organism Laterality: right Lung location: lower lobe of lung Qualified Code(s): J18.1 - Lobar pneumonia, unspecified organism Disposition: Admitted As Inpatient Condition: Undetermined Time of Disposition: 17:08 SOB HPI - General Chief Complaint: ED Shortness of Breath/Dyspnea Stated Complaint: SOB Time Seen by Provider: 05/20/17 14:43 Source: patient Mode of arrival: ambulatory Limitations: no limitations Nursing Notes Reviewed: Yes Vital Signs Reviewed: Yes - History of Present Illness 51-year-old female with history of recurrent pneumonia associated with aspiration, arrives to [facility] emergency department complaining of shortness of breath and myalgias. The patient had a CT scan done outpatient for concern for pneumonia states that is progressively worsening. The patient decided to come to the emergency department at that time. The patient does have a history of DVT and PE and recently had a IVC filter removed 3 days ago. The patient has been taking liquids as prescribed. The patient denies any other complaints at this time and states this feels more like her pneumonia in the past and given the myalgias. Patient denies any other complaints at this time. Pt Subjective Complaint: shortness of breath Onset (ago): day(s) (2) Context: choking/aspiration Severity: mild, moderate Consistency/Duration: constant, gradually worsening Improves with: nothing Worsens with: exertion, coughing Known history of: recurrent pneumonia, aspiration pneumonia Associated symptoms: Reports: chest pain, fever, cough, sputum production Treatment prior to arrival: none Cough present: Yes Cough Description: Involuntary, Productive Sputum production: Yes Sputum Amount: Small Sputum Color: White - Related Data Home oxygen amount: none Home Medications Medication Instructions Recorded Confirmed Famotidine [Pepcid] 40 mg PO QAM 03/21/15 05/20/17 Omeprazole [PriLOSEC] 40 mg PO QAM 03/21/15 05/20/17 Celecoxib [Celebrex] 200 mg PO BID 01/30/16 05/20/17 EPINEPHrine [Epipen] 0.3 mg IJ ONCE PRN 01/30/16 05/20/17 Montelukast [Singulair] 10 mg PO HS 01/30/16 05/20/17 Venlafaxine HCl [Venlafaxine HCl 225 mg PO HS 01/30/16 05/20/17 ER] OXcarbazepine [Oxcarbazepine] 1,200 mg PO HS 03/24/16 05/20/17 OXcarbazepine [Oxcarbazepine] 600 mg PO QAM 03/24/16 05/20/17 Quetiapine Fumarate [Seroquel] 200 mg PO HS 03/24/16 05/20/17 Ergocalciferol (VITAMIN D2) 50,000 unit PO QMONTH 09/18/16 05/20/17 [Vitamin D2] Nortriptyline [Pamelor] 25 mg PO HS 09/18/16 05/20/17 diazePAM [Valium] 5 mg PO QID 09/18/16 05/20/17 Gabapentin [Neurontin] 800 mg PO TID 10/01/16 05/20/17 Oxygen 3 l IN HS 10/09/16 05/20/17 Fluticasone Propionate Nasal 2 spr NS BID 11/03/16 05/20/17 [Flonase] Azelastine HCl [Astepro] 2 spr NS DAILY 12/15/16 05/20/17 Buspirone HCl [Buspar] 15 mg PO BID 02/23/17 05/20/17 Amlodipine Besylate 10 mg PO DAILY 05/04/17 05/20/17 BuPROPion SR (12 HR) [Wellbutrin 100 mg PO DAILY 05/18/17 05/20/17 SR] Previous Rx's Medication Instructions Recorded Simvastatin [Zocor] 10 mg PO HS #30 tablet 03/11/17 OxyCODONE/APAP 5/325 [Percocet 1 each PO Q6HR PRN #12 tablet 05/18/17 5/325 MG] Allergies Allergy/AdvReac Type Severity Reaction Status Date / Time adhesive tape Allergy Blister Verified 05/20/17 14:42 latex Allergy Rash Verified 05/20/17 14:42 vancomycin AdvReac Itching Verified 05/20/17 14:42 All systems ED: reviewed and negative except as stated. Constitutional: Reports: chills, weakness. Denies: fever ENT ED: Denies: congestion Cardiovascular: Reports: chest pain, dyspnea on exertion. Denies: orthopnea Respiratory: Reports: cough, dyspnea, sputum production. Denies: wheezes, hemoptysis Gastrointestinal: Denies: abdominal pain, nausea, vomiting Genitourinary: Denies: urgency, dysuria Musculoskeletal: Denies: back pain, neck pain Integumentary: Denies: rash Neurological: Reports: weakness. Denies: headache Past Medical History - Past Medical History Attestation: Yes The following information was validated with the patient. 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: Reports: other - Social History Smoking Status: Never smoker Smokeless Tobacco Status: No Alcohol use: Reports: none Drug use: Reports: none Physical Exam - General Limitations: no limitations General appearance: alert, in no apparent distress - Head Head exam: atraumatic, normocephalic, normal inspection - Eye Eye exam: Present: normal appearance, PERRL, EOMI - ENT ENT exam: normal exam, normal oropharynx, mucous membranes moist - Neck Neck exam: Present: normal inspection, full ROM, trachea midline - Chest Chest inspection: Present: normal inspection, symmetric chest wall rise - Respiratory Respiratory exam: Present: prolonged expiratory phase. Absent: respiratory distress, wheezes - Expanded Respiratory Exam Location: rhonchi: Right, Lower, decreased breath sounds: Right, Lower - Cardiovascular Cardiovascular exam: Present: regular rate, normal rhythm, normal heart sounds - Abdominal Exam Abdominal exam: Present: soft, Non-Tender. Absent: tenderness, distention, guarding, rebound, rigidity - Extremities Exam Extremities exam: Present: normal inspection, full ROM. Absent: tenderness, pedal edema Course - Reevaluation(s) Reevaluation #1: Patient noted to have a lactic acid of 3.4. This time we will transfuse IV fluids. We will admit the patient to the hospitalist for sepsis and pneumonia. Patient made aware and agrees to plan. Time: 16:30 Vital Signs Temperature 98.3 F 05/20/17 14:39 Pulse Rate 91 05/20/17 14:39 Respiratory Rate 18 05/20/17 14:39 Blood Pressure 168/99 05/20/17 14:39 O2 Sat by Pulse Oximetry 96 12/06/17 14:39 Temperature 98.4 F 05/20/17 18:44 Pulse Rate 75 05/20/17 18:44 Respiratory Rate 16 05/20/17 18:44 Blood Pressure 128/76 05/20/17 18:44 O2 Sat by Pulse Oximetry 96 05/20/17 18:44 Oxygen Delivery Oxygen Delivery Nasal Cannula Shortness of Breath/Dyspnea - MDM Narrative Medical decision making narrative: Patient will be admitted to the hospitalist for further care. I am concerned for sepsis associated with the pneumonia. The patient was accepted by Dr. Finch. - Medical Records Medical records reviewed: Yes I reviewed the patient's medical records. - Lab Data Lab results reviewed: Yes I reviewed the patient's lab results. Result diagrams: 05/20/17 13:15 05/20/17 13:15 Lab Results 05/20/17 05/20/17 05/20/17 Range/Units 13:15 13:15 13:15 WBC 12.5 H D (4.3-11.1) K/mcL RBC 5.49 H (3.82-4.97) M/mcL Hgb 14.5 D (11.5-15.4) g/dL Hct 45.6 H (35.3-44.9) % MCV 83.1 (83.0-100.0) fL MCH 26.4 L (28.0-33.3) pg MCHC 31.8 (31.6-35.5) g/dL RDW 14.3 (11.5-14.5) % Plt Count 412 H (140-400) K/mcL MPV 9.5 (9.4-12.4) fL Immature Gran % 0.6 (0-4) % Seg Neutrophils % 73.3 % Lymphocytes % 17.6 % Monocytes % 5.3 % Eosinophils % 2.6 % Basophils % 0.6 % Neutrophils # 9.2 H (1.6-8.9) K/mcL Lymphocytes # 2.2 (0.6-4.6) K/mcL Monocytes # 0.7 (0.0-1.3) K/mcL Eosinophils # 0.3 (0.0-0.6) K/mcL Basophils # 0.1 (0.0-0.2) K/mcL Sodium 133 L (136-145) mEq/L Potassium 3.2 L (3.5-4.5) mEq/L Chloride 90 L (98-109) mEq/L Carbon Dioxide 27 (19-29) mEq/L BUN 14 (7-20) mg/dL Creatinine 0.74 (0.57-1.11) mg/dL Est GFR ( Amer) > 60 (> 60) Est GFR (Non-Af Amer) > 60 (> 60) BUN/Creatinine Ratio 19 (6-26) Glucose 171 H (70-99) mg/dL Calculated Osmolality 281 (280-300) Lactic Acid 3.4 H (0.5-2.2) mmol/L Calcium 9.6 (8.6-10.8) mg/dL Troponin I (0-0.03) ng/mL 05/20/17 Range/Units 13:15 WBC (4.3-11.1) K/mcL RBC (3.82-4.97) M/mcL Hgb (11.5-15.4) g/dL Hct (35.3-44.9) % MCV (83.0-100.0) fL MCH (28.0-33.3) pg MCHC (31.6-35.5) g/dL RDW (11.5-14.5) % Plt Count (140-400) K/mcL MPV (9.4-12.4) fL Immature Gran % (0-4) % Seg Neutrophils % % Lymphocytes % % Monocytes % % Eosinophils % % Basophils % % Neutrophils # (1.6-8.9) K/mcL Lymphocytes # (0.6-4.6) K/mcL Monocytes # (0.0-1.3) K/mcL Eosinophils # (0.0-0.6) K/mcL Basophils # (0.0-0.2) K/mcL Sodium (136-145) mEq/L Potassium (3.5-4.5) mEq/L Chloride (98-109) mEq/L Carbon Dioxide (19-29) mEq/L BUN (7-20) mg/dL Creatinine (0.57-1.11) mg/dL Est GFR ( Amer) (> 60) Est GFR (Non-Af Amer) (> 60) BUN/Creatinine Ratio (6-26) Glucose (70-99) mg/dL Calculated Osmolality (280-300) Lactic Acid (0.5-2.2) mmol/L Calcium (8.6-10.8) mg/dL Troponin I 0.02 (0-0.03) ng/mL - EKG Data EKG attestation: Yes I reviewed and interpreted this EKG. EKG results narrative: Heart rate 88 bpm. NC interval 157 seconds. QTC 43 ms. Normal sinus rhythm. No ST elevation or ST depression noted. EKG similar in appearance to EKG from May 04. Attestation Statement - Attestation Attestation: I examined this patient and my medical decision-making was reviewed with the Resident Physician. I agree with the documented findings, disposition and treatment plan as described except to the extent set forth below. Aspiration pneumonia, patient has chronic aspiration pneumonia at this time and has ongoing symptoms of sepsis. We will admit for further antibiotic treatment, patient has ENT follow-up for surgical intervention of ongoing aspiration next week.
[2017-05-20] MEDS ORDERED: Ipratropium/Albuterol Neb 3 ML IH ONE (15:05)
[2017-05-20 15:32] LABS: Basophils # 0.1 K/mcL (0.0-0.2); Basophils % 0.6 %; Eosinophils # 0.3 K/mcL (0.0-0.6); Eosinophils % 2.6 %; Hematocrit 45.6 % (35.3-44.9); Immature Granulocytes % 0.6 % (0-4); Lymphocytes # 2.2 K/mcL (0.6-4.6); Lymphocytes % 17.6 %; Mean Corpuscular HGB Conc 31.8 g/dL (31.6-35.5); Mean Corpuscular Hemoglobin 26.4 pg (28.0-33.3); Mean Corpuscular Volume 83.1 fL (83.0-100.0); Mean Platelet Volume 9.5 fL (9.4-12.4); Monocytes # 0.7 K/mcL (0.0-1.3); Monocytes % 5.3 %; Neutrophils # 9.2 K/mcL (1.6-8.9); Platelet Count 412 K/mcL (140-400); Red Blood Count 5.49 M/mcL (3.82-4.97); Red Cell Distribution Width 14.3 % (11.5-14.5); Segmented Neutrophils % 73.3 %
[2017-05-20 15:39] LABS: BUN/Creatinine Ratio 19 (6-26); Blood Urea Nitrogen 14 mg/dL (7-20); Calcium 9.6 mg/dL (8.6-10.8); Carbon Dioxide 27 mEq/L (19-29); Chloride 90 mEq/L (98-109); Glucose 171 mg/dL (70-99); Osmolality,Calculated 281 (280-300); Potassium 3.2 mEq/L (3.5-4.5); Sodium 133 mEq/L (136-145); eGFR For African Americans > 60 (> 60); eGFR For Non-African Americans > 60 (> 60)
[2017-05-20 16:09] LABS: Hemoglobin 14.5 g/dL (11.5-15.4)
[2017-05-20] MEDS ORDERED: 0.9 % Sodium Chloride 1,000 ML IVC ONE ×2 (16:13)
[2017-05-20] MEDS ORDERED: Piperacillin/Tazobactam 3.375 GM in D5% in Water (Mini-Bag+) 100 ML IVPB ONE (16:32)
[2017-05-20] MEDS ORDERED: Piperacillin/Tazobactam 3.375 GM in Water for inj. (sterile) 20 ML IVP ONE (16:55)
[2017-05-20] MEDS ORDERED: Ibuprofen 400 MG TABLET PO PRN (22:23)
[2017-05-20] MEDS ORDERED: Ondansetron 4 MG/2 ML VIAL IVP PRN (22:23)
[2017-05-20] MEDS ORDERED: 0.9 % Sodium Chloride w KCl 20 MEQ/1,000 ML MLS IVC SCH (22:30)
[2017-05-20] MEDS ORDERED: OXcarbazepine 150 MG TABLET PO SCH (22:45)
[2017-05-20] MEDS ORDERED: Venlafaxine XR (24 HR) 75 MG CAP.ER.24H PO SCH (22:45)
[2017-05-20] MEDS: Ipratropium/Albuterol Neb 3 ML IH SCH (22:59)
--- NOTE | 2017-05-20 23:02 | Internal Med History&Physical ---
<Helio Stapleton - Last Filed: 05/20/17 23:11> Date of Encounter: 05/20/17 Time of Encounter: 20:30 Assessment and Plan (1) Shortness of breath Current visit: Yes Status: Acute Patient was recently hospitalized last March for aspiration PNA. Patient also has chronic GERD and dysphagia. 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 She subsequently underwent dilation procedure. Yesterday she underwent a swallow evaluation and started to develop shortness of breath. Given her history, there was concern that she might have developed aspiration PNA. She came into the ED slightly tachypneic with a RR of 21. She was afebrile and her pulse was normal. Her WBC was slightly elevated at 12.5. Her respiratory rate has normalized now and she currently does not meet SIRS criteria. Chest CT taken earlier today shows significant improvement in appearance of her R-sided PNA. Clinically she does not appear to have PNA and given that it can take up to 6 weeks to see significant radiologic improvement of PNA, she is currently fitting that timeline. Looking at ther CXR, there was no evidence of PNA but it does seem that the patient might have some underlying COPD, which, in addition to morbid obesity, is probably the cause of her SOB. However, I will put her on a prophylactic dose of doxycycline for now. (2) COPD (chronic obstructive pulmonary disease) Current visit: Yes Status: Acute - Duonebs q6hr - Prednisone 40 mg PO qd. Qualifiers: COPD type: unspecified COPD Qualified Code(s): J44.9 - Chronic obstructive pulmonary disease, unspecified (3) Chest pain Current visit: No Status: Acute Patient presenting with atypical chest pain symptoms. She complains that her chest pain is exacerbated from deep inspiration or with cough. Her EKG shows no ST elevations or acute ischemic changes when compared to her EKG from 05/13/17. Her last echocardiogram was done in 2017 and showed an EF of 65% with mild diastolic dysfunction. Troponin is negative. Given her presenting symptoms and test results, I believe her chest pain to be pleuritic in nature. Qualifiers: Chest pain type: unspecified Qualified Code(s): R07.9 - Chest pain, unspecified (4) Hypokalemia Current visit: No Status: Acute - IV fluids with 20 meq KCL. (5) GERD (gastroesophageal reflux disease) Current visit: Yes Status: Acute - Resumed home medications of omeprazole. Qualifiers: Esophagitis presence: esophagitis presence not specified Qualified Code(s) : K21.9 - Gastro-esophageal reflux disease without esophagitis (6) HTN (hypertension) Current visit: No Status: Chronic BP stable at 144/82. - Resumed home medication of amlodipine. Qualifiers: Hypertension type: essential hypertension Qualified Code(s): I10 - Essential (primary) hypertension (7) History of DVT (deep vein thrombosis) Current visit: No Status: Chronic She presented with no calf tenderness on exam. Examination of lower extremities was normal with no signs of swelling or pitting edema. (8) Leukocytosis Current visit: No Status: Resolved Qualifiers: Leukocytosis type: unspecified Qualified Code(s): D72.829 - Elevated white blood cell count, unspecified (9) History of pulmonary embolism Current visit: Yes Status: Resolved Recently had IVC filter removed 4 days ago. Well's criteria score of 1.5. Low risk. (10) Obesity Current visit: Yes Status: Chronic Qualifiers: Obesity type: unspecified obesity type Obesity classification: adult class 2 (BMI 35 - 39.9) Body mass index: BMI 39.0-39.9 Qualified Code(s): E66.9 - Obesity, unspecified; Z68.39 - Body mass index (BMI) 39.0-39.9, adult; Z68.39 - Body mass index (BMI) 39.0-39.9, adult (11) DVT prophylaxis Current visit: No Status: Acute - Lovenox 40 mg SQ qd. Internal Medicine - H&P: HPI Chief complaint: SOB/ chest pain Admitted From: Emergency Dept History of present illness: Ms. Mooney is a 51 year old female with a PMHx of recurrent PNA, PE, DVT, HLD, chronic GERD, and DVT with a PSx of recent IVF filter removal that presents for shortness of breath and chest pain. Patient was recently seeing Dr. Keller at [facility] for a swallowing evaluation where shortly afterwards she started developing some SOB and and minor chest pain. in regards to her SOB, it has been getting wrose since yesterday and has been occurring at rest. She denies any fever, coughing, wheezing, LOWE, dizziness, or light-headedness. In terms of her chest pain, she describes it as pressure like, located all across her chest, has been constant and getting gradually worse since yesterday, no radiation, no dumbness/ tingling, and is exacerbated by deep breaths. Patient reported to the ER today and was given fluids and started on antibiotics. Given her history of recurrent PNA, recent hospitalization for aspiration pneumonia, and the fact that her symptoms started after a swallow evaluation, she was admitted to the floor. Past Med Surg Social Fam HX - Past Medical History Medical history: arthritis, DVT, fibromyalgia, GERD, hyperlipidemia, hypertension, pulmonary embolus Psychiatric history: anxiety, bipolar, depression - Past Surgical History Surgical History: appendectomy, breast surgery, cholecystectomy, hysterectomy, knee replacement, orthopedic, other, sinus surgery, other - Social History Smoking Status: Never smoker Smokeless Tobacco Status: No Alcohol use: none Drug use: none - Family History Mother Living Status: Still Living Hx Family Cardiac Disorders: Yes Hx Family Cancer: Yes (Right breast, mastectomy) Father Hx Family Cardiac Disorders: Yes (HTN) Hx Family Endocrine Disorder: Yes (Diabetes) Internal Medicine - H&P: Meds Famotidine [Pepcid] 40 mg PO QAM 03/21/15 [History] Omeprazole [PriLOSEC] 40 mg PO QAM 03/21/15 [History] Celecoxib [Celebrex] 200 mg PO BID 01/30/16 [History] EPINEPHrine [Epipen] 0.3 mg IJ ONCE PRN 01/30/16 [History] Montelukast [Singulair] 10 mg PO HS 01/30/16 [History] Venlafaxine HCl [Venlafaxine HCl ER] 225 mg PO HS 01/30/16 [History] OXcarbazepine [Oxcarbazepine] 1,200 mg PO HS 03/24/16 [History] OXcarbazepine [Oxcarbazepine] 600 mg PO QAM 03/24/16 [History] Quetiapine Fumarate [Seroquel] 200 mg PO HS 03/24/16 [History] Ergocalciferol (VITAMIN D2) [Vitamin D2] 50,000 unit PO QMONTH 09/18/16 [History ] Nortriptyline [Pamelor] 25 mg PO HS 09/18/16 [History] diazePAM [Valium] 5 mg PO QID 09/18/16 [History] Gabapentin [Neurontin] 800 mg PO TID 10/01/16 [History] Oxygen 3 l IN HS 10/09/16 [History] Fluticasone Propionate Nasal [Flonase] 2 spr NS BID 11/03/16 [History] Azelastine HCl [Astepro] 2 spr NS DAILY 12/15/16 [History] Buspirone HCl [Buspar] 15 mg PO BID 02/23/17 [History] Simvastatin [Zocor] 10 mg PO HS #30 tablet 03/11/17 [Rx] Amlodipine Besylate 10 mg PO DAILY 05/04/17 [History] BuPROPion SR (12 HR) [Wellbutrin SR] 100 mg PO DAILY 05/18/17 [History] OxyCODONE/APAP 5/325 [Percocet 5/325 MG] 1 each PO Q6HR PRN #12 tablet 05/18/17 [Rx] 3 Allergy/AdvReac Type Severity Reaction Status Date / Time adhesive tape Allergy Blister Verified 05/20/17 14:42 latex Allergy Rash Verified 05/20/17 14:42 vancomycin AdvReac Itching Verified 05/20/17 14:42 All Systems PM: A 10-system review of systems was performed and is negative for pertinent findings except as documented above in the HPI. - Constitutional Constitutional: weakness, no chills, no fever(s) - Cardiovascular Cardiovascular ROS IM: chest pain, dyspnea, dyspnea on exertion, no lightheadedness, no palpitations - Respiratory Respiratory: dyspnea, dyspnea on exertion, pain on inspiration, pain with cough , no cough, no wheezing - Gastrointestinal Gastrointestinal: dysphagia, heartburn, no abdominal pain, no constipation, no diarrhea, no hematochezia, no nausea, no vomiting - Genitourinary Genitourinary: no dysuria, no hematuria - Musculoskeletal Musculoskeletal ROS IM: myalgias, stiffness - Neurological Neurological ROS: weakness, no dizziness, no headache(s) - Constitutional Vitals: Temp Pulse Resp BP Pulse Ox 98.4 F 75 16 128/76 96 05/20/17 18:44 05/20/17 18:44 05/20/17 18:44 05/20/17 18:44 05/20/17 18:44 General appearance: Present: A&O X 3, morbidly obese, pleasant, no acute distress, answers questions appropriately - ENT ENT exam: Present: mucous membranes moist, normal oropharynx - Respiratory Respiratory exam: Present: wheezes (Wheezing bilaterally.). Absent: chest wall tenderness, rales, rhonchi, tachypnea - Cardiovascular Cardiovascular exam: Present: RRR, +S1, +S2. Absent: tachycardia - GI/Abdominal GI/Abdominal exam: Present: normal bowel sounds, soft. Absent: guarding, rebound, tenderness - Extremities Exam Extremities exam: Present: full ROM, normal capillary refill, radial pulses palpable and symmetrical. Absent: calf tenderness, cyanotic, pedal edema, tenderness Additional comments: Pedal pulses intact and symmetrical bilaterally. Internal Med - H&P Results - Labs CBC & Chem 7: 05/20/17 13:15 05/20/17 13:15 <Al Burroughs - Last Filed: 05/21/17 03:47> Date of Encounter: 05/20/17 Internal Medicine - H&P: HPI History of present illness: Ms. Mooney is a 51 year old female All Systems PM: A 10-system review of systems was performed and is negative for pertinent findings except as documented above in the HPI. - Constitutional Vitals: Temp Pulse Resp BP Pulse Ox 97.9 F 84 18 139/87 91 05/21/17 03:03 05/21/17 03:03 05/21/17 03:37 05/21/17 03:03 05/21/17 03:37 Internal Med - H&P Results - Labs CBC & Chem 7: 05/20/17 13:15 05/20/17 13:15 - Attending Attestation Patient was seen Dec , I personally seen and examined the patient and discuss with resident. Chest shallow breath sounds however diffuse wheezing, in the abdomen soft nontender no organomegaly was on active extremities no edema neuro nonfocal. [facility] requested to admit patient as aspiration pneumonia. CT chest reviewed showed resolving pneumonia from March. Patient does not have any clinical signs either. I suspect she has untreated emphysema as well as acute bronchitis. Doxycycline nebulizer and read his own recommended and she can be discharged home tomorrow.
[2017-05-20] MEDS: predniSONE 20 MG TABLET PO SCH (23:11)
[2017-05-20] MEDS: Doxycycline 100 MG CAPSULE PO SCH (23:13)
[2017-05-20] MEDS: amLODIPine 5 MG TABLET PO SCH (23:13)
[2017-05-20] MEDS: BuPROPion SR (12 HR) 100 MG TABLET PO SCH (23:13)
[2017-05-20] MEDS: Celecoxib 200 MG CAPSULE PO SCH (23:28)
[2017-05-20] MEDS: AZELASTINE HCL NS SCH (23:29)
[2017-05-21] MEDS: Gabapentin 400 MG CAPSULE PO SCH ×2 (00:55→09:14)
[2017-05-21] MEDS ORDERED: Melatonin 3 MG TABLET PO ONE (03:04)
[2017-05-21] MEDS: Ipratropium/Albuterol Neb 3 ML IH SCH ×2 (03:35→10:28)
[2017-05-21 04:36] LABS: Basophils # 0.1 K/mcL (0.0-0.2); Basophils % 0.5 %; Eosinophils % 0.4 %; Hematocrit 42.4 % (35.3-44.9); Hemoglobin 13.3 g/dL (11.5-15.4); Immature Granulocytes % 0.8 % (0-4); Lymphocytes % 10.6 %; Mean Corpuscular HGB Conc 31.4 g/dL (31.6-35.5); Mean Corpuscular Hemoglobin 26.3 pg (28.0-33.3); Mean Corpuscular Volume 83.8 fL (83.0-100.0); Mean Platelet Volume 9.4 fL (9.4-12.4); Monocytes # 0.3 K/mcL (0.0-1.3); Monocytes % 3.2 %; Neutrophils # 7.9 K/mcL (1.6-8.9); Platelet Count 336 K/mcL (140-400); Red Blood Count 5.06 M/mcL (3.82-4.97); Red Cell Distribution Width 14.5 % (11.5-14.5); Segmented Neutrophils % 84.5 %
[2017-05-21 04:57] LABS: BUN/Creatinine Ratio 16 (6-26); Blood Urea Nitrogen 11 mg/dL (7-20); Calcium 8.7 mg/dL (8.6-10.8); Carbon Dioxide 28 mEq/L (19-29); Chloride 93 mEq/L (98-109); Glucose 130 mg/dL (70-99); Osmolality,Calculated 283 (280-300); Potassium 3.6 mEq/L (3.5-4.5); Sodium 136 mEq/L (136-145); eGFR For African Americans > 60 (> 60); eGFR For Non-African Americans > 60 (> 60)
[2017-05-21] MEDS ORDERED: *HR* Enoxaparin 40 MG/0.4 ML SYRINGE SQ SCH (06:00)
[2017-05-21] MEDS ORDERED: Famotidine 20 MG TABLET PO SCH (09:00)
[2017-05-21] MEDS ORDERED: Gabapentin 400 MG CAPSULE PO SCH (09:00)
[2017-05-21] MEDS ORDERED: Fluticasone Propionate Nasal 50 MCG/SPRAY BOTTLE NS SCH (09:00)
[2017-05-21] MEDS ORDERED: OXcarbazepine 150 MG TABLET PO SCH (09:00)
[2017-05-21] MEDS: Celecoxib 200 MG CAPSULE PO SCH (09:05)
[2017-05-21] MEDS: Doxycycline 100 MG CAPSULE PO SCH (09:05)
[2017-05-21] MEDS: BuPROPion SR (12 HR) 100 MG TABLET PO SCH (09:05)
[2017-05-21] MEDS: amLODIPine 5 MG TABLET PO SCH (09:05)
[2017-05-21] MEDS: AZELASTINE HCL NS SCH (09:06)
[2017-05-21] MEDS: predniSONE 20 MG TABLET PO SCH (09:13)
--- NOTE | 2017-05-21 11:21 | Discharge Summary ---
Date of Encounter: 05/21/17 Time of Encounter: 10:05 - Discharge Diagnosis (1) Acute and chronic respiratory failure Priority: Secondary Status: Acute Comments: Patient wears oxygen at home at 2 L. She reports increasing shortness of breath and increased use of oxygen at home. She was discharged on her baseline 2 L. Qualifiers: Respiratory failure complication: unspecified whether with hypoxia or hypercapnia Qualified Code(s): J96.20 - Acute and chronic respiratory failure , unspecified whether with hypoxia or hypercapnia (2) Leukocytosis Priority: Secondary Status: Resolved Comments: Resolved. Qualifiers: Leukocytosis type: unspecified Qualified Code(s): D72.829 - Elevated white blood cell count, unspecified (3) COPD (chronic obstructive pulmonary disease) Priority: Secondary Status: Acute Comments: Acute exacerbation. Patient reports approximately 3 day history of increasing shortness of breath, body aches. She denies any cough above baseline. She said that she was having to use more oxygen and DuoNeb at home. Patient was already on doxycycline on arrival. It will be continued after discharge. Patient will be sent home with DuoNeb's, albuterol inhaler, and prednisone. Lungs are clear diminished. There is no wheezing, rhonchi, Rales, no respiratory distress. Chest x-ray was negative. Patient was admitted with mild leukocytosis which resolved. Patient had no fever or tachycardia. Patient had chest CT outlying hospital. There is significant interval improvement of prior right-sided pneumonia. There is mosaic lung attenuation suggestive of small airway obstructive disease. Patient is a nonsmoker. Qualifiers: COPD type: unspecified COPD Qualified Code(s): J44.9 - Chronic obstructive pulmonary disease, unspecified (4) GERD (gastroesophageal reflux disease) Priority: Secondary Status: Chronic Comments: Chronic. Continue home medications. Qualifiers: Esophagitis presence: esophagitis presence not specified Qualified Code(s) : K21.9 - Gastro-esophageal reflux disease without esophagitis (5) Shortness of breath Priority: Secondary Status: Chronic Comments: Patient reports increased shortness of both her normal baseline. Acute on chronic. Patient reports that she was feeling better on discharge. As above. (6) History of pulmonary embolism Priority: Secondary Status: Resolved (7) Obesity Priority: Secondary Status: Chronic Comments: Chronic. Lifestyle changes. Qualifiers: Obesity type: unspecified obesity type Obesity classification: adult class 2 (BMI 35 - 39.9) Body mass index: BMI 39.0-39.9 Qualified Code(s): E66.9 - Obesity, unspecified; Z68.39 - Body mass index (BMI) 39.0-39.9, adult; Z68.39 - Body mass index (BMI) 39.0-39.9, adult (8) DVT prophylaxis Priority: Secondary Status: Acute Comments: Lovenox subcutaneous. - Discharge Medications Prescriptions: Albuterol Sulfate [Albuterol Inhaler] 2 puff IH Q4HR PRN #1 hfa.aer.ad PRN Reason: Shortness Of Breath Ipratropium/Albuterol Neb [Duoneb] 3 ml IH [id number] PRN #30 inhsol PRN Reason: Shortness Of Breath Doxycycline 100 mg PO BID #14 capsule predniSONE [PredniSONE] 10 mg PO DAILY #31 tablet Home Medications: Famotidine [Pepcid] 40 mg PO QAM 03/21/15 [History] Omeprazole [PriLOSEC] 40 mg PO QAM 03/21/15 [History] Celecoxib [Celebrex] 200 mg PO BID 01/30/16 [History] EPINEPHrine [Epipen] 0.3 mg IJ ONCE PRN 01/30/16 [History] Montelukast [Singulair] 10 mg PO HS 01/30/16 [History] Venlafaxine HCl [Venlafaxine HCl ER] 225 mg PO HS 01/30/16 [History] OXcarbazepine [Oxcarbazepine] 1,200 mg PO HS 03/24/16 [History] OXcarbazepine [Oxcarbazepine] 600 mg PO QAM 03/24/16 [History] Quetiapine Fumarate [Seroquel] 200 mg PO HS 03/24/16 [History] Ergocalciferol (VITAMIN D2) [Vitamin D2] 50,000 unit PO QMONTH 09/18/16 [History ] Nortriptyline [Pamelor] 25 mg PO HS 09/18/16 [History] diazePAM [Valium] 5 mg PO QID 09/18/16 [History] Gabapentin [Neurontin] 800 mg PO TID 10/01/16 [History] Oxygen 3 l IN HS 10/09/16 [History] Fluticasone Propionate Nasal [Flonase] 2 spr NS BID 11/03/16 [History] Azelastine HCl [Astepro] 2 spr NS DAILY 12/15/16 [History] Buspirone HCl [Buspar] 15 mg PO BID 02/23/17 [History] Simvastatin [Zocor] 10 mg PO HS #30 tablet 03/11/17 [Rx] Amlodipine Besylate 10 mg PO DAILY 05/04/17 [History] BuPROPion SR (12 HR) [Wellbutrin SR] 100 mg PO DAILY 05/18/17 [History] OxyCODONE/APAP 5/325 [Percocet 5/325 MG] 1 each PO Q6HR PRN #12 tablet 05/18/17 [Rx] Albuterol Sulfate [Albuterol Inhaler] 2 puff IH Q4HR PRN #1 hfa.aer.ad 05/21/17 [Rx] Doxycycline 100 mg PO BID #14 capsule 05/21/17 [Rx] Ipratropium/Albuterol Neb [Duoneb] 3 ml IH [id number] PRN #30 inhsol 05/21/17 [Rx] predniSONE [PredniSONE] 10 mg PO DAILY #31 tablet 05/21/17 [Rx] Allergies/Adverse Reactions: 3 Allergy/AdvReac Type Severity Reaction Status Date / Time adhesive tape Allergy Blister Verified 05/20/17 14:42 latex Allergy Rash Verified 05/20/17 14:42 vancomycin AdvReac Itching Verified 05/20/17 14:42 Date of admission: 05/20/17 17:20 Primary care physician: Eduarda Abbasi MD Discharging clinician: Agustina Zuñiga Anticipated date of discharge: 05/21/17 - Patient Status Disposition: Home, Self-Care Condition: Good Functional capacity at discharge: independent ambulation Overall status at discharge: patient is progressing back to baseline - Discharge Instructions Instructions: Chronic Obstructive Pulmonary Disease (DC), Chronic Hypertension (DC) Additional Instructions: Use your medications as directed. Follow up with your PCP in the next 7-10 days for a follow up visit. Take your antibiotic as directed. Resume your normal activities as tolerated Resume your normal diet and and medications Return to the ER as needed for any other problems or concerns. - Diet and Activity Activity: increase activity as tolerated Diet: advance to your usual diet Hospital course: Ms. Mooney is a 51 year old female with past medical history of COPD, obesity, hypertension, prior PE, anxiety and depression, GERD. Patient presented with increasing shortness of breath the last 3 days. She reports body aches and increased use of 2 nebs and oxygen at home. She is return to baseline. She is in no distress. Patient had chest CT that showed improving pneumonia. Her lungs were clear. She was sent home with antibiotics, DuoNeb, prednisone, and her antibiotic. Patient will follow up with primary care. She was stable at discharge. - Time Spent with Patient Total time spent providing and/or coordinating discharge services: - Constitutional Vitals: Temp Pulse Resp BP Pulse Ox 98.1 F 89 16 146/84 97 05/21/17 07:40 05/21/17 07:40 05/21/17 10:29 05/21/17 07:40 05/21/17 10:29 General appearance: Present: cooperative, A&O X 3, morbidly obese, pleasant, no acute distress, answers questions appropriately - Head Head exam: Present: atraumatic, normal inspection, normocephalic - Eye Eye exam: Present: normal appearance, conjuntiva pink, sclera anicteric - Neck Neck exam general surgery: Present: normal inspection, supple, trachea midline. Absent: lymphadenopathy, tenderness - Respiratory Respiratory exam: Present: decreased breath sounds, CTAB. Absent: accessory muscle use, rales, respiratory distress, rhonchi, wheezes - Cardiovascular Cardiovascular exam: Present: RRR, +S1, +S2. Absent: diastolic murmur, gallop, rubs, systolic murmur - GI/Abdominal GI/Abdominal exam: Present: normal bowel sounds, soft. Absent: distended, hepatomegaly, tenderness - Extremities Exam Extremities exam: Present: warm, radial pulses palpable and symmetrical. Absent : calf tenderness, cyanotic, pedal edema - Neurological Exam Neurological exam: Present: alert, oriented X3, no focal deficits, pronater drift. Absent: facial droop, speech deficit - Skin Skin exam: Present: dry, intact, warm. Absent: rash
[2017-05-21 11:23] VITALS: BP 158/89
--- NOTE | 2017-05-21 18:41 | Electrocardiograph Report ---
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
== END 2017-05-21 14:13 | disposition home or self-care (01) ==
LOC: EMEROO 14:38 → 3BNU 14:38
PROVIDERS: ADMIT Registered Nurse; ATTEND Registered Nurse

== ENCOUNTER 2017-09-18 11:23 | Inpatient (IN) ==
[2017-09-18] MEDS ORDERED: Ondansetron ODT 4 MG TAB.RAPDIS SL ONE (11:37)
[2017-09-18] MEDS ORDERED: *HR* FentaNYL (PF) 100 MCG/2 ML VIAL IVP ONE (11:37)
[2017-09-18] MEDS ORDERED: *HR* FentaNYL (PF) 100 MCG/2 ML VIAL IM ONE ×2 (11:40→12:46)
--- NOTE | 2017-09-18 11:40 | Emergency Department Note ---
Disposition Clinical Impression: Accelerated hypertension, Chronic left shoulder pain Disposition: Admitted As Inpatient Condition: Fair Referrals: Judson Ribeiro MD [Primary Care Provider] - Forms: ED Satisfaction Letter Time of Disposition: 14:20 General Adult HPI - General Chief complaint: ED Extremity Injury, Upper Stated complaint: L shoulder pain Time Seen by Provider: 09/18/17 11:34 Source: patient Mode of arrival: ambulatory Limitations: no limitations Nursing Notes Reviewed: Yes Vital Signs Reviewed: Yes - History of Present Illness HPI Narrative: 52-year-old who has a history of chronic pain in her left shoulder is getting progressively worse. Patient was seen at the pain management doctor's today who sent him here for evaluation as the pain management doctor has ordered a CT scan but will not be done for a week. Patient cannot have an MRI as she has a stimulator in her back. Pain is much worse with movement. 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 Denies: chest pain, cough , fever/chills - Related Data Home Medications Medication Instructions Recorded Confirmed Celecoxib [Celebrex] 200 mg PO BID 01/30/16 09/18/17 EPINEPHrine [Epipen] 0.3 mg IJ ONCE PRN 01/30/16 09/18/17 Montelukast [Singulair] 10 mg PO HS 01/30/16 09/18/17 OXcarbazepine [Oxcarbazepine] 1,200 mg PO HS 03/24/16 09/18/17 Ergocalciferol (VITAMIN D2) 50,000 unit PO QMONTH 09/18/16 09/18/17 [Vitamin D2] Nortriptyline [Pamelor] 25 mg PO HS 09/18/16 09/18/17 diazePAM [Valium] 5 mg PO QID 09/18/16 09/18/17 Gabapentin [Neurontin] 800 mg PO TID 10/01/16 09/18/17 Fluticasone Propionate Nasal 2 spray NS DAILY 11/03/16 09/18/17 [Flonase] Azelastine HCl [Astepro] 2 spray NS DAILY 12/15/16 09/18/17 Buspirone HCl [Buspar] 15 mg PO BID 02/23/17 09/18/17 Aspirin Enteric Coated [Aspirin EC] 325 mg PO DAILY 09/18/17 09/18/17 Cetirizine HCl [Zyrtec] 10 mg PO DAILY 09/18/17 09/18/17 Esomeprazole Magnesium [Nexium] 40 mg PO DAILY 09/18/17 09/18/17 Methocarbamol [Robaxin-750] 750 mg PO TID PRN 09/18/17 09/18/17 Metoclopramide [Reglan] 5 mg PO TID 09/18/17 09/18/17 Promethazine [Phenergan] 25 mg PO Q6H PRN 09/18/17 09/18/17 Quetiapine Fumarate [SEROquel] 250 mg PO HS 09/18/17 09/18/17 Topiramate [Topamax] 100 mg PO BID 09/18/17 09/18/17 Tramadol HCl [Ultram] 50 mg PO TID PRN 09/18/17 09/18/17 Venlafaxine XR (24 HR) [Effexor XR] 300 mg PO DAILY 09/18/17 09/18/17 predniSONE [PredniSONE] 40 mg PO DAILY PRN 09/18/17 09/18/17 Previous Rx's Medication Instructions Recorded Albuterol Sulfate [Albuterol 2 puff IH Q4HR PRN #1 hfa.aer.ad 05/21/17 Inhaler] Allergies Allergy/AdvReac Type Severity Reaction Status Date / Time adhesive tape Allergy Blister Verified 09/18/17 11:25 latex Allergy Rash Verified 09/18/17 11:25 vancomycin AdvReac Itching Verified 09/18/17 11:25 All systems ED: reviewed and negative except as stated. Constitutional: Denies: fever, chills, weakness, weight change Eyes: Denies: eye pain, eye discharge, vision change ENT ED: Denies: ear pain, throat pain, dental pain, hearing loss, epistaxis, congestion, dysphagia Cardiovascular: Denies: chest pain, palpitations, dyspnea on exertion, edema, syncope Respiratory: Denies: cough, dyspnea, wheezes, hemoptysis, stridor Gastrointestinal: Denies: abdominal pain, nausea, vomiting, diarrhea, constipation, hematemesis, melena, hematochezia Genitourinary: Denies: dysuria, frequency, hematuria, discharge Musculoskeletal: Reports: arthralgia. Denies: back pain, neck pain, myalgia Integumentary: Denies: rash, abrasion, lesions Neurological: Denies: headache, weakness, numbness, paresthesias, confusion, abnormal gait, vertigo Psychiatric: Denies: anxiety, depression, suicidal thoughts, homicidal thoughts , auditory hallucinations, visual hallucinations Endocrine: Denies: fatigue Hematological/Lymphatic: Denies: easy bleeding, easy bruising Allergic/Immunologic: Denies: facial swelling, urticaria Past Medical History - Past Medical History Medical history: Reports: arthritis, DVT, fibromyalgia, GERD, hyperlipidemia, hypertension, pulmonary embolus Surgical history: Reports: appendectomy, breast surgery, cholecystectomy, hysterectomy, knee replacement, orthopedic, other, sinus surgery, other Psychiatric history: Reports: anxiety, bipolar, depression 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 - Social History Smoking Status: Never smoker Smokeless Tobacco Status: No Alcohol use: Reports: none Drug use: Reports: none Physical Exam - General Limitations: no limitations General appearance: alert - Head Head exam: atraumatic, normocephalic, normal inspection - Eye Eye exam: Present: normal appearance, PERRL, EOMI - ENT ENT exam: normal exam, normal oropharynx, mucous membranes moist - Neck Neck exam: Present: normal inspection, full ROM, trachea midline - Chest Chest inspection: Present: normal inspection, symmetric chest wall rise - Respiratory Respiratory exam: Present: normal lung sounds bilaterally - Cardiovascular Cardiovascular exam: Present: regular rate, normal rhythm, normal heart sounds - Abdominal Exam Abdominal exam: Present: soft, Non-Tender. Absent: tenderness, distention, guarding, rebound, rigidity - Expanded Upper Extremity Exam Shoulder exam: Present: tenderness (Anterior left shoulder), other (Significant pain with abduction greater than 45 degrees.) - Expanded Lower Extremity Exam Neurovascular/Tendon exam: Absent: motor deficit, sensory deficit, tendon deficit Gait: observed and normal - Back Exam Back exam: Present: normal inspection, full ROM. Absent: tenderness - Neurological Exam Neurological exam: Present: alert, oriented X3 - Psychiatric Psychiatric exam: Present: normal affect, normal mood - Skin Skin exam: Present: warm, dry, intact, normal color Course - Reevaluation(s) Reevaluation #1: 52-year-old female with chronic shoulder pain CT for acute findings but has had persistent elevated hypertension. Patient says intermittently she will have this. Her diastolic is been consistently about 120 we went ahead and started a nicardipine drip and will admit the patient. Blood pressures in both arms were equal. Time: 14:19 - Consultations Consultation #1: Discussed with Dr. Srinivasan, admit. Time: 14:19 Vital Signs Temperature 97.5 F L 09/18/17 11:25 Pulse Rate 106 09/18/17 11:25 Respiratory Rate 20 09/18/17 11:25 Blood Pressure 198/127 09/18/17 11:25 O2 Sat by Pulse Oximetry 92 09/18/17 11:25 Temperature 97.5 F L 09/18/17 11:25 Pulse Rate 94 09/18/17 16:31 Respiratory Rate 16 09/18/17 15:51 Blood Pressure 157/80 09/18/17 16:31 O2 Sat by Pulse Oximetry 92 09/18/17 15:51 Oxygen Delivery Oxygen Delivery Nasal Cannula Medical Decision Making - Lab Data Lab results reviewed: Yes I reviewed the patient's lab results. Result diagrams: 09/18/17 13:14 09/18/17 13:14 Lab Results 09/18/17 09/18/17 Range/Units 13:14 13:14 WBC 10.6 (4.3-11.1) K/mcL RBC 5.06 H (3.82-4.97) M/mcL Hgb 13.6 (11.5-15.4) g/dL Hct 43.8 (35.3-44.9) % MCV 86.6 (83.0-100.0) fL MCH 26.9 L (28.0-33.3) pg MCHC 31.1 L (31.6-35.5) g/dL RDW 14.9 H (11.5-14.5) % Plt Count 366 (140-400) K/mcL MPV 9.3 L (9.4-12.4) fL Immature Gran % 1.2 (0-4) % Seg Neutrophils % 88.4 % Lymphocytes % 7.5 % Monocytes % 2.2 % Eosinophils % 0.1 % Basophils % 0.6 % Neutrophils # 9.4 H (1.6-8.9) K/mcL Lymphocytes # 0.8 (0.6-4.6) K/mcL Monocytes # 0.2 (0.0-1.3) K/mcL Eosinophils # 0.0 (0.0-0.6) K/mcL Basophils # 0.1 (0.0-0.2) K/mcL Nucleated RBCs/100 WBC 0.2 H (0) /100 WBC Sodium 132 L (136-145) mEq/L Potassium 4.5 (3.5-5.1) mEq/L Chloride 100 (98-107) mEq/L Carbon Dioxide 25 (23-29) mEq/L BUN 13 (6-20) mg/dL Creatinine 0.56 L (0.60-1.20) mg/dL Est GFR ( Amer) > 60 (> 60) Est GFR (Non-Af Amer) > 60 (> 60) BUN/Creatinine Ratio 23 (6-26) Glucose 232 H (70-105) mg/dL Calculated Osmolality 282 (280-300) Calcium 9.2 (8.6-10.3) mg/dL Troponin I < 0.03 (< 0.04) ng/mL - Radiology Data Radiology results reviewed: Yes I reviewed the patient's radiology results. Shoulder CT 09/18/17 11:35 IMPRESSION: 1. No acute osseous abnormality. 2. Mild glenohumeral degenerative changes. 3. Mild acromioclavicular degenerative changes. D/ / Neel Connelly MD / Neel Connelly MD Interpreting Provider: Neel Connelly MD Chest X-Ray 09/18/17 12:06 IMPRESSION: 1. Low lung volumes with bibasilar atelectasis. 2. Stable cardiomegaly without overt failure. D/ / Rubio Blair MD / Rubio Blair MD Interpreting Provider: Rubio Blair MD - EKG Data EKG #1 EKG attestation: Yes I reviewed and interpreted this EKG. EKG shows normal: sinus rhythm Rate: normal Rhythm: NSR Gardner/QRS: normal QRS morphology: poor R-wave progression Interpretation: no acute changes EKG #2 EKG attestation: Yes I reviewed and interpreted this EKG. EKG shows normal: sinus rhythm Rate: normal Rhythm: NSR When compared to previous EKG there are: no significant changes Interpretation: no acute changes Critical Care Time Critical Care Time: Yes Total Critical Care Time: 35 Attestation: The high probability of a clinically significant, sudden or life threatening deterioration of the [cardiovascular] system(s) required my full and direct attention, intervention and personal management. The aggregate critical care time was [35] minutes. This time is in addition to time spent performing reported procedures but includes the following: [x] Data Review and interpretation [x] Patient assessment and monitoring of vital signs [x] Documentation [x] Medication orders and management
[2017-09-18 13:26] LABS: Basophils # 0.1 K/mcL (0.0-0.2); Basophils % 0.6 %; Eosinophils % 0.1 %; Hematocrit 43.8 % (35.3-44.9); Hemoglobin 13.6 g/dL (11.5-15.4); Immature Granulocytes % 1.2 % (0-4); Lymphocytes # 0.8 K/mcL (0.6-4.6); Lymphocytes % 7.5 %; Mean Corpuscular HGB Conc 31.1 g/dL (31.6-35.5); Mean Corpuscular Hemoglobin 26.9 pg (28.0-33.3); Mean Corpuscular Volume 86.6 fL (83.0-100.0); Mean Platelet Volume 9.3 fL (9.4-12.4); Monocytes # 0.2 K/mcL (0.0-1.3); Monocytes % 2.2 %; Neutrophils # 9.4 K/mcL (1.6-8.9); Nucleated Red Blood Cells 0.2 /100 WBC (0); Platelet Count 366 K/mcL (140-400); Red Blood Count 5.06 M/mcL (3.82-4.97); Red Cell Distribution Width 14.9 % (11.5-14.5); Segmented Neutrophils % 88.4 %
[2017-09-18 13:48] LABS: Troponin I < 0.03 ng/mL (< 0.04)
[2017-09-18 13:49] LABS: BUN/Creatinine Ratio 23 (6-26); Blood Urea Nitrogen 13 mg/dL (6-20); Calcium 9.2 mg/dL (8.6-10.3); Carbon Dioxide 25 mEq/L (23-29); Chloride 100 mEq/L (98-107); Glucose 232 mg/dL (70-105); Osmolality,Calculated 282 (280-300); Potassium 4.5 mEq/L (3.5-5.1); Sodium 132 mEq/L (136-145); eGFR For African Americans > 60 (> 60); eGFR For Non-African Americans > 60 (> 60)
[2017-09-18] MEDS ORDERED: niCARdipine 40 MG/200 ML MLS IVC SCH (14:15)
[2017-09-18] MEDS ORDERED: Azithromycin 500 MG in D5% in Water 250 ML IVPB ONE (18:09)
[2017-09-18] MEDS ORDERED: cefTRIAXone 1,000 MG in Water for inj. (sterile) 20 ML 10 ML IVP ONE (18:09)
[2017-09-18] MEDS ORDERED: Acetaminophen 325 MG TABLET PO PRN (19:04)
[2017-09-18] MEDS ORDERED: Naloxone 0.4 MG/ML INJ IVP PRN (19:04)
[2017-09-18] MEDS ORDERED: traMADol 50 MG TABLET PO PRN (19:04)
[2017-09-18] MEDS ORDERED: Dextrose Gel 15 GM/37.5 ML TUBE PO PRN ×2 (19:07)
[2017-09-18] MEDS ORDERED: *HR* Dextrose 50 % in Water (Syg) 50 ML SYRINGE IVP PRN (19:07)
[2017-09-18] MEDS ORDERED: D5% in Water 1,000 ML IVC PRN (19:07)
--- NOTE | 2017-09-18 19:23 | Internal Med History&Physical ---
Date of Encounter: 09/18/17 Time of Encounter: 19:23 Internal Medicine - H&P: HPI Chief complaint: Left arm pain Admitted From: Emergency Dept Plans for Post Hospital Care: Home History of present illness: Ms. Mooney is a 52 year old female with multiple medical and psychiatric issues , who presents with c/o- left-sided shoulder and arm pain. Patient reports that her primary complaint is ongoing left shoulder blade pain, radiating to her shoulder and arm, unclear diagnosis, and she follows with Pain management for this. SHe presented to the clinic today due to acute worsening of her pain last night, where she was noted to have uncontrolled BP, and also reports chest heaviness, shortness of breath, headache and nausea. Patient is noted to be extremely noncompliant, known to me from previous admissions; she was supposed to be on lifelong anticoagulation and BP meds, which she chose to stop. SHe claims "her BP is only high because she gained some weight " recently. She is on multiple psych issues and uses PRN Prednisone for headaches per her; denies having DM although noted to have hyperglycemia. She also changed PCPs but noted to have Prednisone from previous PCP?! Past Med Surg Social Fam HX - Past Medical History Source: patient, old records reviewed Medical history: arthritis, COPD, DVT, fibromyalgia, GERD, hyperlipidemia, hypertension, pulmonary embolus Psychiatric history: anxiety, bipolar, depression - Past Surgical History Surgical History: appendectomy, breast surgery (breast reduction), , cholecystectomy, herniorrhaphy, hysterectomy, knee replacement, orthopedic, other (carpal tunnel release), sinus surgery, other - Social History Smoking Status: Never smoker Smokeless Tobacco Status: No Alcohol use: none Drug use: none Occupational status: disabled Current living situation: Home, With Family Activity Level: Independent ambulation Recent Out of Country Travel Within the Last 8 Weeks: No Exposure or Possible Exposure to Illness During Travel: No - Family History Mother Living Status: Still Living Hx Family Cardiac Disorders: Yes Hx Family Cancer: Yes (Right breast, mastectomy) Father Hx Family Cardiac Disorders: Yes (HTN) Hx Family Endocrine Disorder: Yes (Diabetes) Internal Medicine - H&P: Meds Celecoxib [Celebrex] 200 mg PO BID 01/30/16 [History] EPINEPHrine [Epipen] 0.3 mg IJ ONCE PRN 01/30/16 [History] Montelukast [Singulair] 10 mg PO HS 01/30/16 [History] OXcarbazepine [Oxcarbazepine] 1,200 mg PO HS 03/24/16 [History] Ergocalciferol (VITAMIN D2) [Vitamin D2] 50,000 unit PO QMONTH 09/18/16 [History ] Nortriptyline [Pamelor] 25 mg PO HS 09/18/16 [History] diazePAM [Valium] 5 mg PO QID 09/18/16 [History] Gabapentin [Neurontin] 800 mg PO TID 10/01/16 [History] Fluticasone Propionate Nasal [Flonase] 2 spray NS DAILY 11/03/16 [History] Azelastine HCl [Astepro] 2 spray NS DAILY 12/15/16 [History] Buspirone HCl [Buspar] 15 mg PO BID 02/23/17 [History] Albuterol Sulfate [Albuterol Inhaler] 2 puff IH Q4HR PRN #1 hfa.aer.ad 05/21/17 [Rx] Aspirin Enteric Coated [Aspirin EC] 325 mg PO DAILY 09/18/17 [History] Cetirizine HCl [Zyrtec] 10 mg PO DAILY 09/18/17 [History] Esomeprazole Magnesium [Nexium] 40 mg PO DAILY 09/18/17 [History] Methocarbamol [Robaxin-750] 750 mg PO TID PRN 09/18/17 [History] Metoclopramide [Reglan] 5 mg PO TID 09/18/17 [History] Promethazine [Phenergan] 25 mg PO Q6H PRN 09/18/17 [History] Quetiapine Fumarate [SEROquel] 250 mg PO HS 09/18/17 [History] Topiramate [Topamax] 100 mg PO BID 09/18/17 [History] Tramadol HCl [Ultram] 50 mg PO TID PRN 09/18/17 [History] Venlafaxine XR (24 HR) [Effexor XR] 300 mg PO DAILY 09/18/17 [History] predniSONE [PredniSONE] 40 mg PO DAILY PRN 09/18/17 [History] 3 Allergy/AdvReac Type Severity Reaction Status Date / Time adhesive tape Allergy Blister Verified 09/18/17 11:25 latex Allergy Rash Verified 09/18/17 11:25 vancomycin AdvReac Itching Verified 09/18/17 11:25 All Systems PM: A 10-system review of systems was performed and is negative for pertinent findings except as documented above in the HPI. - Constitutional Constitutional: no chills, no fever(s), no night sweats - EENT Eyes: no change in vision, no discharge, no pain, no photophobia Ears: no ear discharge, no ear pain, no tinnitus Nose, mouth and throat: no dysphagia, no nasal discharge, no neck pain, no sore throat - Cardiovascular Cardiovascular ROS IM: chest pain, lightheadedness - Respiratory Respiratory: no cough, no dyspnea, no wheezing, no excessive phlegm production - Gastrointestinal Gastrointestinal: nausea, no abdominal pain, no diarrhea, no hematemesis, no hematochezia, no melena, no vomiting - Genitourinary Genitourinary: no change in urinary stream, no dysuria, no flank pain, no hematuria - Musculoskeletal Musculoskeletal ROS IM: no numbness, no tingling - Integumentary Integumentary IM: no rash, no unusual bruising - Neurological Neurological ROS: headache(s), no confusion, no convulsions, no focal weakness, no numbness, no tingling, no tremor(s) - Hematologic/Lymphatic Hematologic/Lymphatic: no easy bruising - Constitutional Vitals: Temp Pulse Resp BP Pulse Ox 97.5 F L 101 16 136/91 98 09/18/17 11:25 09/18/17 19:19 09/18/17 19:19 09/18/17 19:19 09/18/17 19:19 General appearance: Present: A&O X 3, morbidly obese, answers questions appropriately - Respiratory Respiratory exam: Present: CTAB. Absent: accessory muscle use, rales, rhonchi, wheezes - Cardiovascular Cardiovascular exam: Present: RRR, +S1, +S2. Absent: diastolic murmur, gallop, rubs, systolic murmur - GI/Abdominal GI/Abdominal exam: Present: normal bowel sounds, soft (obese), no peritoneal signs. Absent: distended, tenderness - Extremities Exam Extremities exam: Present: full ROM, pedal edema (trace), warm, radial pulses palpable and symmetrical. Absent: calf tenderness, cyanotic - Neurological Exam Neurological exam: Present: CN II-XII intact, oriented X3, no focal deficits. Absent: pronater drift, facial droop, speech deficit - Skin Skin exam: Present: dry, intact Internal Med - H&P Results - Labs CBC & Chem 7: 09/18/17 13:14 09/18/17 13:14 - Assessment and plan (1) Hypertensive urgency Current Visit: Yes Status: Acute Assessment and plan: EKG reviewed independently- NSR, small Q waves in anteroseptal leads, LVH; Troponin normal; lactic acid 2.9; started on IV Nicardipine drip in ER; titrate and wean off with goal BP <150/90 ; no BP meds noted on home med list; start Norvasc and Metoprolol and titrate accordingly; low Na diet; continue Telemetry monitoring and cycle Troponins; (2) Morbid obesity Current Visit: Yes Status: Chronic (3) Chronic left shoulder pain Current Visit: Yes Status: Chronic Assessment and plan: continue pain control; pain management f/up as outpatient; (4) COPD (chronic obstructive pulmonary disease) Current Visit: Yes Status: Chronic Assessment and plan: not on home O2; continue PRN breathing treatments; Qualifiers: COPD type: unspecified COPD Qualified Code(s): J44.9 - Chronic obstructive pulmonary disease, unspecified (5) Pneumonia Current Visit: Yes Status: Acute Assessment and plan: CTA chest shows no PE, possible RUL PNA; patient does report weakness, dizziness ; f/up blood cultures and continue IV Levaquin; received a dose of Rocephin and Zithromax; supplemental O2 and supportive care; Qualifiers: Pneumonia type: due to unspecified organism Laterality: right Lung location: upper lobe of lung Qualified Code(s): J18.1 - Lobar pneumonia, unspecified organism (6) Bipolar disorder Current Visit: Yes Status: Chronic Assessment and plan: continue home meds; Qualifiers: Active/Remission status: remission status unspecified Qualified Code(s): F31.9 - Bipolar disorder, unspecified (7) Fibromyalgia Current Visit: Yes Status: Chronic Assessment and plan: continue home meds; (8) HTN (hypertension) Current Visit: Yes Status: Chronic Assessment and plan: BP management as above; Qualifiers: Hypertension type: essential hypertension Qualified Code(s): I10 - Essential (primary) hypertension (9) VTE (venous thromboembolism) Current Visit: Yes Status: Chronic Assessment and plan: h/o- VTE; has been on Xarelto; she reports she is not on AC anymore; - Time Spent With Patient Total time spent is greater than 50% in coordination of care (as documented) at patient's floor/unit and/or counseling patient:
[2017-09-18] MEDS ORDERED: OXcarbazepine 150 MG TABLET PO SCH (21:00)
[2017-09-18] MEDS ORDERED: Insulin LISPRO 300 UNITS/3 ML VIAL SQ SCH (21:00)
[2017-09-18] MEDS: *HR* OxyCODONE Immed Rel 5 MG TABLET PO PRN (22:38)
[2017-09-18] MEDS: diazePAM 5 MG TABLET PO SCH (22:39)
[2017-09-18] MEDS: Gabapentin 400 MG CAPSULE PO SCH (22:39)
[2017-09-18] MEDS: Topiramate 100 MG TABLET PO SCH (22:39)
[2017-09-18] MEDS: Celecoxib 200 MG CAPSULE PO SCH (23:23)
[2017-09-18] MEDS: *HR* Heparin 5,000 UNIT/ML VIAL SQ SCH (23:23)
[2017-09-19 01:56] LABS: Basophils # 0.1 K/mcL (0.0-0.2); Basophils % 0.4 %; Eosinophils # 0.2 K/mcL (0.0-0.6); Eosinophils % 1.4 %; Hematocrit 38.7 % (35.3-44.9); Hemoglobin 12.2 g/dL (11.5-15.4); Immature Granulocytes % 0.9 % (0-4); Lymphocytes # 2.5 K/mcL (0.6-4.6); Lymphocytes % 18.3 %; Mean Corpuscular HGB Conc 31.5 g/dL (31.6-35.5); Mean Corpuscular Hemoglobin 27.6 pg (28.0-33.3); Mean Corpuscular Volume 87.6 fL (83.0-100.0); Mean Platelet Volume 9.4 fL (9.4-12.4); Monocytes # 1.2 K/mcL (0.0-1.3); Monocytes % 8.6 %; Neutrophils # 9.4 K/mcL (1.6-8.9); Platelet Count 339 K/mcL (140-400); Red Blood Count 4.42 M/mcL (3.82-4.97); Red Cell Distribution Width 15.1 % (11.5-14.5); Segmented Neutrophils % 70.4 %
[2017-09-19 02:24] LABS: BUN/Creatinine Ratio 26 (6-26); Blood Urea Nitrogen 15 mg/dL (6-20); Calcium 8.6 mg/dL (8.6-10.3); Carbon Dioxide 30 mEq/L (23-29); Chloride 102 mEq/L (98-107); Chol/HDL Ratio 3.4 (0-4.9); Cholesterol 179 mg/dL (< 200); Glucose 108 mg/dL (70-105); HDL Cholesterol 53 mg/dL (40-59); LDL Cholesterol,Calculated 74 mg/dL (0-99); Osmolality,Calculated 291 (280-300); Potassium 4.1 mEq/L (3.5-5.1); Sodium 140 mEq/L (136-145); Triglycerides 258 mg/dL (< 150); eGFR For African Americans > 60 (> 60); eGFR For Non-African Americans > 60 (> 60)
[2017-09-19] MEDS: Insulin LISPRO 300 UNITS/3 ML VIAL SQ SCH ×2 (08:15→11:55)
[2017-09-19] MEDS: Gabapentin 400 MG CAPSULE PO SCH ×2 (08:21→15:04)
[2017-09-19] MEDS: Celecoxib 200 MG CAPSULE PO SCH (08:21)
[2017-09-19] MEDS: Topiramate 100 MG TABLET PO SCH (08:21)
[2017-09-19] MEDS: diazePAM 5 MG TABLET PO SCH ×2 (08:22→13:08)
[2017-09-19] MEDS: *HR* Heparin 5,000 UNIT/ML VIAL SQ SCH (08:22)
[2017-09-19] MEDS ORDERED: Levofloxacin 500 MG/100 ML 500 MG/100 ML BAG IVPB SCH (09:00)
[2017-09-19] MEDS ORDERED: Venlafaxine XR (24 HR) 150 MG CAP.ER.24H PO SCH (09:00)
[2017-09-19] MEDS ORDERED: Fluticasone Propionate Nasal 50 MCG/SPRAY BOTTLE NS SCH (09:00)
[2017-09-19] MEDS ORDERED: amLODIPine 5 MG TABLET PO SCH (09:00)
[2017-09-19] MEDS ORDERED: Aspirin Enteric Coated 325 MG Tablet PO SCH (09:00)
[2017-09-19 11:45] VITALS: BP 127/83
[2017-09-19] MEDS: *HR* OxyCODONE Immed Rel 5 MG TABLET PO PRN (11:55)
--- NOTE | 2017-09-19 13:32 | Discharge Summary ---
- NOTES TO OUTPATIENT PROVIDER Notes to Outpatient Provider: Follow-up in the office within one week. Follow- up community acquired pneumonia. We will need a follow-up chest x-ray in [address] abdomen and pelvis with below findings. Suggest evaluation if warranted. 2.4 x 1.2 x 0.9 cm cystic structure adjacent to the anterolateral vaginal. wall and at and superior to the level of the pubic symphysis, likely an. incidental Nohelia duct cyst. Other entities such as a ureteral diverticulum. are considered less likely. MRI would be helpful if clinically indicated. Date of Encounter: 09/19/17 Time of Encounter: 11:00 - Discharge Diagnosis (1) Pneumonia Priority: Primary Status: Acute Qualifiers: Pneumonia type: due to unspecified organism Laterality: right Lung location: upper lobe of lung Qualified Code(s): J18.1 - Lobar pneumonia, unspecified organism (2) HTN (hypertension) Priority: Primary Status: Chronic Qualifiers: Hypertension type: essential hypertension Qualified Code(s): I10 - Essential (primary) hypertension (3) VTE (venous thromboembolism) Priority: Secondary Status: Chronic (4) Fibromyalgia Priority: Secondary Status: Chronic (5) Bipolar disorder Priority: Secondary Status: Chronic Qualifiers: Active/Remission status: remission status unspecified Qualified Code(s): F31.9 - Bipolar disorder, unspecified (6) COPD (chronic obstructive pulmonary disease) Priority: Secondary Status: Chronic Qualifiers: COPD type: unspecified COPD Qualified Code(s): J44.9 - Chronic obstructive pulmonary disease, unspecified (7) Chronic left shoulder pain Priority: Secondary Status: Chronic (8) Hypertensive urgency Priority: Primary Status: Acute (9) Morbid obesity Priority: Secondary Status: Chronic Hospital course: History of present illness: Ms. Mooney is a 52 year old female with multiple medical and psychiatric issues , who presents with c/o- left-sided shoulder and arm pain. Patient reports that her primary complaint is ongoing left shoulder blade pain, radiating to her shoulder and arm, unclear diagnosis, and she follows with Pain management for this. SHe presented to the clinic today due to acute worsening of her pain last night, where she was noted to have uncontrolled BP, and also reports chest heaviness, shortness of breath, headache and nausea. Patient is noted to be extremely noncompliant, known to me from previous admissions; she was supposed to be on lifelong anticoagulation and BP meds, which she chose to stop. SHe claims "her BP is only high because she gained some weight " recently. She is on multiple psych issues and uses PRN Prednisone for headaches per her; denies having DM although noted to have hyperglycemia. 09/19/17: Patient had an uncomplicated hospital course. Presuming her home medications her blood pressure normalized very quickly. She was off the nicardipine drip overnight. She states she has been compliant with her blood pressure medicines. She was breathing well and not felt to be having a COPD exacerbation. She did have a CT of her chest which showed right upper lobe pneumonia. He was given Rocephin and azithromycin in the emergency department and then transitioned to Levaquin. Will continue Levaquin for 5 more days. She did have a mild cough but otherwise no shortness of breath. Recommend outpatient chest x-ray in 4 weeks, to document complete resolution of her infiltrate. On day of discharge patient was ambulatory without any difficulty. He does have her chronic left shoulder pain related to a rotator cuff tear over a year ago for which she is following up with pain medicine, and orthopedic surgery. Patient otherwise doing well was deemed stable for discharge. She was ambulating well on room air. She will continue on her usual home blood pressure medications. On talking with her and appears that she is quite labile blood pressures. May be in part related to pain. Since admission her blood pressure control has been excellent. 34 minutes spent on discharge and coordination of care. Patient originally was expected to remain in the hospital for at least two midnights, however she improved much more rapidly than expected. Discharge discussed with: patient - Time Spent with Patient Total time spent providing and/or coordinating discharge services: Greater than 30 minutes (34 minutes) - Discharge Medications Home Medications: Celecoxib [Celebrex] 200 mg PO BID 01/30/16 [History] EPINEPHrine [Epipen] 0.3 mg IJ ONCE PRN 01/30/16 [History] Montelukast [Singulair] 10 mg PO HS 01/30/16 [History] OXcarbazepine [Oxcarbazepine] 1,200 mg PO HS 03/24/16 [History] Ergocalciferol (VITAMIN D2) [Vitamin D2] 50,000 unit PO QMONTH 09/18/16 [History ] Nortriptyline [Pamelor] 25 mg PO HS 09/18/16 [History] diazePAM [Valium] 5 mg PO QID 09/18/16 [History] Gabapentin [Neurontin] 800 mg PO TID 10/01/16 [History] Fluticasone Propionate Nasal [Flonase] 2 spray NS DAILY 11/03/16 [History] Azelastine HCl [Astepro] 2 spray NS DAILY 12/15/16 [History] Buspirone HCl [Buspar] 15 mg PO BID 02/23/17 [History] Albuterol Sulfate [Albuterol Inhaler] 2 puff IH Q4HR PRN #1 hfa.aer.ad 05/21/17 [Rx] Aspirin Enteric Coated [Aspirin EC] 325 mg PO DAILY 09/18/17 [History] Cetirizine HCl [Zyrtec] 10 mg PO DAILY 09/18/17 [History] Esomeprazole Magnesium [Nexium] 40 mg PO DAILY 09/18/17 [History] Methocarbamol [Robaxin-750] 750 mg PO TID PRN 09/18/17 [History] Metoclopramide [Reglan] 5 mg PO TID 09/18/17 [History] Promethazine [Phenergan] 25 mg PO Q6H PRN 09/18/17 [History] Quetiapine Fumarate [SEROquel] 250 mg PO HS 09/18/17 [History] Topiramate [Topamax] 100 mg PO BID 09/18/17 [History] Tramadol HCl [Ultram] 50 mg PO TID PRN 09/18/17 [History] Venlafaxine XR (24 HR) [Effexor XR] 300 mg PO DAILY 09/18/17 [History] predniSONE [PredniSONE] 40 mg PO DAILY PRN 09/18/17 [History] Allergies/Adverse Reactions: 3 Allergy/AdvReac Type Severity Reaction Status Date / Time adhesive tape Allergy Blister Verified 09/18/17 11:25 latex Allergy Rash Verified 09/18/17 11:25 vancomycin AdvReac Itching Verified 09/18/17 11:25 Date of admission: 09/18/17 19:04 Primary care physician: Judson Ribeiro MD - Constitutional Vitals: Temp Pulse Resp BP Pulse Ox 98.4 F 75 18 127/83 97 09/19/17 11:42 09/19/17 11:42 09/19/17 11:42 09/19/17 11:42 09/19/17 11:42 General appearance: Present: A&O X 3, morbidly obese, answers questions appropriately - Head Head exam: Present: atraumatic, normocephalic - Eye Eye exam: Present: PERRL, conjuntiva pink, sclera anicteric Pupils: Present: PERRL - Neck Neck exam general surgery: Present: supple, trachea midline. Absent: lymphadenopathy - Respiratory Respiratory exam: Present: CTAB. Absent: accessory muscle use, rales, rhonchi, wheezes - Cardiovascular Cardiovascular exam: Present: RRR, +S1, +S2. Absent: diastolic murmur, gallop, rubs, systolic murmur - GI/Abdominal GI/Abdominal exam: Present: normal bowel sounds, soft, no peritoneal signs. Absent: distended, tenderness - Extremities Exam Extremities exam: Present: warm, radial pulses palpable and symmetrical. Absent : calf tenderness, cyanotic, pedal edema Additional comments: Left Shoulder tenderness - Neurological Exam Neurological exam: Present: CN II-XII intact, oriented X3, no focal deficits. Absent: pronater drift, facial droop, speech deficit - Skin Skin exam: Present: dry, intact - Patient Status Disposition: Home, Self-Care Condition: Fair Overall status at discharge: patient is back to baseline - Discharge Instructions Follow Up With: Judson Ribeiro MD [Primary Care Provider] -
--- NOTE | 2017-09-20 08:40 | Electrocardiograph Report ---
[facility] Test Date: 2017-09-18 Pat Name: Minal Mooney Department: 102 Room: 2N05 Gender: F Geographic Information Systems Engineer: Makayla : 1965 Requested By: Nathan Sanford Order Number: [id number] Reading MD: Tor Zavala Measurements Intervals [place] Rate: 101 P: 43 [place]: 147 QRS: -13 QRSD: 106 T: 53 QT: 335 QTc: 393 Interpretive Statements SINUS TACHYCARDIA POSSIBLE ANTERIOR MYOCARDIAL INFARCTION [30 ms Q WAVE IN V3/V4, OR R < 0.2 mV IN V4], OF INDETERMINATE AGE Electronically Signed On 09-20-2017 8:38:25 EDT by Tor Zavala
--- NOTE | 2017-09-22 08:02 | Electrocardiograph Report ---
[address] [place] [address] Test Date: 2017-09-18 Pat Name: Minal Mooney Department: 103 Room: [facility] Gender: F Career Resource Specialist: CRISTIAN : 1965 Requested By: Nathan Sanford Order Number: [id number] Reading MD: Neel Monsivais Measurements Intervals [place] Rate: 95 P: 54 [place]: 143 QRS: -15 QRSD: 97 T: 29 QT: 355 QTc: 408 Interpretive Statements SINUS RHYTHM POSSIBLE LEFT ATRIAL ENLARGEMENT POSSIBLE ANTERIOR MYOCARDIAL INFARCTION, OF INDETERMINATE AGE Electronically Signed On 09-22-2017 8:00:47 EDT by Neel Monsivais
== END 2017-09-19 17:45 | disposition home or self-care (01) | DRG 304 ==
LOC: EMEROO 11:23 → 2NNU 11:23
PROVIDERS: ADMIT Internal Medicine; ATTEND Internal Medicine

== ENCOUNTER 2018-01-13 20:51 | Observation (INO) ==
[2018-01-14] MEDS ORDERED: Naloxone 0.4 MG/ML INJ IVP PRN (00:45)
[2018-01-14] MEDS ORDERED: Acetaminophen 325 MG TABLET PO PRN (00:48)
[2018-01-14] MEDS ORDERED: traMADol 50 MG TABLET PO PRN (00:49)
--- NOTE | 2018-01-14 01:35 | Internal Med History&Physical ---
Date of Encounter: 01/14/18 Time of Encounter: 01:00 Internal Medicine - H&P: HPI Chief complaint: s/p fall of a porch today after tripping over her dog History of present illness: Ms. Mooney is a 52 year old female with pmh of hypertension, dyslipidemia presenting with complains of having a fall today over her porch when she tripped over her dog. Patient says she was taken her dogs outside the hous and was on her porch when her largest dog accidentally tripped her and she fell about 5 feet off her porch and landed on her right foot. she says she subsequently had excruciating pain in her right lower extremity and severe left shoulder pain which she had just had surgery on. she denies being ill or any acute symptoms prior to the fall. She went to the Er and was noted to have a fibular fracture as well as an ankle fracture on CT of her ankle. She has no other acute fractures but has generalized body pain. Orthopedic surgery was consulted from [facility] Past Med Surg Social Fam HX - Past Medical History Medical history: arthritis, DVT, fibromyalgia, GERD, hypertension, pulmonary embolus Additional medical history: hiatal hernia, degenerative arthritis, anemia, stomach ulcer, PE, Psychiatric history: anxiety, bipolar, depression - Past Surgical History Surgical History: appendectomy, breast surgery, , cholecystectomy, herniorrhaphy, hysterectomy, knee replacement, orthopedic, other, sinus surgery , other Additional surgical history: right and left knee, tonsils, breast reduction, broken nose, , carpal tunnel, D&C - Social History Smoking Status: Never smoker Smokeless Tobacco Status: No Alcohol use: none Drug use: none - Family History Brother Hx Family Psychosocial Disorders: Yes (bipolar) Mother Living Status: Still Living Hx Family Cardiac Disorders: Yes (hypertension) Hx Family Cancer: Yes (stage 4 breast cancer '09; removed) Father Adopted: No Hx Family Cardiac Disorders: Yes (hypertension, hyperlipidemia) Hx Family Endocrine Disorder: Yes Hx Family Neurologic Disorders: Yes Internal Medicine - H&P: Meds Celecoxib [Celebrex] 200 mg PO BID 01/30/16 [History] EPINEPHrine [Epipen] 0.3 mg IJ ONCE PRN 01/30/16 [History] Montelukast [Singulair] 10 mg PO HS 01/30/16 [History] OXcarbazepine [Oxcarbazepine] 1,200 mg PO HS 03/24/16 [History] Ergocalciferol (VITAMIN D2) [Vitamin D2] 50,000 unit PO QMONTH 09/18/16 [History ] diazePAM [Valium] 5 mg PO QID 09/18/16 [History] Fluticasone Propionate Nasal [Flonase] 2 spray NS DAILY 11/03/16 [History] Azelastine HCl [Astepro] 2 spray NS DAILY 12/15/16 [History] Buspirone HCl [Buspar] 15 mg PO BID 02/23/17 [History] Albuterol Sulfate [Albuterol Inhaler] 2 puff IH Q4HR PRN #1 hfa.aer.ad 05/21/17 [Rx] Aspirin Enteric Coated [Aspirin EC] 325 mg PO DAILY 09/18/17 [History] Cetirizine HCl [Zyrtec] 10 mg PO DAILY 09/18/17 [History] Esomeprazole Magnesium [Nexium] 40 mg PO DAILY 09/18/17 [History] Methocarbamol [Robaxin-750] 750 mg PO TID PRN 09/18/17 [History] Metoclopramide [Reglan] 5 mg PO QPM 09/18/17 [History] Quetiapine Fumarate [Seroquel] 250 mg PO HS 09/18/17 [History] Topiramate [Topamax] 100 mg PO BID 09/18/17 [History] Venlafaxine XR (24 HR) [Effexor Xr] 300 mg PO DAILY 09/18/17 [History] Acetaminophen [Tylenol] 650 mg PO Q6HR PRN tablet 09/19/17 [Rx] Metoprolol [Lopressor] 25 mg PO BID 30 Days #60 tablet 09/19/17 [Rx] Hyoscyamine SL [Levsin Sl] 0.125 mg SL QID PRN 11/12/17 [History] Simvastatin [Zocor] 10 mg PO HS 11/12/17 [History] Sumatriptan [Imitrex] 20 mg NS ONCE PRN 11/12/17 [History] Clindamycin [Cleocin] 150 mg PO Q6HR #7 capsule 12/21/17 [Rx] HYDROcodone/Acet 5/325 mg [[place] 5-325 mg] 1 tab PO Q8H PRN 5 Days #15 tab 12/21 [Rx] Gabapentin [Neurontin] 800 mg PO TID PRN 01/14/18 [History] 3 Allergy/AdvReac Type Severity Reaction Status Date / Time adhesive tape Allergy Blister Verified 12/21/17 14:22 latex Allergy Rash Verified 12/21/17 14:22 vancomycin AdvReac Itching Verified 12/21/17 14:22 All Systems PM: A 10-system review of systems was performed and is negative for pertinent findings except as documented above in the HPI. - Constitutional Constitutional: no chills, no fever(s), no night sweats - EENT Eyes: no change in vision, no discharge, no pain, no photophobia Ears: no ear discharge, no ear pain, no tinnitus Nose, mouth and throat: no dysphagia, no nasal discharge, no neck pain, no sore throat - Cardiovascular Cardiovascular ROS IM: no chest pain, no diaphoresis, no dyspnea, no lightheadedness, no palpitations, no syncope - Respiratory Respiratory: no cough, no dyspnea, no wheezing, no excessive phlegm production - Gastrointestinal Gastrointestinal: no abdominal pain, no diarrhea, no hematemesis, no hematochezia, no melena, no nausea, no vomiting - Genitourinary Genitourinary: no change in urinary stream, no dysuria, no flank pain, no hematuria - Musculoskeletal Musculoskeletal ROS IM: no numbness, no tingling Additional comments: right fibular and ankle pain - Integumentary Integumentary IM: no rash, no unusual bruising - Neurological Neurological ROS: no confusion, no convulsions, no focal weakness, no numbness, no tingling, no tremor(s) - Hematologic/Lymphatic Hematologic/Lymphatic: no easy bruising - Constitutional Vitals: Temp Pulse Resp BP Pulse Ox 98.5 F 75 16 172/94 96 01/14/18 00:30 01/14/18 00:30 01/14/18 00:30 01/14/18 00:30 01/14/18 00:30 Exam: generalized body pain - Head Head exam: Present: atraumatic, normocephalic - Eye Eye exam: Present: PERRL, conjuntiva pink, sclera anicteric Pupils: Present: PERRL - Neck Neck exam general surgery: Present: supple, trachea midline. Absent: lymphadenopathy - Respiratory Respiratory exam: Present: CTAB. Absent: accessory muscle use, rales, rhonchi, wheezes - Cardiovascular Cardiovascular exam: Present: RRR, +S1, +S2. Absent: diastolic murmur, gallop, rubs, systolic murmur - GI/Abdominal GI/Abdominal exam: Present: normal bowel sounds, soft, no peritoneal signs. Absent: distended, tenderness - Extremities Exam Extremities exam: Present: warm, radial pulses palpable and symmetrical. Absent : calf tenderness, cyanotic, pedal edema Additional comments: right leg and foot heavily bandaged and braced - Neurological Exam Neurological exam: Present: CN II-XII intact, oriented X3, no focal deficits. Absent: pronater drift, facial droop, speech deficit - Skin Skin exam: Present: dry, intact Internal Med - H&P Results - Labs CBC & Chem 7: 01/14/18 04:37 01/14/18 04:37 - Assessment and plan (1) Fibula fracture Current Visit: Yes Status: Acute Assessment and plan: Pt has right fibular and ankle fracture. Has been braced and dressed. Pain control as needed. Orthopedic surgery to see in am Qualifiers: Encounter type: initial encounter Qualified Code(s): S82.409A - Unspecified fracture of shaft of unspecified fibula, initial encounter for closed fracture (2) Malleolar fracture Current Visit: Yes Status: Acute Assessment and plan: See #1. Right ankle fracture with Dressing in place. To be followed by orthopedic surgery Qualifiers: Qualified Code(s): S82.899A - Other fracture of unspecified lower leg, initial encounter for closed fracture (3) Hypertension Current Visit: Yes Status: Acute Assessment and plan: Continue beta blockers Qualifiers: Qualified Code(s): I10 - Essential (primary) hypertension (4) DVT prophylaxis Current Visit: No Status: Acute Assessment and plan: heparin sc (5) Bipolar disorder Current Visit: No Status: Chronic Assessment and plan: Continue quetiapine Qualifiers: Active/Remission status: remission status unspecified Qualified Code(s): F31.9 - Bipolar disorder, unspecified - Time Spent With Patient Total time spent is greater than 50% in coordination of care (as documented) at patient's floor/unit and/or counseling patient:
[2018-01-14] MEDS: *HR* Morphine 2 MG/ML SYRINGE IVP PRN ×3 (01:48→14:38)
[2018-01-14 04:56] LABS: Basophils # 0.1 K/mcL (0.0-0.2); Basophils % 0.6 %; Eosinophils # 0.4 K/mcL (0.0-0.6); Eosinophils % 3.7 %; Hematocrit 41.4 % (35.3-44.9); Hemoglobin 13.2 g/dL (11.5-15.4); Immature Granulocytes % 1.8 % (0-4); Lymphocytes % 18.8 %; Mean Corpuscular HGB Conc 31.9 g/dL (31.6-35.5); Mean Corpuscular Hemoglobin 28.3 pg (28.0-33.3); Mean Corpuscular Volume 88.8 fL (83.0-100.0); Mean Platelet Volume 9.4 fL (9.4-12.4); Monocytes # 0.8 K/mcL (0.0-1.3); Monocytes % 7.5 %; Platelet Count 278 K/mcL (140-400); Red Blood Count 4.66 M/mcL (3.82-4.97); Red Cell Distribution Width 14.6 % (11.5-14.5); Segmented Neutrophils % 67.6 %
[2018-01-14 05:28] LABS: BUN/Creatinine Ratio 35 (6-26); Blood Urea Nitrogen 21 mg/dL (6-20); Calcium 8.6 mg/dL (8.6-10.3); Carbon Dioxide 28 mEq/L (23-29); Chloride 106 mEq/L (98-107); Glucose 123 mg/dL (70-105); Osmolality,Calculated 280 (280-300); Potassium 4.3 mEq/L (3.5-5.1); Sodium 133 mEq/L (136-145); eGFR For Non-African Americans > 60 (> 60)
[2018-01-14] MEDS ORDERED: *HR* Heparin 5,000 UNIT/ML VIAL SQ SCH (06:00)
[2018-01-14] MEDS: Topiramate 100 MG TABLET PO SCH ×2 (10:00→21:43)
[2018-01-14] MEDS: Venlafaxine XR (24 HR) 150 MG CAP.ER.24H PO SCH (10:00)
--- NOTE | 2018-01-14 13:36 | Podiatry Consult Note ---
Date of Encounter: 01/14/18 Time of Encounter: 12:45 Assessment and Plan (1) Avulsion fracture of ankle Current visit: Yes Status: Acute CT scan of the right ankle reviewed by Dr. Long: showed a high fibular fracture and a small avulsion fracture from tibia. Consulted with Dr. Long and both of these fractures are non operative. Patient will require a tall cam boot (size 9.5) for stability for progressive protective weight bearing. Patient must remain strict non weight bearing at this time. Rest, ice, elevate, cj wrap for compression. Recommend PT/OT consult and social research assistant for discharge planning. Follow up with Dr. Nassar one week after discharge from hospital. Qualifiers: Encounter type: initial encounter Fracture type: closed Laterality: right Qualified Code(s): S82.891A - Other fracture of right lower leg, initial encounter for closed fracture (2) Fibula fracture Current visit: Yes Status: Acute CT scan of the right ankle reviewed by Dr. Long: showed a high fibular fracture and a small avulsion fracture from tibia. Consulted with Dr. Long and both of these fractures are non operative. Patient will require a tall cam boot (size 9.5) for stability for progressive protective weight bearing. Patient must remain strict non weight bearing at this time. Rest, ice, elevate, cj wrap for compression. Recommend PT/OT consult and social research assistant for discharge planning. Follow up with Dr. Nassar one week after discharge from hospital. Qualifiers: Encounter type: initial encounter Fracture type: closed Fracture morphology: unspecified fracture morphology Laterality: right Qualified Code (s): S82.401A - Unspecified fracture of shaft of right fibula, initial encounter for closed fracture History of Present Illness HPI: Ms. Mooney is a 52 year old female admitted to [facility] for a right ankle fracture. Patient has a medical history significant for arthritis, DVT, fibromyalgia, GERD, hypertension, pulmonary embolus, hiatal hernia, degenerative arthritis, anemia, stomach ulcer, anxiety, bipolar and depression. Patient states yesterday she was standing on her front porch and tripped over her dog and fell off of her porch onto her right leg and left shoulder. Patient states she felt severe pain in both her right ankle and left shoulder. Patient is s/p left shoulder arthroscopy on 12/21/[address] Shaw. Patient states she was on her way to her first Physical Therapy appointment prior to the fall. After the fall patients brought her to [facility] yesterday and patient was transferred to [facility] to be evaluated by Orthopedics and Podiatry. No c/o fever, chills, cp, sob, calf pain. Patient had a CT scan of the right ankle which showed a high fibular fracture and a small avulsion fracture from tibia. Patient is lying in bed with a posterior splint dry and intact. Patient states the pain is making her feel sick to her stomach. Past Med Surg Social Fam HX - Past Medical History Medical history: arthritis, DVT, fibromyalgia, GERD, hypertension, pulmonary embolus Additional medical history: hiatal hernia, degenerative arthritis, anemia, stomach ulcer, PE, Psychiatric history: anxiety, bipolar, depression - Past Surgical History Surgical History: appendectomy, breast surgery, , cholecystectomy, herniorrhaphy, hysterectomy, knee replacement, orthopedic, other, sinus surgery , other Additional surgical history: right and left knee, tonsils, breast reduction, broken nose, , carpal tunnel, D&C - Social History Smoking Status: Never smoker Smokeless Tobacco Status: No Alcohol use: none Drug use: none - Family History Brother Hx Family Psychosocial Disorders: Yes (bipolar) Mother Living Status: Still Living Hx Family Cardiac Disorders: Yes (hypertension) Hx Family Cancer: Yes (stage 4 breast cancer '09; removed) Father Adopted: No Hx Family Cardiac Disorders: Yes (hypertension, hyperlipidemia) Hx Family Endocrine Disorder: Yes Hx Family Neurologic Disorders: Yes Medications and Allergies Celecoxib [Celebrex] 200 mg PO BID 01/30/16 [History] EPINEPHrine [Epipen] 0.3 mg IJ ONCE PRN 01/30/16 [History] Montelukast [Singulair] 10 mg PO HS 01/30/16 [History] OXcarbazepine [Oxcarbazepine] 1,200 mg PO HS 03/24/16 [History] Ergocalciferol (VITAMIN D2) [Vitamin D2] 50,000 unit PO QMONTH 09/18/16 [History ] diazePAM [Valium] 5 mg PO QID 09/18/16 [History] Fluticasone Propionate Nasal [Flonase] 2 spray NS DAILY 11/03/16 [History] Azelastine HCl [Astepro] 2 spray NS DAILY 12/15/16 [History] Buspirone HCl [Buspar] 15 mg PO BID 02/23/17 [History] Albuterol Sulfate [Albuterol Inhaler] 2 puff IH Q4HR PRN #1 hfa.aer.ad 05/21/17 [Rx] Aspirin Enteric Coated [Aspirin EC] 325 mg PO DAILY 09/18/17 [History] Cetirizine HCl [Zyrtec] 10 mg PO DAILY 09/18/17 [History] Esomeprazole Magnesium [Nexium] 40 mg PO DAILY 09/18/17 [History] Methocarbamol [Robaxin-750] 750 mg PO TID PRN 09/18/17 [History] Metoclopramide [Reglan] 5 mg PO QPM 09/18/17 [History] Quetiapine Fumarate [Seroquel] 250 mg PO HS 09/18/17 [History] Topiramate [Topamax] 100 mg PO BID 09/18/17 [History] Venlafaxine XR (24 HR) [Effexor Xr] 300 mg PO DAILY 09/18/17 [History] Acetaminophen [Tylenol] 650 mg PO Q6HR PRN tablet 09/19/17 [Rx] Metoprolol [Lopressor] 25 mg PO BID 30 Days #60 tablet 09/19/17 [Rx] Hyoscyamine SL [Levsin Sl] 0.125 mg SL QID PRN 11/12/17 [History] Simvastatin [Zocor] 10 mg PO HS 11/12/17 [History] Sumatriptan [Imitrex] 20 mg NS ONCE PRN 11/12/17 [History] Clindamycin [Cleocin] 150 mg PO Q6HR #7 capsule 12/21/17 [Rx] HYDROcodone/Acet 5/325 mg [[place] 5-325 mg] 1 tab PO Q8H PRN 5 Days #15 tab 12/21 [Rx] Gabapentin [Neurontin] 800 mg PO TID PRN 01/14/18 [History] 3 Allergy/AdvReac Type Severity Reaction Status Date / Time adhesive tape Allergy Blister Verified 12/21/17 14:22 latex Allergy Rash Verified 12/21/17 14:22 vancomycin AdvReac Itching Verified 12/21/17 14:22 All Systems Reviewed: Denies fever, denies chills, denies cp, denies sob. Physical Exam - Constitutional Vitals: Temp Pulse Resp BP Pulse Ox 97.7 F 78 18 158/102 96 01/14/18 11:23 01/14/18 11:23 01/14/18 11:23 01/14/18 11:23 01/14/18 11:23 - Head Head exam: Present: atraumatic - Extremities Exam Extremities exam: Present: joint swelling (2+ edema to the right ankle, no erythema, no blisters, no lesions, light ecchymosis to the lateral right ankle, pedal pulses palpable, no cyanosis, no rubor, skin is warm, no erythema, no cellulitis. ), normal capillary refill, pedal edema, tenderness - Expanded Lower Extremities Exam Ankle exam: Present: ecchymosis (right lateral ankle), swelling (2+ edema to right ankle. ), tenderness (tenderness upon palpation to right lower leg and ankle. ) Neuro vascular tendon exam: Present: no vascular compromise - Skin Skin exam: Present: normal color - Vascular Capillary Refill: less than 3 seconds - Ankle & Foot Tenderness with palpation ankle: anterior ankle, anteromedial ankle, medial ankle, posteromedial ankle, posterior ankle, posterolateral ankle, lateral ankle (Limited ROM due to pain. ) Results - Labs Result Diagrams: 01/15/18 00:27 01/15/18 00:27 Labs: Abnormal lab results RDW 14.6 % (11.5-14.5) H 01/14/18 04:37 Sodium 133 mEq/L (136-145) L 01/14/18 04:37 BUN 21 mg/dL (6-20) H 01/14/18 04:37 BUN/Creatinine Ratio 35 (6-26) H 01/14/18 04:37 Glucose 123 mg/dL (70-105) H 01/14/18 04:37 H & H 01/14/18 Range/Units 04:37 Hgb 13.2 (11.5-15.4) g/dL Hct 41.4 (35.3-44.9) % All other labs normal. Consult Discharge Plan - Plan Referrals: Judson Ribeiro MD [Primary Care Provider] -
--- NOTE | 2018-01-14 14:47 | Internal Med Progress Note ---
Hospitalist Progress Note - Encounter Date of Encounter: 01/14/18 Time of Encounter: 10:00 - Subjective Interval History: Ms. Mooney is a 52 year old female admitted to [facility] for a right ankle fracture. Patient has a medical history significant for arthritis, DVT, fibromyalgia, GERD, hypertension, pulmonary embolus, hiatal hernia, degenerative arthritis, anemia, stomach ulcer, anxiety, bipolar and depression. Patient states yesterday she was standing on her front porch and tripped over her dog and fell off of her porch onto her right leg and left shoulder. After the fall patients brought her to [facility] yesterday and patient was transferred to [facility] to be evaluated by Orthopedics and Podiatry. Patient had a CT scan of the right ankle which showed a high fibular fracture and a small avulsion fracture from tibia. orthopedics were consulted who recommended podiatry to be consulted. podiatry consult and recommended non-surgical intervention Currently her pain is controlled she denies of any loss of sensation, loss of function, pain in the right leg. She denies shortness of breath, cough, palpitations, or chest pain. She does have a headache and requested her home pain medicines. She denies any vision loss, or extremity weakness. - Exam Vitals: Temp Pulse Resp BP Pulse Ox 97.7 F 78 18 158/102 96 01/14/18 11:23 01/14/18 11:23 01/14/18 11:23 01/14/18 11:23 01/14/18 11:23 Exam: General: Patient is alert, oriented, no acute distress, morbidly obese Head: atraumatic, normocephalic, Eye: normal appearance, PERRL, no scleral icterus, no conjunctival injection ENT: mucous membranes moist, normal external ear exam Neck: normal inspection, trachea midline, full ROM, no carotid bruits Chest: normal inspection, symmetric chest rise Respiratory: Good respiratory effort. Bilateral breath sounds are clear without wheezing, crackles, or rhonchi. Cardiovascular: Regular rate and rhythm. s1 and s2 No clicks, rubs, gallops, or murmors. Abdomen: Bowel sounds present normoactive x-4 quadrants. Abdomen is soft, nondistended. no Epigastric tenderness. No guarding or rebound. No organomegaly noted, obese musculoskeletal: Spontaneously moving all extremities. no edema, no calf tenderness , right ankle is wrapped in cj bandage. sensation in toes intact, wiggles toes. Skin: warm, dry, intact. Neuro: Alert and oriented x4. Sensation light touch intact. Cranial nerves 2- 12 is intact. Not aphasic, Psych: Patient's affect is normal - Assessment and Plan (1) Fibula fracture Current Visit: Yes Status: Acute Assessment and Plan: CT scan of the right ankle reviewed by Sessions: showed a high fibular fracture and a small avulsion fracture from tibia. podiatry on board - fractures are non operative. to continue with Tall cam boot. strict non weight bearing at this time. Rest, ice, elevate, cj wrap for compressions. PT/OT consult and social work job titles for discharge planning. Follow up with Dr. Nassar one week after discharge from hospital. (2) Malleolar fracture Current Visit: Yes Status: Acute Assessment and Plan: Management as above (3) Hypertension Current Visit: Yes Status: Acute Assessment and Plan: We will continue her home medications (4) Bipolar disorder Current Visit: No Status: Chronic Assessment and Plan: Continue home medications (5) DVT prophylaxis Current Visit: No Status: Acute Assessment and Plan: Heparin 5000 units every 8 hours subcutaneous as she has a history of DVT and PE DVT Prophylaxis: We will start her on Lovenox for DVT prophylaxis as she has had previous DVT and PE - Time Spent with Patient Total time spent is greater than 50% in coordination of care (as documented) at patient's floor/unit and/or counseling patient: Plan of Care Discussed with: patient Internal Medicine: Result - Labs CBC & Chem 7: 01/14/18 04:37 01/14/18 04:37 Labs: Short CBC 01/14/18 Range/Units 04:37 WBC 10.4 (4.3-11.1) K/mcL Hgb 13.2 (11.5-15.4) g/dL Hct 41.4 (35.3-44.9) % Plt Count 278 (140-400) K/mcL Neutrophils # 7.0 (1.6-8.9) K/mcL BMP 01/14/18 04:37 Sodium 133 L Potassium 4.3 Chloride 106 Carbon Dioxide 28 BUN 21 H Creatinine 0.60 Glucose 123 H Calcium 8.6 Consult Discharge Plan - Plan Referrals: Judson Ribeiro MD [Primary Care Provider] - (1) Fibula fracture Qualifiers: Encounter type: initial encounter Fracture type: closed Fracture morphology : unspecified fracture morphology (4) Bipolar disorder Qualifiers: Active/Remission status: remission status unspecified Qualified Code(s): F31.9 - Bipolar disorder, unspecified
--- NOTE | 2018-01-14 16:56 | Orthopedics Progress Note ---
Date of Encounter: 01/14/18 Time of Encounter: 16:55 Subjective Interval history: Patient seen this afternoon for her left shoulder. Patient well-known to me for his shoulder seen last week no surgery indicated patient with recent fall evaluation of left shoulder and right knee revealed no new findings. Both areas are stable x-rays of the knee and the shoulder show no changes when compared to earlier films. Patient will continue with nonoperative management of both the left shoulder and right knee. Objective Vital signs: Vital Signs Temp Pulse Resp BP Pulse Ox 01/14/18 16:16 98.8 F 74 15 142/88 95 01/14/18 11:23 97.7 F 78 18 158/102 96 01/14/18 07:58 98.0 F 90 17 139/87 97 01/14/18 05:15 98 F 94 18 142/86 97 01/14/18 00:30 98.5 F 75 16 172/94 96 Intake and Output 01/14/18 01/14/18 01/14/18 07:59 15:59 23:59 Output Total 200 / 200 400 / 400 Balance -200 / -200 -400 / -400 Output: Urine 200 / 200 400 / 400 Other: Weight 106.7 kg Patient Weight 01/14/18 23:59 Weight 106.7 kg - Labs CBC & BMP: 01/14/18 04:37 01/14/18 04:37 Labs: Abnormal lab results RDW 14.6 % (11.5-14.5) H 01/14/18 04:37 Sodium 133 mEq/L (136-145) L 01/14/18 04:37 BUN 21 mg/dL (6-20) H 01/14/18 04:37 BUN/Creatinine Ratio 35 (6-26) H 01/14/18 04:37 Glucose 123 mg/dL (70-105) H 01/14/18 04:37 Consult Discharge Plan - Plan Referrals: Judson Ribeiro MD [Primary Care Provider] -
[2018-01-14] MEDS: *HR* Heparin 5,000 UNIT/ML VIAL SQ SCH ×2 (17:04→21:43)
[2018-01-14] MEDS: *HR* OxyCODONE Immed Rel 5 MG TABLET PO PRN (17:13)
[2018-01-14] MEDS: OXcarbazepine 150 MG TABLET PO SCH (21:43)
[2018-01-14] MEDS: diazePAM 5 MG TABLET PO SCH (21:43)
[2018-01-15 00:42] LABS: Basophils # 0.1 K/mcL (0.0-0.2); Basophils % 0.7 %; Eosinophils # 0.4 K/mcL (0.0-0.6); Eosinophils % 4.5 %; Hematocrit 42.3 % (35.3-44.9); Hemoglobin 13.3 g/dL (11.5-15.4); Lymphocytes # 1.8 K/mcL (0.6-4.6); Lymphocytes % 20.4 %; Mean Corpuscular HGB Conc 31.4 g/dL (31.6-35.5); Mean Corpuscular Hemoglobin 27.9 pg (28.0-33.3); Mean Corpuscular Volume 88.9 fL (83.0-100.0); Mean Platelet Volume 9.1 fL (9.4-12.4); Monocytes # 0.8 K/mcL (0.0-1.3); Monocytes % 8.7 %; Neutrophils # 5.6 K/mcL (1.6-8.9); Platelet Count 270 K/mcL (140-400); Red Blood Count 4.76 M/mcL (3.82-4.97); Red Cell Distribution Width 14.3 % (11.5-14.5); Segmented Neutrophils % 64.7 %
[2018-01-15 01:00] LABS: BUN/Creatinine Ratio 26 (6-26); Blood Urea Nitrogen 16 mg/dL (6-20); Calcium 8.8 mg/dL (8.6-10.3); Carbon Dioxide 29 mEq/L (23-29); Chloride 100 mEq/L (98-107); Glucose 117 mg/dL (70-105); Osmolality,Calculated 288 (280-300); Potassium 3.7 mEq/L (3.5-5.1); Sodium 138 mEq/L (136-145); eGFR For Non-African Americans > 60 (> 60)
[2018-01-15] MEDS: *HR* OxyCODONE Immed Rel 5 MG TABLET PO PRN ×3 (01:35→20:44)
[2018-01-15] MEDS: *HR* Heparin 5,000 UNIT/ML VIAL SQ SCH ×3 (06:22→22:24)
[2018-01-15] MEDS: diazePAM 5 MG TABLET PO SCH ×2 (08:36→22:24)
[2018-01-15] MEDS: Topiramate 100 MG TABLET PO SCH ×2 (08:36→22:25)
[2018-01-15] MEDS: Loratadine 10 MG TABLET PO SCH (08:36)
[2018-01-15] MEDS: Venlafaxine XR (24 HR) 150 MG CAP.ER.24H PO SCH (08:36)
[2018-01-15] MEDS: Azelastine 0.1% Nasal Spray 30 ML BOTTLE NS SCH (08:37)
[2018-01-15] MEDS ORDERED: Aspirin Enteric Coated 325 MG Tablet PO SCH (09:00)
[2018-01-15] MEDS ORDERED: Ondansetron ODT 4 MG TAB.RAPDIS SL ONE (12:00)
[2018-01-15] MEDS: Methocarbamol 750 MG TABLET PO PRN (12:05)
[2018-01-15] MEDS: Gabapentin 300 MG CAPSULE PO PRN (13:29)
[2018-01-15] MEDS ORDERED: *HR* OxyCODONE/APAP 5/325 TABLET PO ONE (14:22)
--- NOTE | 2018-01-15 17:32 | Internal Med Progress Note ---
Hospitalist Progress Note - Encounter Date of Encounter: 01/15/18 Time of Encounter: 08:00 - Subjective Interval History: Ms. Mooney is a 52 year old female admitted to [place] for a right ankle fracture. Patient has a medical history significant for arthritis, DVT, fibromyalgia, GERD, hypertension, pulmonary embolus, hiatal hernia, degenerative arthritis, anemia, stomach ulcer, anxiety, bipolar and depression. Patient states yesterday she was standing on her front porch and tripped over her dog and fell off of her porch onto her right leg and left shoulder. After the fall patients brought her to [facility] yesterday and patient was transferred to [place] to be evaluated by Orthopedics and Podiatry. Patient had a CT scan of the right ankle which showed a high fibular fracture and a small avulsion fracture from tibia. orthopedics were consulted who recommended podiatry to be consulted. podiatry consult and recommended non-surgical intervention Currently her pain is controlled she denies of any loss of sensation, loss of function, pain in the right leg. She denies shortness of breath, cough, palpitations, or chest pain. She does have a headache and requested her home pain medicines. She denies any vision loss, or extremity weakness. - Exam Vitals: Temp Pulse Resp BP Pulse Ox 98.3 F 81 16 128/78 88 01/15/18 16:33 01/15/18 16:33 01/15/18 16:33 01/15/18 16:33 01/15/18 16:33 Exam: General: Patient is alert, oriented, no acute distress, morbidly obese Head: atraumatic, normocephalic, Eye: normal appearance, PERRL, no scleral icterus, no conjunctival injection ENT: mucous membranes moist, normal external ear exam Neck: normal inspection, trachea midline, full ROM, no carotid bruits Chest: normal inspection, symmetric chest rise Respiratory: Good respiratory effort. Bilateral breath sounds are clear without wheezing, crackles, or rhonchi. Cardiovascular: Regular rate and rhythm. s1 and s2 No clicks, rubs, gallops, or murmors. Abdomen: Bowel sounds present normoactive x-4 quadrants. Abdomen is soft, nondistended. no Epigastric tenderness. No guarding or rebound. No organomegaly noted, obese musculoskeletal: Spontaneously moving all extremities. no edema, no calf tenderness , right ankle is wrapped in cj bandage. sensation in toes intact, wiggles toes. Skin: warm, dry, intact. Neuro: Alert and oriented x4. Sensation light touch intact. Cranial nerves 2- 12 is intact. Not aphasic, Psych: Patient's affect is normal - Assessment and Plan (1) Fibula fracture Current Visit: Yes Status: Acute Assessment and Plan: CT scan of the right ankle reviewed by Sessions: showed a high fibular fracture and a small avulsion fracture from tibia. podiatry on board - fractures are non operative. to continue with Tall cam boot. strict non weight bearing at this time. Rest, ice, elevate, cj wrap for compressions. PT/OT consult and social media strategist for discharge planning. Follow up with Dr. Nassar one week after discharge from hospital. (2) Malleolar fracture Current Visit: Yes Status: Acute Assessment and Plan: Management as above (3) Hypertension Current Visit: Yes Status: Acute Assessment and Plan: We will continue her home medications (4) Bipolar disorder Current Visit: No Status: Chronic Assessment and Plan: Continue home medications (5) DVT prophylaxis Current Visit: No Status: Acute Assessment and Plan: Heparin 5000 units every 8 hours subcutaneous as she has a history of DVT and PE DVT Prophylaxis: as per above - Time Spent with Patient Total time spent is greater than 50% in coordination of care (as documented) at patient's floor/unit and/or counseling patient: Plan of Care Discussed with: patient Internal Medicine: Result - Labs CBC & Chem 7: 01/15/18 00:27 01/15/18 00:27 Labs: Short CBC 01/15/18 Range/Units 00:27 WBC 8.6 (4.3-11.1) K/mcL Hgb 13.3 (11.5-15.4) g/dL Hct 42.3 (35.3-44.9) % Plt Count 270 (140-400) K/mcL Neutrophils # 5.6 (1.6-8.9) K/mcL BMP 01/15/18 00:27 Sodium 138 Potassium 3.7 Chloride 100 Carbon Dioxide 29 BUN 16 Creatinine 0.61 Glucose 117 H Calcium 8.8 Consult Discharge Plan - Plan Referrals: Judson Ribeiro MD [Primary Care Provider] - (1) Fibula fracture Qualifiers: Encounter type: initial encounter Fracture type: closed Fracture morphology : unspecified fracture morphology Laterality: right Qualified Code(s): S82.401A - Unspecified fracture of shaft of right fibula, initial encounter for closed fracture (4) Bipolar disorder Qualifiers: Active/Remission status: remission status unspecified Qualified Code(s): F31.9 - Bipolar disorder, unspecified
[2018-01-15] MEDS: OXcarbazepine 150 MG TABLET PO SCH (22:24)
[2018-01-16] MEDS: Methocarbamol 750 MG TABLET PO PRN ×3 (01:34→17:18)
[2018-01-16] MEDS: *HR* OxyCODONE Immed Rel 5 MG TABLET PO PRN ×2 (03:31→13:26)
[2018-01-16] MEDS: *HR* Heparin 5,000 UNIT/ML VIAL SQ SCH ×3 (06:36→21:15)
[2018-01-16] MEDS: Loratadine 10 MG TABLET PO SCH (08:03)
[2018-01-16] MEDS: Venlafaxine XR (24 HR) 150 MG CAP.ER.24H PO SCH (08:03)
[2018-01-16] MEDS: Topiramate 100 MG TABLET PO SCH ×2 (08:04→21:15)
[2018-01-16] MEDS: Azelastine 0.1% Nasal Spray 30 ML BOTTLE NS SCH (08:04)
[2018-01-16] MEDS: diazePAM 5 MG TABLET PO SCH ×2 (08:04→21:15)
--- NOTE | 2018-01-16 09:49 | Event Note ---
Date of Encounter: 01/16/18 Time of Encounter: 13:30 Patient requesting to be seen by Dr. Shaw/team re: left shoulder pain. Patient seen and examined at bedside. Laying comfortably in bed. Spouse at bedside. Noted to have AN wrap applied to right ankle. Shoulder exam unremarkable with exception of tenderness to palpation along the anterior shoulder joint line. ROM is very good albeit patient expresses pain. She demonstrates by walking her fingers across her abdomen that she feels pain with this motion. Patient was encouraged to therefore avoid int/ext rotation of the shoulder and focus on elbow ROM which was demonstrated to patient and then patient repeated with good success. Incisions are well healed to the left shoulder. She states that she is in excruciating pain and states she "must have another tear in her shoulder because every time I feels this way, nothing shows up on the scans, but if Dr. Shaw will just go in and look at the shoulder with surgery then he will see a tear". Educated patient that she has seen both me and Dr. Shaw in the office and she just had a surgical procedure: Left shoulder scope adhesions lysis, revision labral repair, foreign body removal multiple 12/21/17 and that she should be following the restrictions laid out for her. She states that the medications last prescribed for her (Tizanidine and Celebrex) are providing her no relief and she also states that she is not getting adequate pain medication while in the hospital because "I still feel pain like every time I move the shoulder it feels like peel apart syrian cheese". We discussed that she should continue with conservative care for now as she has had multiple falls and injuries per patient since her surgery on 12/21 and also was found to have a fracture in her right lower extremity during this admission. She has outpatient follow up scheduled with [facility] for her shoulder coming up and she should keep this appt. Will add local pain relief with Lidoderm patch for anterior shoulder pain as patient already has pain medication ordered which she is stating is ineffective.
--- NOTE | 2018-01-16 12:05 | Internal Med Progress Note ---
Hospitalist Progress Note - Encounter Date of Encounter: 01/16/18 Time of Encounter: 08:00 - Subjective Interval History: Ms. Mooney is a 52 year old female admitted to [place] for a right ankle fracture. Patient has a medical history significant for arthritis, DVT, fibromyalgia, GERD, hypertension, pulmonary embolus, hiatal hernia, degenerative arthritis, anemia, stomach ulcer, anxiety, bipolar and depression. Patient states yesterday she was standing on her front porch and tripped over her dog and fell off of her porch onto her right leg and left shoulder. After the fall patients brought her to [facility] yesterday and patient was transferred to [place] to be evaluated by Orthopedics and Podiatry. Patient had a CT scan of the right ankle which showed a high fibular fracture and a small avulsion fracture from tibia. orthopedics were consulted who recommended podiatry to be consulted. podiatry consult and recommended non-surgical intervention Currently her pain is controlled she denies of any loss of sensation, loss of function, pain in the right leg. She denies shortness of breath, cough, palpitations, or chest pain. She does have a headache and requested her home pain medicines. She denies any vision loss, or extremity weakness. She complains of LEFT shoulder pain. Especially while using the left shoulder. Denies loss of function denies paresthesia and numbness tingling of her fingers. She reports that she has had this pain since she had a recent shoulder surgery. Her pain medications that are ordered do alleviate the pain. She is requesting an orthopedic follow-up. - Exam Vitals: Temp Pulse Resp BP Pulse Ox 98.4 F 87 16 156/95 93 01/16/18 06:35 01/16/18 06:35 01/16/18 06:35 01/16/18 06:35 01/16/18 06:35 Exam: General: Patient is alert, oriented, no acute distress, morbidly obese Head: atraumatic, normocephalic, Eye: normal appearance, PERRL, no scleral icterus, no conjunctival injection ENT: mucous membranes moist, normal external ear exam Neck: normal inspection, trachea midline, full ROM, no carotid bruits Chest: normal inspection, symmetric chest rise Respiratory: Good respiratory effort. Bilateral breath sounds are clear without wheezing, crackles, or rhonchi. Cardiovascular: Regular rate and rhythm. s1 and s2 No clicks, rubs, gallops, or murmors. Abdomen: Bowel sounds present normoactive x-4 quadrants. Abdomen is soft, nondistended. no Epigastric tenderness. No guarding or rebound. No organomegaly noted, obese musculoskeletal: Spontaneously moving all extremities. no edema, no calf tenderness , right ankle is wrapped in cj bandage. sensation in toes intact, wiggles toes. Skin: warm, dry, intact. Neuro: Alert and oriented x4. Sensation light touch intact. Cranial nerves 2- 12 is intact. Not aphasic, Psych: Patient's affect is normal - Assessment and Plan (1) Fibula fracture Current Visit: Yes Status: Acute Assessment and Plan: CT scan of the right ankle reviewed by Sessions: showed a high fibular fracture and a small avulsion fracture from tibia. podiatry on board - fractures are non operative. to continue with Tall cam boot. strict non weight bearing at this time. Rest, ice, elevate, cj wrap for compressions. PT/OT consult and social problems specialist for discharge planning most likely for 01/18/18 to [facility] Follow up with Dr. Nassar one week after discharge from hospital. (2) Malleolar fracture Current Visit: Yes Status: Acute Assessment and Plan: Management as above (3) Hypertension Current Visit: Yes Status: Acute Assessment and Plan: We will continue her home medications (4) Bipolar disorder Current Visit: No Status: Chronic Assessment and Plan: Continue home medications (5) DVT prophylaxis Current Visit: No Status: Acute Assessment and Plan: Heparin 5000 units every 8 hours subcutaneous as she has a history of DVT and PE DVT Prophylaxis: as per above - Time Spent with Patient Total time spent is greater than 50% in coordination of care (as documented) at patient's floor/unit and/or counseling patient: Plan of Care Discussed with: patient Internal Medicine: Result - Labs CBC & Chem 7: 01/15/18 00:27 01/15/18 00:27 Consult Discharge Plan - Plan Referrals: Judson Ribeiro MD [Primary Care Provider] - (1) Fibula fracture Qualifiers: Encounter type: initial encounter Fracture type: closed Fracture morphology : unspecified fracture morphology Laterality: right Qualified Code(s): S82.401A - Unspecified fracture of shaft of right fibula, initial encounter for closed fracture (4) Bipolar disorder Qualifiers: Active/Remission status: remission status unspecified Qualified Code(s): F31.9 - Bipolar disorder, unspecified
[2018-01-16] MEDS: Gabapentin 300 MG CAPSULE PO PRN (13:26)
[2018-01-16] MEDS: OXcarbazepine 150 MG TABLET PO SCH (21:14)
[2018-01-17] MEDS: *HR* OxyCODONE Immed Rel 5 MG TABLET PO PRN ×3 (01:10→22:53)
[2018-01-17] MEDS: *HR* Heparin 5,000 UNIT/ML VIAL SQ SCH ×3 (06:55→20:30)
[2018-01-17] MEDS: Loratadine 10 MG TABLET PO SCH (09:26)
[2018-01-17] MEDS: Venlafaxine XR (24 HR) 150 MG CAP.ER.24H PO SCH (09:26)
[2018-01-17] MEDS: diazePAM 5 MG TABLET PO SCH ×2 (09:26→20:31)
[2018-01-17] MEDS: Topiramate 100 MG TABLET PO SCH ×2 (09:26→20:31)
[2018-01-17] MEDS: Azelastine 0.1% Nasal Spray 30 ML BOTTLE NS SCH (09:27)
[2018-01-17] MEDS: Methocarbamol 750 MG TABLET PO PRN ×2 (09:33→14:20)
--- NOTE | 2018-01-17 13:56 | Internal Med Progress Note ---
Hospitalist Progress Note - Encounter Date of Encounter: 01/17/18 Time of Encounter: 09:00 - Subjective Interval History: Ms. Mooney is a 52 year old female admitted to [place] for a right ankle fracture. Patient has a medical history significant for arthritis, DVT, fibromyalgia, GERD, hypertension, pulmonary embolus, hiatal hernia, degenerative arthritis, anemia, stomach ulcer, anxiety, bipolar and depression. Patient states yesterday she was standing on her front porch and tripped over her dog and fell off of her porch onto her right leg and left shoulder. After the fall patients brought her to [facility] yesterday and patient was transferred to [place] to be evaluated by Orthopedics and Podiatry. Patient had a CT scan of the right ankle which showed a high fibular fracture and a small avulsion fracture from tibia. orthopedics were consulted who recommended podiatry to be consulted. podiatry consult and recommended non-surgical intervention Currently her pain is controlled she denies of any loss of sensation, loss of function, pain in the right leg. She denies shortness of breath, cough, palpitations, or chest pain. She does have a headache and requested her home pain medicines. She denies any vision loss, or extremity weakness. She complains of LEFT shoulder pain. Especially while using the left shoulder. Denies loss of function denies paresthesia and numbness tingling of her fingers. She reports that she has had this pain since she had a recent shoulder surgery. Her pain medications that are ordered do alleviate the pain. She is requesting an orthopedic follow-up. - Exam Vitals: Temp Pulse Resp BP Pulse Ox 97.6 F 75 16 139/82 99 01/17/18 12:40 01/17/18 12:40 01/17/18 12:40 01/17/18 12:40 01/17/18 12:40 Exam: General: Patient is alert, oriented, no acute distress, morbidly obese Head: atraumatic, normocephalic, Eye: normal appearance, PERRL, no scleral icterus, no conjunctival injection ENT: mucous membranes moist, normal external ear exam Neck: normal inspection, trachea midline, full ROM, no carotid bruits Chest: normal inspection, symmetric chest rise Respiratory: Good respiratory effort. Bilateral breath sounds are clear without wheezing, crackles, or rhonchi. Cardiovascular: Regular rate and rhythm. s1 and s2 No clicks, rubs, gallops, or murmors. Abdomen: Bowel sounds present normoactive x-4 quadrants. Abdomen is soft, nondistended. no Epigastric tenderness. No guarding or rebound. No organomegaly noted, obese musculoskeletal: Spontaneously moving all extremities. no edema, no calf tenderness , right ankle is wrapped in cj bandage. sensation in toes intact, wiggles toes. Skin: warm, dry, intact. Neuro: Alert and oriented x4. Sensation light touch intact. Cranial nerves 2- 12 is intact. Not aphasic, Psych: Patient's affect is normal - Assessment and Plan (1) Fibula fracture Current Visit: Yes Status: Acute Assessment and Plan: CT scan of the right ankle reviewed by Sessions: showed a high fibular fracture and a small avulsion fracture from tibia. podiatry on board - fractures are non operative. to continue with Tall cam boot. strict non weight bearing at this time. Rest, ice, elevate, cj wrap for compressions. PT/OT consult and secondary social studies teacher for discharge planning most likely for 01/18/18 to [facility] Follow up with Dr. Nassar one week after discharge from hospital. (2) Malleolar fracture Current Visit: Yes Status: Acute Assessment and Plan: Management as above (3) Hypertension Current Visit: Yes Status: Acute Assessment and Plan: We will continue her home medications (4) Bipolar disorder Current Visit: No Status: Chronic Assessment and Plan: Continue home medications (5) DVT prophylaxis Current Visit: No Status: Acute Assessment and Plan: Heparin 5000 units every 8 hours subcutaneous as she has a history of DVT and PE DVT Prophylaxis: as per above - Time Spent with Patient Total time spent is greater than 50% in coordination of care (as documented) at patient's floor/unit and/or counseling patient: Plan of Care Discussed with: patient Internal Medicine: Result - Labs CBC & Chem 7: 01/15/18 00:27 01/15/18 00:27 Consult Discharge Plan - Plan Referrals: Judson Ribeiro MD [Primary Care Provider] - (1) Fibula fracture Qualifiers: Encounter type: initial encounter Fracture type: closed Fracture morphology : unspecified fracture morphology Laterality: right (4) Bipolar disorder Qualifiers: Active/Remission status: remission status unspecified Qualified Code(s): F31.9 - Bipolar disorder, unspecified
--- NOTE | 2018-01-17 16:08 | Discharge Summary ---
- NOTES TO OUTPATIENT PROVIDER Notes to Outpatient Provider: follow up with orthopedics for left shoulder. follow up with podiatry. follow up Dr. colvin for ?rhuematological disorder Date of Encounter: 01/18/18 Time of Encounter: 11:05 - Discharge Diagnosis (1) Fibula fracture Priority: Primary Status: Acute Qualifiers: Encounter type: initial encounter Fracture type: closed Fracture morphology: unspecified fracture morphology Laterality: right Qualified Code (s): S82.401A - Unspecified fracture of shaft of right fibula, initial encounter for closed fracture (2) Malleolar fracture Priority: Secondary Status: Acute Qualifiers: Encounter type: initial encounter Laterality: right Qualified Code(s): S82.891A - Other fracture of right lower leg, initial encounter for closed fracture (3) Hypertension Priority: Secondary Status: Acute Qualifiers: Hypertension type: essential hypertension Qualified Code(s): I10 - Essential (primary) hypertension (4) Bipolar disorder Priority: Secondary Status: Chronic Qualifiers: Active/Remission status: remission status unspecified Qualified Code(s): F31.9 - Bipolar disorder, unspecified (5) DVT prophylaxis Priority: Secondary Status: Acute (6) Morbidly obese Priority: Secondary Status: Acute Hospital course: Ms. Mooney is a 52 year old female admitted to [place] for a right ankle fracture. Patient has a medical history significant for arthritis, DVT, fibromyalgia, GERD, hypertension, pulmonary embolus, hiatal hernia, degenerative arthritis, anemia, stomach ulcer, anxiety, bipolar and depression. Patient states yesterday she was standing on her front porch and tripped over her dog and fell off of her porch onto her right leg and left shoulder. After the fall patients brought her to [facility] yesterday and patient was transferred to [place] to be evaluated by Orthopedics and Podiatry. Patient had a CT scan of the right ankle which showed a high fibular fracture and a small avulsion fracture from tibia. orthopedics were consulted who recommended podiatry to be consulted. podiatry consult and recommended non-surgical intervention physical therapy and OT were consulted along with SW and CM and recommendations were followed she was treated with DVT prophylaxis while in the hospital. was discharged on lovenox SC- dose confirmed with pharmacy as she has had previous DVT in the past for 10 days. she was encouraged to ambulate. Discharge discussed with: patient - Time Spent with Patient Total time spent providing and/or coordinating discharge services: Less than 30 minutes (25) - Discharge Medications Prescriptions: Enoxaparin [Lovenox] 50 mg SQ DAILY 10 Days #10 syr Home Medications: Celecoxib [Celebrex] 200 mg PO BID 01/30/16 [History] EPINEPHrine [Epipen] 0.3 mg IJ ONCE PRN 01/30/16 [History] Montelukast [Singulair] 10 mg PO HS 01/30/16 [History] OXcarbazepine [Oxcarbazepine] 1,200 mg PO HS 03/24/16 [History] Ergocalciferol (VITAMIN D2) [Vitamin D2] 50,000 unit PO QMONTH 09/18/16 [History ] diazePAM [Valium] 5 mg PO QID 09/18/16 [History] Fluticasone Propionate Nasal [Flonase] 2 spray NS DAILY 11/03/16 [History] Azelastine HCl [Astepro] 2 spray NS DAILY 12/15/16 [History] Buspirone HCl [Buspar] 15 mg PO BID 02/23/17 [History] Albuterol Sulfate [Albuterol Inhaler] 2 puff IH Q4HR PRN #1 [id number] 05/21/17 [Rx] Cetirizine HCl [Zyrtec] 10 mg PO DAILY 09/18/17 [History] Esomeprazole Magnesium [Nexium] 40 mg PO DAILY 09/18/17 [History] Methocarbamol [Robaxin-750] 750 mg PO TID PRN 09/18/17 [History] Metoclopramide [Reglan] 5 mg PO DAILY 09/18/17 [History] Quetiapine Fumarate [Seroquel] 250 mg PO HS 09/18/17 [History] Topiramate [Topamax] 100 mg PO BID 09/18/17 [History] Venlafaxine XR (24 HR) [Effexor Xr] 300 mg PO DAILY 09/18/17 [History] Acetaminophen [Tylenol] 650 mg PO Q6HR PRN tablet 09/19/17 [Rx] Metoprolol [Lopressor] 25 mg PO BID 30 Days #60 tablet 09/19/17 [Rx] Hyoscyamine SL [Levsin Sl] 0.125 mg SL QID PRN 11/12/17 [History] Simvastatin [Zocor] 10 mg PO HS 11/12/17 [History] Sumatriptan [Imitrex] 20 mg NS ONCE PRN 11/12/17 [History] HYDROcodone/Acet 5/325 mg [Mark 5-325 mg] 1 tab PO Q8H PRN 5 Days #15 tab 12/21 [Rx] Gabapentin [Neurontin] 800 mg PO TID PRN 01/14/18 [History] Enoxaparin [Lovenox] 50 mg SQ DAILY 10 Days #10 syr 01/18/18 [Rx] Allergies/Adverse Reactions: 3 Allergy/AdvReac Type Severity Reaction Status Date / Time adhesive tape Allergy Blister Verified 12/21/17 14:22 latex Allergy Rash Verified 12/21/17 14:22 vancomycin AdvReac Itching Verified 12/21/17 14:22 Date of admission: 01/14/18 00:17 Primary care physician: Judson Ribeiro MD Consults: 01/14/18 08:12 Consult to Podiatry [CONS] Stat Consulting Provider: Podiatry [facility] Reason for Consult: fibula and right ankle fracture Call Completed: Yes 01/14/18 13:17 Consult to Physical Therapy [CONS] Routine Comment: Evaluate, develop and implement POC Reason for Consult: evaluation for d/c Does patient have active BEDREST order?: No Is patient medically & hemodynamically stable?: Yes Patient assessed for mobility or mobilized this visit?: No 01/14/18 16:58 Consult to Occupational Therapy [CONS] Routine Comment: Evaluate, develop and implement POC Reason for Consult: d/c planning Does patient have active BEDREST order?: No Is patient medically & hemodynamically stable?: Yes Patient assessed for mobility or mobilized this visit?: No 01/15/18 11:01 Consult to Mobile Therapist [CONS] Routine Reason for SW Consult: Discharge planning - Constitutional Vitals: Temp Pulse Resp BP Pulse Ox 98 F 80 16 143/82 97 01/17/18 15:50 01/17/18 15:50 01/17/18 15:50 01/17/18 15:50 01/17/18 15:50 Exam: General: Patient is alert, oriented, no acute distress, morbidly obese Head: atraumatic, normocephalic, Eye: normal appearance, PERRL, no scleral icterus, no conjunctival injection ENT: mucous membranes moist, normal external ear exam Neck: normal inspection, trachea midline, full ROM, no carotid bruits Chest: normal inspection, symmetric chest rise Respiratory: Good respiratory effort. Bilateral breath sounds are clear without wheezing, crackles, or rhonchi. Cardiovascular: Regular rate and rhythm. s1 and s2 No clicks, rubs, gallops, or murmors. Abdomen: Bowel sounds present normoactive x-4 quadrants. Abdomen is soft, nondistended. no Epigastric tenderness. No guarding or rebound. No organomegaly noted, obese musculoskeletal: Spontaneously moving all extremities. no edema, no calf tenderness , right ankle is wrapped in cj bandage. sensation in toes intact, wiggles toes. Skin: warm, dry, intact. Neuro: Alert and oriented x4. Sensation light touch intact. Cranial nerves 2- 12 is intact. Not aphasic, Psych: Patient's affect is normal - Patient Status Disposition: Transfer SNF Condition: Fair Functional capacity at discharge: uses cane/walker Overall status at discharge: patient is progressing back to baseline - Discharge Instructions Follow Up With: Judson Ribeiro MD [Primary Care Provider] - Trace Shaw MD [Partnered Physician] - Manuel Nassar DPM [Partnered Physician] - - Diet and Activity Activity: as per physical therapy Diet: advance to your usual diet
[2018-01-17] MEDS: OXcarbazepine 150 MG TABLET PO SCH (20:31)
[2018-01-18] MEDS: Methocarbamol 750 MG TABLET PO PRN ×3 (02:22→21:30)
[2018-01-18] MEDS: *HR* Heparin 5,000 UNIT/ML VIAL SQ SCH ×3 (06:05→21:28)
[2018-01-18] MEDS: Venlafaxine XR (24 HR) 150 MG CAP.ER.24H PO SCH (09:38)
[2018-01-18] MEDS: diazePAM 5 MG TABLET PO SCH ×2 (09:38→21:29)
[2018-01-18] MEDS: Loratadine 10 MG TABLET PO SCH (09:38)
[2018-01-18] MEDS: Topiramate 100 MG TABLET PO SCH ×2 (09:38→21:29)
[2018-01-18] MEDS: Azelastine 0.1% Nasal Spray 30 ML BOTTLE NS SCH (09:53)
[2018-01-18] MEDS: *HR* OxyCODONE Immed Rel 5 MG TABLET PO PRN ×2 (13:36→20:49)
[2018-01-18] MEDS: OXcarbazepine 150 MG TABLET PO SCH (21:29)
[2018-01-19] MEDS: *HR* Heparin 5,000 UNIT/ML VIAL SQ SCH (06:17)
[2018-01-19 07:05] VITALS: BP 138/84
[2018-01-19] MEDS: Venlafaxine XR (24 HR) 150 MG CAP.ER.24H PO SCH (09:17)
[2018-01-19] MEDS: diazePAM 5 MG TABLET PO SCH (09:17)
[2018-01-19] MEDS: Loratadine 10 MG TABLET PO SCH (09:17)
[2018-01-19] MEDS: Topiramate 100 MG TABLET PO SCH (09:17)
[2018-01-19] MEDS: Azelastine 0.1% Nasal Spray 30 ML BOTTLE NS SCH (09:17)
[2018-01-19] MEDS: *HR* OxyCODONE Immed Rel 5 MG TABLET PO PRN (09:31)
--- NOTE | 2018-01-19 11:03 | Physician Discharge Referral ---
ExtendedCare Referral Info Transfer To: [facility] Provider in Charge: Lizbeth Cuellar Provider in Charge after Transfer: PCP Institutional Level of Care: Skilled - Diagnosis (1) Avulsion fracture of ankle Priority: Primary Status: Acute (2) Hypertension Priority: Secondary Status: Chronic (3) Malleolar fracture Priority: Primary Status: Acute (4) Morbidly obese Priority: Secondary Status: Chronic (5) Anxiety Priority: Secondary Status: Chronic (6) Bipolar disorder Priority: Secondary Status: Chronic (7) COPD (chronic obstructive pulmonary disease) Priority: Secondary Status: Chronic (8) Chronic left shoulder pain Priority: Secondary Status: Chronic (9) JOSE on CPAP Priority: Secondary Status: Chronic Expected Duration of Placement: 3 weeks Prognosis: Fair Aware of Diagnosis: Patient Aware of Prognosis: Patient - Transfer Medications Prescriptions: diazePAM [Valium] 5 mg PO QID PRN 10 Days #10 tablet PRN Reason: Anxiety Enoxaparin [Lovenox] 50 mg SQ DAILY 10 Days #10 syr Gabapentin [Neurontin] 800 mg PO TID #30 capsule HYDROcodone/Acet 5/325 mg [[place] 5-325 mg] 1 tab PO Q8H PRN 5 Days #15 tab PRN Reason: Severe Pain Home Medications: Celecoxib [Celebrex] 200 mg PO BID 01/30/16 [History] EPINEPHrine [Epipen] 0.3 mg IJ ONCE PRN 01/30/16 [History] Montelukast [Singulair] 10 mg PO HS 01/30/16 [History] OXcarbazepine [Oxcarbazepine] 1,200 mg PO HS 03/24/16 [History] Ergocalciferol (VITAMIN D2) [Vitamin D2] 50,000 unit PO QMONTH 09/18/16 [History ] Fluticasone Propionate Nasal [Flonase] 2 spray NS DAILY 11/03/16 [History] Azelastine HCl [Astepro] 2 spray NS DAILY 12/15/16 [History] Buspirone HCl [Buspar] 15 mg PO BID 02/23/17 [History] Albuterol Sulfate [Albuterol Inhaler] 2 puff IH Q4HR PRN #1 hfa.aer.ad 05/21/17 [Rx] Cetirizine HCl [Zyrtec] 10 mg PO DAILY 09/18/17 [History] Esomeprazole Magnesium [Nexium] 40 mg PO DAILY 09/18/17 [History] Methocarbamol [Robaxin-750] 750 mg PO TID PRN 09/18/17 [History] Metoclopramide [Reglan] 5 mg PO DAILY 09/18/17 [History] Quetiapine Fumarate [Seroquel] 250 mg PO HS 09/18/17 [History] Topiramate [Topamax] 100 mg PO BID 09/18/17 [History] Venlafaxine XR (24 HR) [Effexor Xr] 300 mg PO DAILY 09/18/17 [History] Acetaminophen [Tylenol] 650 mg PO Q6HR PRN tablet 09/19/17 [Rx] Metoprolol [Lopressor] 25 mg PO BID 30 Days #60 tablet 09/19/17 [Rx] Hyoscyamine SL [Levsin Sl] 0.125 mg SL QID PRN 11/12/17 [History] Simvastatin [Zocor] 10 mg PO HS 11/12/17 [History] Sumatriptan [Imitrex] 20 mg NS ONCE PRN 11/12/17 [History] Enoxaparin [Lovenox] 50 mg SQ DAILY 10 Days #10 syr 01/18/18 [Rx] Gabapentin [Neurontin] 800 mg PO TID #30 capsule 01/19/18 [Rx] HYDROcodone/Acet 5/325 mg [[place] 5-325 mg] 1 tab PO Q8H PRN 5 Days #15 tab 01/19 [Rx] diazePAM [Valium] 5 mg PO QID PRN 10 Days #10 tablet 01/19/18 [Rx] Allergies/Adverse Reactions: 3 Allergy/AdvReac Type Severity Reaction Status Date / Time adhesive tape Allergy Blister Verified 12/21/17 14:22 latex Allergy Rash Verified 12/21/17 14:22 vancomycin AdvReac Itching Verified 12/21/17 14:22 - Respiratory Orders Other (CPAP at night) Smoking Cessation: Smoking cessation has been advised. For more information, call the [place] Tobacco Quit Line at 9-974-TSKE-NOW. - Advance Directives Code Status: Full Code - Mobility Orders Ambulate - Rehabiliation Orders Rehab Potential: Fair Rehab Orders: ROM Exercises, Evaluation for Physical Therapy, Evaluation for Occupational Therapy - Diet Orders Cardiac CERTIFICATION: I certify that the transfer of the above named patient to an Extended Care Facility is necessary for the continuing treatment of the diagnosis listed. The above information is true and accurate reflection of patient's current condition. Confidential - Redisclosure prohibited without a patient's written consent.
--- NOTE | 2018-01-19 14:52 | Internal Med Progress Note ---
Hospitalist Progress Note - Encounter Date of Encounter: 01/19/18 Time of Encounter: 11:10 - Subjective Interval History: Feels better, no chest pain, dyspnea; continues to have right ankle pain, awaiting discharge to rehab; - Exam Vitals: Temp Pulse Resp BP Pulse Ox 98.4 F 87 16 138/84 94 01/19/18 06:30 01/19/18 06:30 01/19/18 06:30 01/19/18 06:30 01/19/18 09:41 Exam: General: Morbidly obese female, sitting up in bed, mild distress Chest: Normal thoracic expansion. Normal breath sounds. Clear to auscultation. Heart: Normal S1 & S2; rhythmic. No rubs or murmurs. Extremities: Right lower leg and foot in brace; - Assessment and Plan (1) Avulsion fracture of ankle Status: Acute Assessment and Plan: CT scan of right ankle showed high fibular fracture and a small avulsion fracture from tibia, per Orthopedics; nonoperative; recommend conservative management, tall cam boot for stability, protective weightbearing; Physical and occupational therapy evaluation recommended ECF placement. learning support services director on board. Patient is currently medically stable for discharge, discharge paperwork has been partly completed by previous hospitalist. I have completed discharge referral along with prescriptions for controlled substances. (2) Hypertension Status: Chronic (3) Malleolar fracture Status: Acute (4) Morbidly obese Status: Chronic (5) Anxiety Status: Chronic (6) Bipolar disorder Status: Chronic (7) COPD (chronic obstructive pulmonary disease) Status: Chronic (8) Chronic left shoulder pain Status: Chronic - Time Spent with Patient Total time spent is greater than 50% in coordination of care (as documented) at patient's floor/unit and/or counseling patient: Plan of Care Discussed with: nurse Internal Medicine: Result - Labs CBC & Chem 7: 01/15/18 00:27 01/15/18 00:27 - VTE Documentation of Mechanical Device: Venous foot pump, device Consult Discharge Plan - Plan Referrals: Trace Shaw MD [Partnered Physician] - 02/02/18 8:45 am (Second followup: 02/09/18 @ 8:40am) Manuel Nassar DPM [Partnered Physician] - 01/28/18 3:40 pm Prescriptions: diazePAM [Valium] 5 mg PO QID PRN 10 Days #10 tablet PRN Reason: Anxiety Enoxaparin [Lovenox] 50 mg SQ DAILY 10 Days #10 syr Gabapentin [Neurontin] 800 mg PO TID #30 capsule HYDROcodone/Acet 5/325 mg [[place] 5-325 mg] 1 tab PO Q8H PRN 5 Days #15 tab PRN Reason: Severe Pain (1) Avulsion fracture of ankle Qualifiers: Encounter type: initial encounter Fracture type: closed Laterality: right Qualified Code(s): S82.891A - Other fracture of right lower leg, initial encounter for closed fracture (2) Hypertension Qualifiers: Hypertension type: essential hypertension Qualified Code(s): I10 - Essential (primary) hypertension (3) Malleolar fracture Qualifiers: Encounter type: initial encounter Fracture type: closed Laterality: right Qualified Code(s): S82.891A - Other fracture of right lower leg, initial encounter for closed fracture (6) Bipolar disorder Qualifiers: Active/Remission status: remission status unspecified Qualified Code(s): F31.9 - Bipolar disorder, unspecified (7) COPD (chronic obstructive pulmonary disease) Qualifiers: COPD type: unspecified COPD Qualified Code(s): J44.9 - Chronic obstructive pulmonary disease, unspecified
== END 2018-01-19 12:29 ==
LOC: 3NENU → SUATTDRO 01-14 00:17
PROVIDERS: ADMIT Student in an Organized Health Care Education/Training Program; ATTEND Internal Medicine

== ENCOUNTER 2018-04-01 13:31 | Inpatient (IN) ==
[~2018-04-01 13:31] MED LIST: *HR* HYDROmorphone (PF) 1 MG/ML SYRINGE IVP PRN; *HR* HYDROmorphone 2 MG TABLET PO PRN; *HR* Labetalol 20 MG/4 ML SYRINGE IVP PRN; *HR* OxyCODONE Immed Rel 5 MG TABLET PO PRN; *HR* PHENYLEPHRINE 1,000 MCG/10 ML SYRINGE IVP ONE; *HR* Promethazine 25 MG/ML VIAL IVP PRN; Acetaminophen IV 1,000 MG/100 ML INFUS..BTL IV ONE; Albuterol 2.5 MG/3 ML NEBULIZER IH ONE; CeFAZolin Syringe 2,000MG/20 ML SYR IVPB ONE; Famotidine 20 MG/2 ML VIAL IVP ONE
[2018-04-01] MEDS ORDERED: EPHEDrine 50 MG/ML VIAL ONE (13:57)
--- NOTE | 2018-04-01 14:23 | Orthopedic Operative Note ---
Date of procedure: 04/01/18 Pre-op diagnosis: Left shoulder cuff tear arthropathy Post-op diagnosis: same Procedure: Procedure: Total Shoulder Replacment Reverse, biceps tenodesis Estimated blood loss: 100 cc Hardware: Metal and polyethylene replacement: Arthrex 24, +2 , 25 screw glenoid baseplate, 2 4.5 screws. 2 5.5 screw, 39+4 glenosphere, 8 apex humeral stem, poly insert 3 Exam Under anesthesia: Full motion no instability Procedural Notes: Operative procedure: The patient was brought to the operating room and placed on the operating room table. After general anesthesia was administered the operative shoulder was examined. Findings were noted. The patient was placed in the modified beachchair position. All pressure points were padded appropriately. And the head was stabilized in the neutral position. The operative extremity was prepped and draped in the sterile surgical fashion. The patient received IV antibiotics prior to skin incision. A standard deltopectoral approach was made to the operative shoulder. Incision was made to the skin and subcutaneous tissue,hemo stasis was obtained with Bovie cautery. Using careful blunt dissection the cephalic vein was identified and mobilized medially. The deltopectoral interval was developed and the c lavipectoral fascia was incised. The subscap was released off the lesser tuberosity and tagged with #2 FiberWire suture. The humerus was dislocated patient noted to have irreparable tear supraspinatus tendon, and the humeral cut was made along the anatomic neck. Anterior and posterior Bankart retractors were placed to expose the glenoid. The glenoid guide was seated and the centering hole was made. It was reamed with the appropriate reamer. The 24, +2 , 25 screw glenoid baseplate was seated and secured with (2) 4.5 screws and 2 5.5 screw. The baseplate was irrigated and dried and the 39+4 Glenosphere was seated and secured with the Harris taper. The Harris taper was tested and found to be secure the humerus was redislocated and prepared with the diaphyseal reamers, followed by a broaching process up to the appropriate size 8 apex in the patient's anatomic version. The metaphyseal reamer was then utilized. Trial reduction found the shoulder to be relocatable. Trial components were removed and 8 apex stem was impacted in place in the patient's anatomic version. Trial reduction found the shoulder to be relocatable and stable with the appropriate 3. Trial component was removed and the real implant was seated and secured the shoulder was reduced. The shoulder had excellent motion and excellent stability and no evidence of dislocation. The deep tissue was irrigated with pulse irrigation. The deltopectoral interval was closed with a running #1 PDS suture, subcutaneous tissue was irrigated and closed with 0 PDS suture, the skin was closed with Dermabond. The patient was placed in a sterile dressing, abduction brace and extubated. The patient was then transferred to the recovery room in stable condition. Anesthesia: GETA Surgeon: Trace Shaw Was there an retail loan originator assistant present: No Estimated blood loss (cc): 100 Condition: stable Disposition: PACU
[2018-04-01] MEDS ORDERED: Ketorolac 30 MG/ML VIAL IVP ONE (15:24)
[2018-04-01 15:32] LABS: Hematocrit 41.2 % (35.3-44.9)
[2018-04-01] MEDS ORDERED: SUMATRIPTAN 20 MG NS PRN (16:06)
[2018-04-01] MEDS ORDERED: diazePAM 10 MG TABLET PO PRN (16:06)
[2018-04-01] MEDS ORDERED: Ondansetron 4 MG/2 ML VIAL IVP PRN (16:06)
[2018-04-01] MEDS ORDERED: Naloxone 0.4 MG/ML INJ IVP PRN (16:06)
[2018-04-01] MEDS ORDERED: Ringers Solution, Lactated 1,000 ML IVC SCH (16:06)
[2018-04-01] MEDS ORDERED: *HR* EPINEPHrine 1 MG/ML AMPUL IM PRN (16:06)
[2018-04-01] MEDS ORDERED: traMADol 50 MG TABLET PO PRN (16:06)
[2018-04-01] MEDS ORDERED: MOM Conc 10 ML UD.LIQ PO PRN (16:06)
[2018-04-01] MEDS ORDERED: Hyoscyamine SL 0.125 MG TAB.SUBL SL PRN (16:06)
[2018-04-01] MEDS ORDERED: *HR* OxyCODONE Immed Rel 5 MG TABLET PO PRN (16:06)
[2018-04-01] MEDS ORDERED: *HR* OxyCODONE/APAP 5/325 TABLET PO PRN (16:06)
[2018-04-01] MEDS ORDERED: Methocarbamol 750 MG TABLET PO PRN (16:06)
[2018-04-01] MEDS: Gabapentin 400 MG CAPSULE PO SCH ×2 (16:10→21:12)
--- NOTE | 2018-04-01 16:51 | Anesthesia Evaluation Post Op ---
Date of Encounter: 04/01/18 Time of Encounter: 15:50 - Discharge PostOp Status: Transfer Patient to floor (Patient's vital signs have been reviewed. Patient is stable postoperatively and has adequately recovered from anesthesia. Patient is determined to have stable airway patency and respiratory function including respiratory rate and oxygen saturation. Patient has a stable heart rate, blood pressure and adequate hydration. Patients mental status is acceptable. Patients temperature is appropriate. Pain and nausea are adequately controlled.)
[2018-04-01] MEDS ORDERED: *HR* Enoxaparin 30 MG/0.3 ML SYRINGE SQ SCH (18:00)
[2018-04-01] MEDS: *HR* Enoxaparin 30 MG/0.3 ML SYRINGE SQ SCH (19:42)
[2018-04-01] MEDS ORDERED: OXcarbazepine 150 MG TABLET PO SCH (21:00)
[2018-04-01] MEDS ORDERED: Temazepam 15 MG CAPSULE PO PRN (21:00)
[2018-04-01] MEDS ORDERED: Sennosides 8.6 MG TABLET PO PRN (21:00)
[2018-04-01] MEDS: Topiramate 100 MG TABLET PO SCH (21:13)
[2018-04-02] MEDS: *HR* Enoxaparin 30 MG/0.3 ML SYRINGE SQ SCH (04:59)
[2018-04-02 05:27] LABS: Hematocrit 38.2 % (35.3-44.9); Hemoglobin 11.8 g/dL (11.5-15.4)
--- NOTE | 2018-04-02 06:35 | Discharge Summary ---
Orders not resulted at time of discharge: Pending orders 04/01/18 14:12 Surgical Pathology [PTH] Routine 04/03/18 04:00 Hemoglobin and Hematocrit [HEME] AM 0400 Date of Encounter: 04/02/18 Time of Encounter: 06:35 - Discharge Diagnosis (1) Morbid obesity with BMI of 40.0-44.9, adult Priority: Secondary Status: Chronic (2) Rotator cuff tear arthropathy of left shoulder Priority: Primary Status: Chronic (3) Status post reverse total replacement of left shoulder Priority: Primary Status: Acute (4) Bipolar disorder Priority: Secondary Status: Chronic Qualifiers: Active/Remission status: remission status unspecified Qualified Code(s): F31.9 - Bipolar disorder, unspecified (5) Depression Priority: Secondary Status: Chronic Qualifiers: Depression Type: unspecified Qualified Code(s): F32.9 - Major depressive disorder, single episode, unspecified (6) Fibromyalgia Priority: Secondary Status: Chronic (7) History of DVT (deep vein thrombosis) Priority: Secondary Status: Chronic (8) Hypertension Priority: Secondary Status: Chronic Qualifiers: Hypertension type: unspecified Qualified Code(s): I10 - Essential (primary) hypertension (9) JOSE on CPAP Priority: Secondary Status: Chronic (10) History of pulmonary embolism Priority: Secondary Status: Resolved - Hospital Course Hospital course: Ms. Mooney is a 52 year old female The patient had an uneventful postoperative course. They received antibiotics and physical therapy and were discharged in stable condition. There will follow-up in the office in 2 weeks. - Time Spent with Patient Total time spent providing and/or coordinating discharge services: - Discharge Medications Home Medications: Celecoxib [Celebrex] 200 mg PO BID 01/30/16 [History] EPINEPHrine [Epipen] 0.3 mg IJ ONCE PRN 01/30/16 [History] Montelukast [Singulair] 10 mg PO HS 01/30/16 [History] OXcarbazepine [Oxcarbazepine] 1,200 mg PO HS 03/24/16 [History] Ergocalciferol (VITAMIN D2) [Vitamin D2] 50,000 unit PO QMONTH 09/18/16 [History] Fluticasone Propionate Nasal [Flonase] 2 spray NS DAILY 11/03/16 [History] Azelastine HCl [Astepro] 2 spray NS DAILY 12/15/16 [History] Albuterol Sulfate [Albuterol Inhaler] 2 puff IH Q4HR PRN #1 hfa.aer.ad 05/21/17 [Rx] Cetirizine HCl [Zyrtec] 10 mg PO DAILY 09/18/17 [History] Esomeprazole Magnesium [Nexium] 40 mg PO DAILY 09/18/17 [History] Methocarbamol [Robaxin-750] 750 mg PO TID PRN 09/18/17 [History] Metoclopramide [Reglan] 10 mg PO TID 09/18/17 [History] Quetiapine Fumarate [Seroquel] 250 mg PO HS 09/18/17 [History] Topiramate [Topamax] 100 mg PO BID 09/18/17 [History] Venlafaxine XR (24 HR) [Effexor Xr] 300 mg PO DAILY 09/18/17 [History] Acetaminophen [Tylenol] 650 mg PO Q6HR PRN tablet 09/19/17 [Rx] Metoprolol [Lopressor] 25 mg PO BID 30 Days #60 tablet 09/19/17 [Rx] Hyoscyamine SL [Levsin Sl] 0.125 mg SL QID PRN 11/12/17 [History] Simvastatin [Zocor] 10 mg PO HS 11/12/17 [History] Sumatriptan [Imitrex] 20 mg NS ONCE PRN 11/12/17 [History] Gabapentin [Neurontin] 800 mg PO TID #30 capsule 01/19/18 [Rx] diazePAM [Valium] 5 mg PO QID PRN 10 Days #10 tablet 01/19/18 [Rx] Promethazine [Phenergan] 25 mg PO Q6HR 04/01/18 [History] Tizanidine HCl 4 mg PO TID 04/01/18 [History] OxyCODONE Immed Rel [Roxicodone 5 MG] 5 mg PO Q6HR PRN 5 Days #20 tablet 04/02/18 [Rx] Allergies/Adverse Reactions: Allergy/AdvReac Type Severity Reaction Status Date / Time adhesive tape Allergy Blister Verified 04/01/18 13:45 latex Allergy Rash Verified 04/01/18 13:45 vancomycin AdvReac Itching Verified 04/01/18 13:45 Date of admission: 04/01/18 16:11 Primary care physician: Judsno Ribeiro MD Consults: 04/01/18 16:06 Consult to Occupational Therapy [CONS] Routine Comment: post shoulder surgery Reason for Consult: post shoulder surgery Does patient have active BEDREST order?: No Is patient medically & hemodynamically stable?: Yes Consult to Physical Therapy [CONS] Routine Comment: post shoulder surgery Reason for Consult: post shoulder surgery Does patient have active BEDREST order?: No Is patient medically & hemodynamically stable?: Yes RT Post Op Consult [CONS] Routine Labs on day of discharge: Labs from last 24 hours 04/02/18 04/01/18 04:22 14:51 Hgb 11.8 13.0 Hct 38.2 41.2 - Impressions ITS Impressions Shoulder X-Ray 04/01/18 12:58 IMPRESSION: 1. Left reverse total shoulder arthroplasty without postsurgical complication. D/ / Brijesh Martínez MD / Brijesh Martínez MD Interpreting Provider: Brijesh Martínez MD Shoulder X-Ray 04/01/18 16:38 IMPRESSION: Status post reverse total left shoulder arthroplasty, in gross anatomic alignment, with postoperative changes, without hardware complication, fracture or dislocation. D/ / Eddie Meraz MD / Eddie Meraz MD Interpreting Provider: Eddie Meraz MD - Patient Status Disposition: Home, Self-Care Condition: Good Functional capacity at discharge: independent ambulation Overall status at discharge: patient is progressing back to baseline - Discharge Instructions Follow Up With: Judson Ribeiro MD [Primary Care Provider] -
--- NOTE | 2018-04-02 06:38 | Orthopedics Progress Note ---
Date of Encounter: 04/02/18 Time of Encounter: 06:38 - Assessment and Plan (1) Morbid obesity with BMI of 40.0-44.9, adult Current Visit: Yes Status: Chronic (2) Rotator cuff tear arthropathy of left shoulder Current Visit: Yes Status: Chronic (3) Status post reverse total replacement of left shoulder Current Visit: Yes Status: Acute (4) Bipolar disorder Current Visit: No Status: Chronic Qualifiers: Active/Remission status: remission status unspecified Qualified Code(s): F31.9 - Bipolar disorder, unspecified (5) Depression Current Visit: No Status: Chronic Qualifiers: Depression Type: unspecified Qualified Code(s): F32.9 - Major depressive disorder, single episode, unspecified (6) Fibromyalgia Current Visit: No Status: Chronic (7) History of DVT (deep vein thrombosis) Current Visit: No Status: Chronic (8) Hypertension Current Visit: No Status: Chronic Qualifiers: Hypertension type: unspecified Qualified Code(s): I10 - Essential (primary) hypertension (9) JOSE on CPAP Current Visit: No Status: Chronic (10) History of pulmonary embolism Current Visit: No Status: Resolved Subjective Interval history: Patient was seen this morning doing well without complaints. Afebrile vital signs stable. Operative extremity: Neurovascularly intact Dressing clean dry and intact Calves nontender Assessment and plan: Continue with postoperative care Discharged today Objective Vital signs: Vital Signs Temp Pulse Resp BP Pulse Ox 04/02/18 04:34 98.3 F 80 18 124/68 96 04/01/18 23:28 98.0 F 90 18 107/62 93 04/01/18 19:11 97.7 F 98 16 119/73 95 04/01/18 19:00 98.1 F 89 17 113/71 94 04/01/18 17:11 98.2 F 86 17 110/70 96 04/01/18 16:40 98.3 F 83 17 132/79 94 04/01/18 16:20 94 04/01/18 16:07 97.9 F 84 15 123/80 94 04/01/18 15:55 97.1 F L 85 22 128/83 95 04/01/18 15:45 84 20 135/78 96 04/01/18 15:35 95 22 135/75 94 04/01/18 15:25 97.2 F L 85 22 122/82 95 04/01/18 15:15 85 24 132/75 95 04/01/18 15:05 97.0 F L 84 24 117/88 96 04/01/18 14:55 97.0 F L 86 24 151/80 95 04/01/18 14:45 97.7 F 87 22 148/89 96 04/01/18 14:35 97.8 F 88 22 156/74 97 04/01/18 14:25 97.1 F L 97 22 148/83 94 Intake and Output 04/01/18 04/01/18 04/02/18 15:59 23:59 07:59 Intake Total 100 / 100 480 / 480 100 / 100 Output Total 100 / 100 500 / 500 Balance 0 / 0 -20 / -20 100 / 100 Intake: IV Fluids 100 / 100 Ancef 2,000 MG In 0.9 % Sodium 100 / 100 Chloride 100 ML @ 200 mls/hr IVPB Q8HR [facility] Rx#:[id number] Oral 480 / 480 100 / 100 Output: Urine 500 / 500 Estimated Blood Loss 100 / 100 Other: Meal Dinner Percent of Meal Consumed 100% Weight 105.687 kg - Labs CBC & BMP: 04/02/18 04:22 Consult Discharge Plan - Plan Referrals: Judson Ribeiro MD [Primary Care Provider] - Prescriptions: OxyCODONE Immed Rel [Roxicodone 5 MG] 5 mg PO Q6HR PRN 5 Days #20 tablet PRN Reason: Pain
[2018-04-02] MEDS: Gabapentin 400 MG CAPSULE PO SCH (08:30)
[2018-04-02] MEDS: Topiramate 100 MG TABLET PO SCH (08:31)
[2018-04-02] MEDS ORDERED: Fluticasone Propionate Nasal 50 MCG/SPRAY BOTTLE NS SCH (09:00)
[2018-04-02] MEDS ORDERED: Loratadine 10 MG TABLET PO SCH (09:00)
[2018-04-02] MEDS ORDERED: Venlafaxine XR (24 HR) 150 MG CAP.ER.24H PO SCH (09:00)
[2018-04-02] MEDS ORDERED: ASTEPRO NS SCH (09:00)
[2018-04-02 10:40] VITALS: BP 103/64
== END 2018-04-02 11:40 | disposition home or self-care (01) | DRG 483 ==
LOC: SAMDAY 13:31 → 3NENU 16:11
PROVIDERS: ADMIT Orthopaedic Surgery; ATTEND Orthopaedic Surgery